=== PATIENT | female | born 1960 | race Caucasian/White ===

== ENCOUNTER 2016-12-07 08:16 | Inpatient (IN) | payer MEDICARE, MEDICAID ==
[~2016-12-07] VITALS: Ht 180.3 cm; Wt 76.4 kg
[2016-12-07] VITALS (11 sets, daily range): BP systolic 139–222; BP diastolic 78–132; PULSE 75–118; RESP 16–20; TEMP 96.5–98.1; O2SAT 93–99
[~2016-12-07 08:16] MED LIST: BABY81CH PO; CHOL4 PO; CIME200T2 PO; CITA20TA4 PO; CONTOUR1 XX; LANTUS2P SC; LISI-363 PO; METO25 PO; MULT1TAB46
[2016-12-07] MEDS ORDERED: LANTUS2P SQ (08:43)
[2016-12-07] MEDS ORDERED: LISI-515 PO (08:43)
[2016-12-07] MEDS ORDERED: METO25TA3 PO (08:43)
[2016-12-07] MEDS ORDERED: MULT-65 PO (08:43)
[2016-12-07] MEDS ORDERED: ASPI81CH CHEW (08:43)
[2016-12-07] MEDS ORDERED: LISINOPRIL 20 MG TAB PO ONE (08:45)
[2016-12-07] MEDS ORDERED: ASPIRIN 81 MG CHEW TAB PO ONE (08:45)
--- NOTE | 2016-12-07 08:45 | PD ---
HPI Chief Complaint: Chest Pain Time Seen by Provider: 08:39 Travel History International Travel<30 days: No Contact w/Intl Traveler<30days: No Traveled to known affect area: No History of Present Illness HPI This is a 56-year-old female with a history of coronary artery disease, CVA, hypertension, hyperlipidemia, diabetes mellitus, who presents today with complaints of intermittent chest pain. She states she's had a couple days of intermittent substernal chest pressure with radiation to her bilateral shoulders. She denies any nausea but reports diaphoresis with the last episode that happened about 2:00 this morning. She does report shortness of breath. She states that this felt similar to when she had her heart attack and had to have stents placed. The patient states that she is not been taking her medication as prescribed because she has lost her patient assistance secondary to her green card expiring. She states she is a [place] citizen and has been unable to qualify for patient assistance secondary to the above. She states that she normally takes lisinopril twice daily and has been only taking it once daily. She states she's not been taking her cholesterol medicine for probably about 3 months. PFSH Past Medical History Hx Anticoagulant Therapy: Yes (baby asa) Autoimmune Disease: No Blood Disorders: No Anxiety: No Depression: Yes Heart Rhythm Problems: No Cancer: No Cardiac Catheterization: Yes Cardiovascular Problems: Yes (stent, DE, htn) High Cholesterol: Yes Chemotherapy: No Chest Pain: Yes Congestive Heart Failure: No Cerebrovascular Accident: Yes Coronary Artery Disease: Yes Diabetes: Yes Diminished Hearing: No Endocrine: Yes Gastrointestinal Disorders: Yes GERD: No Glaucoma: No Genitourinary: No Hepatitis: No Hiatal Hernia: No Hypertension: Yes Immune Disorder: No Musculoskeletal: No Neurologic: No Psychiatric: No Reproductive: No Respiratory: No Immunizations Current: Yes Migraines: No Myocardial Infarction: No Radiation Therapy: No Seizures: No Thyroid Disease: No Ulcer: No ?: Not LMP: 09/2011 Menopausal: Yes : 5 Para: 4 Miscarriage: 1 : 0 Past Surgical History Abdominal Surgery: No AICD: No Appendectomy: No Arteriovenous Shunt: No Cardiac Surgery: No Cholecystectomy: No Coronary Stent: Yes Ear Surgery: No Endocrine Surgery: No Eye Surgery: No Genitourinary Surgery: No Insulin Pump: No Joint Replacement: No Oral Surgery: Yes (T&A) Pacemaker: No Thoracic Surgery: No Tonsillectomy: Yes Other Surgery: Yes Social History Alcohol Use: No Tobacco Use: Yes Substance Use: No Allergies-Medications (Allergen,Severity, Reaction): Coded Allergies: Lipitor (Verified Allergy, Mild, Hives, 12/07/16) Reported Meds & Prescriptions Reported Meds & Active Scripts Active Reported Lantus Inj (Insulin Glargine) 1,000 Unit/10 Ml Vial 35 Units SQ HS Multi-Vitamin Daily (Multiple Vitamin) 1 Tab Tab 1 Tab PO DAILY Metoprolol Tartrate 25 Mg Tab 25 Mg PO DAILY Lisinopril 20 Mg Tab 20 Mg PO DAILY Aspirin 81 Mg Chew 81 Mg CHEW BID Review of Systems Except as stated in HPI: all other systems reviewed are Neg General / Constitutional: No: Fever, Chills HENT: No: Headaches Cardiovascular: Positive: Chest Pain or Discomfort, No: Palpitations Respiratory: Positive: Shortness of Breath, No: Cough Gastrointestinal: No: Nausea, Vomiting, Abdominal Pain Musculoskeletal: Positive: Pain (chest pressure radiating to her shoulders), No: Weakness Neurologic: No: Weakness, Dizziness, Headache Physical Exam Narrative GENERAL: Well-nourished, well-developed patient. SKIN: Focused skin assessment warm/dry. HEAD: Normocephalic/atraumatic. EYES: No scleral icterus. No injection or drainage. NECK: Supple, trachea midline. No JVD or lymphadenopathy. CARDIOVASCULAR: Regular rate and rhythm without murmurs, gallops, or rubs. RESPIRATORY: Breath sounds equal bilaterally. No accessory muscle use. GASTROINTESTINAL: Abdomen soft, non-tender, nondistended. MUSCULOSKELETAL: No cyanosis, or edema. NEUROLOGICAL: Awake and alert. Cranial nerves II through XII intact. Motor grossly within normal limits. Five out of 5 muscle strength in all muscle groups. Normal speech. Data Data Last Documented VS Vital Signs Date Time Temp Pulse Resp B/P Pulse Ox O2 Delivery O2 Flow Rate FiO2 12/07/16 10:01 79 16 179/87 98 12/07/16 09:40 Nasal Cannula 2 12/07/16 08:18 97.8 Orders Electrocardiogram (12/07/16 08:39) Basic Metabolic Panel (Bmp) (12/07/16 08:39) Ckmb (Isoenzyme) Profile (12/07/16 08:39) Complete Blood Count With Diff (12/07/16 08:39) Magnesium (Mg) (12/07/16 08:39) Prothrombin Time / Inr (Pt) (12/07/16 08:39) Act Partial Throm Time (Ptt) (12/07/16 08:39) Troponin I (12/07/16 08:39) Chest, Single Ap (12/07/16 08:39) Ecg Monitoring (12/07/16 08:39) Bilateral Bp Monitoring (12/07/16 08:39) Iv Access Insert/Monitor (12/07/16 08:39) Oximetry (12/07/16 08:39) Oxygen Administration (12/07/16 08:39) Aspirin Chew (Aspirin Chew) (12/07/16 08:45) Sodium Chloride 0.9% Flush (Ns Flush) (12/07/16 08:45) Lisinopril (Prinivil) (12/07/16 08:45) Admit Order (Ed Use Only) (12/07/16 10:06) Labs Laboratory Tests Test 12/07/16 08:50 White Blood Count 9.6 TH/MM3 Red Blood Count 5.27 MIL/MM3 Hemoglobin 16.1 GM/DL Hematocrit 46.4 % Mean Corpuscular Volume 88.0 FL Mean Corpuscular Hemoglobin 30.5 PG Mean Corpuscular Hemoglobin 34.7 % Concent Red Cell Distribution Width 12.8 % Platelet Count 265 TH/MM3 Mean Platelet Volume 8.4 FL Neutrophils (%) (Auto) 72.8 % Lymphocytes (%) (Auto) 19.8 % Monocytes (%) (Auto) 5.9 % Eosinophils (%) (Auto) 0.6 % Basophils (%) (Auto) 0.9 % Neutrophils # (Auto) 7.0 TH/MM3 Lymphocytes # (Auto) 1.9 TH/MM3 Monocytes # (Auto) 0.6 TH/MM3 Eosinophils # (Auto) 0.1 TH/MM3 Basophils # (Auto) 0.1 TH/MM3 CBC Comment DIFF FINAL Differential Comment Prothrombin Time 11.2 SEC Prothromb Time International 1.0 RATIO Ratio Activated Partial 27.9 SEC Thromboplast Time Sodium Level 137 MEQ/L Potassium Level 4.1 MEQ/L Chloride Level 106 MEQ/L Carbon Dioxide Level 22.0 MEQ/L Anion Gap 9 MEQ/L Blood Urea Nitrogen 11 MG/DL Creatinine 0.66 MG/DL Estimat Glomerular Filtration 93 ML/MIN Rate Random Glucose 228 MG/DL Calcium Level 9.3 MG/DL Magnesium Level 1.9 MG/DL Total Creatine Kinase 70 U/L Troponin I LESS THAN 0.02 NG/ML MDM Medical Decision Making Medical Screen Exam Complete: Yes Emergency Medical Condition: Yes Differential Diagnosis ACS versus optic ulcer disease versus musculoskeletal pain versus anginal equivalent Narrative Course 56-year-old female presents with chest pain. The patient has a history of hypertension, hyperlipidemia, diabetes mellitus. The patient's been out of some of her medications and has been having her blood pressure medicines. The patient's blood pressure was elevated here. She's been given lisinopril 20 mg which she takes at home. Her pressures coming down nicely. Isn't in the 170s over 80s now. EKG shows no acute ST elevation. There is questionable depression in the inferior leads. Cardiac enzymes are within normal limits. She'll be transferred to the chest pain center for rule out protocol. She has been told to stop smoking as this can contribute to her heart disease and other diseases. Diagnosis Primary Impression: Chest pain Additional Impressions: Diabetes mellitus type 2 in nonobese HLD (hyperlipidemia) Tobacco abuse Hypertension Francois Magaña MD Dec 07, 2016 08:45
[2016-12-07] MEDS: SODIUM CHLORIDE 0.9% FLUSH 10 ML FLUSH IVF PRN ×2 (09:00→09:06)
--- NOTE | 2016-12-07 09:08 | RADRPT ---
EXAM DATE/TIME: 12/07/2016 08:47 [facility] COMPARISON: CHEST SINGLE AP, August 06, 2015, 21:21. INDICATIONS : Chest pain. MEDICAL HISTORY : Hypertension. Diabetes mellitus type II. Smoker. SURGICAL HISTORY : Coronary artery stent. ENCOUNTER: Initial ACUITY: 1 week PAIN SCORE: 8/10 LOCATION: Bilateral upper chest FINDINGS: A single view of the chest demonstrates the lungs to be symmetrically aerated without evidence of mas s, infiltrate or effusion. The cardiomediastinal contours are unremarkable. Osseous structures are intact. CONCLUSION: No acute disease. Gurmeet Kraus MD on December 07, 2016 at 9:05 Board Certified Radiologist. This report was verified electronically.
[2016-12-07 09:09] LABS: BASOPHIL # 0.1 TH/MM3 (0-0.2); BASOPHIL % 0.9 % (0.0-2.0); EOSINOPHIL # 0.1 TH/MM3 (0-0.4); EOSINOPHIL % 0.6 % (0.0-4.0); HEMATOCRIT 46.4 % (35.0-46.0); HEMO FLAGS DIFF FINAL; LYMPH % 19.8 % (9.0-44.0); LYMPHOCYTE # 1.9 TH/MM3 (1.0-4.8); MEAN CORPUSCULAR HEMOGLOBIN 30.5 PG (27.0-34.0); MEAN CORPUSCULAR HGB CONC 34.7 % (32.0-36.0); MONO % 5.9 % (0.0-8.0); NEUT % 72.8 % (16.0-70.0); PLATELET COUNT 265 TH/MM3 (150-450); RED BLOOD COUNT 5.27 MIL/MM3 (4.00-5.30); RED CELL DISTRIBUTION WIDTH 12.8 % (11.6-17.2); WHITE BLOOD COUNT 9.6 TH/MM3 (4.0-11.0)
[2016-12-07 09:16] LABS: APTT (PATIENT) 27.9 SEC (24.3-30.1); PROTHROMBIN TIME - PATIENT 11.2 SEC (9.8-11.6)
[2016-12-07 09:32] LABS: ANION GAP 9 MEQ/L (5-15); BLOOD UREA NITROGEN 11 MG/DL (7-18); CHLORIDE 106 MEQ/L (98-107); GLOMERULAR FILTRATION RATE 93 ML/MIN (>89); MAGNESIUM 1.9 MG/DL (1.5-2.5); POTASSIUM 4.1 MEQ/L (3.5-5.1); SODIUM (NA) 137 MEQ/L (136-145)
[2016-12-07 09:35] LABS: CREATINE KINASE 70 U/L (26-192)
[2016-12-07] MEDS ORDERED: SODIUM CHLORIDE 0.9% FLUSH 5 ML FLUSH IVF PRN (11:00)
[2016-12-07] MEDS ORDERED: ONDANSETRON HCL 4 MG/2 ML VIAL IV PRN (11:00)
[2016-12-07] MEDS ORDERED: ACETAMINOPHEN/HYDROcodone 325 MG/7.5 MG TAB PO PRN (11:00)
--- NOTE | 2016-12-07 11:12 | HHI.HP ---
HPI Primary Care Physician No Primary Care Physician Chief Complaint Chest pain History of Present Illness This is a 56-year-old female that presents to ED via private vehicle with history of CAD with a stent in 2010 to the LAD with a complaint of chest discomfort. She has had intermittent tightness across chest for the past week. She states it is not exertional and then elaborates that she does nothing strenuous. The symptoms will last usually 3 or 4 minutes however discomfort that woke her up this morning around 1:00 lasted between 5-10 minutes. She gets short of breath with her symptoms as well as very diaphoretic. No nausea. She states it does feel similar to when she her stenting 2010. Denies recent illnesses. Denies fevers or chills. Patient states she has no insurance and her green card and she no longer has access to the [facility]. Since then she has not been taking her lisinopril as instructed and has not been taking metoprolol. She is taking nothing to manage her lipids stating that statins give her hives. Patient continues to smoke cigarettes. Review of Systems General: Patient denies fevers, chills recent, and recent travel HEENT: Patient denies headache, sore throat, difficulty swallowing. Cardiovascular: Has the chest discomfort as mentioned above. Denies sensation of heart beating rapidly or irregularly. No syncope. Complained of diaphoresis. Respiratory: She has been short of breath. Denies inspirational chest discomfort. Denies coughing wheezing or hemoptysis. GI: Patient denies nausea, vomiting, diarrhea, abdominal pain, bloody stools. Musculoskeletal: Complains of chronic right hip pain. Patient denies joint edema. Denies calf pain or edema. Neurovascular: Patient denies numbness, tingling, weakness in extremities. Denies headache. Endocrine: Denies polyuria and polydipsia. Hematologic: Denies easy bruising. Skin: Denies rash or itching. Past Family Social History Allergies: Coded Allergies: Lipitor (Verified Allergy, Mild, Hives, 12/07/16) Past Medical History CAD with stenting of LAD in 2010. Hypertension, hyperlipidemia, diabetes, and tobacco abuse. Past Surgical History Cardiac catheterization with stenting in 2010. Tonsillectomy. Reported Medications Reported Meds & Active Scripts Active Reported Lantus Inj (Insulin Glargine) 1,000 Unit/10 Ml Vial 35 Units SQ HS Multi-Vitamin Daily (Multiple Vitamin) 1 Tab Tab 1 Tab PO DAILY Metoprolol Tartrate 25 Mg Tab 25 Mg PO DAILY Lisinopril 20 Mg Tab 20 Mg PO BID Aspirin 81 Mg Chew 81 Mg CHEW BID Active Ordered Medications Current Medications Medications (Trade) Dose Ordered Sig/Uri Route Start Time Stop Time Status Last Admin (NS Flush) 2 ml UNSCH PRN IVF 12/07/16 11:00 UNV (NS Flush) 2 ml BID IVF 12/07/16 21:00 UNV (Tylenol) 500 mg Q4H PRN PO 12/07/16 11:00 UNV ([place] 7.5-325 Mg) 1 tab Q4H PRN PO 12/07/16 11:00 UNV (Zofran Inj) 4 mg Q6H PRN IV 12/07/16 11:00 UNV (Protonix) 40 mg DAILY PO 12/07/16 11:00 UNV (Lopressor) 25 mg Q12H PO 12/07/16 11:00 UNV (Aspirin) 325 mg DAILY PO 12/08/16 09:00 UNV (Xanax) 0.25 mg Q8H PRN PO 12/07/16 11:00 UNV Family History There is family history of CAD. Social History Patient continues to smoke 1 pack of service daily for 38 years. She smokes marijuana daily. Denies alcohol use. Physical Exam Vital Signs Vital Signs Date Time Temp Pulse Resp B/P Pulse Ox O2 Delivery O2 Flow Rate FiO2 12/07/16 10:11 99 12/07/16 10:01 79 16 179/87 98 12/07/16 09:40 16 99 Nasal Cannula 2 12/07/16 09:40 99 12/07/16 08:28 99 16 195/107 95 12/07/16 08:18 97.8 118 16 222/132 98 12/07/16 08:18 217/112 Physical Exam GENERAL: This is a well-nourished, well-developed patient, in no apparent distress. Patient speaks in clear complete sentences. Patient is pleasant. HEENT: Head is atraumatic and normocephalic. Neck is supple without lymphadenopathy and trachea is midline. No JVD or carotid bruits. CARDIOVASCULAR: Regular rate and rhythm without murmurs, gallops, or rubs. RESPIRATORY: Clear to auscultation. Breath sounds equal bilaterally. No wheezes , rales, or rhonchi. Chest wall is nontender. No use of accessory muscles. GASTROINTESTINAL: Abdomen is nontender, nondistended. Abdomen soft. No obvious pulsatile mass or bruit. No CVA tenderness. Strong femoral pulses bilaterally. Normal bowel sounds in all quadrants. MUSCULOSKELETAL: Patient is moving upper and lower extremities freely. No calf tenderness or edema, no Homans sign. Strong pulses in upper and lower extremities. NEUROLOGICAL: Patient is alert and oriented. Cranial nerves 2-12 are grossly intact. No focal deficits and speech is clear. SKIN: No rash and turgor is normal. Laboratory Laboratory Tests Test 12/07/16 08:50 White Blood Count 9.6 Red Blood Count 5.27 Hemoglobin 16.1 Hematocrit 46.4 Mean Corpuscular Volume 88.0 Mean Corpuscular Hemoglobin 30.5 Mean Corpuscular Hemoglobin 34.7 Concent Red Cell Distribution Width 12.8 Platelet Count 265 Mean Platelet Volume 8.4 Neutrophils (%) (Auto) 72.8 Lymphocytes (%) (Auto) 19.8 Monocytes (%) (Auto) 5.9 Eosinophils (%) (Auto) 0.6 Basophils (%) (Auto) 0.9 Neutrophils # (Auto) 7.0 Lymphocytes # (Auto) 1.9 Monocytes # (Auto) 0.6 Eosinophils # (Auto) 0.1 Basophils # (Auto) 0.1 CBC Comment DIFF FINAL Differential Comment Prothrombin Time 11.2 Prothromb Time International 1.0 Ratio Activated Partial 27.9 Thromboplast Time Sodium Level 137 Potassium Level 4.1 Chloride Level 106 Carbon Dioxide Level 22.0 Anion Gap 9 Blood Urea Nitrogen 11 Creatinine 0.66 Estimat Glomerular Filtration 93 Rate Random Glucose 228 Calcium Level 9.3 Magnesium Level 1.9 Total Creatine Kinase 70 Troponin I LESS THAN 0.02 Result Diagram: 12/07/16 0850 12/07/16 0850 Imaging Last Impressions Chest X-Ray 12/07/16 0839 Signed Impressions: Service Date/Time: December 08:47 - CONCLUSION: No acute disease. Gurmeet Kraus MD Course Initial EKG has sinus rhythm with inferolateral ST-T changes. Assessment and Plan Assessment and Plan * Chest pain: Patient will continue to have serial cardiac enzymes and EKGs for ruling out purposes. She will be seen by Dr. Guero Pierre of cardiology in the chest pain center. States she would have a difficult time going on the treadmill with her chronic right hip issues. She likely will proceed with a Lexiscan in the morning if she rules out and this will be performed tomorrow as she has had caffeine this morning. Patient would be discharged home if her stress test were to be nonischemic. She is to make arrangements to follow-up with primary care physician as well as cardiology. * Hypertension: We'll continue lisinopril 20 mg twice a day as well as metoprolol. Her blood pressure was elevated in the ED upon arrival but she had not been taking her medications as instructed. * Hyperlipidemia: Patient when he discussed with her PCP. States she cannot tolerate statins. * Diabetes: We'll have sliding scale coverage. She will be on a diabetic diet. * Tobacco abuse: Patient has been counseled on the importance of smoking cessation. Patient is stable at this time. She is agreeable to this plan. Xavi Virgen Dec 07, 2016 11:12
[2016-12-07] MEDS: METOPROLOL TARTRATE 25 MG TAB PO SCH ×2 (11:35→23:13)
[2016-12-07] MEDS: PANTOPRAZOLE SOD 40 MG DELAYED RELEASE TAB PO SCH (11:35)
[2016-12-07] MEDS ORDERED: DEXTROSE 50% IN WATER 50 ML VIAL(D50) IV PRN (12:00)
[2016-12-07] MEDS ORDERED: GLUCAGON 1 MG/ML VIAL IM/SQ PRN (12:00)
[2016-12-07] MEDS ORDERED: METOPROLOL TARTRATE 25 MG TAB PO SCH (12:15)
[2016-12-07] MEDS ORDERED: RESP: ALBUTEROL 2.5 MG/IPRATROPIUM 0.5 MG NEB (PRN) INH (12:15)
[2016-12-07] MEDS ORDERED: cloNIDine HCL 0.1 MG TAB PO PRN (12:15)
--- NOTE | 2016-12-07 12:44 | EKG ---
Date Performed: 12/07/2016 Time Performed: 08:31:46 PTAGE: 56 years EKG: Sinus rhythm POSSIBLE LEFT ATRIAL ENLARGEMENT NONSPECIFIC ST & T-WAVE ABNORMALITY BORDERLINE ECG NO PREVIOUS TRACING DOCTOR: Rudi Noble Interpretating Date/Time 12/07/2016 12:41:14
[2016-12-07 16:17] LABS: CREATINE KINASE 55 U/L (26-192)
[2016-12-07] MEDS: INSULIN ASPART SUPPLEMENTAL SCALE SQ SCH ×2 (18:47→23:13)
[2016-12-07] MEDS: SODIUM CHLORIDE 0.9% FLUSH 5 ML FLUSH IVF SCH (21:00)
[2016-12-07] MEDS: ALPRAZolam 0.25 MG TAB PO PRN (23:13)
[2016-12-07] MEDS: LISINOPRIL 20 MG TAB PO SCH (23:13)
[2016-12-08] VITALS (19 sets, daily range): BP systolic 106–150; BP diastolic 64–90; PULSE 66–90; RESP 16–20; TEMP 96.3–98; O2SAT 95–98
[2016-12-08] MEDS: INSULIN ASPART SUPPLEMENTAL SCALE SQ SCH ×4 (06:28→20:23)
[2016-12-08] MEDS: PANTOPRAZOLE SOD 40 MG DELAYED RELEASE TAB PO SCH (08:01)
[2016-12-08] MEDS: ALPRAZolam 0.25 MG TAB PO PRN ×2 (08:01→20:08)
[2016-12-08] MEDS: METOPROLOL TARTRATE 25 MG TAB PO SCH ×2 (08:01→20:08)
[2016-12-08] MEDS: MULTIVITAMIN TAB PO SCH (08:01)
[2016-12-08] MEDS: ASPIRIN 325 MG TAB PO SCH (08:01)
[2016-12-08] MEDS: LISINOPRIL 20 MG TAB PO SCH ×2 (08:01→20:08)
[2016-12-08] MEDS: SODIUM CHLORIDE 0.9% FLUSH 5 ML FLUSH IVF SCH ×2 (08:09→20:09)
[2016-12-08] MEDS ORDERED: REGADENOSON INJ 0.4 MG/5 ML SYR ONE (09:13)
--- NOTE | 2016-12-08 10:33 | RADRPT ---
EXAM DATE/TIME: 12/08/2016 08:44 [facility] COMPARISON: No previous studies available for comparison. INDICATIONS : Mid chest pain with shortness of breath for one week. Angina. Coronary artery disease. DOSE: 25.4 mCi Tc99m Myoview at stress. 8.5 mCi Tc99m Myoview at rest. 0.4 mg Lexiscan STRESS SYMPTOMS: Nausea. EJECTION FRACTION: 65% MEDICAL HISTORY : Hypertension. Diabetes mellitus type 2. SURGICAL HISTORY : Tonsillectomy. Coronary artery stent. ENCOUNTER: Initial ACUITY: 1 week PAIN SCALE: 8/10 LOCATION: Midsternal chest TECHNIQUE: The patient underwent pharmacologic stress with infusion of prescribed dose. Continuous ECG tracing was monitored during stress. Gated SPECT imaging was performed after stress and conventional SPECT i maging was performed at rest. The examination was performed on a SPECT/CT scanner, both attenuation and non-corrected datasets were reviewed. FINDINGS: DISTRIBUTION: The maximum perfused segment at stress is in the anterolateral wall. PERFUSION STUDY: There is moderately diminished relative perfusion to the cardiac apex and at least mild-moderate redi stribution present. GATED STUDY: There is intact wall motion and thickening without hypokinetic or dyskinetic segments. CONCLUSION: Moderate sized moderate severity reversible apical perfusion abnormality. RISK CATEGORY: Intermediate (1-3% Annual Mortality Rate) Gurmeet Kraus MD on December 08, 2016 at 10:28 Board Certified Radiologist. This report was verified electronically.
--- NOTE | 2016-12-08 12:54 | HHI.HP ---
HPI Service Interventional Cardiology Primary Care Physician No Primary Care Physician Chief Complaint Chest pain History of Present Illness 56 y/o F with pmhx significant for CAD s/p PCI in the setting of ID, HTN, DM and smoker presents with substernal chest pain and diaphoresis. EKG with nonspecific ST changes. Cardiac enzymes negative x3. MPI shows a moderate size reversible defect in the anterior wall. Interventional Cardiology has been consulted for further management and evaluation. Review of Systems Consitutional: DENIES: Fatigue, Fever, Chills, Weight gain, Weight loss Eyes: DENIES: Amaurosis Fugax, Change in vision HEENT: DENIES: Lightheadedness, Change in hearing Respiratory: DENIES: See HPI, Cough, Snoring, Shortness of breath, Wheezing, Sputum production Cardiovascular: DENIES: See HPI, Chest pain, Palpitations, Syncope, Tachycardia Gastrointestinal: DENIES: Nausea, Vomiting, Change in bowel habits, Reflux, Bloody stools, Melena Genitourinary: DENIES: Urinary incontinence, Difficulty voiding Integumentary: DENIES: Rash Neurologic: DENIES: Tingling or numbness, Memory problems, Poor Balance, Stroke symptoms Musculoskeletal: DENIES: Joint pain, Muscle pain, Limited range of motion, Back pain Psychiatric: DENIES: Anxiety, Depression, Sleep disturbances Hematologic: DENIES: Bruising tendencies, Bleeding tendencies Endocrine: DENIES: Weight gain, Weight loss, Thyroid disease Past Family Social History Allergies: Coded Allergies: Lipitor (Verified Allergy, Mild, Hives, 12/07/16) Past Medical History HTN DM HLD CAD Past Surgical History PCI to LAD in 2010 Reported Medications Reported Meds & Active Scripts Active Reported Lantus Inj (Insulin Glargine) 1,000 Unit/10 Ml Vial 35 Units SQ HS Multi-Vitamin Daily (Multiple Vitamin) 1 Tab Tab 1 Tab PO DAILY Metoprolol Tartrate 25 Mg Tab 25 Mg PO DAILY Lisinopril 20 Mg Tab 20 Mg PO BID Aspirin 81 Mg Chew 81 Mg CHEW BID Active Ordered Medications Current Medications Medications (Trade) Dose Ordered Sig/Uri Route Start Time Stop Time Status Last Admin (NS Flush) 2 ml UNSCH PRN IVF 12/07/16 11:00 (NS Flush) 2 ml BID IVF 12/07/16 21:00 12/07/16 21:00 (Tylenol) 500 mg Q4H PRN PO 12/07/16 11:00 ([place] 7.5-325 Mg) 1 tab Q4H PRN PO 12/07/16 11:00 (Zofran Inj) 4 mg Q6H PRN IV 12/07/16 11:00 (Protonix) 40 mg DAILY PO 12/07/16 11:00 12/08/16 08:01 (Lopressor) 25 mg Q12HR PO 12/07/16 11:00 12/08/16 08:01 (Aspirin) 325 mg DAILY PO 12/08/16 09:00 12/08/16 08:01 (Xanax) 0.25 mg Q8H PRN PO 12/07/16 11:00 12/08/16 08:01 (D50w (Vial) Inj) 25 ml UNSCH PRN IV 12/07/16 12:00 (Glucagon Inj) 1 mg UNSCH PRN IM/SQ 12/07/16 12:00 (Prinivil) 20 mg BID PO 12/07/16 21:00 12/08/16 08:01 (Theragran) 1 tab DAILY PO 12/08/16 09:00 12/08/16 08:01 (Catapres) 0.1 mg Q4H PRN PO 12/07/16 12:15 Social History Smoker Social alcohol Denies Illicit drug use Physical Exam Vital Signs Vital Signs Date Time Temp Pulse Resp B/P Pulse Ox O2 Delivery O2 Flow Rate FiO2 12/08/16 12:00 96.3 83 20 140/72 96 12/08/16 11:54 81 12/08/16 08:03 90 18 132/90 96 12/08/16 04:39 75 20 138/72 95 12/08/16 04:01 66 12/08/16 00:03 80 12/08/16 00:01 97.9 75 20 116/64 95 12/07/16 20:16 76 12/07/16 20:00 93 12/07/16 19:43 82 12/07/16 19:41 98.1 75 20 164/78 95 12/07/16 16:00 98.0 80 16 139/82 96 Physical Exam GENERAL: Well-nourished, well-developed patient. SKIN: Warm and dry. HEAD: Normocephalic. EYES: No scleral icterus. No injection or drainage. NECK: Supple, trachea midline. No JVD or lymphadenopathy. CARDIOVASCULAR: Regular rate and rhythm without murmurs, gallops, or rubs. RESPIRATORY: Breath sounds equal bilaterally. No accessory muscle use. GASTROINTESTINAL: Abdomen soft, non-tender, nondistended. EXTREMITIES: No cyanosis, or edema. NEUROLOGICAL: Awake, alert, and oriented x 3. Non-focal. Laboratory Laboratory Tests Test 12/07/16 14:55 Total Creatine Kinase 55 Troponin I LESS THAN 0.02 Result Diagram: 12/07/16 0850 12/07/16 0850 Imaging Last Impressions Myocardial Perfusion Scan Nuc Med 12/08/16 0000 Signed Impressions: Service Date/Time: Thursday, December 08, 2016 08:44 - CONCLUSION: Moderate sized moderate severity reversible apical perfusion abnormality. RISK CATEGORY: Intermediate (1-3%% Annual Mortality Rate) Gurmeet Kraus MD Chest X-Ray 12/07/16 0839 Signed Impressions: Service Date/Time: December 08:47 - CONCLUSION: No acute disease. Gurmeet Kraus MD Assessment and Plan Problem List: (1) Chest pain Assessment and Plan: 56 y/o F with known CAD admitted with complaints of typical angina. MPI positive for ischemia. Hemodynamically stable, chest pain free. Recommend LHC/ PCI to further assess progression of CAD. Risk benefits of LHC/intervention including but not limited to neurovascular trauma, bleeding , infection, emergent CABG, stroke and explain to patient. Patient understands risk and with willing to proceed. In case PCI is needed she also understand she needs to be compliance with DAPT to prevent stent thrombosis. Plan: -Keep NPO -LHC/PCI today -Right groin 5Fr sheath, JL4 and JR 4 -Continue aggressive medical management for secondary prevention of CAD -Smoking cessation (2) Hypertension (3) Tobacco abuse (4) Diabetes mellitus type 2 in nonobese (5) HLD (hyperlipidemia) Candelario Velarde MD Dec 08, 2016 12:54
--- NOTE | 2016-12-08 13:17 | HHI.HP ---
[facility] Service [facility] Primary Care Physician No Primary Care Physician Admission Diagnosis chest pain, hypertension, hyperlipedmia, diabetes mellitus Diagnoses: (1) Chest pain Diagnosis: Principal (2) Hypertension (3) Hyperlipidemia (4) Diabetes mellitus (5) Abnormal cardiovascular stress test (6) Coronary artery disease Chief Complaint: Chest pain Travel History International Travel<30 Days: No Contact w/Intl Traveler <30 Da: No Traveled to Known Affected Are: No History of Present Illness The patient is a 56-year-old female with known history of coronary artery disease who presented to the emergency department with complaint of chest pain that started yesterday morning and awakened her from sleep. The pain lasted about 5 minutes and then resolved. She reported associated dyspnea and diaphoresis. No nausea or vomiting. She has had chills recently, but no fever or night sweats. She has not been taking her medications recently as her insurance . She has had problems in the past with statins, which have caused hives. She just returned from cardiac catheterization. No current chest pain. Review of Systems Constitutional: COMPLAINS OF: Chills, DENIES: Fever, Night Sweats Eyes: DENIES: Blurred vision, Vision loss Ears, nose, mouth, throat: DENIES: Hearing loss Respiratory: COMPLAINS OF: Cough, Shortness of breath, DENIES: Wheezing, Sputum production Cardiovascular: COMPLAINS OF: Chest pain, DENIES: Palpitations, Dyspnea on Exertion, Lower Extremity Edema Gastrointestinal: DENIES: Abdominal pain, Constipation, Diarrhea, Nausea, Vomiting Genitourinary: DENIES: Urinary frequency, Urinary incontinence, Urgency, Hematuria, Dysuria, Nocturia Musculoskeletal: DENIES: Joint pain, Muscle aches Integumentary: DENIES: Pruritus, Rash Hematologic/lymphatic: DENIES: Bruising Neurologic: DENIES: Headache Past Family Social History Past Medical History Coronary artery disease Hypertension Hyperlipidemia Diabetes mellitus Past Surgical History Tonsils and adenoids Cardiac catheterization with coronary artery stenting Reported Medications Patient has not been taking her medications recently. Lantus Inj (Insulin Glargine) 1,000 Unit/10 Ml Vial 35 Units SQ HS Multi-Vitamin Daily (Multiple Vitamin) 1 Tab Tab 1 Tab PO DAILY Metoprolol Tartrate 25 Mg Tab 25 Mg PO DAILY Lisinopril 20 Mg Tab 20 Mg PO BID Aspirin 81 Mg Chew 81 Mg CHEW BID Allergies: Coded Allergies: Lipitor (Verified Allergy, Mild, Hives, 12/07/16) Family History Heart disease Social History Patient has smoked one pack per day for 36 years. Reports occasional marijuana use. Denies alcohol use. Denies IV drug use. Physical Exam Vital Signs Vital Signs Date Time Temp Pulse Resp B/P Pulse Ox O2 Delivery O2 Flow Rate FiO2 12/08/16 12:00 96.3 83 20 140/72 96 12/08/16 11:54 81 12/08/16 08:03 90 18 132/90 96 12/08/16 04:39 75 20 138/72 95 12/08/16 04:01 66 12/08/16 00:03 80 12/08/16 00:01 97.9 75 20 116/64 95 12/07/16 20:16 76 12/07/16 20:00 93 12/07/16 19:43 82 12/07/16 19:41 98.1 75 20 164/78 95 12/07/16 16:00 98.0 80 16 139/82 96 Physical Exam GENERAL: Well-nourished, well-developed female in no acute distress. HEENT: Normocephalic, atraumatic. Pupils equal, round and reactive. Extraocular movements intact. No scleral icterus. No injection or drainage. Oropharynx is clear. Mucous membranes are moist. CARDIOVASCULAR: Regular rate and rhythm without murmurs, gallops, or rubs. RESPIRATORY: Clear to auscultation. No wheezes, rales, or rhonchi. Breathing is non-labored. GASTROINTESTINAL: Abdomen soft, non-tender, nondistended. EXTREMITIES: No lower extremity edema. No calf tenderness. PSYCH: Alert and oriented x 3. Laboratory Laboratory Tests Test 12/07/16 14:55 Total Creatine Kinase 55 Troponin I LESS THAN 0.02 Result Diagram: 12/07/16 0850 12/07/16 0850 Imaging Last Impressions Myocardial Perfusion Scan Nuc Med 12/08/16 0000 Signed Impressions: Service Date/Time: Thursday, December 08, 2016 08:44 - CONCLUSION: Moderate sized moderate severity reversible apical perfusion abnormality. RISK CATEGORY: Intermediate (1-3%% Annual Mortality Rate) Gurmeet Kraus MD Chest X-Ray 12/07/16 0839 Signed Impressions: Service Date/Time: December 08:47 - CONCLUSION: No acute disease. Gurmeet Kraus MD Assessment and Plan Assessment and Plan 1. Chest pain, coronary artery disease: Patient had an abnormal Lexiscan. Status post cardiac catheterization, which showed significant coronary artery disease. Cardiothoracic surgery has been consulted and the patient is scheduled for CABG on Sunday. Currently chest pain-free. Continue aspirin. Heparin drip. 2. Diabetes mellitus: Monitor Accu-Cheks and cover with sliding scale insulin. The patient is supposed to take Lantus at home. 3. Hypertension: Continue metoprolol, lisinopril. 4. Hyperlipidemia: Patient reports allergy to statins. 5. DVT prophylaxis: Heparin. Seen and discussed with Dr. Alex, cardiothoracic surgery. Dean Olvera MD Dec 08, 2016 13:17
[2016-12-08] MEDS ORDERED: MIDAZOLAM HCL 2 MG/2 ML VIAL ONE (13:25)
[2016-12-08] MEDS ORDERED: HEPARIN-NS/PF INJ 500 ML ONE (13:25)
[2016-12-08] MEDS ORDERED: MISC INFORMATION XX ONE (14:30)
[2016-12-08] MEDS ORDERED: ONDANSETRON HCL 4 MG/2 ML VIAL IV PRN (14:30)
[2016-12-08] MEDS ORDERED: ATROPINE SULFATE 1 MG/ML VIAL IV PRN (14:30)
[2016-12-08 15:12] LABS: MEAN CELL VOLUME 88.1 FL (80.0-100.0); MEAN CORPUSCULAR HEMOGLOBIN 30.4 PG (27.0-34.0); MEAN CORPUSCULAR HGB CONC 34.5 % (32.0-36.0); PLATELET COUNT 262 TH/MM3 (150-450); RED BLOOD COUNT 5.22 MIL/MM3 (4.00-5.30); RED CELL DISTRIBUTION WIDTH 12.8 % (11.6-17.2); REVIEW FLAG FINAL; WHITE BLOOD COUNT 11.9 TH/MM3 (4.0-11.0)
--- NOTE | 2016-12-08 15:19 | TR ---
Date Performed: 12/08/2016 Time Performed: 09:15:58 DOCTOR: Bruce Resendiz DRUG LIST: CLINICAL HISTORY: CHEST PAIN REASON FOR TEST: CHEST PAIN REASON FOR ENDING: OBSERVATION: CONCLUSION: Lexiscan stress test was performed under standard four minute protocol. Radionucl[place] e was injected one minute prior to ending the test. No electrocardiographic abormalities were present to suggest ischemia. Nuclear imaging and interpretation are pending. COMMENTS: [address] depression anterolaterally at end of ECG monitering.
--- NOTE | 2016-12-08 15:22 | EKG ---
Date Performed: 12/07/2016 Time Performed: 15:00:35 PTAGE: 56 years EKG: Sinus rhythm POSSIBLE RIGHT VENTRICULAR CONDUCTION DELAY LEFT VENTRICULAR HYPERTROPHY AND ST-T CHANGE ABNORMAL EC G PREVIOUS TRACING : 12/07/2016 08.31 Since previous tracing, no significant change noted DOCTOR: Bruce Resendiz Interpretating Date/Time 12/08/2016 15:22:21
[2016-12-08 15:26] LABS: APTT (PATIENT) 28.4 SEC (24.3-30.1); PROTHROMBIN TIME - PATIENT 11.5 SEC (9.8-11.6)
[2016-12-08] MEDS ORDERED: IOHEXOL 350 MG/ML 50 ML BTL (for Cath Lab) OTHER ONE (15:27)
--- NOTE | 2016-12-08 15:48 | PD.CAR.PN ---
CVT Progress Note Subjective/Hospital Course: RISK SCORES About the STS Risk Calculator Procedure: CAB Only Risk of Mortality: 0.788% Morbidity or Mortality: 11.055% Long Length of Stay: 5.093% Short Length of Stay: 46.464% Permanent Stroke: 0.701% Prolonged Ventilation: 8.619% DSW Infection: 0.658% Renal Failure: 1.142% Reoperation: 3.602% Objective: Vital Signs Date Time Temp Pulse Resp B/P Pulse Ox O2 Delivery O2 Flow Rate FiO2 12/08/16 14:45 97.0 77 16 122/72 97 12/08/16 14:45 77 12/08/16 12:00 96.3 83 20 140/72 96 12/08/16 11:54 81 12/08/16 08:03 90 18 132/90 96 12/08/16 04:39 75 20 138/72 95 12/08/16 04:01 66 12/08/16 00:03 80 12/08/16 00:01 97.9 75 20 116/64 95 12/07/16 20:16 76 12/07/16 20:00 93 12/07/16 19:43 82 12/07/16 19:41 98.1 75 20 164/78 95 12/07/16 16:00 98.0 80 16 139/82 96 Labs: Laboratory Tests Test 12/08/16 15:06 White Blood Count 11.9 TH/MM3 (4.0-11.0) Red Blood Count 5.22 MIL/MM3 (4.00-5.30) Hemoglobin 15.8 GM/DL (11.6-15.3) Hematocrit 46.0 % (35.0-46.0) Mean Corpuscular Volume 88.1 FL (80.0-100.0) Mean Corpuscular Hemoglobin 30.4 PG (27.0-34.0) Mean Corpuscular Hemoglobin 34.5 % Concent (32.0-36.0) Red Cell Distribution Width 12.8 % (11.6-17.2) Platelet Count 262 TH/MM3 (150-450) Mean Platelet Volume 8.1 FL (7.0-11.0) Prothrombin Time 11.5 SEC (9.8-11.6) Prothromb Time International 1.0 RATIO Ratio Activated Partial 28.4 SEC Thromboplast Time (24.3-30.1) Result Diagram: 12/08/16 1506 12/07/16 0850 Karen Jane [facility] Dec 08, 2016 15:48
[2016-12-08] MEDS: HEPARIN-D5W INJ 250 ML IV SCH (15:54)
[2016-12-08] MEDS ORDERED: CEFAZOLIN INJ 500 MG in SODIUM CHLORIDE 0.9% IRR BTL 500 ML IRRIGATION SCH (17:00)
[2016-12-08] MEDS ORDERED: METOPROLOL TARTRATE 25 MG TAB PO SCH (17:00)
[2016-12-08] MEDS ORDERED: INSULIN REGULAR (IV INFUSION) 100 UNITS in SODIUM CHLORIDE 0.9% INJ 100 ML IV SCH (17:00)
[2016-12-08] MEDS ORDERED: PAPAVERINE INJ 60 MG, NITROGLYCERIN INJ 100 MCG, DILTIAZEM INJ 100 MG in SODIUM CHLORID... IRRIGATION SCH (17:00)
[2016-12-08] MEDS ORDERED: CHLORHEXIDINE GLUCONATE 4% SOLN 120 ML BTL TOPICAL SCH (17:00)
[2016-12-08] MEDS ORDERED: ceFAZolin 2 GM PREMIX 50 ML IV SCH (17:00)
[2016-12-08] MEDS ORDERED: SODIUM CHLORIDE 0.9% FLUSH 10 ML FLUSH IV FLUSH PRN (17:00)
--- NOTE | 2016-12-08 19:55 | MB ---
cc: LING ALEX MD DATE OF CONSULTATION 12/08/16 1960 HISTORY OF PRESENT ILLNESS A 56 year-old female, primary care physician Chandrika Chacko, known history of coronary artery disease with prior stenting to the LAD and prior NM, also prior history of a stroke in 2007 with no residual effects who presented to the emergency room complaining of chest pain that started the day before yesterday, scale at 8/10, mid sternal radiating to both arms associated with shortness of breath and some nausea. She was admitted through the chest pain center, underwent myocardial perfusion scan which showed moderate size, moderate severity reversible apical perfusion abnormality, risk category intermediate 1-3%. She then underwent cardiac cath today by Dr. Candelario Kwong which showed an EF of 60%. The proximal LAD had a 90% lesion, the mid distal LAD had a 90% stenosis. The circ was 99% and the RCA was 99%. We were consulted to evaluate for coronary artery bypass grafting. The patient's risk factors include tobacco abuse, prior NM, diabetes mellitus, hypertension, hyperlipidemia. PAST MEDICAL HISTORY 1. Coronary artery disease 2. Prior NM, 3. Hypertension, 4. Hyperlipidemia, 5. Diabetes mellitus, 6. Prior stroke with no residual effects in 2007 PAST SURGICAL HISTORY 1. Tonsillectomy. 2. Cardiac cath in 2010 with a stent to the LAD. ALLERGIES LIPITOR TRIED MULTIPLE STATINS IN THE PAST WHERE SHE HAS DEVELOPED A RASH. MEDICATIONS At home 1. Lisinopril 20 p.o. b.i.d. 2. Metoprolol 25 daily 3. Lantus 35 units subcu q.h.s. which she has not been taking. 4. Aspirin 81 daily. FAMILY HISTORY Father history unknown, mother , had coronary disease with also a pacemaker. SOCIAL HISTORY The patient , four children, history of smoking for 36 years one-pack per day. No alcohol. No illicit drugs. REVIEW OF SYSTEMS GENERAL: No night sweats, fever, heat and cold intolerance. SKIN: No psoriasis, itching or hives. HEENT: No blurred vision, hearing loss. RESPIRATORY: Positive for shortness of breath. Occasional cough. CARDIOVASCULAR: As above in the HPI. GASTROINTESTINAL: No diarrhea, vomiting. GENITOURINARY:: No burning, frequency, urgency AUDITING CONTROL CLERK: No history of TIA, CVA, seizure disorder. ENDOCRINE: Positive for diabetes. PHYSICAL EXAMINATION VITAL SIGNS: Blood pressure 122/70, heart rate of 80, temperature max 97.0, pulse ox 97. GENERAL: Patient is awake, alert in no acute distress. HEAD: Normocephalic, atraumatic. Pupils equal and reactive. Oral mucosa pink, moist. NECK: Supple. No JVD. CARDIAC: Heart sounds S1-S2, regular rate and rhythm. No rubs, murmurs, gallops. LUNGS: Clear to auscultation. No wheezes, rales or rhonchi. ABDOMEN: Soft, nontender. No masses or organomegaly. EXTREMITIES: No cyanosis, clubbing or edema. LABORATORY DATA Hemoglobin 15, hematocrit of 46, white cell count of 11.9, platelet count 262. Sodium 137, potassium 4.1, BUN of 11, creatinine 0.66, troponin is unremarkable. INR 1.0. IMAGING STUDIES Myocardial perfusion scan as above in the initial HPI. Chest x-ray is unremarkable. CARDIOLOGY STUDIES EKG shows some normal sinus rhythm with some mild ST depression in her lateral leads and some mild LVH. IMPRESSION This is a 56-year-old female with multiple risk factors including continued smoking with multivessel disease with preserved LV function of 60%. Procedures, alternatives and risks have been discussed by Dr. Ling Alex. PLAN Cardiovascular bypass grafting on Sunday. The patient is agreeable. STS data will be discussed with the patient and documented in the electronic record. In the meantime, she has been followed by primary care team to follow and monitor her blood pressure and her diabetes mellitus. Dictated by IKER Dalton MD CHARLIE Franco/ /3:39 PM /12:54 PM
--- NOTE | 2016-12-08 19:55 | MA ---
cc: MORENO HERNANDEZ DATE: 12/08/2016. PROCEDURES PERFORMED: 1. Left heart catheterization. 2. Selective right and left coronary angiography. 3. Left ventriculogram. INDICATIONS FOR THE PROCEDURE: Unstable angina. Positive stress test. DESCRIPTION OF THE PROCEDURE IN DETAIL: Consent signed. The patient was brought into the cardiac laboratory tester in a fasting state. The right groin was prepped and draped in sterile fashion using 1% lidocaine for local anesthesia and a micropuncture kit. A 5-Arabic sheath was inserted into the right common femoral artery. The right common femoral artery angiography was performed to confirm position of the sheath. Then selective right and left coronary angiography was performed with a JR-4 and a JL-4 diagnostic catheter. Angiography was taken in multiple views. The JR-4 catheter was introduced over a wire to the left ventricle followed by pressure recordings, left ventriculogram and pullback. The patient tolerated the procedure well without complications. Estimated blood loss less than 30 mL. Total contrast used was 50 mL. The right groin access site was closed with manual pressure. RESULTS: The left ventricular pressure was 115/1 with a left ventricular end diastolic pressure of 9.The aortic pressure was 105/45 with a mean of 75. Left ventriculography revealed a symmetrically celestina ventricle with an estimated ejection fraction of 50%. ANGIOGRAPHY: 1. The right coronary artery has a proximal 99% lesion proximally in the proximal segment. This system is a codominant system. The posterior descending artery is patent with MIKO III flow. 2. The left main is patent with MIKO III flow. 3. Left anterior descending: He has a proximal stent which has ISR in-stent restenosis in its proximal and distal aspects. This stenosis represents around 70% of the stent. The reminder of the left anterior descending is a transapical vessel in its mid segment. After the first septal there is a long 90 % lesion. The diagonal vessels are patent. 4. The left circumflex artery is diffusely diseased. It has a 99% lesion in its distal segment. That circumflex is also giving blood flow to the PDA. The first OM is patent. CONCLUSIONS: 1. Severe three-vessel coronary artery disease. 2. Preserved left ventricular systolic function. RECOMMENDATIONS: 1. The patient will be consulted CT surgery for CABG 2. Continue aggressive medical management for secondary prevention for CAD with ASA, BB, ACEi and statins 3. Smoking cessation 3. Start a heparin drip 4. PFT's 5. Carotid Ultrasound. MD ANÍBAL Perez/ADRIEN /2:24 PM /7:46 PM ROSALES
[2016-12-08] MEDS: SODIUM CHLORIDE 0.9% FLUSH 10 ML FLUSH IV FLUSH SCH (20:09)
[2016-12-08] MEDS ORDERED: HEPARIN SODIUM - IV 10,000 UNITS/10 ML VIAL IV PRN ×2 (20:30)
[2016-12-08 23:11] LABS: APTT (PATIENT) 28.9 SEC (24.3-30.1)
[2016-12-09] VITALS (24 sets, daily range): BP systolic 115–143; BP diastolic 60–81; PULSE 70–107; RESP 18–20; TEMP 97.9–98.8; O2SAT 95–98
[2016-12-09] MEDS: INSULIN ASPART SUPPLEMENTAL SCALE SQ SCH ×4 (05:43→20:15)
--- NOTE | 2016-12-09 07:56 | PD.CARD.PN ---
Subjective Subjective Remarks no complaints Objective Medications Current Medications Medications (Trade) Dose Ordered Sig/Uri Route Start Time Stop Time Status Last Admin (NS Flush) 2 ml UNSCH PRN IVF 12/07/16 11:00 (NS Flush) 2 ml BID IVF 12/07/16 21:00 12/07/16 21:00 (Tylenol) 500 mg Q4H PRN PO 12/07/16 11:00 ([place] 7.5-325 Mg) 1 tab Q4H PRN PO 12/07/16 11:00 (Zofran Inj) 4 mg Q6H PRN IV 12/07/16 11:00 (Protonix) 40 mg DAILY PO 12/07/16 11:00 12/08/16 08:01 (Lopressor) 25 mg Q12HR PO 12/07/16 11:00 12/08/16 20:08 (Aspirin) 325 mg DAILY PO 12/08/16 09:00 12/08/16 08:01 (Xanax) 0.25 mg Q8H PRN PO 12/07/16 11:00 12/08/16 20:08 (D50w (Vial) Inj) 25 ml UNSCH PRN IV 12/07/16 12:00 (Glucagon Inj) 1 mg UNSCH PRN IM/SQ 12/07/16 12:00 (Prinivil) 20 mg BID PO 12/07/16 21:00 12/08/16 20:08 (Theragran) 1 tab DAILY PO 12/08/16 09:00 12/08/16 08:01 (Catapres) 0.1 mg Q4H PRN PO 12/07/16 12:15 (Atropine Inj) 0.5 mg UNSCH PRN IV 12/08/16 14:30 (Zofran Inj) 4 mg Q4H PRN IV 12/08/16 14:30 (Heparin Inj) 5,000 units UNSCH PRN IV 12/08/16 20:30 Heparin Sodium (Porcine) 2500 units 2,500 units UNSCH PRN IV 12/08/16 20:30 12/09/16 00:47 (Heparin-D5W Inj) 250 ml @ 0 mls/hr TITRATE IV 12/08/16 14:30 12/08/16 15:54 (NS Flush) 2 ml BID IV FLUSH 12/08/16 21:00 12/08/16 20:09 (NS Flush) 2 ml UNSCH PRN IV FLUSH 12/08/16 17:00 (Pneumovax-23 Inj) 25 mcg ONCE ONCE IM 12/09/16 10:00 12/09/16 10:01 (Flu (Quadrivalent) Vaccine Inj) 0.5 ml ONCE ONCE IM 12/09/16 10:00 12/09/16 10:01 Vital Signs / I&O Vital Signs Date Time Temp Pulse Resp B/P Pulse Ox O2 Delivery O2 Flow Rate FiO2 12/09/16 07:00 97 12/09/16 07:00 97.9 84 20 143/73 98 12/09/16 07:00 98 Room Air 12/09/16 06:00 99 12/09/16 05:00 96 12/09/16 04:00 98.5 86 18 116/66 97 12/09/16 04:00 Room Air 12/09/16 04:00 86 12/09/16 03:00 80 12/09/16 02:00 79 12/09/16 01:00 76 12/09/16 00:00 98.3 70 18 119/81 96 12/09/16 00:00 Room Air 12/09/16 00:00 70 12/08/16 23:45 97 12/08/16 23:00 85 12/08/16 22:00 82 12/08/16 21:00 80 12/08/16 20:00 98.0 78 20 146/88 97 12/08/16 20:00 78 12/08/16 18:00 85 12/08/16 17:00 85 16 124/81 98 12/08/16 17:00 80 12/08/16 16:30 80 16 106/64 98 12/08/16 16:00 82 16 138/81 97 12/08/16 16:00 85 12/08/16 15:15 77 16 150/83 96 12/08/16 15:00 85 12/08/16 15:00 80 12/08/16 15:00 77 16 141/77 97 12/08/16 14:45 97.0 77 16 122/72 97 12/08/16 14:45 77 12/08/16 12:00 96.3 83 20 140/72 96 12/08/16 11:54 81 12/08/16 08:03 90 18 132/90 96 I/O 12/08/16 12/08/16 12/08/16 12/09/16 12/09/16 12/09/16 07:00 15:00 23:00 07:00 15:00 23:00 Intake Total 120 ml 400 ml 350 ml Output Total 300 ml 800 ml Balance 120 ml 100 ml -450 ml Intake Oral 120 ml 400 ml 240 ml IV Total 110 ml Output Urine Total 300 ml 800 ml # Voids 1 # Bowel Movements 0 0 Physical Exam GENERAL: Well-nourished, well-developed patient. SKIN: Warm and dry. HEAD: Normocephalic. EYES: No scleral icterus. No injection or drainage. NECK: Supple, trachea midline. No JVD or lymphadenopathy. CARDIOVASCULAR: Regular rate and rhythm without murmurs, gallops, or rubs. RESPIRATORY: Breath sounds equal bilaterally. No accessory muscle use. GASTROINTESTINAL: Abdomen soft, non-tender, nondistended. EXTREMITIES: No cyanosis, or edema. NEUROLOGICAL: Awake, alert, and oriented x 3. Non-focal. Laboratory Laboratory Tests Test 12/08/16 12/08/16 15:06 22:13 White Blood Count 11.9 TH/MM3 Red Blood Count 5.22 MIL/MM3 Hemoglobin 15.8 GM/DL Hematocrit 46.0 % Mean Corpuscular Volume 88.1 FL Mean Corpuscular Hemoglobin 30.4 PG Mean Corpuscular Hemoglobin 34.5 % Concent Red Cell Distribution Width 12.8 % Platelet Count 262 TH/MM3 Mean Platelet Volume 8.1 FL Prothrombin Time 11.5 SEC Prothromb Time International 1.0 RATIO Ratio Activated Partial 28.4 SEC 28.9 SEC Thromboplast Time Imaging Last Impressions Myocardial Perfusion Scan Nuc Med 12/08/16 0000 Signed Impressions: Service Date/Time: Thursday, December 08, 2016 08:44 - CONCLUSION: Moderate sized moderate severity reversible apical perfusion abnormality. RISK CATEGORY: Intermediate (1-3%% Annual Mortality Rate) Gurmeet Kraus MD Chest X-Ray 12/07/16 0839 Signed Impressions: Service Date/Time: December 08:47 - CONCLUSION: No acute disease. Gurmeet Kraus MD Assessment and Plan Problem List: (1) Chest pain Assessment and Plan: Continue aggressive medical management for CAD Schedule for CABG on Sunday (2) Hypertension (3) Tobacco abuse (4) Diabetes mellitus type 2 in nonobese (5) HLD (hyperlipidemia) aCndelario Velarde MD Dec 09, 2016 07:56
[2016-12-09 08:24] LABS: BACTERIA, URINE OCC /hpf; BLOOD, URINE NEG (NEG); GLUCOSE,URINE 1000 mg/dL (NEG); KETONE, URINE 40 mg/dL (NEG); MUCUS URINE FEW /lpf (OCC); NITRITE,URINE NEG (NEG); PH, URINE 5.5 (5.0-8.5); SQUAMOUS EPITHELIAL CELL URINE 3 /hpf (0-5); URINE COLOR YELLOW (YELLW/STRAW)
[2016-12-09 08:26] LABS: COMMENT (UR) CULT NOT INDICATED; CULTURE IF INDICATED CULT NOT INDICATED
[2016-12-09] MEDS: MULTIVITAMIN TAB PO SCH (08:28)
[2016-12-09] MEDS: ASPIRIN 325 MG TAB PO SCH (08:28)
[2016-12-09] MEDS: PANTOPRAZOLE SOD 40 MG DELAYED RELEASE TAB PO SCH (08:28)
[2016-12-09] MEDS: LISINOPRIL 20 MG TAB PO SCH ×2 (08:28→20:06)
[2016-12-09] MEDS: METOPROLOL TARTRATE 25 MG TAB PO SCH ×2 (08:29→20:05)
[2016-12-09] MEDS: SODIUM CHLORIDE 0.9% FLUSH 10 ML FLUSH IV FLUSH SCH ×2 (08:29→20:06)
[2016-12-09] MEDS: SODIUM CHLORIDE 0.9% FLUSH 5 ML FLUSH IVF SCH ×2 (08:29→20:09)
--- NOTE | 2016-12-09 08:34 | HHI.PR ---
Subjective Remarks Follow-up hypertension, diabetes mellitus, coronary artery disease. Patient denies chest pain or dyspnea. No nausea or vomiting. Objective Vitals Vital Signs Date Time Temp Pulse Resp B/P Pulse Ox O2 Delivery O2 Flow Rate FiO2 12/09/16 08:00 106 12/09/16 07:00 97 12/09/16 07:00 97.9 84 20 143/73 98 12/09/16 07:00 98 Room Air 12/09/16 06:00 99 12/09/16 05:00 96 12/09/16 04:00 98.5 86 18 116/66 97 12/09/16 04:00 Room Air 12/09/16 04:00 86 12/09/16 03:00 80 12/09/16 02:00 79 12/09/16 01:00 76 12/09/16 00:00 98.3 70 18 119/81 96 12/09/16 00:00 Room Air 12/09/16 00:00 70 12/08/16 23:45 97 12/08/16 23:00 85 12/08/16 22:00 82 12/08/16 21:00 80 12/08/16 20:00 98.0 78 20 146/88 97 12/08/16 20:00 78 12/08/16 18:00 85 12/08/16 17:00 85 16 124/81 98 12/08/16 17:00 80 12/08/16 16:30 80 16 106/64 98 12/08/16 16:00 82 16 138/81 97 12/08/16 16:00 85 12/08/16 15:15 77 16 150/83 96 12/08/16 15:00 85 12/08/16 15:00 80 12/08/16 15:00 77 16 141/77 97 12/08/16 14:45 97.0 77 16 122/72 97 12/08/16 14:45 77 12/08/16 12:00 96.3 83 20 140/72 96 12/08/16 11:54 81 I/O 12/08/16 12/08/16 12/08/16 12/09/16 12/09/16 12/09/16 07:00 15:00 23:00 07:00 15:00 23:00 Intake Total 120 ml 400 ml 350 ml Output Total 300 ml 800 ml Balance 120 ml 100 ml -450 ml Intake Oral 120 ml 400 ml 240 ml IV Total 110 ml Output Urine Total 300 ml 800 ml # Voids 1 # Bowel Movements 0 0 Result Diagram: 12/08/16 1506 12/07/16 0850 Imaging Last Impressions Myocardial Perfusion Scan Nuc Med 12/08/16 0000 Signed Impressions: Service Date/Time: Thursday, December 08, 2016 08:44 - CONCLUSION: Moderate sized moderate severity reversible apical perfusion abnormality. RISK CATEGORY: Intermediate (1-3%% Annual Mortality Rate) Gurmeet Kraus MD Chest X-Ray 12/07/16 0839 Signed Impressions: Service Date/Time: December 08:47 - CONCLUSION: No acute disease. Gurmeet Kraus MD Objective Remarks General: No acute distress. Heart: Regular rate and rhythm. No murmur. Lungs: Clear to auscultation bilaterally. No wheezes, rales, or rhonchi. Breathing is nonlabored. Abdomen: Soft, nontender, nondistended. Extremities: No lower extremity edema. Psych: Alert and oriented. Procedures 12/08/16 cardiac catheterization Urinary Catheter: No Vascular Central Line Catheter: No A/P Problem List: (1) Chest pain ICD Code: R07.9 Status: Acute (2) Hypertension ICD Code: I10 Status: Chronic (3) Hyperlipidemia ICD Code: E78.5 Status: Chronic (4) Diabetes mellitus ICD Code: E11.9 Status: Chronic (5) Abnormal cardiovascular stress test ICD Code: R94.39 Status: Acute (6) Coronary artery disease ICD Code: I25.10 Status: Chronic Assessment and Plan 1. Chest pain, coronary artery disease: Patient had an abnormal Lexiscan. Status post cardiac catheterization, which showed significant coronary artery disease. Plan for CABG on Sunday. Currently chest pain-free. Continue aspirin. Heparin drip. Appreciate cardiology recommendations. 2. Diabetes mellitus: Monitor Accu-Cheks and cover with sliding scale insulin. The patient is supposed to take Lantus at home. 3. Hypertension: Continue metoprolol, lisinopril. 4. Hyperlipidemia: Patient reports allergy to statins. 5. DVT prophylaxis: Heparin. Dean Olvera MD Dec 09, 2016 08:34
[2016-12-09] MEDS ORDERED: PNEUMOCOCCAL POLYVALENT INJ 25 MCG/0.5 ML SYR IM ONE (10:00)
[2016-12-09] MEDS ORDERED: INFLUENZA VIRUS VACCINE (QUADRIVALENT) 0.5 ML SYR IM ONE (10:00)
[2016-12-09 11:21] LABS: APTT (PATIENT) 44.6 SEC (24.3-30.1)
--- NOTE | 2016-12-09 13:22 | RADRPT ---
EXAM DATE/TIME: 12/09/2016 11:42 [place] COMPARISON: No previous studies available for comparison. INDICATIONS : Pre-Op cardiac surgery. MEDICAL HISTORY : Hypertension. Hypercholesterolemia. Myocardial infarction. Thyroid disease. CVA. Coronary artery dise ase. SURGICAL HISTORY : Tonsillectomy. Cardiac catheterization. Coronary stent. ENCOUNTER: Initial ACUITY: 1 day PAIN SCORE: 0/10 LOCATION: Bilateral legs. TECHNIQUE: Venous ultrasound of the left and right leg was performed from the inguinal ligament to the proximal calf. Real-time, color Doppler and spectral tracing, compression and augmentation techniques were us ed. FINDINGS: RIGHT LEG: There is normal compressibility of the deep venous system from the inguinal region to the proximal ca lf. No echogenic clot is seen in the lumen of the common femoral, femoral, popliteal, and posterior tibial veins. There is a normal response of the venous system to proximal and distal augmentation an d respiration. LEFT LEG: There is normal compressibility of the deep venous system from the inguinal region to the proximal ca lf. No echogenic clot is seen in the lumen of the common femoral, femoral, popliteal, and posterior tibial veins. There is a normal response of the venous system to proximal and distal augmentation an d respiration. CONCLUSION: Normal examination. Karen Schumacher MD on December 09, 2016 at 13:20 Board Certified Radiologist. This report was verified electronically.
--- NOTE | 2016-12-09 13:30 | RADRPT ---
EXAM DATE/TIME: 12/09/2016 12:10 [facility] COMPARISON: No previous studies available for comparison. INDICATIONS : Pre-op cardiac surgery. MEDICAL HISTORY : Myocardial infarction. Hypercholesterolemia. Hypertension. Thyroid disease. CVA . Coronary artery disease. SURGICAL HISTORY : Tonsillectomy. Cardiac catheterization. Coronary stent. ENCOUNTER: Initial ACUITY: 1 day PAIN SCORE: 0/10 LOCATION: Bilateral neck PEAK SYSTOLIC VELOCITIES (cm/sec): ICA/CCA RATIO: Right: 4.9 Left: Unable to visulize flow in ICA ICA: Right: 393 Left: Unable to visulize flow in ICA CCA: Right: 81 Left: 75 ECA: Right: 118 Left: 170 VERTEBRAL: Right: 67 antegrade Left: 34 antegrade Elevated flow velocities and ICA/CCA ratios have been found to correlate with increased degrees of vessel stenosis, calculated as percentage of diameter relative to a normal segment of distal ICA/CCA FINDINGS: The is a significantly abnormal exam and should be correlated with cross-sectional imaging. RIGHT CAROTID: There is a high-grade stenosis identified within the proximal right internal carot id artery with severely elevated velocities and abnormal waveforms identified distal to this region.. The waveforms are consistent with greater than 70% stenosis. LEFT CAROTID: There is normal flow identified within the left common carotid artery and external carotid artery with no identifiable flow identified in the internal carotid artery concerning for com plete thrombosis. VERTEBRAL ARTERIES: Antegrade flow is seen in both vertebral arteries. MISCELLANEOUS: None. 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 The grayscale images of the proximal right int ernal carotid artery are consistent with a high-grade, greater than 70% stenosis. The velocities iden tified throughout the right internal carotid artery are significantly elevated consistent with high-g rade stenosis and waveforms are all abnormal. Recommend correlation with cross-sectional imaging. Karen Schumacher MD on December 09, 2016 at 13:21 Board Certified Radiologist. This report was verified electronically.
--- NOTE | 2016-12-09 13:44 | RADRPT ---
EXAM DATE/TIME: 12/09/2016 11:49 [facility] COMPARISON: No previous studies available for comparison. INDICATIONS : Pre-op cardiac surgery. MEDICAL HISTORY : Hypercholesterolemia. Hypertension. Myocardial infarction. Thyroid disease. CVA. Coronary artery dise ase. SURGICAL HISTORY : Tonsillectomy. Cardiac catheterization. Coronary stent. ENCOUNTER: Initial ACUITY: 1 day PAIN SCORE: 0/10 LOCATION: Bilateral legs. GREATER SAPHENOUS VEIN THIGH: PROXIMAL: Right 3 mm Left 4 mm MID: Right 2 mm Left 2 mm DISTAL: Right 3 mm Left 2 mm CALF: PROXIMAL: Right 2 mm Left 1 mm MID: Right 1 mm Left Non-visualized DISTAL: Right 1 mm Left Non-visualized FINDINGS: The venous system of the lower extremities are patent by color Doppler imaging. Measurements of the leg veins (in mm) are listed above. The optometric technologist notes on ability to measure the left greater saphenous vein within the mid and distal New tube vessel bifurcation and small caliber of th e vessel. CONCLUSION: Venous mapping as noted above. Karen Schumacher MD on December 09, 2016 at 13:40 Board Certified Radiologist. This report was verified electronically.
[2016-12-09] MEDS: HEPARIN-D5W INJ 250 ML IV SCH (15:10)
[2016-12-09] MEDS: ALPRAZolam 0.25 MG TAB PO PRN (20:05)
[2016-12-09] MEDS: INSULIN DETEMIR 100 UNITS/ML VIAL SQ SCH (20:10)
[2016-12-09 21:31] LABS: APTT (PATIENT) 41.6 SEC (24.3-30.1)
[2016-12-10] VITALS (23 sets, daily range): BP systolic 93–154; BP diastolic 57–80; PULSE 71–121; RESP 18–20; TEMP 98–98.5; O2SAT 96–99
[2016-12-10 05:34] LABS: BETA HCG QUANT 1 MIU/ML (0-5)
[2016-12-10 05:35] LABS: APTT (PATIENT) 48.5 SEC (24.3-30.1)
[2016-12-10] MEDS: INSULIN ASPART SUPPLEMENTAL SCALE SQ SCH ×4 (06:08→20:25)
[2016-12-10] MEDS: ALPRAZolam 0.25 MG TAB PO PRN ×3 (06:54→21:00)
--- NOTE | 2016-12-10 07:40 | PD.CARD.PN ---
Subjective Subjective Remarks no overnight events Objective Medications Current Medications Medications (Trade) Dose Ordered Sig/Uri Route Start Time Stop Time Status Last Admin (NS Flush) 2 ml UNSCH PRN IVF 12/07/16 11:00 (NS Flush) 2 ml BID IVF 12/07/16 21:00 12/07/16 21:00 (Tylenol) 500 mg Q4H PRN PO 12/07/16 11:00 ([place] 7.5-325 Mg) 1 tab Q4H PRN PO 12/07/16 11:00 (Zofran Inj) 4 mg Q6H PRN IV 12/07/16 11:00 (Protonix) 40 mg DAILY PO 12/07/16 11:00 12/09/16 08:28 (Lopressor) 25 mg Q12HR PO 12/07/16 11:00 12/09/16 20:05 (Aspirin) 325 mg DAILY PO 12/08/16 09:00 12/09/16 08:28 (Xanax) 0.25 mg Q8H PRN PO 12/07/16 11:00 12/10/16 06:54 (D50w (Vial) Inj) 25 ml UNSCH PRN IV 12/07/16 12:00 (Glucagon Inj) 1 mg UNSCH PRN IM/SQ 12/07/16 12:00 (Prinivil) 20 mg BID PO 12/07/16 21:00 12/09/16 20:06 (Theragran) 1 tab DAILY PO 12/08/16 09:00 12/09/16 08:28 (Catapres) 0.1 mg Q4H PRN PO 12/07/16 12:15 (Atropine Inj) 0.5 mg UNSCH PRN IV 12/08/16 14:30 (Zofran Inj) 4 mg Q4H PRN IV 12/08/16 14:30 (Heparin Inj) 5,000 units UNSCH PRN IV 12/08/16 20:30 Heparin Sodium (Porcine) 2500 units 2,500 units UNSCH PRN IV 12/08/16 20:30 12/09/16 00:47 (Heparin-D5W Inj) 250 ml @ 0 mls/hr TITRATE IV 12/08/16 14:30 12/09/16 15:10 (NS Flush) 2 ml BID IV FLUSH 12/08/16 21:00 12/09/16 20:06 (NS Flush) 2 ml UNSCH PRN IV FLUSH 12/08/16 17:00 (Levemir Inj) 35 units HS SQ 12/09/16 21:00 12/09/16 20:10 Vital Signs / I&O Vital Signs Date Time Temp Pulse Resp B/P Pulse Ox O2 Delivery O2 Flow Rate FiO2 12/10/16 07:00 121 12/10/16 07:00 97 Room Air 12/10/16 07:00 98.3 95 20 119/76 97 12/10/16 06:00 99 12/10/16 05:00 95 12/10/16 04:00 98.2 78 18 116/57 96 12/10/16 04:00 78 12/10/16 04:00 Room Air 12/10/16 03:00 82 12/10/16 02:00 89 12/10/16 01:00 77 12/10/16 00:00 98.0 81 18 114/68 97 12/10/16 00:00 Room Air 12/10/16 00:00 81 12/09/16 23:00 92 12/09/16 22:00 90 12/09/16 21:00 97 12/09/16 20:00 98.4 105 20 131/68 96 12/09/16 20:00 Room Air 12/09/16 20:00 105 12/09/16 19:58 96 21 12/09/16 18:00 90 12/09/16 17:00 98 12/09/16 16:00 101 12/09/16 15:00 107 12/09/16 15:00 98.8 95 20 115/60 95 12/09/16 14:00 104 12/09/16 13:00 88 12/09/16 12:00 77 12/09/16 11:00 96 12/09/16 11:00 98.0 82 20 120/60 96 12/09/16 10:00 87 12/09/16 09:00 88 12/09/16 08:00 106 I/O 12/09/16 12/09/16 12/09/16 12/10/16 12/10/16 12/10/16 07:00 15:00 23:00 07:00 15:00 23:00 Intake Total 350 ml 960 ml 240 ml Output Total 800 ml 900 ml Balance -450 ml 960 ml -660 ml Intake Oral 240 ml 740 ml 240 ml IV Total 110 ml 220 ml Output Urine Total 800 ml 900 ml # Voids 4 # Bowel Movements 0 1 0 Physical Exam GENERAL: Well-nourished, well-developed patient. SKIN: Warm and dry. HEAD: Normocephalic. EYES: No scleral icterus. No injection or drainage. NECK: Supple, trachea midline. No JVD or lymphadenopathy. CARDIOVASCULAR: Regular rate and rhythm without murmurs, gallops, or rubs. RESPIRATORY: Breath sounds equal bilaterally. No accessory muscle use. GASTROINTESTINAL: Abdomen soft, non-tender, nondistended. EXTREMITIES: No cyanosis, or edema. NEUROLOGICAL: Awake, alert, and oriented x 3. Non-focal. Laboratory Laboratory Tests Test 12/09/16 12/09/16 12/09/16 12/10/16 07:50 10:35 21:00 04:55 Urine Color YELLOW Urine Turbidity CLEAR Urine pH 5.5 Urine Specific [place] 1.022 Urine Protein TRACE mg/dL Urine Glucose (UA) 1000 mg/dL Urine Ketones 40 mg/dL Urine Occult Blood NEG Urine Nitrite NEG Urine Bilirubin NEG Urine Urobilinogen LESS THAN 2.0 MG/DL Urine Leukocyte Esterase NEG Urine RBC 1 /hpf Urine WBC 1 /hpf Urine Squamous Epithelial 3 /hpf Cells Urine Bacteria OCC /hpf Urine Mucus FEW /lpf Microscopic Urinalysis Comment CULT NOT INDICATED Activated Partial 44.6 SEC 41.6 SEC 48.5 SEC Thromboplast Time Human Chorionic Gonadotropin, 1 MIU/ML Quant Blood Type O POSITIVE Antibody Screen NEGATIVE Crossmatch Leukocyte-Reduced Red Blood Cells Blood Bank Comment Test 12/10/16 04:59 Blood Type O POSITIVE Imaging Last Impressions Lower Extremity Ultrasound 12/09/16 0000 Signed Impressions: Service Date/Time: Friday, December 09, 2016 11:42 - CONCLUSION: Normal examination. Karen Schumacher MD Carotid Artery Ultrasound 12/09/16 0000 Signed Impressions: Service Date/Time: Friday, December 09, 2016 12:10 - CONCLUSION: Significantly abnormal exam with no visualized flow identified within the left internal carotid artery consistent with complete thrombosis. The grayscale images of the proximal right internal carotid artery are consistent with a high-grade, greater than 70%% stenosis. The velocities identified throughout the right internal carotid artery are significantly elevated consistent with high-grade stenosis and waveforms are all abnormal. Recommend correlation with cross-sectional imaging. Karen Schumacher MD Myocardial Perfusion Scan Nuc Med 12/08/16 0000 Signed Impressions: Service Date/Time: Thursday, December 08, 2016 08:44 - CONCLUSION: Moderate sized moderate severity reversible apical perfusion abnormality. RISK CATEGORY: Intermediate (1-3%% Annual Mortality Rate) Gurmeet Kraus MD Chest X-Ray 12/07/16 0839 Signed Impressions: Service Date/Time: December 08:47 - CONCLUSION: No acute disease. Gurmeet Kraus MD Assessment and Plan Problem List: (1) Chest pain Assessment and Plan: No CV complaints. Significant stenosis of the right carotid and complete occlusion of the left carotid. Might need to be revascularize before CABG. Will defer to CT surgery. Schedule for surgery CABG in AM NPO after midnight Cont current medical management (2) Hypertension (3) Tobacco abuse (4) Diabetes mellitus type 2 in nonobese (5) HLD (hyperlipidemia) Candelario Velarde MD Dec 10, 2016 07:40
--- NOTE | 2016-12-10 07:45 | HHI.PR ---
Subjective Remarks Follow up CAD, diabetes. Patient is feeling anxious about the surgery. Symptoms improved with Xanax. No other complaints at this time. Denies chest pain, dyspnea. Objective Vitals Vital Signs Date Time Temp Pulse Resp B/P Pulse Ox O2 Delivery O2 Flow Rate FiO2 12/10/16 07:00 121 12/10/16 07:00 97 Room Air 12/10/16 07:00 98.3 95 20 119/76 97 12/10/16 06:00 99 12/10/16 05:00 95 12/10/16 04:00 98.2 78 18 116/57 96 12/10/16 04:00 78 12/10/16 04:00 Room Air 12/10/16 03:00 82 12/10/16 02:00 89 12/10/16 01:00 77 12/10/16 00:00 98.0 81 18 114/68 97 12/10/16 00:00 Room Air 12/10/16 00:00 81 12/09/16 23:00 92 12/09/16 22:00 90 12/09/16 21:00 97 12/09/16 20:00 98.4 105 20 131/68 96 12/09/16 20:00 Room Air 12/09/16 20:00 105 12/09/16 19:58 96 21 12/09/16 18:00 90 12/09/16 17:00 98 12/09/16 16:00 101 12/09/16 15:00 107 12/09/16 15:00 98.8 95 20 115/60 95 12/09/16 14:00 104 12/09/16 13:00 88 12/09/16 12:00 77 12/09/16 11:00 96 12/09/16 11:00 98.0 82 20 120/60 96 12/09/16 10:00 87 12/09/16 09:00 88 12/09/16 08:00 106 I/O 12/09/16 12/09/16 12/09/16 12/10/16 12/10/16 12/10/16 07:00 15:00 23:00 07:00 15:00 23:00 Intake Total 350 ml 960 ml 240 ml Output Total 800 ml 900 ml Balance -450 ml 960 ml -660 ml Intake Oral 240 ml 740 ml 240 ml IV Total 110 ml 220 ml Output Urine Total 800 ml 900 ml # Voids 4 # Bowel Movements 0 1 0 Result Diagram: 12/08/16 1506 12/07/16 0850 Imaging Last Impressions Lower Extremity Ultrasound 12/09/16 0000 Signed Impressions: Service Date/Time: Friday, December 09, 2016 11:42 - CONCLUSION: Normal examination. Karen Schumacher MD Carotid Artery Ultrasound 12/09/16 0000 Signed Impressions: Service Date/Time: Friday, December 09, 2016 12:10 - CONCLUSION: Significantly abnormal exam with no visualized flow identified within the left internal carotid artery consistent with complete thrombosis. The grayscale images of the proximal right internal carotid artery are consistent with a high-grade, greater than 70%% stenosis. The velocities identified throughout the right internal carotid artery are significantly elevated consistent with high-grade stenosis and waveforms are all abnormal. Recommend correlation with cross-sectional imaging. Karen Schumacher MD Myocardial Perfusion Scan Nuc Med 12/08/16 0000 Signed Impressions: Service Date/Time: Thursday, December 08, 2016 08:44 - CONCLUSION: Moderate sized moderate severity reversible apical perfusion abnormality. RISK CATEGORY: Intermediate (1-3%% Annual Mortality Rate) Gurmeet Kraus MD Chest X-Ray 12/07/16 0839 Signed Impressions: Service Date/Time: December 08:47 - CONCLUSION: No acute disease. Gurmeet Kraus MD Objective Remarks General: No acute distress. Heart: Regular rate and rhythm. No murmur. Lungs: Clear to auscultation bilaterally. No wheezes, rales, or rhonchi. Breathing is nonlabored. Abdomen: Soft, nontender, nondistended. Extremities: No lower extremity edema. Psych: Alert and oriented. Procedures 12/08/16 cardiac catheterization Urinary Catheter: No Vascular Central Line Catheter: No A/P Problem List: (1) Chest pain ICD Code: R07.9 Status: Acute (2) Hypertension ICD Code: I10 Status: Chronic (3) Hyperlipidemia ICD Code: E78.5 Status: Chronic (4) Diabetes mellitus ICD Code: E11.9 Status: Chronic (5) Abnormal cardiovascular stress test ICD Code: R94.39 Status: Acute (6) Coronary artery disease ICD Code: I25.10 Status: Chronic (7) Carotid artery stenosis ICD Code: I65.29 Status: Acute Assessment and Plan 1. Chest pain, coronary artery disease: Patient had an abnormal Lexiscan. Status post cardiac catheterization, which showed significant coronary artery disease. Plan for CABG tomorrow. Currently chest pain-free. Continue aspirin. Heparin drip. Appreciate cardiology recommendations. 2. Diabetes mellitus: Monitor Accu-Cheks and cover with sliding scale insulin. The patient had been on Lantus at home previously. Will need long-acting basal insulin. Will hold for now as patient will be NPO for surgery. 3. Hypertension: Continue metoprolol, lisinopril. 4. Hyperlipidemia: Patient reports allergy to statins. 5. DVT prophylaxis: Heparin. 6. Carotid artery stenosis: Left carotid with complete thrombosis. Right carotid with >70% stenosis. Appreciate CV surgery recommendations. Dean Olvera MD Dec 10, 2016 07:45
[2016-12-10] MEDS: ASPIRIN 325 MG TAB PO SCH (08:10)
[2016-12-10] MEDS: SODIUM CHLORIDE 0.9% FLUSH 5 ML FLUSH IVF SCH ×2 (08:10→20:18)
[2016-12-10] MEDS: METOPROLOL TARTRATE 25 MG TAB PO SCH ×2 (08:10→20:18)
[2016-12-10] MEDS: LISINOPRIL 20 MG TAB PO SCH ×2 (08:10→20:17)
[2016-12-10] MEDS: SODIUM CHLORIDE 0.9% FLUSH 10 ML FLUSH IV FLUSH SCH ×2 (08:10→20:18)
[2016-12-10] MEDS: PANTOPRAZOLE SOD 40 MG DELAYED RELEASE TAB PO SCH (08:10)
[2016-12-10] MEDS: MULTIVITAMIN TAB PO SCH (08:10)
--- NOTE | 2016-12-10 12:23 | PD.CAR.PN ---
CVT Progress Note Subjective/Hospital Course: RISK SCORES About the STS Risk Calculator Procedure: CAB Only Risk of Mortality: 0.788% Morbidity or Mortality: 11.055% Long Length of Stay: 5.093% Short Length of Stay: 46.464% Permanent Stroke: 0.701% Prolonged Ventilation: 8.619% DSW Infection: 0.658% Renal Failure: 1.142% Reoperation: 3.602% Objective: Vital Signs Date Time Temp Pulse Resp B/P Pulse Ox O2 Delivery O2 Flow Rate FiO2 12/10/16 12:00 76 12/10/16 11:00 82 12/10/16 11:00 98.5 97 20 93/63 97 12/10/16 10:00 80 12/10/16 09:00 88 12/10/16 08:00 92 12/10/16 07:00 121 12/10/16 07:00 97 Room Air 12/10/16 07:00 98.3 95 20 119/76 97 12/10/16 06:00 99 12/10/16 05:00 95 12/10/16 04:00 98.2 78 18 116/57 96 12/10/16 04:00 78 12/10/16 04:00 Room Air 12/10/16 03:00 82 12/10/16 02:00 89 12/10/16 01:00 77 12/10/16 00:00 98.0 81 18 114/68 97 12/10/16 00:00 Room Air 12/10/16 00:00 81 12/09/16 23:00 92 12/09/16 22:00 90 12/09/16 21:00 97 12/09/16 20:00 98.4 105 20 131/68 96 12/09/16 20:00 Room Air 12/09/16 20:00 105 12/09/16 19:58 96 21 12/09/16 18:00 90 12/09/16 17:00 98 12/09/16 16:00 101 12/09/16 15:00 107 12/09/16 15:00 98.8 95 20 115/60 95 12/09/16 14:00 104 12/09/16 13:00 88 Labs: Laboratory Tests Test 12/10/16 12/10/16 04:55 04:59 Activated Partial 48.5 SEC Thromboplast Time (24.3-30.1) Human Chorionic Gonadotropin, 1 MIU/ML (0-5) Quant Blood Type O POSITIVE O POSITIVE Antibody Screen NEGATIVE Crossmatch Leukocyte-Reduced Red Blood Cells Blood Bank Comment Result Diagram: 12/08/16 1506 12/07/16 0850 Imaging: Last Impressions Lower Extremity Ultrasound 12/09/16 0000 Signed Impressions: Service Date/Time: Friday, December 09, 2016 11:42 - CONCLUSION: Normal examination. Karen Schumacher MD Carotid Artery Ultrasound 12/09/16 0000 Signed Impressions: Service Date/Time: Friday, December 09, 2016 12:10 - CONCLUSION: Significantly abnormal exam with no visualized flow identified within the left internal carotid artery consistent with complete thrombosis. The grayscale images of the proximal right internal carotid artery are consistent with a high-grade, greater than 70%% stenosis. The velocities identified throughout the right internal carotid artery are significantly elevated consistent with high-grade stenosis and waveforms are all abnormal. Recommend correlation with cross-sectional imaging. Karen Schumacher MD Myocardial Perfusion Scan Nuc Med 12/08/16 0000 Signed Impressions: Service Date/Time: Thursday, December 08, 2016 08:44 - CONCLUSION: Moderate sized moderate severity reversible apical perfusion abnormality. RISK CATEGORY: Intermediate (1-3%% Annual Mortality Rate) Gurmeet Kraus MD Chest X-Ray 12/07/16 0839 Signed Impressions: Service Date/Time: December 08:47 - CONCLUSION: No acute disease. Gurmeet Kraus MD Cardiovascular: RRR Telemetry: NSR Pulmonary: CTA GI/: NABS, NT Plan: Patient has abnormal carotid u/s with past h/o stroke. Will request CTA of the carotids and postpone CABG pending these results. She may require carotid intervention to reduce stroke risk. (1) Chest pain Plan: No CV complaints. Significant stenosis of the right carotid and complete occlusion of the left carotid. Might need to be revascularize before CABG. Will defer to CT surgery. Schedule for surgery CABG in AM NPO after midnight Cont current medical management (2) Hypertension (3) Tobacco abuse (4) Diabetes mellitus type 2 in nonobese (5) HLD (hyperlipidemia) Ling Alex MD Dec 10, 2016 12:23
[2016-12-10] MEDS: HEPARIN-D5W INJ 250 ML IV SCH (14:13)
[2016-12-10] MEDS ORDERED: IOHEXOL 350 MG/ML 10 ML VIAL (for RAD DIAG) IV ONE (14:28)
--- NOTE | 2016-12-10 14:57 | RADRPT ---
EXAM DATE/TIME: 12/10/2016 13:46 [facility] COMPARISON: US CAROTID ARTERIES, December 09, 2016, 12:10. INDICATIONS : Abnormal ultrasound. IV CONTRAST: 80 cc Omnipaque 350 (iohexol) IV RADIATION DOSE: 17.42 CTDIvol (mGy) MEDICAL HISTORY : Stroke. Cardiovascular disease Hypertension.diabetes SURGICAL HISTORY : None. ENCOUNTER: Initial ACUITY: 1 day PAIN SCALE: 0/10 LOCATION: Bilateral head Elevated flow velocities and ICA/CCA ratios have been found to correlate with increased degrees of vessel stenosis, calculated as percentage of diameter relative to a normal segment of distal ICA/CCA. TECHNIQUE: Volumetric scanning was performed using a multirow detector CT scanner. The data was post processed with a variety of visualization algorithms including full-volume maximum intensity projection, multip lanar sliding thin-slab reformation, curved-planar reformation, and surface-rendering techniques. Us ing automated exposure control and adjustment of the mA and/or kV according to patient size, radiatio n dose was kept as low as reasonably achievable to obtain optimal diagnostic quality images. FINDINGS: AORTIC ARCH: There is a three-vessel origin of the great vessels from the aorta. No evidence of ostial narrowing. RIGHT CAROTID: The common carotid artery is intact. There is a very high grade short segment stenosis involving the proximal right internal carotid artery with greater than 70% stenosis. The right external carotid art linwood demonstrates normal caliber without evidence of stenosis. LEFT CAROTID: The common carotid artery is intact. There is complete occlusion of the left internal carotid artery at the level of the bifurcation. There is reconstitution of the cavernous portion of the left interna l carotid artery. without stenosis. The external carotid artery is intact. VERTEBRALS: Right vertebral artery is larger than the left. No stenotic lesions are seen. CONCLUSION: High-grade stenosis involving the proximal right internal carotid artery over a very short segment. T he left internal carotid artery is completely occluded at the level of the bifurcation with reconstit ution intracranially.. Karen Schumacher MD on December 10, 2016 at 14:47 Board Certified Radiologist. This report was verified electronically.
[2016-12-10] MEDS: INSULIN DETEMIR 100 UNITS/ML VIAL SQ SCH (20:19)
[2016-12-11] VITALS (19 sets, daily range): BP systolic 114–156; BP diastolic 36–81; PULSE 66–87; RESP 15–18; TEMP 97.7–98.7; O2SAT 95–99
[2016-12-11] MEDS ORDERED: GLYCOPYRROLATE 0.2 MG/ML VIAL IV ONE (05:00)
[2016-12-11] MEDS ORDERED: NALOXONE HCL 0.4 MG/ML AMP IV ONE (05:00)
[2016-12-11] MEDS ORDERED: METOPROLOL TARTRATE 5 MG/5 ML VIAL IV PUSH ONE (05:00)
[2016-12-11] MEDS ORDERED: DEXMEDETOMIDINE INJ 50 ML IV ONE (05:00)
[2016-12-11] MEDS ORDERED: ESMOLOL HCL 100 MG/10 ML VIAL IV ONE (05:00)
[2016-12-11] MEDS ORDERED: NOREPINEPHRINE 4 MG/4 ML AMP IV ONE (05:00)
[2016-12-11] MEDS ORDERED: NITROGLYCERIN-DEXTROSE INJ 250 ML IV ONE (05:00)
[2016-12-11] MEDS ORDERED: VECURONIUM BROMIDE 10 MG VIAL IV ONE (05:00)
[2016-12-11 06:17] LABS: HEMATOCRIT 44.6 % (35.0-46.0); MEAN CELL VOLUME 88.9 FL (80.0-100.0); MEAN CORPUSCULAR HEMOGLOBIN 29.9 PG (27.0-34.0); MEAN CORPUSCULAR HGB CONC 33.6 % (32.0-36.0); PLATELET COUNT 247 TH/MM3 (150-450); RED BLOOD COUNT 5.02 MIL/MM3 (4.00-5.30); RED CELL DISTRIBUTION WIDTH 12.7 % (11.6-17.2); REVIEW FLAG FINAL; WHITE BLOOD COUNT 10.3 TH/MM3 (4.0-11.0)
[2016-12-11 06:26] LABS: APTT (PATIENT) 57.7 SEC (24.3-30.1)
[2016-12-11 06:36] LABS: BICARBONATE 24.2 MEQ/L (21.0-32.0); POTASSIUM 3.4 MEQ/L (3.5-5.1)
[2016-12-11] MEDS: INSULIN ASPART SUPPLEMENTAL SCALE SQ SCH ×3 (07:00→21:40)
[2016-12-11] MEDS ORDERED: ONDANSETRON HCL 4 MG/2 ML VIAL IV PUSH ONE ×2 (07:53→08:01)
[2016-12-11] MEDS ORDERED: PROPOFOL 200 MG/20 ML AMP IV ONE ×2 (07:53→08:01)
[2016-12-11] MEDS ORDERED: LACTATED RINGER'S 1000 ML INJ 1,000 ML IV ONE (08:02)
[2016-12-11] MEDS: ALPRAZolam 0.25 MG TAB PO PRN (08:12)
[2016-12-11] MEDS: MULTIVITAMIN TAB PO SCH (08:12)
[2016-12-11] MEDS: ASPIRIN 325 MG TAB PO SCH (08:12)
[2016-12-11] MEDS: LISINOPRIL 20 MG TAB PO SCH (08:12)
[2016-12-11] MEDS: PANTOPRAZOLE SOD 40 MG DELAYED RELEASE TAB PO SCH (08:13)
[2016-12-11] MEDS: SODIUM CHLORIDE 0.9% FLUSH 10 ML FLUSH IV FLUSH SCH ×2 (08:14→21:41)
[2016-12-11] MEDS: METOPROLOL TARTRATE 25 MG TAB PO SCH (08:14)
[2016-12-11] MEDS: SODIUM CHLORIDE 0.9% FLUSH 5 ML FLUSH IVF SCH (08:14)
--- NOTE | 2016-12-11 08:19 | HHI.PR ---
Subjective Remarks Follow-up coronary artery disease, diabetes. Patient is still anxious about surgery. Intermittent mild chest pain. Denies dyspnea, nausea, vomiting, diarrhea, constipation. Objective Vitals Vital Signs Date Time Temp Pulse Resp B/P Pulse Ox O2 Delivery O2 Flow Rate FiO2 12/11/16 06:00 71 12/11/16 05:00 76 12/11/16 04:00 79 12/11/16 04:00 Room Air 12/11/16 04:00 98.7 79 18 121/73 97 12/11/16 03:00 74 12/11/16 02:00 75 12/11/16 01:00 71 12/11/16 00:00 Room Air 12/11/16 00:00 98.2 70 18 114/64 98 12/11/16 00:00 70 12/10/16 23:00 71 12/10/16 22:00 75 12/10/16 21:52 21 12/10/16 21:00 80 12/10/16 20:00 98.4 74 20 154/80 97 12/10/16 20:00 Room Air 12/10/16 20:00 74 12/10/16 18:00 82 12/10/16 17:00 87 12/10/16 16:00 85 12/10/16 15:00 78 12/10/16 15:00 98.0 78 20 117/73 99 12/10/16 14:00 83 12/10/16 13:00 86 12/10/16 12:00 76 12/10/16 11:00 82 12/10/16 11:00 98.5 97 20 93/63 97 12/10/16 10:00 80 12/10/16 09:00 88 I/O 12/10/16 12/10/16 12/10/16 12/11/16 12/11/16 12/11/16 07:00 15:00 23:00 07:00 15:00 23:00 Intake Total 240 ml 1330 ml 590 ml Output Total 900 ml Balance -660 ml 1330 ml 590 ml Intake Oral 240 ml 1080 ml 480 ml IV Total 250 ml 110 ml Output Urine Total 900 ml # Voids 5 4 # Bowel Movements 0 1 0 Result Diagram: 12/11/16 0440 12/11/16 0440 Imaging Last Impressions Neck CTA 12/10/16 0000 Signed Impressions: Service Date/Time: Saturday, December 10, 2016 13:46 - CONCLUSION: High-grade stenosis involving the proximal right internal carotid artery over a very short segment. The left internal carotid artery is completely occluded at the level of the bifurcation with reconstitution intracranially.. Karen Schumacher MD Lower Extremity Ultrasound 12/09/16 0000 Signed Impressions: Service Date/Time: Friday, December 09, 2016 11:42 - CONCLUSION: Normal examination. Karen Schumacher MD Carotid Artery Ultrasound 12/09/16 0000 Signed Impressions: Service Date/Time: Friday, December 09, 2016 12:10 - CONCLUSION: Significantly abnormal exam with no visualized flow identified within the left internal carotid artery consistent with complete thrombosis. The grayscale images of the proximal right internal carotid artery are consistent with a high-grade, greater than 70%% stenosis. The velocities identified throughout the right internal carotid artery are significantly elevated consistent with high-grade stenosis and waveforms are all abnormal. Recommend correlation with cross-sectional imaging. Karen Schumacher MD Myocardial Perfusion Scan Nuc Med 12/08/16 0000 Signed Impressions: Service Date/Time: Thursday, December 08, 2016 08:44 - CONCLUSION: Moderate sized moderate severity reversible apical perfusion abnormality. RISK CATEGORY: Intermediate (1-3%% Annual Mortality Rate) Gurmeet Kraus MD Chest X-Ray 12/07/16 0839 Signed Impressions: Service Date/Time: December 08:47 - CONCLUSION: No acute disease. Gurmeet Kraus MD Objective Remarks General: No acute distress. Heart: Regular rate and rhythm. No murmur. Lungs: Clear to auscultation bilaterally. No wheezes, rales, or rhonchi. Breathing is nonlabored. Abdomen: Soft, nontender, nondistended. Extremities: No lower extremity edema. Psych: Alert and oriented. Procedures 12/08/16 cardiac catheterization Urinary Catheter: No Vascular Central Line Catheter: No A/P Problem List: (1) Chest pain ICD Code: R07.9 Status: Acute (2) Hypertension ICD Code: I10 Status: Chronic (3) Hyperlipidemia ICD Code: E78.5 Status: Chronic (4) Diabetes mellitus ICD Code: E11.9 Status: Chronic (5) Abnormal cardiovascular stress test ICD Code: R94.39 Status: Acute (6) Coronary artery disease ICD Code: I25.10 Status: Chronic (7) Carotid artery stenosis ICD Code: I65.29 Status: Acute Assessment and Plan 1. Chest pain, coronary artery disease: Patient had an abnormal Lexiscan. Status post cardiac catheterization, which showed significant coronary artery disease. CABG originally planned for today, but postponed secondary to carotid artery stenosis. Currently chest pain-free. Continue aspirin. Heparin drip. Appreciate cardiology recommendations. 2. Diabetes mellitus: Monitor Accu-Cheks and cover with sliding scale insulin. The patient had been on Lantus at home previously. Will need long-acting basal insulin. Will hold for now as patient is NPO for surgery. 3. Hypertension: Continue metoprolol, lisinopril. 4. Hyperlipidemia: Patient reports allergy to statins. 5. DVT prophylaxis: Heparin. 6. Carotid artery stenosis: Left carotid with complete thrombosis. Right carotid with >70% stenosis. Appreciate CV surgery recommendations. May require surgical intervention to reduce stroke risk during CABG. Dean Olvera MD Dec 11, 2016 08:19
--- NOTE | 2016-12-11 10:40 | PD.VS.CON ---
History of Present Illness Chief Complaint: Denies TIA symptoms. Has substantial cataracts of her right eye (can see light only). Consult Requested by: Dr. Alex History of Present Illness Patient admitted for chest pain (angina) and found to have coronary artery disease necessitating a CABG. Found to have significant carotid stenosis of right ICA (greater than 70%)with occluded left ICA by duplex US and CTA. Past/Family/Social History Past Medical History DM CVA Hyperlipidemia CAD Home Medications Reported Medications Insulin Glargine Inj (Lantus Inj)1,000 Unit/10 Ml Vial35 Units SQ HS Ref 0 12/07/16 Multiple Vitamin (Multi-Vitamin Daily)1 Tab Tab1 Tab PO DAILY Ref 0 12/07/16 Metoprolol Tartrate 25 Mg Tab25 Mg PO DAILY Ref 0 12/07/16 Lisinopril 20 Mg Tab20 Mg PO BID #30 TAB Ref 0 12/07/16 Aspirin 81 Mg Chew81 Mg CHEW BID #1 TAB Ref 0 12/07/16 Discontinued Reported Medications Cholestyramine (Questran 4 Gm Pkt)4 Gm Pkt4 Gm PO DAILY 30 Days MIX IN AT LEAST 2-6 [place] WATER PRIOR TO ADMINISTRATION; TAKE 2 HOURS BEFORE, OR 4 HOURS AFTER OTHER MEDICATIONS. 11/30/15 Multiple Vitamin (Multi Vitamin Daily)1 Tab Tab 11/30/15 Cimetidine (Cimetidine 200)200 Mg [id number] Mg PO 11/30/15 Aspirin (Baby Aspirin)81 Mg Bev478 Mg PO BID 02/15/12 Discontinued Scripts Lisinopril 20 mg 20 Mg Tab20 Mg PO BID #60 TAB Ref 3 Prov:Tomasa Coats MD 06/19/16 Citalopram Hydrobromide 20 Mg Tab20 Mg PO DAILY #30 TAB Ref 0 Prov:Chandrika Bauer 03/21/16 Metoprolol Tartrate 25 mg 25 Mg Tab25 Mg PO HS #31 TAB Ref 2 Prov:Tomasa Coats MD 12/27/15 Glucose Blood (Contour Blood Glucose Test Strip #100) Strp1 Strip XX DIRECTED #30 STRIPS Ref 3 once a day testing contour next Prov:Chandrika Bauer 11/30/15 Insulin Glargine (Lantus)100 Units/Ml Inj35 Unit SC HS #1 INJ Ref 3 dispense 1 mt supply Prov:Chandrika Bauer 10/12/15 Coded Allergies: Lipitor (Verified Allergy, Mild, Hives, 12/07/16) Review of Systems Eyes: COMPLAINS OF: Photosensitivity Physical Exam Vitals/I&O Date Time Temp Pulse Resp B/P Pulse Ox O2 Delivery O2 Flow Rate FiO2 12/11/16 07:00 99 Room Air 12/11/16 07:00 97.7 87 16 136/81 99 12/11/16 07:00 85 12/11/16 06:00 71 12/11/16 05:00 76 12/11/16 04:00 79 12/11/16 04:00 Room Air 12/11/16 04:00 98.7 79 18 121/73 97 12/11/16 03:00 74 12/11/16 02:00 75 12/11/16 01:00 71 12/11/16 00:00 Room Air 12/11/16 00:00 98.2 70 18 114/64 98 12/11/16 00:00 70 12/10/16 23:00 71 12/10/16 22:00 75 12/10/16 21:52 21 12/10/16 21:00 80 12/10/16 20:00 98.4 74 20 154/80 97 12/10/16 20:00 Room Air 12/10/16 20:00 74 12/10/16 18:00 82 12/10/16 17:00 87 12/10/16 16:00 85 12/10/16 15:00 78 12/10/16 15:00 98.0 78 20 117/73 99 12/10/16 14:00 83 12/10/16 13:00 86 12/10/16 12:00 76 12/10/16 11:00 82 12/10/16 11:00 98.5 97 20 93/63 97 12/11/16 12/11/16 12/11/16 07:00 15:00 23:00 Intake Total 590 ml Balance 590 ml Neuro: CN2-12 intact. Gross motor and sensory bilateral upper and lower extremities intact. Neck: supple Heart: regular Lungs: CTA Bilaterally. Abdomen: soft/ND Vascular: femoral and radial artery pulses intact. Laboratory Tests Test 12/11/16 04:40 White Blood Count 10.3 Red Blood Count 5.02 Hemoglobin 15.0 Hematocrit 44.6 Mean Corpuscular Volume 88.9 Mean Corpuscular Hemoglobin 29.9 Mean Corpuscular Hemoglobin 33.6 Concent Red Cell Distribution Width 12.7 Platelet Count 247 Mean Platelet Volume 8.5 Activated Partial 57.7 Thromboplast Time Sodium Level 139 Potassium Level 3.4 Chloride Level 103 Carbon Dioxide Level 24.2 Anion Gap 12 Blood Urea Nitrogen 13 Creatinine 0.48 Estimat Glomerular Filtration 135 Rate Random Glucose 165 Calcium Level 9.2 Last 48 hours Impressions Neck CTA 12/10/16 0000 Signed Impressions: Service Date/Time: Saturday, December 10, 2016 13:46 - CONCLUSION: High-grade stenosis involving the proximal right internal carotid artery over a very short segment. The left internal carotid artery is completely occluded at the level of the bifurcation with reconstitution intracranially.. Karen Schumacher MD Assessment and Plan Assessment: (1) Carotid stenosis, right Status: Acute Plan This is a 56 yr old female with hx of CAD (hx of angina) that prompted her admission with a high grade right carotid stenosis. She was scheduled for a CABG today but with a left ICA occlusion and right ICA ( high grade stenosis) Dr. Alex asked me to see her for a right CEA followed by CABG later this week. I discussed risks of stroke, cranial nerve injury, SD and with the patient and her daughter. Patient might also be at higher risk of neck hematoma at time of CABG as patient will have to be anticoagulated. They understands risks of right CEA with neuromonitoring and are scheduled for right carotid endarterectomy this afternoon. Dilshad Banks DO FACS Speeder Machine Operator of Vascular Surgery JUVENAL/Dilshad Jewell DO Dec 11, 2016 10:40
[2016-12-11] MEDS ORDERED: HEPARIN SODIUM - IV 10,000 UNITS/10 ML VIAL ONE (12:38)
[2016-12-11] MEDS ORDERED: LIDOCAINE HCL 1% 20 ML VIAL ONE (12:39)
[2016-12-11] MEDS ORDERED: THROMBIN (TOPICAL) 5,000 UNIT VIAL ONE ×2 (12:39→18:22)
[2016-12-11] MEDS ORDERED: PROTAMINE SULFATE 50 MG/5 ML VIAL ONE ×2 (12:39→18:23)
[2016-12-11] MEDS ORDERED: BUPIVACAINE/EPINEPHRINE 0.5% PF 30 ML VIAL ONE ×2 (12:39→18:23)
[2016-12-11] MEDS ORDERED: GELFOAM SIZE 100 ONE ×2 (12:39→18:23)
[2016-12-11] MEDS ORDERED: ceFAZolin 2 GM PREMIX 50 ML ONE (13:05)
[2016-12-11] MEDS ORDERED: fentaNYL CITRATE 250 MCG/5 ML AMP ONE ×2 (15:57→21:23)
[2016-12-11] MEDS ORDERED: MIDAZOLAM HCL 2 MG/2 ML VIAL ONE (15:57)
[2016-12-11] MEDS ORDERED: PHENYLEPHRINE HCL 10 MG/ML VIAL ONE (16:02)
[2016-12-11] MEDS ORDERED: ONDANSETRON HCL 4 MG/2 ML VIAL IV PUSH PRN (16:30)
[2016-12-11] MEDS ORDERED: POTASSIUM CHLOR 20 MEQ 100 ML x 2 BAGS IV PRN (16:30)
[2016-12-11] MEDS ORDERED: POTASSIUM PHOSPHATE 21 MMOL/NS 250 ML IV PRN ×2 (16:30)
[2016-12-11] MEDS ORDERED: ACETAMINOPHEN/HYDROcodone 325 MG/5 MG TAB PO PRN (16:30)
[2016-12-11] MEDS ORDERED: MAGNESIUM SULFATE 1 GM/100 ML IV PRN (16:30)
[2016-12-11] MEDS ORDERED: SODIUM CHLORIDE 0.9% FLUSH 10 ML FLUSH IV FLUSH PRN (17:00)
[2016-12-11] MEDS ORDERED: IOHEXOL 350 MG/ML 10 ML VIAL (for RAD DIAG) IV ONE (17:58)
--- NOTE | 2016-12-11 17:59 | RADRPT ---
EXAM DATE/TIME: 12/11/2016 17:41 [facility] COMPARISON: No previous studies available for comparison. INDICATIONS : Left sided weakness status post endarterectomy. RADIATION DOSE: 56.35 CTDIvol (mGy) MEDICAL HISTORY : Stroke. Hypertension. diabetes SURGICAL HISTORY : endarterectomy ENCOUNTER: Initial ACUITY: 1 day PAIN SCALE: 0/10 LOCATION: Bilateral head TECHNIQUE: Multiple contiguous axial images were obtained of the head. Using automated exposure control and adj ustment of the mA and/or kV according to patient size, radiation dose was kept as low as reasonably a chievable to obtain optimal diagnostic quality images. FINDINGS: There is a remote left frontal infarct. No signs of intracranial hemorrhage, mass or definite evidenc e of acute infarct. CONCLUSION: Remote left cerebral infarcts without definite evidence for acute infarct. Pascual Bhardwaj MD on December 11, 2016 at 17:57 Board Certified Radiologist. This report was verified electronically.
--- NOTE | 2016-12-11 18:13 | PD.CONS ---
[facility] Service Critical Care Medicine Consult Requested By Dr. Banks Reason for Consult post-CEA neurologic changes Primary Care Physician No Primary Care Physician History of Present Illness This is a 56yF who originally presented with chest pain and was found to have multivessel disease (RCA 99% prox, LAD 70% prox, circ 99% distal). During her work-up for cabg, she was found to have a chronically occluded left carotid and a high grade right carotid lesion. She was taken today for semi-elective right CEA in anticipation of urgent CABG later this week. Immediately post- operatively in PACU, she was noted to have an acute neuro exam change and was flaccid on the left side, but this was with a sbp of 70. phenylephrine was started to target SBP 120 - 140 with complete resolution of her symptoms. I evaluated the patient in PACU and she was completely neuro intact. We immediately transferred her to the CVICU. The CVICU performed strict q1h neuro checks. Last seen neuro intact was 1700. At 1720, the nurse evaluated the patient and she was found to be flaccid on the left again, with a SBP 150. I again immediately came and evaluated the patient. At this point, she has noticeable left facial droop, left hand complete flaccid paralysis. left leg had 3/[address] Banks and immediately took her down for emergent CT/CTA head and neck which demonstrated compression of the superior edge of the carotid patch. Critical care medicine is consulted to evaluate and manage her CVA and post-CEA hemodynamics. Review of Systems ROS Limitations: Clinical Condition, Altered Mental Status Past Family Social History Allergies: Coded Allergies: Lipitor (Verified Allergy, Mild, Hives, 12/07/16) Past Medical History Coronary artery disease Hypertension Hyperlipidemia Diabetes mellitus Past Surgical History Tonsils and adenoids Cardiac catheterization with coronary artery stenting Reported Medications Lantus Inj (Insulin Glargine) 1,000 Unit/10 Ml Vial 35 Units SQ HS Multi-Vitamin Daily (Multiple Vitamin) 1 Tab Tab 1 Tab PO DAILY Metoprolol Tartrate 25 Mg Tab 25 Mg PO DAILY Lisinopril 20 Mg Tab 20 Mg PO BID Aspirin 81 Mg Chew 81 Mg CHEW BID Active Ordered Medications See MAR Family History Heart disease Social History 1 ppd smoker x 36y. occasional marijuana. denied etoh, doa. Physical Exam Vital Signs Vital Signs Date Time Temp Pulse Resp B/P Pulse Ox O2 Delivery O2 Flow Rate FiO2 4/10/17 16:30 98.0 67 18 126/62 96 121/36 12/11/16 16:30 96 Nasal Cannula 2.00 12/11/16 16:30 66 12/11/16 16:20 71 18 108/56 99 Nasal Cannula 3 12/11/16 16:20 71 18 127/64 99 Nasal Cannula 3 123/67 12/11/16 16:15 74 18 96 Nasal Cannula 3 119/62 12/11/16 16:10 76 18 110/60 99 Nasal Cannula 3 12/11/16 16:03 76 18 115/59 98 Nasal Cannula 3 12/11/16 16:00 84 18 83/54 96 Nasal Cannula 3 12/11/16 15:54 84 18 98/62 96 Nasal Cannula 3 105/49 12/11/16 15:48 98.1 85 18 117/71 99 Nasal Cannula 3 12/11/16 11:15 98.2 73 18 120/77 98 12/11/16 11:00 85 12/11/16 10:38 67 12/11/16 09:00 78 12/11/16 08:00 84 12/11/16 07:00 99 Room Air 12/11/16 07:00 97.7 87 16 136/81 99 12/11/16 07:00 85 12/11/16 06:00 71 12/11/16 05:00 76 12/11/16 04:00 79 12/11/16 04:00 Room Air 12/11/16 04:00 98.7 79 18 121/73 97 12/11/16 03:00 74 12/11/16 02:00 75 12/11/16 01:00 71 12/11/16 00:00 Room Air 12/11/16 00:00 98.2 70 18 114/64 98 12/11/16 00:00 70 12/10/16 23:00 71 12/10/16 22:00 75 12/10/16 21:52 21 12/10/16 21:00 80 12/10/16 20:00 98.4 74 20 154/80 97 12/10/16 20:00 Room Air 12/10/16 20:00 74 Physical Exam Gen: middle-aged female, lying in bed, slightly somnolent from anesthesia heent: pupils 3mm, equal, round, conjugate, reactive. mucous membranes moist. noticeable left-sided facial droop neck: no jvd. trachea midline. chest: equal chest rise. unlabored. cv: normal rate, regular rhythm. sbp 129 on my initial exam. abd: soft, nontender, nondistended. no guarding. extr: right radial art line site intact. distal pulses 2+. no peripheral edema. neuro: ELEAZAR: LUE 0/5 LLE 4/5. 5/5 on right. noticeable facial droop. speech intact. no dysarthria. tongue midline. Laboratory Laboratory Tests Test 12/11/16 04:40 White Blood Count 10.3 Red Blood Count 5.02 Hemoglobin 15.0 Hematocrit 44.6 Mean Corpuscular Volume 88.9 Mean Corpuscular Hemoglobin 29.9 Mean Corpuscular Hemoglobin 33.6 Concent Red Cell Distribution Width 12.7 Platelet Count 247 Mean Platelet Volume 8.5 Activated Partial 57.7 Thromboplast Time Sodium Level 139 Potassium Level 3.4 Chloride Level 103 Carbon Dioxide Level 24.2 Anion Gap 12 Blood Urea Nitrogen 13 Creatinine 0.48 Estimat Glomerular Filtration 135 Rate Random Glucose 165 Calcium Level 9.2 Result Diagram: 12/11/16 0440 12/11/16 0440 Imaging Last Impressions Head CT 12/11/16 0000 Signed Impressions: Service Date/Time: Sunday, December 11, 2016 17:41 - CONCLUSION: Remote left cerebral infarcts without definite evidence for acute infarct. Pascual Bhardwaj MD Neck CTA 12/10/16 0000 Signed Impressions: Service Date/Time: Saturday, December 10, 2016 13:46 - CONCLUSION: High-grade stenosis involving the proximal right internal carotid artery over a very short segment. The left internal carotid artery is completely occluded at the level of the bifurcation with reconstitution intracranially.. Karen Schumacher MD Lower Extremity Ultrasound 12/09/16 0000 Signed Impressions: Service Date/Time: Friday, December 09, 2016 11:42 - CONCLUSION: Normal examination. Karen Schumacher MD Carotid Artery Ultrasound 12/09/16 0000 Signed Impressions: Service Date/Time: Friday, December 09, 2016 12:10 - CONCLUSION: Significantly abnormal exam with no visualized flow identified within the left internal carotid artery consistent with complete thrombosis. The grayscale images of the proximal right internal carotid artery are consistent with a high-grade, greater than 70%% stenosis. The velocities identified throughout the right internal carotid artery are significantly elevated consistent with high-grade stenosis and waveforms are all abnormal. Recommend correlation with cross-sectional imaging. Karen Schumacher MD Myocardial Perfusion Scan Nuc Med 12/08/16 0000 Signed Impressions: Service Date/Time: Thursday, December 08, 2016 08:44 - CONCLUSION: Moderate sized moderate severity reversible apical perfusion abnormality. RISK CATEGORY: Intermediate (1-3%% Annual Mortality Rate) Gurmeet Kraus MD Chest X-Ray 12/07/16 0839 Signed Impressions: Service Date/Time: December 08:47 - CONCLUSION: No acute disease. Gurmeet Kraus MD Assessment and Plan Assessment and Plan Assessment: 56yF with recent NSTEMI, multi-vessel coronary artery disease and high-grade carotid stenosis now POD 0 s/p right CEA, course now complicated by post-operative CVA. Her CT/CTA demonstrates restriction to flow at the superior edge of the incision. she is going now for emergent re-exploration of the carotid. she remains critically ill. Plan by Systems: Neuro: Acute right brain CVA (left-sided weakness) -- q1h neuro checks -- goal SBP 140 - 180 -- CT/CTA 12/11: compression of the distal end of the carotid patch Resp: Post-operative Atelectasis -- I.S. to bedside -- wean o2 by NC for goal spo2 > 94% CV: NSTEMI Triple Vessel CAD s/p right CEA 12/11 -- SBP 140 - 180 -- phenylephrine for goal blood pressure -- lipid panel -- 2d echo -- goal HR < 90 -- likely CABG later this week. -- vascular: Dr. Banks -- CT surg: Dr. Alex Renal: -- smith for strict I/Os -- double contrast. will leave on mivf to mitigate renal injury FEN/GI: -- NPO -- mivf LR @ 125 cc/hr. -- ICU electrolyte protocol Heme/ID: -- no id issues. -- periop abx per surgeon -- daily cbc. -- goal Hgb > 10 given active coronary ischemia. -- does not meet transfusion triggers at this time. Endo: Diabetes -- SSI, med, q6h Prophy: -- scds, heparin drip for now, will touch base with vascular post-op. -- ppi Dispo: -- admit to the CVICU. she remains critically ill. Critical Care time: 110 minutes, exclusive of separately billable procedures. This includes time spent evaluating the patient in PACU, transporting her to CVICU, frequent re-evaluations, including her neuro exam change, accompanying her to the CT scanner, and forming joint plans with neurointerventional radiology, vascular surgery. Toño Wooten MD Dec 11, 2016 18:13
[2016-12-11] MEDS ORDERED: HEPARIN SODIUM - SQ 10,000 UNITS/ML VIAL ONE (18:22)
--- NOTE | 2016-12-11 18:22 | RADRPT ---
EXAM DATE/TIME: 12/11/2016 17:42 [facility] COMPARISON: No previous studies available for comparison. INDICATIONS : Left sided weakness status post endarterectomy. IV CONTRAST: 47 cc Omnipaque 350 (iohexol) IV ; Cumulative dose for multiple exams. RADIATION DOSE: 15.72 CTDIvol (mGy) ; Combined studies MEDICAL HISTORY : Stroke. Hypertension. SURGICAL HISTORY : endarterectomy ENCOUNTER: Initial ACUITY: 1 day PAIN SCALE: 0/10 LOCATION: Bilateral head TECHNIQUE: Volumetric scanning was performed using a multi-row detector CT scanner. The data was post processed with a variety of visualization algorithms including full volume maximum intensity projection, multi -planar sliding thin slab reformation, curved planar reformation, and surface rendering techniques. Using automated exposure control and adjustment of the mA and/or kV according to patient size, radiat ion dose was kept as low as reasonably achievable to obtain optimal diagnostic quality images. FINDINGS: There is good visualization of the intracranial vessels. There is no evidence for a major branch ves chuy occlusion of the intracranial vessels. CONCLUSION: There is no evidence for an embolic occlusion of the intracranial vessels. Jass Valdovinos MD FACR on December 11, 2016 at 18:14 Board Certified Radiologist. This report was verified electronically.
--- NOTE | 2016-12-11 18:27 | PD.VS.PN ---
Subjective Subjective/Hospital Course Initially neurologically intact status post right CEA. left hand weakness that fully resolved with normalization of BP. Subsequently, left sided weakness that recurred with resolution of leg weakness. Stat CTA shows distal ICA kinking vs clot. Objective Vitals/I&O Date Time Temp Pulse Resp B/P Pulse Ox O2 Delivery O2 Flow Rate FiO2 12/11/16 16:30 98.0 67 18 126/62 96 121/36 12/11/16 16:30 96 Nasal Cannula 2.00 12/11/16 16:30 66 12/11/16 16:20 71 18 108/56 99 Nasal Cannula 3 12/11/16 16:20 71 18 127/64 99 Nasal Cannula 3 123/67 12/11/16 16:15 74 18 96 Nasal Cannula 3 119/62 12/11/16 16:10 76 18 110/60 99 Nasal Cannula 3 12/11/16 16:03 76 18 115/59 98 Nasal Cannula 3 12/11/16 16:00 84 18 83/54 96 Nasal Cannula 3 12/11/16 15:54 84 18 98/62 96 Nasal Cannula 3 105/49 12/11/16 15:48 98.1 85 18 117/71 99 Nasal Cannula 3 12/11/16 11:15 98.2 73 18 120/77 98 12/11/16 11:00 85 12/11/16 10:38 67 12/11/16 09:00 78 12/11/16 08:00 84 12/11/16 07:00 99 Room Air 12/11/16 07:00 97.7 87 16 136/81 99 12/11/16 07:00 85 12/11/16 06:00 71 12/11/16 05:00 76 12/11/16 04:00 79 12/11/16 04:00 Room Air 12/11/16 04:00 98.7 79 18 121/73 97 12/11/16 03:00 74 12/11/16 02:00 75 12/11/16 01:00 71 12/11/16 00:00 Room Air 12/11/16 00:00 98.2 70 18 114/64 98 12/11/16 00:00 70 12/10/16 23:00 71 12/10/16 22:00 75 12/10/16 21:52 21 12/10/16 21:00 80 12/10/16 20:00 98.4 74 20 154/80 97 12/10/16 20:00 Room Air 12/10/16 20:00 74 12/11/16 12/11/16 12/11/16 07:00 15:00 23:00 Intake Total 590 ml 2000 ml Output Total 530 ml Balance 590 ml 1470 ml Physical Exam right neck incision intact. Left arm motor flacid but sensory intact. Left leg with gross movement intact. Laboratory Laboratory Tests Test 12/11/16 04:40 White Blood Count 10.3 Red Blood Count 5.02 Hemoglobin 15.0 Hematocrit 44.6 Mean Corpuscular Volume 88.9 Mean Corpuscular Hemoglobin 29.9 Mean Corpuscular Hemoglobin 33.6 Concent Red Cell Distribution Width 12.7 Platelet Count 247 Mean Platelet Volume 8.5 Activated Partial 57.7 Thromboplast Time Sodium Level 139 Potassium Level 3.4 Chloride Level 103 Carbon Dioxide Level 24.2 Anion Gap 12 Blood Urea Nitrogen 13 Creatinine 0.48 Estimat Glomerular Filtration 135 Rate Random Glucose 165 Calcium Level 9.2 Imaging Last [address] 12/11/16 0000 Signed Impressions: Service Date/Time: Sunday, December 11, 2016 17:41 - CONCLUSION: Remote left cerebral infarcts without definite evidence for acute infarct. Pascual Bhardwaj MD Neck CTA 12/10/16 0000 Signed Impressions: Service Date/Time: Saturday, December 10, 2016 13:46 - CONCLUSION: High-grade stenosis involving the proximal right internal carotid artery over a very short segment. The left internal carotid artery is completely occluded at the level of the bifurcation with reconstitution intracranially.. Karen Schumacher MD Assessment and Plan Assessment: (1) Carotid stenosis, right Status: Acute Plan This is a 56 yr old female status post right CEA. She has a neurological deficit with what appears to be compression,clot,kinking ? at the distal ICA in the area of my surgical incision. Patient has been heparinized. Will take back emergently to the OR for re- exploration of the right carotid endarterectomy site. Risk of worsening deficit or Cranial nerve injury (cranial nerve 12) as patient has high carotid bifurcation. Dilshad Banks DO FACS Formula Room Worker of Vascular Surgery /Dilshad Jewell DO Dec 11, 2016 18:27
[2016-12-11 18:49] LABS: HDL CHOLESTEROL 34.4 MG/DL (40.0-60.0)
--- NOTE | 2016-12-11 18:56 | RADRPT ---
EXAM DATE/TIME: 12/11/2016 17:42 [facility] COMPARISON: CTA CAROTID ARTERIES W 3D RECON, December 10, 2016, 13:46. INDICATIONS : Left sided weakness status post endarterectomy. IV CONTRAST: 74 cc Omnipaque 350 (iohexol) IV RADIATION DOSE: 15.72 CTDIvol (mGy) ; Combined studies MEDICAL HISTORY : Stroke. Hypertension. SURGICAL HISTORY : Endarterectomy ENCOUNTER: Initial ACUITY: 1 day PAIN SCALE: 0/10 LOCATION: Bilateral neck Elevated flow velocities and ICA/CCA ratios have been found to correlate with increased degrees of vessel stenosis, calculated as percentage of diameter relative to a normal segment of distal ICA/CCA. TECHNIQUE: Volumetric scanning was performed using a multirow detector CT scanner. The data was post processed with a variety of visualization algorithms including full-volume maximum intensity pro jection, multiplanar sliding thin-slab reformation, curved-planar reformation, and surface-rendering techniques. Using automated exposure control and adjustment of the mA and/or kV according to patient size, radiation dose was kept as low as reasonably achievable to obtain optimal diagnostic quality i mages. FINDINGS: RIGHT CAROTID: The patient is status post a right endarterectomy. There is persistent narro wing of the right internal carotid with associated minimal hematoma. Common carotid is widely patent. LEFT CAROTID: There is complete occlusion of the left internal carotid similar to what was descri bed before. CONCLUSION: Persistent stenosis on the right with minimal hematoma. Findings have been discussed with Dr. Wooten while the patient was on the scanner. Jass Valdovinos MD FACR on December 11, 2016 at 18:46 Board Certified Radiologist. This report was verified electronically.
[2016-12-11] MEDS ORDERED: TERBUTALINE INJ 1 MG/ML AMP SQ PRN (20:45)
[2016-12-11 21:08] LABS: INDIRECT BILIRUBIN 0.5 MG/DL (0.0-0.8); TOTAL BILIRUBIN ADULT 0.6 MG/DL (0.2-1.0)
[2016-12-11 21:26] LABS: HEMATOCRIT 37.8 % (35.0-46.0); MEAN CELL VOLUME 88.9 FL (80.0-100.0); MEAN CORPUSCULAR HGB CONC 33.8 % (32.0-36.0); PLATELET COUNT 268 TH/MM3 (150-450); RED BLOOD COUNT 4.25 MIL/MM3 (4.00-5.30); RED CELL DISTRIBUTION WIDTH 12.4 % (11.6-17.2); REVIEW FLAG FINAL; WHITE BLOOD COUNT 15.5 TH/MM3 (4.0-11.0)
[2016-12-11 21:38] LABS: INTERNATIONAL NORMALIZED RATIO 1.1 RATIO; PROTHROMBIN TIME - PATIENT 12.7 SEC (9.8-11.6)
[2016-12-11 21:42] LABS: BICARBONATE 26.1 MEQ/L (21.0-32.0); POTASSIUM 3.7 MEQ/L (3.5-5.1)
[2016-12-11] MEDS: LACTATED RINGER'S 1000 ML INJ 1,000 ML IV SCH (21:42)
[2016-12-11] MEDS ORDERED: PHENYLEPHRINE INJ 40 MG in DEXTROSE 5% IN WATE 500 ML INJ 496 ML IV SCH ×4 (21:45→22:00)
[2016-12-11 21:55] LABS: APTT (PATIENT) 158.1 SEC (24.3-30.1)
[2016-12-11] MEDS ORDERED: DO NOT ADM ANY ANTICOAGULANT DRUGS PRN (23:00)
[2016-12-11] MEDS: MORPHINE SULFATE 4 MG/ML INJ IV PRN (23:10)
[2016-12-12] VITALS (12 sets, daily range): BP systolic 120–162; BP diastolic 45–90; PULSE 56–96; RESP 16–18; TEMP 98.2–98.9; O2SAT 98–99
[2016-12-12] MEDS: LACTATED RINGER'S 1000 ML INJ 1,000 ML IV SCH ×2 (01:08→11:53)
[2016-12-12] MEDS: HEPARIN-D5W INJ 250 ML IV SCH ×2 (01:09→19:56)
[2016-12-12] MEDS: MORPHINE SULFATE 4 MG/ML INJ IV PRN ×4 (05:10→19:36)
[2016-12-12 05:38] LABS: HEMATOCRIT 36.5 % (35.0-46.0); REVIEW FLAG FINAL
[2016-12-12 05:44] LABS: APTT (PATIENT) 49.9 SEC (24.3-30.1)
[2016-12-12] MEDS ORDERED: PHENOL 1.4% SOLN 180 ML BTL PO PRN (05:45)
[2016-12-12 06:05] LABS: BICARBONATE 26.3 MEQ/L (21.0-32.0); MAGNESIUM 1.9 MG/DL (1.5-2.5); POTASSIUM 3.8 MEQ/L (3.5-5.1)
[2016-12-12] MEDS: INSULIN ASPART SUPPLEMENTAL SCALE SQ SCH ×4 (06:10→20:37)
[2016-12-12] MEDS: POTASSIUM CHLOR 20 MEQ/100 ML x 1 BAG IV PRN ×2 (06:34→17:13)
[2016-12-12] MEDS: PANTOPRAZOLE SOD 40 MG DELAYED RELEASE TAB PO SCH (08:25)
[2016-12-12] MEDS: MULTIVITAMIN TAB PO SCH (08:26)
[2016-12-12] MEDS: ASPIRIN 325 MG TAB PO SCH (08:26)
--- NOTE | 2016-12-12 08:55 | PD.VS.PN ---
Subjective Subjective/Hospital Course Status post right CEA and re-exploration with area of kinking (replaced patch) Patient with gross and fine motor movement in left upper extremity. Complains of sore throat with swallowing. Otherwise, neurologically intact. Objective Vitals/I&O Date Time Temp Pulse Resp B/P Pulse Ox O2 Delivery O2 Flow Rate FiO2 12/12/16 07:40 98.3 58 16 152/80 98 145/63 12/12/16 07:29 99 Nasal Cannula 5.00 Humidified 12/12/16 07:00 56 12/12/16 03:12 65 12/12/16 03:12 98.2 65 16 145/77 98 162/90 12/11/16 23:00 73 12/11/16 23:00 98.0 73 15 150/81 98 151/72 12/11/16 22:45 98 Nasal Cannula 4.00 12/11/16 22:11 81 12/11/16 21:00 76 12/11/16 21:00 98.2 71 15 131/71 95 156/75 12/11/16 21:00 93 Nasal Cannula 5.00 Humidified 12/11/16 17:00 69 12/11/16 16:30 98.0 67 18 126/62 96 121/36 12/11/16 16:30 96 Nasal Cannula 2.00 12/11/16 16:30 66 12/11/16 16:20 71 18 108/56 99 Nasal Cannula 3 12/11/16 16:20 71 18 127/64 99 Nasal Cannula 3 123/67 12/11/16 16:15 74 18 96 Nasal Cannula 3 119/62 12/11/16 16:10 76 18 110/60 99 Nasal Cannula 3 12/11/16 16:03 76 18 115/59 98 Nasal Cannula 3 12/11/16 16:00 84 18 83/54 96 Nasal Cannula 3 12/11/16 15:54 84 18 98/62 96 Nasal Cannula 3 105/49 12/11/16 15:48 98.1 85 18 117/71 99 Nasal Cannula 3 12/11/16 11:15 98.2 73 18 120/77 98 12/11/16 11:00 85 12/11/16 10:38 67 12/11/16 09:00 78 12/12/16 12/12/16 12/12/16 07:00 15:00 23:00 Intake Total 2143 ml Output Total 2220 ml Balance -77 ml Physical Exam left motor 4/5 on left with fine motor and sensory intact. Right neck incision intact. Laboratory Laboratory Tests Test 12/11/16 12/12/16 12/12/16 21:14 00:30 05:17 White Blood Count 15.5 Red Blood Count 4.25 Hemoglobin 12.8 12.6 Hematocrit 37.8 36.5 Mean Corpuscular Volume 88.9 Mean Corpuscular Hemoglobin 30.0 Mean Corpuscular Hemoglobin 33.8 Concent Red Cell Distribution Width 12.4 Platelet Count 268 Mean Platelet Volume 8.4 Prothrombin Time 12.7 Prothromb Time International 1.1 Ratio Activated Partial 158.1 32.0 49.9 Thromboplast Time Sodium Level 143 142 Potassium Level 3.7 3.8 Chloride Level 108 106 Carbon Dioxide Level 26.1 26.3 Anion Gap 9 10 Blood Urea Nitrogen 11 10 Creatinine 0.46 0.41 Estimat Glomerular Filtration 142 162 Rate Random Glucose 224 182 Calcium Level 7.6 8.1 Phosphorus Level 2.8 Magnesium Level 1.9 Imaging Last 48 hours Impressions Neck CTA 12/11/16 0000 Signed Impressions: Service Date/Time: Sunday, December 11, 2016 17:42 - CONCLUSION: Persistent stenosis on the right with minimal hematoma. Findings have been discussed with Dr. Wooten while the patient was on the scanner. Jass Valdovinos MD FACR Head CTA 12/11/16 0000 Signed Impressions: Service Date/Time: Sunday, December 11, 2016 17:42 - CONCLUSION: There is no evidence for an embolic occlusion of the intracranial vessels. Jass Valdovinos MD FACR Head CT 12/11/16 0000 Signed Impressions: Service Date/Time: Sunday, December 11, 2016 17:41 - CONCLUSION: Remote left cerebral infarcts without definite evidence for acute infarct. Pascual Bhardwaj MD Assessment and Plan Assessment: (1) Carotid stenosis, right Status: Acute Plan This is a 56 yr old female status post right CEA. and re-exploration with replacement of patch (kinking). Patient neurologically intact. Will need physical therapy and blood pressure support. Presently on neosynephrine and anticoagulation. Will advance to soft nectar thickened diet. Dilshad Banks DO FACS [employer] /Dilshad Jewell DO Dec 12, 2016 08:55
[2016-12-12] MEDS: SODIUM CHLORIDE 0.9% FLUSH 10 ML FLUSH IV FLUSH SCH ×2 (09:00→21:31)
[2016-12-12] MEDS ORDERED: PHENYLEPHRINE INJ 40 MG in DEXTROSE 5% IN WATE 500 ML INJ 496 ML IV SCH ×2 (11:00)
--- NOTE | 2016-12-12 11:02 | PD.CAR.PN ---
CVT Progress Note Subjective/Hospital Course: 56yF who originally presented with chest pain and was found to have multivessel disease (RCA 99% prox, LAD 70% prox, circ 99% distal). During her work-up for cabg, she was found to have a chronically occluded left carotid and a high grade right carotid lesion. Taken today for semi-elective right CEA in anticipation of urgent CABG later this week. Immediately post-operatively in PACU, she was noted to have an acute neuro exam change and was flaccid on the left side, but this was with a sbp of 70. phenylephrine was started to target SBP 120 - 140 with complete resolution of her symptoms. Per [facility] note : Last seen neuro intact was 1700. At 1720, the nurse evaluated the patient and she was found to be flaccid on the left again, with a SBP 150. noticeable left facial droop, left hand complete flaccid paralysis. left leg had 3/5 strength. Pt was immediately taken for emergent CT/CTA head and neck which demonstrated compression of the superior edge of the carotid patch. Pt was taken back to OR for re-exploration of the right carotid endarterectomy site. 12/12 pt was maintained on Justin gtt last pm to keep [id number] this am , pt developed chest pressure/ radiating down both arms , stat ECG done extensive ST depression inferior lateral changes pt medicated with morphine which resolved the pain, Dr Banks spoke with Dr Kwong will monitor closely , check MRI Brain in am keep in ICU , ok to keep SBP 120-140 and decrease IV fluids pt was moving all extremities, speech clear and neuro appropriate Objective: GENERAL: SKIN: Warm and dry. HEAD: Normocephalic. EYES: No scleral icterus. No injection or drainage. NECK: Supple, trachea midline. No JVD or lymphadenopathy/ dressing in place to neck with carotid drain / drained 20cc/ 12 hrs CARDIOVASCULAR: Regular rate and rhythm without murmurs, gallops, or rubs. RESPIRATORY: Breath sounds equal bilaterally. No accessory muscle use. GASTROINTESTINAL: Abdomen soft, non-tender, nondistended. MUSCULOSKELETAL: No cyanosis, or edema. BACK: Nontender without obvious deformity. No CVA tenderness. Neuro,: burning supervisor equal/ 5/5 upper and lower / CARLOS 2-3 mm + facial symmetry Vital Signs Date Time Temp Pulse Resp B/P Pulse Ox O2 Delivery O2 Flow Rate FiO2 12/12/16 09:04 16 12/12/16 07:40 98.3 58 16 152/80 98 145/63 12/12/16 07:29 99 Nasal Cannula 5.00 Humidified 12/12/16 07:00 56 12/12/16 03:12 65 12/12/16 03:12 98.2 65 16 145/77 98 162/90 12/11/16 23:00 73 12/11/16 23:00 98.0 73 15 150/81 98 151/72 12/11/16 22:45 98 Nasal Cannula 4.00 12/11/16 22:11 81 12/11/16 21:00 76 12/11/16 21:00 98.2 71 15 131/71 95 156/75 12/11/16 21:00 93 Nasal Cannula 5.00 Humidified 12/11/16 17:00 69 12/11/16 16:30 98.0 67 18 126/62 96 121/36 12/11/16 16:30 96 Nasal Cannula 2.00 12/11/16 16:30 66 12/11/16 16:20 71 18 108/56 99 Nasal Cannula 3 12/11/16 16:20 71 18 127/64 99 Nasal Cannula 3 123/67 12/11/16 16:15 74 18 96 Nasal Cannula 3 119/62 12/11/16 16:10 76 18 110/60 99 Nasal Cannula 3 12/11/16 16:03 76 18 115/59 98 Nasal Cannula 3 12/11/16 16:00 84 18 83/54 96 Nasal Cannula 3 12/11/16 15:54 84 18 98/62 96 Nasal Cannula 3 105/49 12/11/16 15:48 98.1 85 18 117/71 99 Nasal Cannula 3 12/11/16 11:15 98.2 73 18 120/77 98 12/11/16 11:00 85 Labs: Laboratory Tests Test 12/12/16 12/12/16 00:30 05:17 Activated Partial 32.0 SEC 49.9 SEC Thromboplast Time (24.3-30.1) (24.3-30.1) Hemoglobin 12.6 GM/DL (11.6-15.3) Hematocrit 36.5 % (35.0-46.0) Sodium Level 142 MEQ/L (136-145) Potassium Level 3.8 MEQ/L (3.5-5.1) Chloride Level 106 MEQ/L (98-107) Carbon Dioxide Level 26.3 MEQ/L (21.0-32.0) Anion Gap 10 MEQ/L (5-15) Blood Urea Nitrogen 10 MG/DL (7-18) Creatinine 0.41 MG/DL (0.50-1.00) Estimat Glomerular Filtration 162 ML/MIN Rate (>89) Random Glucose 182 MG/DL (74-106) Calcium Level 8.1 MG/DL (8.5-10.1) Phosphorus Level 2.8 MG/DL (2.5-4.9) Magnesium Level 1.9 MG/DL (1.5-2.5) Result Diagram: 12/12/1651612/12/16516 Telemetry: NSR/ ECG noted (1) Chest pain Plan: (2) Unstable angina Plan: on ASA, Heparin gtt, intolerant to statins surgery scheduling to be determined (3) Hypertension (4) Tobacco abuse Plan: smoking cessation (5) Diabetes mellitus type 2 in nonobese Plan: on insulin gtt (6) HLD (hyperlipidemia) (7) Carotid stenosis, right Plan: s/p right CEA redo re-exploration by Dr Banks maintain [id number] Karen Jane Dec 12, 2016 11:02
--- NOTE | 2016-12-12 14:12 | EC ---
Study Study Date:12/12/2016 STUDY CONCLUSIONS SUMMARY - Left ventricle: The cavity size was normal. Wall thickness was at the upper limits of normal. Systolic function was normal. The estimated ejection fraction was in the range of 60% to 65%. Regional wall motion abnormalities cannot be excluded. - Aortic valve: Valve area: 2.57cm^2 (Vmax). If LV function is below 40, please consider prescribing an ACEI or ARB or document rationale for non-use. PROCEDURE DATA STUDY STATUS: Elective. Procedure: Transthoracic echocardiography. Image quality was fair. Scanning was performed from the parasternal, apical, and subcostal acoustic windows. Study completion: The patient tolerated the procedure well. Transthoracic echocardiography. M-mode, complete 2D, complete spectral Doppler, and color Doppler. Height: Height: 71in. Weight: Weight: 168.6lb. Body mass index: BMI: 23.6kg/m^2. Body surface area: BSA: 1.96m^2. Patient status: Inpatient. CARDIAC ANATOMY LEFT VENTRICLE: The cavity size was normal. Wall thickness was at the upper limits of normal. Systolic function was normal. The estimated ejection fraction was in the range of 60% to 65%. Regional wall motion abnormalities cannot be excluded. AORTIC VALVE: Trileaflet; normal thickness leaflets. Doppler: Transvalvular velocity was within the normal range. There was no stenosis. No regurgitation. Valve area: 2.57cm^2 (Vmax). Indexed valve area: 1.31cm^2/m^2 (Vmax). AORTA: Aortic root: The aortic root was normal in size. MITRAL VALVE: Structurally normal valve. Doppler: Transvalvular velocity was within the normal range. There was no evidence for stenosis. No regurgitation. Valve area by pressure half-time: 4.31cm^2. Indexed valve area by pressure half-time: 2.2cm^2/m^2. Peak gradient: 3mm Hg (D). LEFT ATRIUM: The atrium was normal in size. RIGHT VENTRICLE: The cavity size was normal. Wall thickness was normal. PULMONIC VALVE: Not visualized. TRICUSPID VALVE: Structurally normal valve. Doppler: Transvalvular velocity was within the normal range. No regurgitation. PULMONARY ARTERY: The main pulmonary artery was normal-sized. Systolic pressure was within the normal range. RIGHT ATRIUM: The atrium was normal in size. PERICARDIUM: There was no pericardial effusion. SYSTEMIC VEINS: Inferior vena cava: The vessel was normal in size. Patient weight: 168.6lb _Ejection fraction:_ 65-75% _Fractional shortening:_ 32% up to 5Kg 5-11.5Kg 11.6-22.9Kg 23-45Kg 45-57Kg Aortic Root 7-13 <17 13-22 17-27 17-27 LA diam 6-13 <23 24-38 33-47 37-40 RVID 10-17 7-15 7-15 7-18 8-17 LVIDd 12-22 <32 24-38 33-47 37-40 LVPW 2-4 3-6 5-7 6-8 7-8 IVS 2-4 3-6 5-7 6-8 7-8 BASIC MEASUREMENTS ADULT NORMAL Left ventricle LV internal dimension, ED, chordal *41.8 mm 43-52 level, PLAX LV internal dimension, ES, chordal 25.9 mm 23-38 level, PLAX Fractional shortening, chordal level, 38 % >29 PLAX LV posterior wall thickness, ED 11.1 mm IVS/LVPW ratio, ED 1.02 <1.3 Ventricular septum Septal thickness, ED 11.3 mm Aortic valve Leaflet separation 22 mm 15-26 Left atrium Anterior-posterior dimension 24 mm Anterior-posterior dimension index 1.22 cm/m^2 <2.2 Right ventricle RV internal dimension, ED, PLAX 23.2 mm 19-38 BASIC MEASUREMENTS ADULT NORMAL Aortic valve Leaflet separation 22 mm 15-26 Aorta Root diameter, ED 33 mm 20-37 DOPPLER MEASUREMENTS ADULT NORMAL Aortic valve Peak velocity, S 155 cm/s Valve area, Vmax 2.57 cm^2 Valve area index, Vmax 1.31 cm^2/m^2 Mitral valve Peak E-wave velocity 89.3 cm/s Peak A-wave velocity 85.9 cm/s Pressure half-time 51 ms Peak gradient, D 3 mm Hg Peak E/A ratio 1 Valve area, pressure half-time 4.31 cm^2 Valve area index, pressure half-time 2.2 cm^2/m^2 Pulmonic valve Peak velocity, S 92.3 cm/s LEGEND: Mean values are shown as u=mean value. Asterisk (*) meraz values outside specified normal range. Prepared and signed by Ambrosio Montes De Oca [id number]
[2016-12-12 16:27] LABS: APTT (PATIENT) 52.1 SEC (24.3-30.1)
--- NOTE | 2016-12-12 20:55 | MP ---
cc: LUCINA JOAQUIN DATE OF SURGERY 12/11/2016 PREOPERATIVE DIAGNOSIS History of high-grade right ICA stenosis. Post-operative Diagnosis. Asymptomatic carotid artery stenosis. Procedure Right CEA. SURGEON DO Jocelyn [employer] Gabriela Qureshi IV FLUIDS 1700 cc crystalloids. ESTIMATED BLOOD LOSS Minimal. URINE OUTPUT NA. COMPLICATIONS None. DISPOSITION To PACU. PROCEDURE The patient's right neck was prepped and draped in the sterile fashion after being under neuro monitoring and given perioperative antibiotics with general endotracheal anesthesia. I made a linear incision that was about 3 to 4 cm from the tragus of the ear towards the sternocleidomastoid using the scalpel and electrocautery. I dissected down through the platysma and then I dissected along the anterior border of the sternocleidomastoid, retracting the sternocleidomastoid back posteriorly. I dissected the internal jugular vein away from the common internal and external carotid arteries. I tied off multiple venous tributaries with 2-0 and 3-0 silk as well as small medium clips as indicated. Once I retracted the internal jugular vein I then ligated the occipital artery with 2-0 silks with medium clips. It should be noted the patient did have a high bifurcation. I did identify the hypoglossal nerve and I did divide some of the hypogastric tendon. Once vessel loops around the superior thyroid internal and external carotid arteries and I had a Rumel tourniquet around the common carotid artery. I then performed an arteriotomy after heparinizing the patient to an ACT of greater than 200. I used pediatric profunda clamps in order to control the common and internal carotid arteries and the vessel loop to control the external and superior thyroid arteries. I used an 11-blade and Bartlett scissors in order to make my arteriotomy. I then repaired removed the plaque with a [place] elevator. After I removed the plaque it should be noted that there was a good distal end point and required no distal Prolene sutures in order for tacking. I then irrigated the back wall with heparinized saline, make sure there was no debris and removed any clot from the external carotid artery as well. It should be noted I then sewed on a number of 0.8 x 8 bovine patch with a 5-0 Prolene stitch in a continuous fashion. This was a parachute stitch and I used two Prolene sutures to do this. I did require two 6-0 Prolene, one proximally, one distally at the end of my case for some oozing. It should be noted that I did clamp the internal carotid then reclamped and then unclamped the common and external carotid artery, clamping the internal carotid artery on the right side. It should be noted there was no changes in the SSEPs or EEGs during the entire case. It should be noted that at the end of the case I used Surgicel and Chas and I did give small of protamine as the ACT was greater than 300 before closing. I closed in layers with continuous running 2-0 and 3-0 Vicryl and a 4-0 Monocryl with Dermabond over the skin. I then placed a blue towel around the neck and applied a pressure dressing over the right neck. DO JACKIE Breen/MARÍA /3:23 PM /8:38 PM [id number]
--- NOTE | 2016-12-12 21:23 | HHI.CCPN ---
Subjective Remarks/Hospital Course Hospital Course: This is a 56yF who originally presented with chest pain and was found to have multivessel disease (RCA 99% prox, LAD 70% prox, circ 99% distal). During her work-up for cabg, she was found to have a chronically occluded left carotid and a high grade right carotid lesion. She was taken today for semi-elective right CEA in anticipation of urgent CABG later this week. Immediately post- operatively in PACU, she was noted to have an acute neuro exam change and was flaccid on the left side, but this was with a sbp of 70. phenylephrine was started to target SBP 120 - 140 with complete resolution of her symptoms. I evaluated the patient in PACU and she was completely neuro intact. We immediately transferred her to the CVICU. The CVICU performed strict q1h neuro checks. Last seen neuro intact was 1700. At 1720, the nurse evaluated the patient and she was found to be flaccid on the left again, with a SBP 150. I again immediately came and evaluated the patient. At this point, she has noticeable left facial droop, left hand complete flaccid paralysis. left leg had 3/[address] Banks and immediately took her down for emergent CT/CTA head and neck which demonstrated compression of the superior edge of the carotid patch. Critical care medicine is consulted to evaluate and manage her CVA and post-CEA hemodynamics. Subjective: 12/12: doing well. off phenylephrine. one episode of chest pain this morning, but improved with iv morphine. neuro intact this morning. overnight last night, ST depressions worsened with norepinephrine, but resolved when pressor was switched to phenylephrine. Objective Vital Signs Date Time Temp Pulse Resp B/P Pulse Ox O2 Delivery O2 Flow Rate FiO2 12/12/16 19:00 87 12/12/16 16:00 98.2 18 120/73 98 123/45 12/12/16 13:53 Nasal Cannula 2.00 12/10/16 21:52 21 Intake and Output 12/11/16 12/11/16 12/12/16 08:00 16:00 00:00 Intake Total 590 ml 1700 ml 300 ml Output Total 130 ml 800 ml Balance 590 ml 1570 ml -500 ml Result Diagram: 12/12/16 0517 12/12/16 1455 Imaging Last Impressions Head CT 4/10/17 0000 Signed Impressions: Service Date/Time: Sunday, December 11, 2016 17:41 - CONCLUSION: Remote left cerebral infarcts without definite evidence for acute infarct. Pascual Bhardwaj MD Neck CTA 12/10/16 0000 Signed Impressions: Service Date/Time: Saturday, December 10, 2016 13:46 - CONCLUSION: High-grade stenosis involving the proximal right internal carotid artery over a very short segment. The left internal carotid artery is completely occluded at the level of the bifurcation with reconstitution intracranially.. Karen Schumacher MD Lower Extremity Ultrasound 12/09/16 Signed Impressions: Service Date/Time: Friday, December 09, 2016 11:42 - CONCLUSION: Normal examination. Karen Schumacher MD Carotid Artery Ultrasound 12/09/16 0000 Signed Impressions: Service Date/Time: Friday, December 09, 2016 12:10 - CONCLUSION: Significantly abnormal exam with no visualized flow identified within the left internal carotid artery consistent with complete thrombosis. The grayscale images of the proximal right internal carotid artery are consistent with a high-grade, greater than 70%% stenosis. The velocities identified throughout the right internal carotid artery are significantly elevated consistent with high-grade stenosis and waveforms are all abnormal. Recommend correlation with cross-sectional imaging. Karen Schumacher MD Myocardial Perfusion Scan Nuc Med 12/08/16 Signed Impressions: Service Date/Time: Thursday, December 08, 2016 08:44 - CONCLUSION: Moderate sized moderate severity reversible apical perfusion abnormality. RISK CATEGORY: Intermediate (1-3%% Annual Mortality Rate) Gurmeet Kraus MD Chest X-Ray 12/07/16 0839 Signed Impressions: Service Date/Time: December 08:47 - CONCLUSION: No acute disease. Gurmeet Kraus MD Objective Remarks Gen: middle-aged female, lying in bed, in nad. heent: pupils 3mm, equal, round, conjugate, reactive. mucous membranes moist. facial droop has resolved. neck: no jvd. trachea midline. right neck dressing intact, no hematoma. charlie in place with minimal output chest: equal chest rise. unlabored. cv: normal rate, regular rhythm. sbp 140 on my exam. abd: soft, nontender, nondistended. no guarding. extr: right radial art line site intact. distal pulses 2+. no peripheral edema. neuro: ELEAZAR: LUE 5/5 LLE 5/5. 5/5 on right. neuro intact. Procedures 12/08/16 cardiac catheterization A/P Assessment and Plan Assessment: 56yF with recent NSTEMI, multi-vessel coronary artery disease and high-grade carotid stenosis now POD 1 s/p right CEA, course complicated by perioperative CVA and re-exploration. Now neuro intact. agree with keeping her SBP 120 - 140 to maintain cerebral perfusion. agree with keeping her in an ICU setting. agree with MRI in the near future. she will need definitive management of her active coronary ischemia at some point in the near future. Plan by Systems: Neuro: Acute right brain CVA (left-sided weakness)- resolved. -- q1h neuro checks -- goal SBP 120 - 140 -- CT/CTA 12/11: compression of the distal end of the carotid patch -- s/p re-exploration 12/11 -- MRI likely tomorrow Resp: Post-operative Atelectasis -- I.S. to bedside -- wean o2 by NC for goal spo2 > 94% CV: NSTEMI Triple Vessel CAD s/p right CEA 12/11 -- SBP 120 - 140 -- phenylephrine for goal blood pressure -- lipid panel -- 2d echo -- goal HR < 90 -- likely CABG later this week vs. next week -- vascular: Dr. Banks -- CT surg: Dr. Alex Renal: -- sarah for strict I/Os FEN/GI: -- nursing bedside swallow eval. advance diet slowly. -- mivf LR @ 30 cc/hr. -- ICU electrolyte protocol Heme/ID: -- no id issues. -- periop abx per surgeon -- daily cbc. -- does not meet transfusion triggers at this time. Endo: Diabetes -- SSI, med, q6h Prophy: -- scds, heparin drip -- ppi Dispo: -- remain in the CVICU while active coronary ischemia and recent CVA. Toño Wooten MD Dec 12, 2016 21:23
[2016-12-12 22:40] LABS: APTT (PATIENT) 51.3 SEC (24.3-30.1)
--- NOTE | 2016-12-12 22:59 | MP ---
cc: LUCINA JOAQUIN DATE OF SURGERY 12/11/2016 PREOPERATIVE DIAGNOSIS TIA/stroke symptoms status post right carotid endarterectomy. POSTOPERATIVE DIAGNOSIS TIA/stroke symptoms status post right carotid endarterectomy. PROCEDURE Reexploration right neck and right carotid endarterectomy. SURGEON DO Wilman Adams MD IV FLUIDS NA ESTIMATED BLOOD LOSS 200 mL URINE OUTPUT NA COMPLICATIONS None. DISPOSITION To ICU PROCEDURE IN DETAIL The patient's right neck was prepped and draped in a sterile fashion after given perioperative IV antibiotics. It should be noted that the patient was heparinized to an ACT of greater than 250. This was determine right before drawing an ACT before the procedure commenced. We used a scalpel and electrocautery as well as Lucas scissors in order to get through the previous incision. There was a minimal amount of hematomas as we entered the area. We began to explore the patch. It appeared that there was an area that was kinked at the level of the patch. It should be noted that good control of the external, internal, common carotid arteries. These were . We then had an DEE shunt in place. Once the ACT was greater than 250, we clamped the internal carotid artery and then removed the heel patch. Upon entering the common, I did not see any fresh clot. It should be noted before clamping internal there was blood flow through the carotid that could be palpated. I then irrigated the carotid out and then extended my incision of the internal distally. It should be noted that we had to place an [place] shunt and used a shunt clamp distally and a [place] tourniquet proximally for control so another bovine 0.8 x eight [address] patch [address] place with 5-0 Prolene running fashion. We did use three correction stitches with 5-0 Prolene and two 6-0 Prolene at the end of the case for bleeding. It should be noted that there was diastolic signal noted in the internal after the procedure. It should be noted that I used Surgicel with thrombin to assist in hemostasis. It should be noted that I closed in layers with a 2-0 Vicryl and a 3-0 Vicryl absorbable suture and a 4-0 Monocryl for the skin with Dermabond. It should be noted we did use compression dressing. It should be noted that I used a #10 round Sven drain, was placed right next to the carotid and tunnel inferiorly before closing. This, the patient was awoke initially with her pressure in the systolics of around 100. She was not moving her left upper extremity when the pressure went up to 120-130 She was able to fortunately move her left upper extremity and had motor sensation to grab my hand. She did follow commands and otherwise was neurologically intact. She was sent to the ICU for blood pressure control and was on a heparin drip. DO JACKIE Breen/ /8:58 AM /10:43 PM
[2016-12-13] VITALS (12 sets, daily range): BP systolic 123–162; BP diastolic 58–85; PULSE 80–105; RESP 15–18; TEMP 98–98.6; O2SAT 96–99
[2016-12-13] MEDS: MORPHINE SULFATE 4 MG/ML INJ IV PRN ×2 (01:32→05:02)
[2016-12-13] MEDS ORDERED: NITROGLYCERIN-DEXTROSE INJ 250 ML ONE (02:22)
[2016-12-13] MEDS ORDERED: NITROGLYCERIN-DEXTROSE INJ 250 ML IV SCH (02:30)
[2016-12-13 05:15] LABS: HEMATOCRIT 35.1 % (35.0-46.0); MEAN CELL VOLUME 88.6 FL (80.0-100.0); MEAN CORPUSCULAR HEMOGLOBIN 30.2 PG (27.0-34.0); MEAN CORPUSCULAR HGB CONC 34.1 % (32.0-36.0); PLATELET COUNT 216 TH/MM3 (150-450); RED BLOOD COUNT 3.96 MIL/MM3 (4.00-5.30); RED CELL DISTRIBUTION WIDTH 12.4 % (11.6-17.2); REVIEW FLAG FINAL; WHITE BLOOD COUNT 12.4 TH/MM3 (4.0-11.0)
[2016-12-13 05:28] LABS: APTT (PATIENT) 51.6 SEC (24.3-30.1)
[2016-12-13 05:39] LABS: BICARBONATE 26.9 MEQ/L (21.0-32.0); POTASSIUM 3.7 MEQ/L (3.5-5.1)
[2016-12-13] MEDS: POTASSIUM CHLOR 20 MEQ/100 ML x 1 BAG IV PRN (06:38)
[2016-12-13] MEDS: INSULIN ASPART SUPPLEMENTAL SCALE SQ SCH ×4 (07:00→21:00)
--- NOTE | 2016-12-13 07:15 | HHI.CCPN ---
Subjective Remarks/Hospital Course Hospital Course: This is a 56yF who originally presented with chest pain and was found to have multivessel disease (RCA 99% prox, LAD 70% prox, circ 99% distal). During her work-up for cabg, she was found to have a chronically occluded left carotid and a high grade right carotid lesion. She was taken today for semi-elective right CEA in anticipation of urgent CABG later this week. Immediately post- operatively in PACU, she was noted to have an acute neuro exam change and was flaccid on the left side, but this was with a sbp of 70. phenylephrine was started to target SBP 120 - 140 with complete resolution of her symptoms. I evaluated the patient in PACU and she was completely neuro intact. We immediately transferred her to the CVICU. The CVICU performed strict q1h neuro checks. Last seen neuro intact was 1700. At 1720, the nurse evaluated the patient and she was found to be flaccid on the left again, with a SBP 150. I again immediately came and evaluated the patient. At this point, she has noticeable left facial droop, left hand complete flaccid paralysis. left leg had 3/[address] Banks and immediately took her down for emergent CT/CTA head and neck which demonstrated compression of the superior edge of the carotid patch. Critical care medicine is consulted to evaluate and manage her CVA and post-CEA hemodynamics. Subjective: 12/12: doing well. off phenylephrine. one episode of chest pain this morning, but improved with iv morphine. neuro intact this morning. overnight last night, ST depressions worsened with norepinephrine, but resolved when pressor was switched to phenylephrine. 12/13: Intermittent chest pain yesterday night. Started on nitro drip. EKG shows ischemic changes but unchanged from previous. Blood pressure systolic maintained between 120 to 130. No focal deficit noted on exam. Will discuss with cardiothoracic surgery Dr. Mayo today about timing of CABG Objective Vital Signs Date Time Temp Pulse Resp B/P Pulse Ox O2 Delivery O2 Flow Rate FiO2 12/13/16 03:05 85 12/13/16 03:05 98.2 16 99 126/58 12/12/16 20:32 Nasal Cannula 2.00 12/10/16 21:52 21 Intake and Output 12/12/16 12/12/16 12/13/16 08:00 16:00 00:00 Intake Total 2143 ml 1223 ml Output Total 2220 ml 2165 ml Balance -77 ml -942 ml Result Diagram: 12/13/16 0435 12/13/16 0435 Imaging Last Impressions Head CT 12/11/16 0000 Signed Impressions: Service Date/Time: Sunday, December 11, 2016 17:41 - CONCLUSION: Remote left cerebral infarcts without definite evidence for acute infarct. Pascual Bhardwaj MD Neck CTA 12/10/16 0000 Signed Impressions: Service Date/Time: Saturday, December 10, 2016 13:46 - CONCLUSION: High-grade stenosis involving the proximal right internal carotid artery over a very short segment. The left internal carotid artery is completely occluded at the level of the bifurcation with reconstitution intracranially.. Karen Schumacher MD Lower Extremity Ultrasound 12/09/16 0000 Signed Impressions: Service Date/Time: Friday, December 09, 2016 11:42 - CONCLUSION: Normal examination. Karen Schumacher MD Carotid Artery Ultrasound 12/09/16 0000 Signed Impressions: Service Date/Time: Friday, December 09, 2016 12:10 - CONCLUSION: Significantly abnormal exam with no visualized flow identified within the left internal carotid artery consistent with complete thrombosis. The grayscale images of the proximal right internal carotid artery are consistent with a high-grade, greater than 70%% stenosis. The velocities identified throughout the right internal carotid artery are significantly elevated consistent with high-grade stenosis and waveforms are all abnormal. Recommend correlation with cross-sectional imaging. Karen Schumacher MD Myocardial Perfusion Scan Nuc Med 12/08/16 0000 Signed Impressions: Service Date/Time: Thursday, December 08, 2016 08:44 - CONCLUSION: Moderate sized moderate severity reversible apical perfusion abnormality. RISK CATEGORY: Intermediate (1-3%% Annual Mortality Rate) Gurmeet Kraus MD Chest X-Ray 12/07/16 0839 Signed Impressions: Service Date/Time: December 08:47 - CONCLUSION: No acute disease. Gurmeet Kraus MD Objective Remarks Gen: middle-aged female, lying in bed, she is in [id number] distress due to chest pain heent: pupils 3mm, equal, round, conjugate, reactive. mucous membranes moist. facial droop has resolved. neck: no jvd. trachea midline. right neck dressing intact, no hematoma. charlie in place with minimal output chest: equal chest rise. unlabored. cv: normal rate, regular rhythm. sbp 140 on my exam. abd: soft, nontender, nondistended. no guarding. extr: right radial art line site intact. distal pulses 2+. no peripheral edema. neuro: Alert awake oriented no obvious cranial nerve deficits. Sensation preserved muscle power 5 out of 5 in all extremities Procedures 12/08/16 cardiac catheterization A/P Assessment and Plan Assessment: 56yF with recent NSTEMI, multi-vessel coronary artery disease and high-grade carotid stenosis now POD 2 s/p right CEA, course complicated by perioperative CVA and re-exploration. Now neuro intact. agree with keeping her SBP 120 - 140 to maintain cerebral perfusion. agree with keeping her in an ICU setting.MRI today. she will need definitive management of her active coronary ischemia at some point in the near future. Plan by Systems: Neuro: Acute right brain CVA (left-sided weakness)- resolved. -- q1h neuro checks -- goal SBP 120 - 140 -- CT/CTA 12/11: compression of the distal end of the carotid patch -- s/p re-exploration 12/11 -- MRI likely today Resp: Post-operative Atelectasis -- I.S. to bedside -- wean o2 by NC for goal spo2 > 94% CV: NSTEMI Ongoing chest pain/angina Triple Vessel CAD s/p right CEA 12/11 -- Started on nitro drip overnight for chest pain -- SBP 120 - 140 -- phenylephrine for goal blood pressure -- lipid panel -- 2d echo -- goal HR < 90 -- likely CABG later this week -- vascular: Dr. Banks -- CT surg: Dr. Alex -- Continue aspirin 325 mg daily Renal: -- smith for strict I/Os FEN/GI: -- nursing bedside swallow eval. advance diet slowly. -- mivf LR @ 30 cc/hr. -- ICU electrolyte protocol Heme/ID: -- no id issues. -- periop abx per surgeon -- daily cbc. -- does not meet transfusion triggers at this time. Endo: Diabetes -- SSI, med, q6h Prophy: -- scds, heparin drip -- ppi Dispo: -- remain in the CVICU while active coronary ischemia and recent CVA. CCT 30 Brent Levi MD Dec 13, 2016 07:15
[2016-12-13 08:11] LABS: ALKALINE PHOSPHATASE 69 U/L (45-117); ALT (GPT) 17 U/L (10-53); ANION GAP 9 MEQ/L (5-15); AST (GOT) 12 U/L (15-37); BICARBONATE 26.3 MEQ/L (21.0-32.0); BLOOD UREA NITROGEN 9 MG/DL (7-18); CHLORIDE 102 MEQ/L (98-107); GLOMERULAR FILTRATION RATE 157 ML/MIN (>89); SODIUM (NA) 137 MEQ/L (136-145)
[2016-12-13] MEDS: SODIUM CHLORIDE 0.9% FLUSH 10 ML FLUSH IV FLUSH SCH ×2 (09:00→21:00)
[2016-12-13] MEDS: MULTIVITAMIN TAB PO SCH (09:00)
--- NOTE | 2016-12-13 09:03 | RADRPT ---
EXAM DATE/TIME: 12/13/2016 07:18 [facility] COMPARISON: CHEST SINGLE AP, December 07, 2016, 8:47. INDICATIONS : Respiratory disease. MEDICAL HISTORY : Stroke. Hypertension SURGICAL HISTORY : Right endarterectomy. ENCOUNTER: Subsequent ACUITY: 1 week PAIN SCORE: 3/10 LOCATION: Bilateral chest FINDINGS: A single view of the chest demonstrates the lungs to be symmetrically aerated without evidence of mas s, infiltrate or effusion. The cardiomediastinal contours are unremarkable. Osseous structures are intact. CONCLUSION: No acute disease. Pascual Bhardwaj MD on December 13, 2016 at 9:01 Board Certified Radiologist. This report was verified electronically.
--- NOTE | 2016-12-13 09:22 | PD.CARD.PN ---
Subjective Subjective Remarks no complaints events noted, chest pain overnight MRI today Awaiting CABG Objective Medications Current Medications Medications (Trade) Dose Ordered Sig/Uri Route Start Time Stop Time Status Last Admin (Tylenol) 500 mg Q4H PRN PO 12/07/16 11:00 ([place] 7.5-325 Mg) 1 tab Q4H PRN PO 12/07/16 11:00 (Protonix) 40 mg DAILY PO 12/07/16 11:00 12/12/16 08:25 (Lopressor) 25 mg Q12HR PO 12/07/16 11:00 Hold 12/11/16 08:14 (Aspirin) 325 mg DAILY PO 12/08/16 09:00 12/12/16 08:26 (Xanax) 0.25 mg Q8H PRN PO 12/07/16 11:00 Hold 12/11/16 08:12 (D50w (Vial) Inj) 25 ml UNSCH PRN IV 12/07/16 12:00 (Glucagon Inj) 1 mg UNSCH PRN IM/SQ 12/07/16 12:00 (Prinivil) 20 mg BID PO 12/07/16 21:00 Hold 12/11/16 08:12 (Theragran) 1 tab DAILY PO 12/08/16 09:00 12/12/16 08:26 (Catapres) 0.1 mg Q4H PRN PO 12/07/16 12:15 Hold (Atropine Inj) 0.5 mg UNSCH PRN IV 12/08/16 14:30 (NS Flush) 2 ml BID IV FLUSH 12/08/16 21:00 12/12/16 21:31 (Levemir Inj) 35 units HS SQ 12/09/16 21:00 Hold 12/10/16 20:19 Sodium Chloride 2 ml 2 ml UNSCH PRN IV FLUSH 12/11/16 17:00 Potassium Chloride 100 ml @ 50 mls/hr Q2H PRN IV 12/11/16 16:30 Potassium Chloride 100 ml @ 50 mls/hr UNSCH PRN IV 12/11/16 16:30 12/13/16 06:38 Potassium Phosphate 21 mmol/ Sodium Chloride 257 ml @ 41.7 mls/hr UNSCH PRN IV 12/11/16 16:30 (Magnesium Sulfate 1 Gm Premix) 200 ml @ 100 mls/hr UNSCH PRN IV 12/11/16 16:30 (Zofran Inj) 4 mg Q6H PRN IV PUSH 12/11/16 16:30 ([place] 5-325 Mg) 1 tab Q4H PRN PO 12/11/16 16:30 (Morphine Inj) 2 mg Q4H PRN IV 12/11/16 16:30 12/12/16 05:10 Morphine Sulfate 4 mg 4 mg Q1H PRN IV 12/11/16 16:30 12/13/16 05:02 Lactated Ringer's 1,000 ml @ 30 mls/hr Q24H IV 12/11/16 19:00 12/12/16 11:53 (Heparin-D5W Inj) 250 ml @ 0 mls/hr TITRATE IV 12/11/16 20:30 12/12/16 19:56 (Brethine Inj) 1 mg UNSCH PRN SQ 12/11/16 20:45 Phenol 1 spray 1 spray UNSCH PRN PO 12/12/16 05:45 12/12/16 05:54 Phenylephrine HCl 40 mg/Dextrose 500 ml @ 0 mls/hr TITRATE IV 12/12/16 11:00 (Nitroglycerin-Dextrose Inj) 250 ml @ 0 mls/hr TITRATE IV 12/13/16 02:30 12/13/16 02:43 Vital Signs / I&O Vital Signs Date Time Temp Pulse Resp B/P Pulse Ox O2 Delivery O2 Flow Rate FiO2 12/13/16 07:49 98.4 100 16 123/85 97 131/62 12/13/16 07:45 99 Nasal Cannula 2.00 12/13/16 07:30 98 Nasal Cannula 2.00 12/13/16 07:00 92 12/13/16 03:05 85 12/13/16 03:05 98.2 80 16 99 126/58 12/12/16 23:00 94 12/12/16 23:00 98.6 94 16 120/66 99 140/61 12/12/16 20:32 98 Nasal Cannula 2.00 12/12/16 19:39 98.9 90 16 120/72 99 130/57 12/12/16 19:39 99 Nasal Cannula 2.00 12/12/16 19:00 87 12/12/16 16:00 98.2 96 18 120/73 98 123/45 12/12/16 15:07 18 12/12/16 15:00 90 12/12/16 13:53 98 Nasal Cannula 2.00 12/12/16 11:37 98.5 58 16 120/60 98 121/49 12/12/16 11:00 87 I/O 12/12/16 12/12/16 12/12/16 12/13/16 12/13/16 12/13/16 07:00 15:00 23:00 07:00 15:00 23:00 Intake Total 2143 ml 1223 ml 792 ml Output Total 2220 ml 2165 ml 1310 ml Balance -77 ml -942 ml -518 ml Intake Oral 20 ml 480 ml 50 ml IV Total 2123 ml 743 ml 742 ml Output Urine Total 2200 ml 2160 ml 1300 ml Drainage Total 20 ml 5 ml 10 ml # Bowel Movements 0 0 0 Physical Exam GENERAL: Well-nourished, well-developed patient.Awake, alert, and oriented x 3. SKIN: Warm and dry. HEAD: Normocephalic. EYES: No scleral icterus. No injection or drainage. NECK: Supple, trachea midline. No JVD or lymphadenopathy. CARDIOVASCULAR: Regular rate and rhythm without murmurs, gallops, or rubs. RESPIRATORY: Breath sounds equal bilaterally. No accessory muscle use. GASTROINTESTINAL: Abdomen soft, non-tender, nondistended. EXTREMITIES: No cyanosis, or edema. Laboratory Laboratory Tests Test 12/12/16 12/12/16 12/13/16 12/13/16 14:55 21:50 04:35 07:20 Activated Partial 52.1 SEC 51.3 SEC 51.6 SEC Thromboplast Time Potassium Level 3.8 MEQ/L 4.0 MEQ/L 3.7 MEQ/L 4.0 MEQ/L White Blood Count 12.4 TH/MM3 Red Blood Count 3.96 MIL/MM3 Hemoglobin 12.0 GM/DL Hematocrit 35.1 % Mean Corpuscular Volume 88.6 FL Mean Corpuscular Hemoglobin 30.2 PG Mean Corpuscular Hemoglobin 34.1 % Concent Red Cell Distribution Width 12.4 % Platelet Count 216 TH/MM3 Mean Platelet Volume 8.5 FL Sodium Level 137 MEQ/L 137 MEQ/L Chloride Level 101 MEQ/L 102 MEQ/L Carbon Dioxide Level 26.9 MEQ/L 26.3 MEQ/L Anion Gap 9 MEQ/L 9 MEQ/L Blood Urea Nitrogen 7 MG/DL 9 MG/DL Creatinine 0.41 MG/DL 0.42 MG/DL Estimat Glomerular Filtration 162 ML/MIN 157 ML/MIN Rate Random Glucose 178 MG/DL 173 MG/DL Calcium Level 8.5 MG/DL 8.6 MG/DL Magnesium Level 2.0 MG/DL Total Bilirubin 1.0 MG/DL Aspartate Amino Transf 12 U/L (AST/SGOT) Alanine Aminotransferase 17 U/L (ALT/SGPT) Alkaline Phosphatase 69 U/L Troponin I 0.04 NG/ML Total Protein 6.5 GM/DL Albumin 3.0 GM/DL Imaging Last Impressions Chest X-Ray 12/13/16 Signed Impressions: Service Date/Time: Tuesday, December 13, 2016 07:18 - CONCLUSION: No acute disease. Pascual Bhardwaj MD Neck CTA 12/11/16 Signed Impressions: Service Date/Time: Sunday, December 11, 2016 17:42 - CONCLUSION: Persistent stenosis on the right with minimal hematoma. Findings have been discussed with Dr. Wooten while the patient was on the scanner. Jass Valdovinos MD FACR Head CTA 12/11/16 Signed Impressions: Service Date/Time: Sunday, December 11, 2016 17:42 - CONCLUSION: There is no evidence for an embolic occlusion of the intracranial vessels. Jass Valdovinos MD FACR Head CT 12/11/16 Signed Impressions: Service Date/Time: Sunday, December 11, 2016 17:41 - CONCLUSION: Remote left cerebral infarcts without definite evidence for acute infarct. Pascual Bhardwaj MD Lower Extremity Ultrasound 12/09/16 Signed Impressions: Service Date/Time: Friday, December 09, 2016 11:42 - CONCLUSION: Normal examination. Karen Schumacher MD Carotid Artery Ultrasound 12/09/16 Signed Impressions: Service Date/Time: Friday, December 09, 2016 12:10 - CONCLUSION: Significantly abnormal exam with no visualized flow identified within the left internal carotid artery consistent with complete thrombosis. The grayscale images of the proximal right internal carotid artery are consistent with a high-grade, greater than 70%% stenosis. The velocities identified throughout the right internal carotid artery are significantly elevated consistent with high-grade stenosis and waveforms are all abnormal. Recommend correlation with cross-sectional imaging. Karen Schumacher MD Myocardial Perfusion Scan Nuc Med 12/08/16 0000 Signed Impressions: Service Date/Time: Thursday, December 08, 2016 08:44 - CONCLUSION: Moderate sized moderate severity reversible apical perfusion abnormality. RISK CATEGORY: Intermediate (1-3%% Annual Mortality Rate) Gurmeet Kraus MD Assessment and Plan Problem List: (1) Chest pain Assessment and Plan: Cont aggressive medical management for CAD MRI today Neurology consult Awaiting CABG (2) Unstable angina (3) Hypertension (4) Tobacco abuse (5) Diabetes mellitus type 2 in nonobese (6) HLD (hyperlipidemia) (7) Carotid stenosis, right Kwong-Candelario Spivey MD Dec 13, 2016 09:22
[2016-12-13] MEDS ORDERED: METOPROLOL TARTRATE 5 MG/5 ML VIAL IV PUSH PRN (09:45)
[2016-12-13] MEDS ORDERED: hydrALAZINE HCL 20 MG/ML VIAL IV PUSH PRN (09:45)
[2016-12-13] MEDS: PANTOPRAZOLE SOD 40 MG DELAYED RELEASE TAB PO SCH (09:54)
[2016-12-13] MEDS: ASPIRIN 325 MG TAB PO SCH (09:54)
--- NOTE | 2016-12-13 09:54 | PD.CAR.PN ---
CVT Progress Note Subjective/Hospital Course: 56yF who originally presented with chest pain and was found to have multivessel disease (RCA 99% prox, LAD 70% prox, circ 99% distal). During her work-up for cabg, she was found to have a chronically occluded left carotid and a high grade right carotid lesion. Taken today for semi-elective right CEA in anticipation of urgent CABG later this week. Immediately post-operatively in PACU, she was noted to have an acute neuro exam change and was flaccid on the left side, but this was with a sbp of 70. phenylephrine was started to target SBP 120 - 140 with complete resolution of her symptoms. Per [facility] note : Last seen neuro intact was 1700. At 1720, the nurse evaluated the patient and she was found to be flaccid on the left again, with a SBP 150. noticeable left facial droop, left hand complete flaccid paralysis. left leg had 3/5 strength. Pt was immediately taken for emergent CT/CTA head and neck which demonstrated compression of the superior edge of the carotid patch. Pt was taken back to OR for re-exploration of the right carotid endarterectomy site. 12/12 pt was maintained on Justin gtt last pm to keep [id number] this am , pt developed chest pressure/ radiating down both arms , stat ECG done extensive ST depression inferior lateral changes pt medicated with morphine which resolved the pain, Dr Banks spoke with Dr Kwong will monitor closely , check MRI Brain in am keep in ICU , ok to keep SBP 120-140 and decrease IV fluids pt was moving all extremities, speech clear and neuro appropriate 12/13 pt has 4/5 left upper ext MRI pending, speech is hoarse and she is c/o of sore throat c/o of chest pain last pm, ECG unchanged , trop neg was started on Nitro gtt/ discussed with [facility] and vascular will change to Nitro paste, add BB , dc laurence later / get pt OOB consult PT/OT/ Speech for eval only today Objective: GENERAL: SKIN: Warm and dry. dressing in tact right neck / charlie drain right neck, with minimal drainage HEAD: Normocephalic. EYES: No scleral icterus. No injection or drainage. NECK: Supple, trachea midline. No JVD or lymphadenopathy. CARDIOVASCULAR: Regular rate and rhythm without murmurs, gallops, or rubs. RESPIRATORY: Breath sounds equal bilaterally. No accessory muscle use. GASTROINTESTINAL: Abdomen soft, non-tender, nondistended. MUSCULOSKELETAL: No cyanosis, or edema. BACK: Nontender without obvious deformity. No CVA tenderness. Neuro: some left upper ext weakness Vital Signs Date Time Temp Pulse Resp B/P Pulse Ox O2 Delivery O2 Flow Rate FiO2 12/13/16 07:49 98.4 100 16 123/85 97 131/62 12/13/16 07:45 99 Nasal Cannula 2.00 12/13/16 07:30 98 Nasal Cannula 2.00 12/13/16 07:00 92 12/13/16 03:05 85 12/13/16 03:05 98.2 80 16 99 126/58 12/12/16 23:00 94 12/12/16 23:00 98.6 94 16 120/66 99 140/61 12/12/16 20:32 98 Nasal Cannula 2.00 12/12/16 19:39 98.9 90 16 120/72 99 130/57 12/12/16 19:39 99 Nasal Cannula 2.00 12/12/16 19:00 87 12/12/16 16:00 98.2 96 18 120/73 98 123/45 12/12/16 15:07 18 12/12/16 15:00 90 12/12/16 13:53 98 Nasal Cannula 2.00 12/12/16 11:37 98.5 58 16 120/60 98 121/49 12/12/16 11:00 87 Labs: Laboratory Tests Test 12/12/16 12/13/16 12/13/16 21:50 04:35 07:20 Activated Partial 51.3 SEC 51.6 SEC Thromboplast Time (24.3-30.1) (24.3-30.1) Potassium Level 4.0 MEQ/L 3.7 MEQ/L 4.0 MEQ/L (3.5-5.1) (3.5-5.1) (3.5-5.1) White Blood Count 12.4 TH/MM3 (4.0-11.0) Red Blood Count 3.96 MIL/MM3 (4.00-5.30) Hemoglobin 12.0 GM/DL (11.6-15.3) Hematocrit 35.1 % (35.0-46.0) Mean Corpuscular Volume 88.6 FL (80.0-100.0) Mean Corpuscular Hemoglobin 30.2 PG (27.0-34.0) Mean Corpuscular Hemoglobin 34.1 % Concent (32.0-36.0) Red Cell Distribution Width 12.4 % (11.6-17.2) Platelet Count 216 TH/MM3 (150-450) Mean Platelet Volume 8.5 FL (7.0-11.0) Sodium Level 137 MEQ/L 137 MEQ/L (136-145) (136-145) Chloride Level 101 MEQ/L 102 MEQ/L (98-107) (98-107) Carbon Dioxide Level 26.9 MEQ/L 26.3 MEQ/L (21.0-32.0) (21.0-32.0) Anion Gap 9 MEQ/L (5-15) 9 MEQ/L (5-15) Blood Urea Nitrogen 7 MG/DL (7-18) 9 MG/DL (7-18) Creatinine 0.41 MG/DL 0.42 MG/DL (0.50-1.00) (0.50-1.00) Estimat Glomerular Filtration 162 ML/MIN 157 ML/MIN Rate (>89) (>89) Random Glucose 178 MG/DL 173 MG/DL (74-106) (74-106) Calcium Level 8.5 MG/DL 8.6 MG/DL (8.5-10.1) (8.5-10.1) Magnesium Level 2.0 MG/DL (1.5-2.5) Total Bilirubin 1.0 MG/DL (0.2-1.0) Aspartate Amino Transf 12 U/L (15-37) (AST/SGOT) Alanine Aminotransferase 17 U/L (10-53) (ALT/SGPT) Alkaline Phosphatase 69 U/L (45-117) Troponin I 0.04 NG/ML (0.02-0.05) Total Protein 6.5 GM/DL (6.4-8.2) Albumin 3.0 GM/DL (3.4-5.0) Result Diagram: 12/13/16 0435 12/13/16 1209 Telemetry: NSR (1) Chest pain Plan: on NTG , ASA, heparin , will start low dose BB (2) Unstable angina Plan: on ASA, Heparin gtt, intolerant to statins surgery scheduling to be determined (3) Hypertension Plan: wean off Nitro gtt / start BB / add nitro paste (4) Tobacco abuse Plan: smoking cessation (5) Diabetes mellitus type 2 in nonobese Plan: on insulin gtt (6) HLD (hyperlipidemia) Plan: intolerant to statins (7) Carotid stenosis, right Plan: s/p right CEA redo re-exploration by Dr Jocelyn VERDUGO, PT/OT/ speech consult MRI Brain pending today Karen Jane Dec 13, 2016 09:53
--- NOTE | 2016-12-13 10:30 | EKG ---
Date Performed: 12/13/2016 Time Performed: 01:30:50 PTAGE: 56 years EKG: Sinus tachycardia Extensive ST-T changes suggest myocardial injury/ischemia Abnormal ECG PREVIOUS TRACING : 12/12/2016 08.50 DOCTOR: George Blunt Interpretating Date/Time 12/13/2016 10:27:55
[2016-12-13] MEDS: NITROGLYCERIN 2% OINT 1 GM PACKET TOPICAL SCH ×2 (11:25→17:46)
[2016-12-13] MEDS: LACTATED RINGER'S 1000 ML INJ 1,000 ML IV SCH (11:53)
--- NOTE | 2016-12-13 12:16 | EKG ---
Date Performed: 12/12/2016 Time Performed: 08:50:16 PTAGE: 56 years EKG: Sinus rhythm Possible LVH with secondary repolarization abnormality Extensive ST-T changes may be due to hypertro phy and/or ischemia Abnormal ECG PREVIOUS TRACING : 12/07/2016 15.00 DOCTOR: George Blunt Interpretating Date/Time 12/13/2016 12:14:57
--- NOTE | 2016-12-13 12:39 | PD.VS.PN ---
Subjective Subjective/Hospital Course Complains of sore throat with swallowing that has improved. Otherwise, neurologically intact. Objective Vitals/I&O Date Time Temp Pulse Resp B/P Pulse Ox O2 Delivery O2 Flow Rate FiO2 12/13/16 11:40 98.6 85 16 130/78 97 162/64 12/13/16 11:00 99 12/13/16 07:49 98.4 100 16 123/85 97 131/62 12/13/16 07:45 99 Nasal Cannula 2.00 12/13/16 07:30 98 Nasal Cannula 2.00 12/13/16 07:00 92 12/13/16 03:05 85 12/13/16 03:05 98.2 80 16 99 126/58 12/12/16 23:00 94 12/12/16 23:00 98.6 94 16 120/66 99 140/61 12/12/16 20:32 98 Nasal Cannula 2.00 12/12/16 19:39 98.9 90 16 120/72 99 130/57 12/12/16 19:39 99 Nasal Cannula 2.00 12/12/16 19:00 87 12/12/16 16:00 98.2 96 18 120/73 98 123/45 12/12/16 15:07 18 12/12/16 15:00 90 12/12/16 13:53 98 Nasal Cannula 2.00 12/13/16 12/13/16 12/13/16 07:00 15:00 23:00 Intake Total 792 ml Output Total 1310 ml Balance -518 ml Physical Exam Right neck incision intact. Right neck drain with minimal blood (less than 5 cc ). motor and sensory bilateral upper and lower extremities intact. CN2-12 intact. Laboratory Laboratory Tests Test 12/12/16 12/12/16 12/13/16 12/13/16 14:55 21:50 04:35 07:20 Activated Partial 52.1 51.3 51.6 Thromboplast Time Potassium Level 3.8 4.0 3.7 4.0 White Blood Count 12.4 Red Blood Count 3.96 Hemoglobin 12.0 Hematocrit 35.1 Mean Corpuscular Volume 88.6 Mean Corpuscular Hemoglobin 30.2 Mean Corpuscular Hemoglobin 34.1 Concent Red Cell Distribution Width 12.4 Platelet Count 216 Mean Platelet Volume 8.5 Sodium Level 137 137 Chloride Level 101 102 Carbon Dioxide Level 26.9 26.3 Anion Gap 9 9 Blood Urea Nitrogen 7 9 Creatinine 0.41 0.42 Estimat Glomerular Filtration 162 157 Rate Random Glucose 178 173 Calcium Level 8.5 8.6 Magnesium Level 2.0 Total Bilirubin 1.0 Aspartate Amino Transf 12 (AST/SGOT) Alanine Aminotransferase 17 (ALT/SGPT) Alkaline Phosphatase 69 Troponin I 0.04 Total Protein 6.5 Albumin 3.0 Imaging Last 48 hours Impressions Chest X-Ray 12/13/16 0000 Signed Impressions: Service Date/Time: Tuesday, December 13, 2016 07:18 - CONCLUSION: No acute disease. Pascual Bhardwaj MD Assessment and Plan Assessment: (1) Carotid stenosis, right Status: Acute Plan This is a 56 yr old female status post right CEA. and re-exploration with replacement of patch (kinking). Neurologically intact. Plan for MRI today. OOB and assessment by PT today. Dilshad Banks DO FACS [employer] /Dilshad Jewell DO Dec 13, 2016 12:39
--- NOTE | 2016-12-13 14:03 | RADRPT ---
EXAM DATE/TIME: 12/13/2016 12:30 [facility] COMPARISON: CTA CAROTID ARTERIES W 3D RECON, December 10, 2016, 13:46. CTA CAROTID ARTERIES W 3D RECON, December 11 017, 17:42. CT BRAIN W/O CONTRAST, December 11, 2016, 17:41. INDICATIONS : Post carotid endarectomy left sided weakness. MEDICAL HISTORY : Myocardial infarction. Diabetes mellitus type 2. CVA SURGICAL HISTORY : Carotid endarterectomy. cardiac stents ENCOUNTER: Subsequent ACUITY: 4-6 days PAIN SCORE: 0/10 LOCATION: cranial TECHNIQUE: Multiplanar, multisequence MRI of the brain was performed without contrast. FINDINGS: Areas of restricted diffusion are identified in the right occipital, right frontal and right parietal lobes. The most prominent affected areas are in the frontal lobe. There is no associated hemorrhage or significant mass effect. These are all demonstrate increased T2 signal. A focal area of encephalomalacia with underlying gliosis is identified in the left frontal lobe. The brainstem and cerebellum the straight normal signal intensity without evidence of acute process. CSF spaces are stable in appearance compared to prior CT. CONCLUSION: Acute nonhemorrhagic infarcts involving the right frontal, parietal and occipital lobes. Old small infarct in the left frontal lobe. No other significant abnormality. Brett Varela MD on December 13, 2016 at 13:49 Board Certified Radiologist. This report was verified electronically.
[2016-12-13] MEDS: HEPARIN-D5W INJ 250 ML IV SCH (16:25)
--- NOTE | 2016-12-13 17:52 | PD.VS.PN ---
Subjective Subjective/Hospital Course Complains of sore throat with swallowing that has improved. Otherwise, neurologically intact. Objective Vitals/I&O Date Time Temp Pulse Resp B/P Pulse Ox O2 Delivery O2 Flow Rate FiO2 12/13/16 15:30 98.2 100 16 126/73 97 Arterial Line 12/13/16 15:00 105 12/13/16 11:40 98.6 85 16 130/78 97 162/64 12/13/16 11:00 99 12/13/16 07:49 98.4 100 16 123/85 97 131/62 12/13/16 07:45 99 Nasal Cannula 2.00 12/13/16 07:30 98 Nasal Cannula 2.00 12/13/16 07:00 92 12/13/16 03:05 85 12/13/16 03:05 98.2 80 16 99 126/58 12/12/16 23:00 94 12/12/16 23:00 98.6 94 16 120/66 99 140/61 12/12/16 20:32 98 Nasal Cannula 2.00 12/12/16 19:39 98.9 90 16 120/72 99 130/57 12/12/16 19:39 99 Nasal Cannula 2.00 12/12/16 19:00 87 12/13/16 12/13/16 12/13/16 07:00 15:00 23:00 Intake Total 792 ml 1276 ml Output Total 1310 ml 1610 ml Balance -518 ml -334 ml Physical Exam upper and lower extremity motor intact. CN2-12 intact. Laboratory Laboratory Tests Test 12/12/16 12/13/16 12/13/16 21:50 04:35 07:20 Activated Partial 51.3 51.6 Thromboplast Time Potassium Level 4.0 3.7 4.0 White Blood Count 12.4 Red Blood Count 3.96 Hemoglobin 12.0 Hematocrit 35.1 Mean Corpuscular Volume 88.6 Mean Corpuscular Hemoglobin 30.2 Mean Corpuscular Hemoglobin 34.1 Concent Red Cell Distribution Width 12.4 Platelet Count 216 Mean Platelet Volume 8.5 Sodium Level 137 137 Chloride Level 101 102 Carbon Dioxide Level 26.9 26.3 Anion Gap 9 9 Blood Urea Nitrogen 7 9 Creatinine 0.41 0.42 Estimat Glomerular Filtration 162 157 Rate Random Glucose 178 173 Calcium Level 8.5 8.6 Magnesium Level 2.0 Total Bilirubin 1.0 Aspartate Amino Transf 12 (AST/SGOT) Alanine Aminotransferase 17 (ALT/SGPT) Alkaline Phosphatase 69 Troponin I 0.04 Total Protein 6.5 Albumin 3.0 Imaging Last 48 hours Impressions Chest X-Ray 12/13/16 0000 Signed Impressions: Service Date/Time: Tuesday, December 13, 2016 07:18 - CONCLUSION: No acute disease. Pascual Bhardwaj MD Brain MRI 12/13/16 0000 Signed Impressions: Service Date/Time: Tuesday, December 13, 2016 12:30 - CONCLUSION: Acute nonhemorrhagic infarcts involving the right frontal, parietal and occipital lobes. Old small infarct in the left frontal lobe. No other significant abnormality. Brett Varela MD Assessment and Plan Assessment: (1) Carotid stenosis, right Status: Acute Plan This is a 56 yr old female status post right CEA. and re-exploration with replacement of patch (kinking). Neurologically intact. MRI shows multiple right sided infarcts. I consulted neurology Question of heparin vs antiplatelet to cardiology and neurology (spoke with Dr. Almonte and Dr. Alex) Both agree can be on antiplatelet and hold heparin. Dr. Almonte will discuss case with Dr. Snow who will be covering for him for [facility]. Question of when can have safely have CABG to neurology and if possible percutaneous intervention in the interim. Discussed MRI results with the patient. Dilshad Banks DO FACS [employer] Rep[employer]r of Vascular Surgery /Dilshad Jewell DO Dec 13, 2016 17:52
[2016-12-13] MEDS: METOPROLOL TARTRATE 25 MG TAB PO SCH (21:48)
[2016-12-14] VITALS (9 sets, daily range): BP systolic 119–146; BP diastolic 65–84; PULSE 80–109; RESP 15–18; TEMP 98–99.1; O2SAT 94–99
[2016-12-14] MEDS: NITROGLYCERIN 2% OINT 1 GM PACKET TOPICAL SCH ×4 (00:11→17:31)
[2016-12-14] MEDS: MORPHINE SULFATE 4 MG/ML INJ IV PRN ×2 (03:46→08:14)
[2016-12-14] MEDS: INSULIN ASPART SUPPLEMENTAL SCALE SQ SCH ×4 (05:17→20:33)
[2016-12-14 06:12] LABS: AUTOMATED NEUTROPHIL # 9.1 TH/MM3 (1.8-7.7); BASOPHIL % 0.2 % (0.0-2.0); EOSINOPHIL % 0.4 % (0.0-4.0); HEMATOCRIT 35.4 % (35.0-46.0); HEMO FLAGS DIFF FINAL; LYMPH % 10.7 % (9.0-44.0); LYMPHOCYTE # 1.2 TH/MM3 (1.0-4.8); MEAN CELL VOLUME 88.6 FL (80.0-100.0); MEAN CORPUSCULAR HEMOGLOBIN 30.4 PG (27.0-34.0); MEAN CORPUSCULAR HGB CONC 34.4 % (32.0-36.0); MONO % 6.8 % (0.0-8.0); NEUT % 81.9 % (16.0-70.0); PLATELET COUNT 252 TH/MM3 (150-450); RED BLOOD COUNT 3.99 MIL/MM3 (4.00-5.30); RED CELL DISTRIBUTION WIDTH 12.5 % (11.6-17.2); WHITE BLOOD COUNT 11.1 TH/MM3 (4.0-11.0)
[2016-12-14 06:39] LABS: BICARBONATE 26.3 MEQ/L (21.0-32.0); POTASSIUM 3.8 MEQ/L (3.5-5.1)
--- NOTE | 2016-12-14 07:19 | HHI.CCPN ---
Subjective Remarks/Hospital Course Hospital Course: This is a 56yF who originally presented with chest pain and was found to have multivessel disease (RCA 99% prox, LAD 70% prox, circ 99% distal). During her work-up for cabg, she was found to have a chronically occluded left carotid and a high grade right carotid lesion. She was taken today for semi-elective right CEA in anticipation of urgent CABG later this week. Immediately post- operatively in PACU, she was noted to have an acute neuro exam change and was flaccid on the left side, but this was with a sbp of 70. phenylephrine was started to target SBP 120 - 140 with complete resolution of her symptoms. I evaluated the patient in PACU and she was completely neuro intact. We immediately transferred her to the CVICU. The CVICU performed strict q1h neuro checks. Last seen neuro intact was 1700. At 1720, the nurse evaluated the patient and she was found to be flaccid on the left again, with a SBP 150. I again immediately came and evaluated the patient. At this point, she has noticeable left facial droop, left hand complete flaccid paralysis. left leg had 3/[address] Banks and immediately took her down for emergent CT/CTA head and neck which demonstrated compression of the superior edge of the carotid patch. Critical care medicine is consulted to evaluate and manage her CVA and post-CEA hemodynamics. Subjective: 12/12: doing well. off phenylephrine. one episode of chest pain this morning, but improved with iv morphine. neuro intact this morning. overnight last night, ST depressions worsened with norepinephrine, but resolved when pressor was switched to phenylephrine. 12/13: Intermittent chest pain yesterday night. Started on nitro drip. EKG shows ischemic changes but unchanged from previous. Blood pressure systolic maintained between 120 to 130. No focal deficit noted on exam. Will discuss with cardiothoracic surgery Dr. Mayo today about timing of CABG 12/14: No acute events overnight, mild weakness of L hand. MRI brain 12/13 acute ischemic infarct R frontal parietal and occipital lobes. CABG vs PCI question to be addressed by CTS/cardiology and neurology. Chest pain improved Objective Vital Signs Date Time Temp Pulse Resp B/P Pulse Ox O2 Delivery O2 Flow Rate FiO2 12/14/16 03:29 100 12/14/16 03:29 98.0 15 132/82 96 12/13/16 20:11 21 12/13/16 19:38 Room Air 12/13/16 07:45 2.00 Intake and Output 12/13/16 12/13/16 12/14/16 08:00 16:00 00:00 Intake Total 792 ml 1276 ml Output Total 1310 ml 1610 ml Balance -518 ml -334 ml Result Diagram: 12/14/16 0523 12/13/16 0720 Imaging Last Impressions Head CT 12/11/16 0000 Signed Impressions: Service Date/Time: Sunday, December 11, 2016 17:41 - CONCLUSION: Remote left cerebral infarcts without definite evidence for acute infarct. Pascual Bhardwaj MD Neck CTA 12/10/16 0000 Signed Impressions: Service Date/Time: Saturday, December 10, 2016 13:46 - CONCLUSION: High-grade stenosis involving the proximal right internal carotid artery over a very short segment. The left internal carotid artery is completely occluded at the level of the bifurcation with reconstitution intracranially.. Karen Schumacher MD Lower Extremity Ultrasound 12/09/16 0000 Signed Impressions: Service Date/Time: Friday, December 09, 2016 11:42 - CONCLUSION: Normal examination. Karen Schumacher MD Carotid Artery Ultrasound 12/09/16 0000 Signed Impressions: Service Date/Time: Friday, December 09, 2016 12:10 - CONCLUSION: Significantly abnormal exam with no visualized flow identified within the left internal carotid artery consistent with complete thrombosis. The grayscale images of the proximal right internal carotid artery are consistent with a high-grade, greater than 70%% stenosis. The velocities identified throughout the right internal carotid artery are significantly elevated consistent with high-grade stenosis and waveforms are all abnormal. Recommend correlation with cross-sectional imaging. Karen Schumacher MD Myocardial Perfusion Scan Nuc Med 12/08/16 0000 Signed Impressions: Service Date/Time: Thursday, December 08, 2016 08:44 - CONCLUSION: Moderate sized moderate severity reversible apical perfusion abnormality. RISK CATEGORY: Intermediate (1-3%% Annual Mortality Rate) Gurmeet Kraus MD Chest X-Ray 12/07/16 0839 Signed Impressions: Service Date/Time: December 08:47 - CONCLUSION: No acute disease. Gurmeet Kraus MD Objective Remarks Gen: middle-aged female, lying in bed, she is in mild distress, infrequent chest pain heent: pupils 3mm, equal, round, conjugate, reactive. mucous membranes moist. No facial droop. neck: no jvd. trachea midline. right neck dressing intact, no hematoma. charlie in place with minimal output chest: equal chest rise. unlabored. cv: normal rate, regular rhythm. sbp 130. abd: soft, nontender, nondistended. no guarding. extr: distal pulses 2+. no peripheral edema. neuro: Alert awake oriented no obvious cranial nerve deficits, except 4/5 power R hand. Sensation preserved muscle power 5 out of 5 in all extremities Procedures 12/08/16 cardiac catheterization A/P Assessment and Plan Assessment: 56yF with recent NSTEMI, multi-vessel coronary artery disease and high-grade carotid stenosis now POD 2 s/p right CEA, course complicated by perioperative CVA and re-exploration. Now neuro intact. agree with keeping her SBP 120 - 140 to maintain cerebral perfusion. agree with keeping her in an ICU setting.MRI today. she will need definitive management of her active coronary ischemia at some point in the near future. Plan by Systems: Neuro: Acute right brain CVA (left-sided weakness)- resolved. -- q1h neuro checks -- goal SBP 120 - 140 -- CT/CTA 12/11: compression of the distal end of the carotid patch -- s/p re-exploration 12/11 -- MRI 12/13 acute ischemic infarcts involving R frontal, parietal and occipital lobes -- Continue ASA 325 daily. Add Plavix if ok with surgeons Resp: Post-operative Atelectasis -- I.S. to bedside -- wean o2 by NC for goal spo2 > 94% CV: NSTEMI Chest pain/angina Triple Vessel CAD s/p right CEA 12/11 -- Nitro drip changed to NTP and s/l nitro 12/13 -- SBP 120 - 140 -- lipid panel reviewed, pt is allergic to statin -- 2d echo- Left ventricle: The cavity size was normal. EF 60% to 65%. Regional wall motion abnormalities cannot be excluded. -- goal HR < 90. Lopressor 25 BID -- likely CABG later this week (Final decsion of CABG vs interim PCI due to acute stroke to be decided btw CTS/card and neurology) -- vascular: Dr. Banks -- CT surg: Dr. Alex -- Continue aspirin 325 mg daily. Add Plavix if cleared by vascular and CTS Renal: -- smith for strict I/Os FEN/GI: -- nursing bedside swallow eval. advance diet slowly. -- mivf LR @ 30 cc/hr. DC -- ICU electrolyte protocol Heme/ID: -- no id issues. -- periop abx per surgeon -- daily cbc. -- does not meet transfusion triggers at this time. Endo: Diabetes -- SSI, med, q6h Prophy: -- scds, heparin drip -- ppi Dispo: -- remain in the CVICU while active coronary ischemia and recent CVA. CCT 32 Brent Levi MD Dec 14, 2016 07:19
[2016-12-14] MEDS: SODIUM CHLORIDE 0.9% FLUSH 10 ML FLUSH IV FLUSH SCH (09:00)
--- NOTE | 2016-12-14 09:13 | PD.VS.PN ---
Subjective Subjective/Hospital Course Complains of sore throat with swallowing that has improved. Otherwise, neurologically intact. Objective Vitals/I&O Date Time Temp Pulse Resp B/P Pulse Ox O2 Delivery O2 Flow Rate FiO2 12/14/16 03:29 100 12/14/16 03:29 98.0 98 15 132/82 96 12/13/16 23:30 86 12/13/16 23:30 98.0 81 15 127/72 96 12/13/16 20:11 96 21 12/13/16 19:38 98.3 97 18 123/69 98 12/13/16 19:38 96 Room Air 12/13/16 19:00 100 12/13/16 15:30 98.2 100 16 126/73 97 Arterial Line 12/13/16 15:00 105 12/13/16 11:40 98.6 85 16 130/78 97 162/64 12/13/16 11:00 99 12/14/16 12/14/16 12/14/16 07:00 15:00 23:00 Intake Total 640 ml Output Total 1220 ml Balance -580 ml Physical Exam right neck incision intact. Right neck drain with negligible blood. gross motor and sensory intact. Hoarse (possible Recurrent laryngeal nerve). Laboratory Laboratory Tests Test 12/14/16 05:23 White Blood Count 11.1 Red Blood Count 3.99 Hemoglobin 12.2 Hematocrit 35.4 Mean Corpuscular Volume 88.6 Mean Corpuscular Hemoglobin 30.4 Mean Corpuscular Hemoglobin 34.4 Concent Red Cell Distribution Width 12.5 Platelet Count 252 Mean Platelet Volume 8.3 Neutrophils (%) (Auto) 81.9 Lymphocytes (%) (Auto) 10.7 Monocytes (%) (Auto) 6.8 Eosinophils (%) (Auto) 0.4 Basophils (%) (Auto) 0.2 Neutrophils # (Auto) 9.1 Lymphocytes # (Auto) 1.2 Monocytes # (Auto) 0.8 Eosinophils # (Auto) 0.0 Basophils # (Auto) 0.0 CBC Comment DIFF FINAL Differential Comment Sodium Level 138 Potassium Level 3.8 Chloride Level 103 Carbon Dioxide Level 26.3 Anion Gap 9 Blood Urea Nitrogen 10 Creatinine 0.37 Estimat Glomerular Filtration 182 Rate Random Glucose 174 Calcium Level 8.9 Imaging Last 48 hours Impressions Chest X-Ray 12/13/16 0000 Signed Impressions: Service Date/Time: Tuesday, December 13, 2016 07:18 - CONCLUSION: No acute disease. Pascual Bhardwaj MD Brain MRI 12/13/16 0000 Signed Impressions: Service Date/Time: Tuesday, December 13, 2016 12:30 - CONCLUSION: Acute nonhemorrhagic infarcts involving the right frontal, parietal and occipital lobes. Old small infarct in the left frontal lobe. No other significant abnormality. Brett Varela MD Assessment and Plan Assessment: (1) Carotid stenosis, right Status: Acute Plan Patient neurological status unchanged. Continues physical therapy and occupational therapy for CVA. Drain removed right neck, Garsia ordered to be DC'd CT surgery and Cardiology to determine timing of coronary revascularization. Neurology to assess patient as well. Possible stepdown out of ICU. Dilshad Banks DO FACS Paid Intern of Vascular Surgery /Dilshad Jewell DO Dec 14, 2016 09:13
[2016-12-14] MEDS: ENOXAPARIN SODIUM 40 MG/0.4 ML SYRINGE SQ SCH (09:38)
[2016-12-14] MEDS: METOPROLOL TARTRATE 25 MG TAB PO SCH ×2 (09:39→20:22)
[2016-12-14] MEDS: ASPIRIN 325 MG TAB PO SCH (09:39)
[2016-12-14] MEDS: MULTIVITAMIN TAB PO SCH (09:39)
[2016-12-14] MEDS: PANTOPRAZOLE SOD 40 MG DELAYED RELEASE TAB PO SCH (09:39)
--- NOTE | 2016-12-14 09:52 | MB ---
cc: YAWAUSTEN DATE OF CONSULTATION 12/14/2016 REASON FOR CONSULTATION This is a 56-year-old right-handed woman with a history of hypertension, insulin-dependent diabetes, hypercholesterolemia, cardiac stent, stroke in 2007 with some confusion. She has been taking at home 81 mg of aspirin twice a day. She had chest pain for the last two weeks and increased chest pain and admitted to the hospital and found to have an occluded left internal carotid artery with a very tight right internal carotid artery by ultrasound and CTA. Underwent right carotid endarterectomy on 12/11/16 and was found to have weakness in the left arm after that. A CTA showed some stenosis of the right internal carotid artery and possible kinking of the patch. She was sent back down for surgery and at one point had a flaccid left arm, but has recovered well. The patient still needs evidently a CABG. REVIEW OF SYSTEMS She denies any known A. fib and there has been no A. fib overnight here in the hospital. No history of CABG. She does have a cardiac stent in the past. No history of renal, hepatic or pulmonary disease, thyroid disease lupus, ulcer, cancer seizure. She did see Dr. Man back in 2007. Here in the hospital, she had trouble talking. She had a left frontal lobe infarct. Evidently she had an acute left sylvian infarct and also some right temporal lobe infarct, very high-grade stenosis versus occlusion of the left internal carotid artery at that time with a near occlusion, possible string sign. Right carotid was noted to be patent. There was questionable minimal restrictive diffusion in the right temporal lobe on by MRI report, unfortunately the films are not here. Recent MRI has been reviewed from 12/13/2016. She has moderate size multiple infarcts across the right MCA and a posterior MCA infarct in the posterior temporal parietal region. In addition, she has some small areas on the blood sequence of petechial hemorrhage outside of the infarct in the right posterior frontal lobe peripherally just subcortically. CTA shows patent flow on 12/11/2016 throughout the MCA's bilaterally. CT of the neck shows left carotid is occluded and right one had the stenosis. SOCIAL HISTORY She is a smoker, but says she has quit now, not a drinker. She lives with a boyfriend and son. FAMILY HISTORY Negative cancer seizure, or stroke. MEDICATIONS Currently on: 1. Lovenox 40 q24h 2. Metoprolol 3. Hydralazine 4. Nitroglycerin 5. Zofran p.r.n. 6. Morphine 7. Cefazolin 8. 325 of aspirin 9. Multivitamin 10. p.r.n. insulin PHYSICAL EXAM On exam, there were no carotid bruits. He has had a drain out of the right side and a well-healing clean incision site in the right carotid. No bruit on the left. HEART: Regular rhythm, I do not detect a murmur. NEUROLOGIC: Pupils are equal, visual silverio are full. Extraocular movements intact without nystagmus. Face is symmetric with normal station. Tongue was midline. She had a minimal left parietal drift. She had normal strength in the upper and lower extremities bilaterally including the left arm and finger extensors FDI. Fast finger movements are clumsy on the left-hand and slow normal on the right. DTRs are trace throughout. Toes are downgoing on the left, upgoing on the right. No ankle clonus. Pinprick was intact throughout. Double simultaneous stimuli was intact including the upper and lower extremities bilaterally. Graphesthesia was normal in the left hand. She is not ataxic on [id number]. Speech is fluent. She is not aphasic. LABORATORY DATA CBC was normal. Basic metabolic profile was normal. GFR is normal glucose 174, calcium normal. LFTs normal. Troponin negative. LDL cholesterol 111. TSH was normal a year ago. B12 was normal back in 2011. Chest x-ray negative. IMPRESSION Multiple infarcts on the right moderate side. In addition, there is some subcortical petechial type hemorrhage on the MRI. At this point I would try to hold off on CABG as long as possible considering the anticoagulation and risk of hemorrhage. Evidently she had some chest pain. Certainly if the patient is at risk for dying from a major heart attack, we could go to CABG, but there is a risk of hemorrhage in the brain. I will be following her with you in the hospital. MD CORBIN Euceda/CRUZ /8:56 AM /9:30 AM
--- NOTE | 2016-12-14 10:24 | PD.CAR.PN ---
CVT Progress Note Subjective/Hospital Course: 56yF who originally presented with chest pain and was found to have multivessel disease (RCA 99% prox, LAD 70% prox, circ 99% distal). During her work-up for cabg, she was found to have a chronically occluded left carotid and a high grade right carotid lesion. Taken today for semi-elective right CEA in anticipation of urgent CABG later this week. Immediately post-operatively in PACU, she was noted to have an acute neuro exam change and was flaccid on the left side, but this was with a sbp of 70. phenylephrine was started to target SBP 120 - 140 with complete resolution of her symptoms. Per [facility] note : Last seen neuro intact was 1700. At 1720, the nurse evaluated the patient and she was found to be flaccid on the left again, with a SBP 150. noticeable left facial droop, left hand complete flaccid paralysis. left leg had 3/5 strength. Pt was immediately taken for emergent CT/CTA head and neck which demonstrated compression of the superior edge of the carotid patch. Pt was taken back to OR for re-exploration of the right carotid endarterectomy site. 12/12 pt was maintained on Justin gtt last pm to keep [id number] this am , pt developed chest pressure/ radiating down both arms , stat ECG done extensive ST depression inferior lateral changes pt medicated with morphine which resolved the pain, Dr Banks spoke with Dr Kwong will monitor closely , check MRI Brain in am keep in ICU , ok to keep SBP 120-140 and decrease IV fluids pt was moving all extremities, speech clear and neuro appropriate 12/13 pt has 4/5 left upper ext MRI pending, speech is hoarse and she is c/o of sore throat c/o of chest pain last pm, ECG unchanged , trop neg was started on Nitro gtt/ discussed with [facility] and vascular will change to Nitro paste, add BB , dc laurence later / get pt OOB consult PT/OT/ Speech for eval only today Objective: Vital Signs Date Time Temp Pulse Resp B/P Pulse Ox O2 Delivery O2 Flow Rate FiO2 12/14/16 09:23 96 21 12/14/16 08:19 16 12/14/16 07:00 98.6 92 16 133/72 98 12/14/16 07:00 92 12/14/16 07:00 98 Room Air 12/14/16 03:29 100 12/14/16 03:29 98.0 98 15 132/82 96 12/13/16 23:30 86 12/13/16 23:30 98.0 81 15 127/72 96 12/13/16 20:11 96 21 12/13/16 19:38 98.3 97 18 123/69 98 12/13/16 19:38 96 Room Air 12/13/16 19:00 100 12/13/16 15:30 98.2 100 16 126/73 97 Arterial Line 12/13/16 15:00 105 12/13/16 11:40 98.6 85 16 130/78 97 162/64 12/13/16 11:00 99 Labs: Laboratory Tests Test 12/14/16 05:23 White Blood Count 11.1 TH/MM3 (4.0-11.0) Red Blood Count 3.99 MIL/MM3 (4.00-5.30) Hemoglobin 12.2 GM/DL (11.6-15.3) Hematocrit 35.4 % (35.0-46.0) Mean Corpuscular Volume 88.6 FL (80.0-100.0) Mean Corpuscular Hemoglobin 30.4 PG (27.0-34.0) Mean Corpuscular Hemoglobin 34.4 % Concent (32.0-36.0) Red Cell Distribution Width 12.5 % (11.6-17.2) Platelet Count 252 TH/MM3 (150-450) Mean Platelet Volume 8.3 FL (7.0-11.0) Neutrophils (%) (Auto) 81.9 % (16.0-70.0) Lymphocytes (%) (Auto) 10.7 % (9.0-44.0) Monocytes (%) (Auto) 6.8 % (0.0-8.0) Eosinophils (%) (Auto) 0.4 % (0.0-4.0) Basophils (%) (Auto) 0.2 % (0.0-2.0) Neutrophils # (Auto) 9.1 TH/MM3 (1.8-7.7) Lymphocytes # (Auto) 1.2 TH/MM3 (1.0-4.8) Monocytes # (Auto) 0.8 TH/MM3 (0-0.9) Eosinophils # (Auto) 0.0 TH/MM3 (0-0.4) Basophils # (Auto) 0.0 TH/MM3 (0-0.2) CBC Comment DIFF FINAL Differential Comment Sodium Level 138 MEQ/L (136-145) Potassium Level 3.8 MEQ/L (3.5-5.1) Chloride Level 103 MEQ/L (98-107) Carbon Dioxide Level 26.3 MEQ/L (21.0-32.0) Anion Gap 9 MEQ/L (5-15) Blood Urea Nitrogen 10 MG/DL (7-18) Creatinine 0.37 MG/DL (0.50-1.00) Estimat Glomerular Filtration 182 ML/MIN Rate (>89) Random Glucose 174 MG/DL (74-106) Calcium Level 8.9 MG/DL (8.5-10.1) Result Diagram: 12/14/1652212/14/16522 (1) Chest pain Plan: on NTG , ASA, lovenox BB appreciate Neuro input (2) Unstable angina Plan: on ASA, Heparin gtt, intolerant to statins surgery scheduling to be determined (3) Hypertension Plan: Nitro paste / start BB / (4) Tobacco abuse Plan: smoking cessation (5) Diabetes mellitus type 2 in nonobese Plan: insulin ss (6) HLD (hyperlipidemia) Plan: intolerant to statins (7) Carotid stenosis, right Plan: s/p right CEA redo re-exploration by Dr Jocelyn CORONADO drain removed without difficulty OOB, PT/OT/ speech consult (8) CVA (cerebral vascular accident) Plan: MRI, also some right subcortical petechial hemorrhage, multiple infarcts on right Neuro recommendation in their consultation high risk 2/ 2 anticoagulation and risk of hemorrhage with surgery Karen Jane Dec 14, 2016 10:24
[2016-12-14] MEDS: ACETAMINOPHEN 500 MG CPLT PO PRN (20:22)
[2016-12-15] VITALS (11 sets, daily range): BP systolic 115–164; BP diastolic 68–106; PULSE 74–116; RESP 16–21; TEMP 98–98.5; O2SAT 94–100
[2016-12-15 04:58] LABS: HEMATOCRIT 35.4 % (35.0-46.0); MEAN CELL VOLUME 87.6 FL (80.0-100.0); MEAN CORPUSCULAR HEMOGLOBIN 30.8 PG (27.0-34.0); MEAN CORPUSCULAR HGB CONC 35.2 % (32.0-36.0); PLATELET COUNT 277 TH/MM3 (150-450); RED BLOOD COUNT 4.04 MIL/MM3 (4.00-5.30); RED CELL DISTRIBUTION WIDTH 12.2 % (11.6-17.2); REVIEW FLAG FINAL; WHITE BLOOD COUNT 10.7 TH/MM3 (4.0-11.0)
[2016-12-15 05:06] LABS: APTT (PATIENT) 28.6 SEC (24.3-30.1)
[2016-12-15 05:25] LABS: BICARBONATE 26.6 MEQ/L (21.0-32.0); POTASSIUM 3.7 MEQ/L (3.5-5.1)
[2016-12-15] MEDS: INSULIN ASPART SUPPLEMENTAL SCALE SQ SCH ×4 (06:12→21:07)
[2016-12-15] MEDS: NITROGLYCERIN 2% OINT 1 GM PACKET TOPICAL SCH ×4 (06:13→17:30)
[2016-12-15] MEDS: SODIUM CHLORIDE 0.9% FLUSH 10 ML FLUSH IV FLUSH SCH ×3 (06:14→21:04)
[2016-12-15] MEDS: ENOXAPARIN SODIUM 40 MG/0.4 ML SYRINGE SQ SCH (08:09)
--- NOTE | 2016-12-15 08:12 | HHI.PR ---
Subjective Remarks no new co Objective Vital Signs Date Time Temp Pulse Resp B/P Pulse Ox O2 Delivery O2 Flow Rate FiO2 12/15/16 03:00 74 12/15/16 03:00 98.5 74 18 115/68 94 12/14/16 23:00 97 12/14/16 23:00 98.8 97 18 119/81 95 12/14/16 19:38 94 21 12/14/16 19:00 98.1 109 18 146/65 99 12/14/16 19:00 99 12/14/16 19:00 94 Room Air 12/14/16 15:00 83 12/14/16 15:00 99.1 83 18 139/84 94 12/14/16 12:25 98.5 82 18 122/68 96 12/14/16 11:00 80 12/14/16 09:23 96 21 12/14/16 08:19 16 I/O 12/14/16 12/14/16 12/14/16 12/15/16 12/15/16 12/15/16 07:00 15:00 23:00 07:00 15:00 23:00 Intake Total 640 ml 640 ml 480 ml Output Total 1220 ml 560 ml Balance -580 ml 80 ml 480 ml Intake Oral 240 ml 580 ml 480 ml IV Total 400 ml 60 ml 0 ml Output Urine Total 1200 ml 560 ml Drainage Total 20 ml # Voids 1 2 # Bowel Movements 0 0 Result Diagram: 12/15/16 0448 12/15/16 0448 Objective Remarks awake alert moving all well clumsy left hand mild speech nl Assessment and Plan Assessment and Plan imp no new cp i dw surgery hold cabg some petechial blood r hemisphere statin would be ok if med team wants to start Guero Snow MD Dec 15, 2016 08:12
[2016-12-15] MEDS: PANTOPRAZOLE SOD 40 MG DELAYED RELEASE TAB PO SCH (08:31)
[2016-12-15] MEDS: ASPIRIN 325 MG TAB PO SCH (08:31)
[2016-12-15] MEDS: MULTIVITAMIN TAB PO SCH (08:31)
[2016-12-15] MEDS: METOPROLOL TARTRATE 25 MG TAB PO SCH (08:31)
--- NOTE | 2016-12-15 09:29 | PD.TRANSFR ---
Transfer Summary Admission Date Dec 08, 2016 at 14:33 Admitting Diagnosis chest pain, hypertension, hyperlipedmia, diabetes mellitus Diagnoses: (1) NSTEMI (non-ST elevated myocardial infarction) Diagnosis: Principal (2) Acute ischemic stroke Diagnosis: Principal (3) Unstable angina Diagnosis: Principal (4) Hypertension Diagnosis: Secondary (5) Hyperlipidemia Diagnosis: Secondary (6) Diabetes mellitus Diagnosis: Secondary (7) Abnormal cardiovascular stress test Diagnosis: Secondary (8) Coronary artery disease Diagnosis: Secondary (9) Carotid stenosis, right Diagnosis: Secondary (10) HLD (hyperlipidemia) Diagnosis: Secondary Transfer Summary/Subjective This is a 56yF who originally presented with chest pain and was found to have multivessel disease (RCA 99% prox, LAD 70% prox, circ 99% distal). During her work-up for cabg, she was found to have a chronically occluded left carotid and a high grade right carotid lesion. She was taken today for semi-elective right CEA in anticipation of urgent CABG later this week. Immediately post- operatively in PACU, she was noted to have an acute neuro exam change and was flaccid on the left side, but this was with a sbp of 70. phenylephrine was started to target SBP 120 - 140 with complete resolution of her symptoms. Dr. dee evaluated the patient in PACU and she was completely neuro intact. We immediately transferred her to the CVICU. The CVICU performed strict q1h neuro checks. Last seen neuro intact was 1700. At 1720, the nurse evaluated the patient and she was found to be flaccid on the left again, with a SBP 150. I again immediately came and evaluated the patient. At this point, she has noticeable left facial droop, left hand complete flaccid paralysis. left leg had 3/[address] Banks and immediately took her down for emergent CT/CTA head and neck which demonstrated compression of the superior edge of the carotid patch. Isaías Maddox performed re-exploration with replacement of patch, Critical care medicine is consulted to evaluate and manage her CVA and post-CEA hemodynamics. 12/12: doing well. off phenylephrine. one episode of chest pain this morning, but improved with iv morphine. neuro intact this morning. overnight last night, ST depressions worsened with norepinephrine, but resolved when pressor was switched to phenylephrine. 12/13: Intermittent chest pain yesterday night. Started on nitro drip. EKG shows ischemic changes but unchanged from previous. Blood pressure systolic maintained between 120 to 130. No focal deficit noted on exam. Will discuss with cardiothoracic surgery Dr. Mayo today about timing of CABG 12/14: No acute events overnight, mild weakness of L hand. MRI brain 12/13 acute ischemic infarct R frontal parietal and occipital lobes. CABG vs PCI question to be addressed by CTS/cardiology and neurology. Chest pain improved 12/15: Patient is chest pain-free for more than [address] Snow had seen yesterday. He recommends against CABG immediately if not life -threatening emergency, due to high risk of hemorrhagic conversion from acute right sided stroke. There is also areas of petechial hemorrhage. Objective Vital Signs Date Time Temp Pulse Resp B/P Pulse Ox O2 Delivery O2 Flow Rate FiO2 12/15/16 07:00 97 Room Air 12/15/16 07:00 98.1 91 18 145/106 12/14/16 19:38 21 12/13/16 07:45 2.00 Intake and Output 12/14/16 12/14/16 12/15/16 08:00 16:00 00:00 Intake Total 640 ml 640 ml Output Total 1220 ml 560 ml Balance -580 ml 80 ml Result Diagram: 12/15/16 0448 12/15/16 0448 Imaging Last Impressions Head CT 12/11/16 0000 Signed Impressions: Service Date/Time: Sunday, December 11, 2016 17:41 - CONCLUSION: Remote left cerebral infarcts without definite evidence for acute infarct. Pascual Bhardwaj MD Neck CTA 12/10/16 0000 Signed Impressions: Service Date/Time: Saturday, December 10, 2016 13:46 - CONCLUSION: High-grade stenosis involving the proximal right internal carotid artery over a very short segment. The left internal carotid artery is completely occluded at the level of the bifurcation with reconstitution intracranially.. Karen Schumacher MD Lower Extremity Ultrasound 12/09/16 0000 Signed Impressions: Service Date/Time: Friday, December 09, 2016 11:42 - CONCLUSION: Normal examination. Karen Schumacher MD Carotid Artery Ultrasound 12/09/16 0000 Signed Impressions: Service Date/Time: Friday, December 09, 2016 12:10 - CONCLUSION: Significantly abnormal exam with no visualized flow identified within the left internal carotid artery consistent with complete thrombosis. The grayscale images of the proximal right internal carotid artery are consistent with a high-grade, greater than 70%% stenosis. The velocities identified throughout the right internal carotid artery are significantly elevated consistent with high-grade stenosis and waveforms are all abnormal. Recommend correlation with cross-sectional imaging. Karen Schumacher MD Myocardial Perfusion Scan Nuc Med 12/08/16 0000 Signed Impressions: Service Date/Time: Thursday, December 08, 2016 08:44 - CONCLUSION: Moderate sized moderate severity reversible apical perfusion abnormality. RISK CATEGORY: Intermediate (1-3%% Annual Mortality Rate) Gurmeet Kraus MD Chest X-Ray 12/07/16 0839 Signed Impressions: Service Date/Time: December 08:47 - CONCLUSION: No acute disease. Gurmeet Kraus MD Objective Remarks Gen: middle-aged female, lying in bed, she is in no distress or chest pain heent: pupils 3mm, equal, round, conjugate, reactive. mucous membranes moist. No facial droop. neck: no jvd. trachea midline. right neck dressing intact, no hematoma. charlie in place with minimal output chest: equal chest rise. unlabored. cv: normal rate, regular rhythm. sbp 130. abd: soft, nontender, nondistended. no guarding. extr: distal pulses 2+. no peripheral edema. neuro: Alert awake oriented no obvious cranial nerve deficits, except 4/5 power L hand. Sensation preserved muscle power 5 out of 5 in all extremities Procedures 12/08/16 cardiac catheterization A/P Assessment and Plan Assessment: 56yF with recent NSTEMI, multi-vessel coronary artery disease and high-grade carotid stenosis now POD 2 s/p right CEA, course complicated by perioperative CVA and re-exploration. Now neuro intact. agree with keeping her SBP 120 - 140 to maintain cerebral perfusion. agree with keeping her in an ICU setting.MRI today. she will need definitive management of her active coronary ischemia at some point in the near future. Plan by Systems: Neuro: Acute right brain CVA -- MRI 12/13 acute ischemic infarcts involving R frontal, parietal and occipital lobes -- goal SBP 120 - 140 -- CT/CTA 12/11: compression of the distal end of the carotid patch, s/p re- exploration 12/11 -- Continue ASA 325 daily. -- Neurology Dr. Ragsdale -- PT/OT Resp: Post-operative Atelectasis -- I.S. to bedside -- wean o2 by NC for goal spo2 > 94% CV: NSTEMI Chest pain/angina Triple Vessel CAD s/p right CEA 12/11 -- Nitro drip changed to NTP and s/l nitro 12/13 -- SBP 120 - 140 -- lipid panel reviewed, pt is allergic to statin -- 2d echo- Left ventricle: The cavity size was normal. EF 60% to 65%. Regional wall motion abnormalities cannot be excluded. -- goal HR < 90. Lopressor 25 BID -- Dr. Snow recommends against immediate CABG due to risk of hemorrhagic conversion -- Continue medical management versus PCI. Defer to Dr. Kwong and Dr. Alex -- vascular: Dr. Banks -- Continue aspirin 325 mg daily. Renal: -- smith for strict I/Os FEN/GI: -- nursing bedside swallow eval. advance diet slowly. -- mivf LR @ 30 cc/hr. DCd -- ICU electrolyte protocol Heme/ID: -- no id issues. -- periop abx per surgeon -- daily cbc. -- does not meet transfusion triggers at this time. Endo: Diabetes -- SSI, med, q6h Prophy: -- scds, Lovenox 40 mg sq daily -- ppi Dispo: -- Transfer to [facility] Level 2 Hospitalist consulted to assume care in a.m. 12/16/16 Brent Levi MD Dec 15, 2016 09:28
--- NOTE | 2016-12-15 11:13 | PD.CARD.PN ---
Subjective Subjective Remarks no complaints no overnight events Objective Medications Current Medications Medications (Trade) Dose Ordered Sig/Uri Route Start Time Stop Time Status Last Admin (Tylenol) 500 mg Q4H PRN PO 12/07/16 11:00 12/14/16 20:22 ([place]field 7.5-325 Mg) 1 tab Q4H PRN PO 12/07/16 11:00 (Protonix) 40 mg DAILY PO 12/07/16 11:00 12/15/16 08:31 (Lopressor) 25 mg Q12HR PO 12/07/16 11:00 12/15/16 08:31 (Aspirin) 325 mg DAILY PO 12/08/16 09:00 12/15/16 08:31 (Xanax) 0.25 mg Q8H PRN PO 12/07/16 11:00 Hold 12/11/16 08:12 (D50w (Vial) Inj) 25 ml UNSCH PRN IV 12/07/16 12:00 (Glucagon Inj) 1 mg UNSCH PRN IM/SQ 12/07/16 12:00 (Prinivil) 20 mg BID PO 12/07/16 21:00 Hold 12/11/16 08:12 (Theragran) 1 tab DAILY PO 12/08/16 09:00 12/15/16 08:31 (Catapres) 0.1 mg Q4H PRN PO 12/07/16 12:15 Hold (Atropine Inj) 0.5 mg UNSCH PRN IV 12/08/16 14:30 (NS Flush) 2 ml BID IV FLUSH 12/08/16 21:00 12/15/16 08:32 (Levemir Inj) 35 units HS SQ 12/09/16 21:00 Hold 12/10/16 20:19 Sodium Chloride 2 ml 2 ml UNSCH PRN IV FLUSH 12/11/16 17:00 Potassium Chloride 100 ml @ 50 mls/hr Q2H PRN IV 12/11/16 16:30 Potassium Chloride 100 ml @ 50 mls/hr UNSCH PRN IV 12/11/16 16:30 12/13/16 06:38 Potassium Phosphate 21 mmol/ Sodium Chloride 257 ml @ 41.7 mls/hr UNSCH PRN IV 12/11/16 16:30 (Magnesium Sulfate 1 Gm Premix) 200 ml @ 100 mls/hr UNSCH PRN IV 12/11/16 16:30 (Zofran Inj) 4 mg Q6H PRN IV PUSH 12/11/16 16:30 (Greenfield 5-325 Mg) 1 tab Q4H PRN PO 12/11/16 16:30 (Morphine Inj) 2 mg Q4H PRN IV 12/11/16 16:30 12/12/16 05:10 (Morphine Inj) 4 mg Q1H PRN IV 12/11/16 16:30 12/14/16 08:14 (Brethine Inj) 1 mg UNSCH PRN SQ 12/11/16 20:45 Phenol 1 spray 1 spray UNSCH PRN PO 12/12/16 05:45 12/12/16 05:54 (Nitroglycerin-Dextrose Inj) 250 ml @ 0 mls/hr TITRATE IV 12/13/16 02:30 12/13/16 02:43 (Nitroglycerin 2% Oint) 1 inch Q6HR TOPICAL 12/13/16 12:00 12/15/16 10:51 (Lopressor Inj) 2.5 mg Q6H PRN IV PUSH 12/13/16 09:45 (Apresoline Inj) 10 mg Q4H PRN IV PUSH 12/13/16 09:45 (Lovenox Inj) 40 mg Q24H SQ 12/14/16 08:00 12/15/16 08:09 Vital Signs / I&O Vital Signs Date Time Temp Pulse Resp B/P Pulse Ox O2 Delivery O2 Flow Rate FiO2 12/15/16 08:00 97 21 12/15/16 07:00 97 Room Air 12/15/16 07:00 98.1 91 18 145/106 97 12/15/16 07:00 91 12/15/16 03:00 74 12/15/16 03:00 98.5 74 18 115/68 94 12/14/16 23:00 97 12/14/16 23:00 98.8 97 18 119/81 95 12/14/16 19:38 94 21 12/14/16 19:00 98.1 109 18 146/65 99 12/14/16 19:00 99 12/14/16 19:00 94 Room Air 12/14/16 15:00 83 12/14/16 15:00 99.1 83 18 139/84 94 12/14/16 12:25 98.5 82 18 122/68 96 I/O 12/14/16 12/14/16 12/14/16 12/15/16 12/15/16 12/15/16 07:00 15:00 23:00 07:00 15:00 23:00 Intake Total 640 ml 640 ml 480 ml Output Total 1220 ml 560 ml Balance -580 ml 80 ml 480 ml Intake Oral 240 ml 580 ml 480 ml IV Total 400 ml 60 ml 0 ml Output Urine Total 1200 ml 560 ml Drainage Total 20 ml # Voids 1 2 # Bowel Movements 0 0 Physical Exam GENERAL: Well-nourished, well-developed patient.Awake, alert, and oriented x 3. SKIN: Warm and dry. HEAD: Normocephalic. EYES: No scleral icterus. No injection or drainage. NECK: Supple, trachea midline. No JVD or lymphadenopathy. CARDIOVASCULAR: Regular rate and rhythm without murmurs, gallops, or rubs. RESPIRATORY: Breath sounds equal bilaterally. No accessory muscle use. GASTROINTESTINAL: Abdomen soft, non-tender, nondistended. EXTREMITIES: No cyanosis, or edema. Laboratory Laboratory Tests Test 12/15/16 04:48 White Blood Count 10.7 TH/MM3 Red Blood Count 4.04 MIL/MM3 Hemoglobin 12.5 GM/DL Hematocrit 35.4 % Mean Corpuscular Volume 87.6 FL Mean Corpuscular Hemoglobin 30.8 PG Mean Corpuscular Hemoglobin 35.2 % Concent Red Cell Distribution Width 12.2 % Platelet Count 277 TH/MM3 Mean Platelet Volume 8.0 FL Activated Partial 28.6 SEC Thromboplast Time Sodium Level 138 MEQ/L Potassium Level 3.7 MEQ/L Chloride Level 104 MEQ/L Carbon Dioxide Level 26.6 MEQ/L Anion Gap 7 MEQ/L Blood Urea Nitrogen 12 MG/DL Creatinine 0.48 MG/DL Estimat Glomerular Filtration 135 ML/MIN Rate Random Glucose 182 MG/DL Calcium Level 8.9 MG/DL Imaging Last Impressions Chest X-Ray 12/13/16 0000 Signed Impressions: Service Date/Time: Tuesday, December 13, 2016 07:18 - CONCLUSION: No acute disease. Pascual Bhardwaj MD Brain MRI 12/13/16 0000 Signed Impressions: Service Date/Time: Tuesday, December 13, 2016 12:30 - CONCLUSION: Acute nonhemorrhagic infarcts involving the right frontal, parietal and occipital lobes. Old small infarct in the left frontal lobe. No other significant abnormality. Brett Varela MD Neck CTA 12/11/16 Signed Impressions: Service Date/Time: Sunday, December 11, 2016 17:42 - CONCLUSION: Persistent stenosis on the right with minimal hematoma. Findings have been discussed with Dr. Wooten while the patient was on the scanner. Jass Valdovinos MD FACR Head CTA 12/11/16 Signed Impressions: Service Date/Time: Sunday, December 11, 2016 17:42 - CONCLUSION: There is no evidence for an embolic occlusion of the intracranial vessels. Jass Valdovinos MD FACR Head CT 12/11/16 Signed Impressions: Service Date/Time: Sunday, December 11, 2016 17:41 - CONCLUSION: Remote left cerebral infarcts without definite evidence for acute infarct. Pascual Bhardwaj MD Lower Extremity Ultrasound 12/09/16 Signed Impressions: Service Date/Time: Friday, December 09, 2016 11:42 - CONCLUSION: Normal examination. Karen Schumacher MD Carotid Artery Ultrasound 12/09/16 Signed Impressions: Service Date/Time: Friday, December 09, 2016 12:10 - CONCLUSION: Significantly abnormal exam with no visualized flow identified within the left internal carotid artery consistent with complete thrombosis. The grayscale images of the proximal right internal carotid artery are consistent with a high-grade, greater than 70%% stenosis. The velocities identified throughout the right internal carotid artery are significantly elevated consistent with high-grade stenosis and waveforms are all abnormal. Recommend correlation with cross-sectional imaging. Kaern Schumacher MD Myocardial Perfusion Scan Nuc Med 12/08/16 Signed Impressions: Service Date/Time: Thursday, December 08, 2016 08:44 - CONCLUSION: Moderate sized moderate severity reversible apical perfusion abnormality. RISK CATEGORY: Intermediate (1-3%% Annual Mortality Rate) Gurmeet Kraus MD Assessment and Plan Problem List: (1) Chest pain Assessment and Plan: No chest pain in the last days Ambulating without difficulty Off Heparin Neurology recs appreciated Patient allergic to statins She appears stable from CV however to many events/complications in the last couple of days to be d/c home today. CV stable but she has not being ambulating much in CVICU. Recommendations: Start Plavix 75mg PO daily Start Imdur 30mg PO daily Increase Lopressor to 50mg PO BID Decrease Aspirin to 81mg PO daily Cont ACEi Patient can be transfer to [facility] Dr. Alex will re-schedule elective CABG in ~1-2 weeks Encourage ambulation and incentive spirometry (2) Unstable angina (3) Hypertension (4) Tobacco abuse (5) Diabetes mellitus type 2 in nonobese (6) HLD (hyperlipidemia) (7) Carotid stenosis, right Kwong-Candelario Spivey MD Dec 15, 2016 11:13
[2016-12-15] MEDS: CLOPIDOGREL 75 MG TAB PO SCH (11:19)
[2016-12-15] MEDS: ISOSORBIDE MONONITRATE 30 MG TAB PO SCH (13:05)
--- NOTE | 2016-12-15 15:10 | PD.VS.PN ---
Subjective Subjective/Hospital Course Complains of sore throat with swallowing that has improved. voice less hoarse. Otherwise, neurologically intact. Objective Vitals/I&O Date Time Temp Pulse Resp B/P Pulse Ox O2 Delivery O2 Flow Rate FiO2 12/15/16 11:00 98.3 80 18 164/93 94 12/15/16 11:00 77 12/15/16 08:00 97 21 12/15/16 07:00 97 Room Air 12/15/16 07:00 98.1 91 18 145/106 97 12/15/16 07:00 91 12/15/16 03:00 74 12/15/16 03:00 98.5 74 18 115/68 94 12/14/16 23:00 97 12/14/16 23:00 98.8 97 18 119/81 95 12/14/16 19:38 94 21 12/14/16 19:00 98.1 109 18 146/65 99 12/14/16 19:00 99 12/14/16 19:00 94 Room Air 12/15/16 12/15/16 12/15/16 07:00 15:00 23:00 Intake Total 480 ml Balance 480 ml Physical Exam right neck incision intact. CN 1-12 intact. Motor and sensory grossly intact bilateral lower extremities. Laboratory Laboratory Tests Test 12/15/16 04:48 White Blood Count 10.7 Red Blood Count 4.04 Hemoglobin 12.5 Hematocrit 35.4 Mean Corpuscular Volume 87.6 Mean Corpuscular Hemoglobin 30.8 Mean Corpuscular Hemoglobin 35.2 Concent Red Cell Distribution Width 12.2 Platelet Count 277 Mean Platelet Volume 8.0 Activated Partial 28.6 Thromboplast Time Sodium Level 138 Potassium Level 3.7 Chloride Level 104 Carbon Dioxide Level 26.6 Anion Gap 7 Blood Urea Nitrogen 12 Creatinine 0.48 Estimat Glomerular Filtration 135 Rate Random Glucose 182 Calcium Level 8.9 Assessment and Plan Assessment: (1) Carotid stenosis, right Status: Acute Plan Patient neurological status unchanged. No chest pain. Continues physical therapy and occupational therapy for CVA. Patient can be discharged with aspirin from standpoint and follow up in office in 2 weeks. CABG in 1-2 weeks if continues to be asymptomatic. Dilshad Banks DO FACS [facility] /Dilshad Jewell DO Dec 15, 2016 15:10
--- NOTE | 2016-12-15 15:24 | PD.CAR.PN ---
CVT Progress Note Subjective/Hospital Course: 56yF who originally presented with chest pain and was found to have multivessel disease (RCA 99% prox, LAD 70% prox, circ 99% distal). During her work-up for cabg, she was found to have a chronically occluded left carotid and a high grade right carotid lesion. Taken today for semi-elective right CEA in anticipation of urgent CABG later this week. Immediately post-operatively in PACU, she was noted to have an acute neuro exam change and was flaccid on the left side, but this was with a sbp of 70. phenylephrine was started to target SBP 120 - 140 with complete resolution of her symptoms. Per [facility] note : Last seen neuro intact was 1700. At 1720, the nurse evaluated the patient and she was found to be flaccid on the left again, with a SBP 150. noticeable left facial droop, left hand complete flaccid paralysis. left leg had 3/5 strength. Pt was immediately taken for emergent CT/CTA head and neck which demonstrated compression of the superior edge of the carotid patch. Pt was taken back to OR for re-exploration of the right carotid endarterectomy site. 12/12 pt was maintained on Justin gtt last pm to keep [id number] this am , pt developed chest pressure/ radiating down both arms , stat ECG done extensive ST depression inferior lateral changes pt medicated with morphine which resolved the pain, Dr Banks spoke with Dr Kwong will monitor closely , check MRI Brain in am keep in ICU , ok to keep SBP 120-140 and decrease IV fluids pt was moving all extremities, speech clear and neuro appropriate 12/13 pt has 4/5 left upper ext MRI pending, speech is hoarse and she is c/o of sore throat c/o of chest pain last pm, ECG unchanged , trop neg was started on Nitro gtt/ discussed with [facility] and vascular will change to Nitro paste, add BB , dc laurence later / get pt OOB consult PT/OT/ Speech for eval only today 12/15 appreciate Neuro input, recommend holding on surgery for 2 weeks, pt denies chest pain last night , BP stable left arm weakness improved, recommend maximizing cardiac meds, DC soon we will see her in one week in office Objective: GENERAL: SKIN: Warm and dry.incision intact right neck area, some mild swelling HEAD: Normocephalic. EYES: No scleral icterus. No injection or drainage. NECK: Supple, trachea midline. No JVD or lymphadenopathy., voice still hoarse , but improved CARDIOVASCULAR: Regular rate and rhythm without murmurs, gallops, or rubs. RESPIRATORY: Breath sounds equal bilaterally. No accessory muscle use. GASTROINTESTINAL: Abdomen soft, non-tender, nondistended. MUSCULOSKELETAL: No cyanosis, or edema. BACK: Nontender without obvious deformity. No CVA tenderness. Vital Signs Date Time Temp Pulse Resp B/P Pulse Ox O2 Delivery O2 Flow Rate FiO2 12/15/16 11:00 98.3 80 18 164/93 94 12/15/16 11:00 77 12/15/16 08:00 97 21 12/15/16 07:00 97 Room Air 12/15/16 07:00 98.1 91 18 145/106 97 12/15/16 07:00 91 12/15/16 03:00 74 12/15/16 03:00 98.5 74 18 115/68 94 12/14/16 23:00 97 12/14/16 23:00 98.8 97 18 119/81 95 12/14/16 19:38 94 21 12/14/16 19:00 98.1 109 18 146/65 99 12/14/16 19:00 99 12/14/16 19:00 94 Room Air Labs: Laboratory Tests Test 12/15/16 04:48 White Blood Count 10.7 TH/MM3 (4.0-11.0) Red Blood Count 4.04 MIL/MM3 (4.00-5.30) Hemoglobin 12.5 GM/DL (11.6-15.3) Hematocrit 35.4 % (35.0-46.0) Mean Corpuscular Volume 87.6 FL (80.0-100.0) Mean Corpuscular Hemoglobin 30.8 PG (27.0-34.0) Mean Corpuscular Hemoglobin 35.2 % Concent (32.0-36.0) Red Cell Distribution Width 12.2 % (11.6-17.2) Platelet Count 277 TH/MM3 (150-450) Mean Platelet Volume 8.0 FL (7.0-11.0) Activated Partial 28.6 SEC Thromboplast Time (24.3-30.1) Sodium Level 138 MEQ/L (136-145) Potassium Level 3.7 MEQ/L (3.5-5.1) Chloride Level 104 MEQ/L (98-107) Carbon Dioxide Level 26.6 MEQ/L (21.0-32.0) Anion Gap 7 MEQ/L (5-15) Blood Urea Nitrogen 12 MG/DL (7-18) Creatinine 0.48 MG/DL (0.50-1.00) Estimat Glomerular Filtration 135 ML/MIN Rate (>89) Random Glucose 182 MG/DL (74-106) Calcium Level 8.9 MG/DL (8.5-10.1) Result Diagram: 12/15/1644712/15/16447 Telemetry: NSR (1) Chest pain Plan: No chest pain in the last days Ambulating without difficulty Off Heparin Neurology recs appreciated Patient allergic to statins She appears stable from CV however to many events/complications in the last couple of days to be d/c home today. Recommendations: as per Cardiology Start Plavix 75mg PO daily Start Imdur 30mg PO daily Increase Lopressor to 50mg PO BID Decrease Aspirin to 81mg PO daily Cont ACEi (2) Unstable angina (3) Hypertension (4) Tobacco abuse (5) Diabetes mellitus type 2 in nonobese (6) HLD (hyperlipidemia) (7) Carotid stenosis, right Karen Jane Dec 15, 2016 15:24
[2016-12-15] MEDS: METOPROLOL TARTRATE 50 MG TAB PO SCH (21:04)
[2016-12-16] VITALS (13 sets, daily range): BP systolic 111–135; BP diastolic 63–86; PULSE 68–100; RESP 16; TEMP 98.2–98.3; O2SAT 96–100
[2016-12-16] MEDS: ISOSORBIDE MONONITRATE 30 MG TAB PO SCH (05:47)
[2016-12-16] MEDS: NITROGLYCERIN 2% OINT 1 GM PACKET TOPICAL SCH ×2 (05:47)
[2016-12-16] MEDS: INSULIN ASPART SUPPLEMENTAL SCALE SQ SCH ×2 (05:53→11:17)
[2016-12-16 06:28] LABS: MEAN CELL VOLUME 88.3 FL (80.0-100.0); MEAN CORPUSCULAR HEMOGLOBIN 30.8 PG (27.0-34.0); MEAN CORPUSCULAR HGB CONC 34.8 % (32.0-36.0); PLATELET COUNT 326 TH/MM3 (150-450); RED BLOOD COUNT 4.07 MIL/MM3 (4.00-5.30); RED CELL DISTRIBUTION WIDTH 12.4 % (11.6-17.2); REVIEW FLAG FINAL
[2016-12-16 06:35] LABS: APTT (PATIENT) 26.4 SEC (24.3-30.1)
[2016-12-16 06:46] LABS: BICARBONATE 26.9 MEQ/L (21.0-32.0); POTASSIUM 3.9 MEQ/L (3.5-5.1)
--- NOTE | 2016-12-16 08:41 | PD.CARD.PN ---
Subjective Subjective Remarks no complaints chest pain free ambulating without difficulty Objective Medications Current Medications Medications (Trade) Dose Ordered Sig/Uri Route Start Time Stop Time Status Last Admin (Tylenol) 500 mg Q4H PRN PO 12/07/16 11:00 12/14/16 20:22 (Chester 7.5-325 Mg) 1 tab Q4H PRN PO 12/07/16 11:00 12/15/16 21:08 (Protonix) 40 mg DAILY PO 12/07/16 11:00 12/15/16 08:31 (Xanax) 0.25 mg Q8H PRN PO 12/07/16 11:00 Hold 12/11/16 08:12 (D50w (Vial) Inj) 25 ml UNSCH PRN IV 12/07/16 12:00 (Glucagon Inj) 1 mg UNSCH PRN IM/SQ 12/07/16 12:00 (Prinivil) 20 mg BID PO 12/07/16 21:00 Hold 12/11/16 08:12 (Theragran) 1 tab DAILY PO 12/08/16 09:00 12/15/16 08:31 (Catapres) 0.1 mg Q4H PRN PO 12/07/16 12:15 Hold (Atropine Inj) 0.5 mg UNSCH PRN IV 12/08/16 14:30 (NS Flush) 2 ml BID IV FLUSH 12/08/16 21:00 12/15/16 21:04 (Levemir Inj) 35 units HS SQ 12/09/16 21:00 Hold 12/10/16 20:19 Sodium Chloride 2 ml 2 ml UNSCH PRN IV FLUSH 12/11/16 17:00 Potassium Chloride 100 ml @ 50 mls/hr Q2H PRN IV 12/11/16 16:30 Potassium Chloride 100 ml @ 50 mls/hr UNSCH PRN IV 12/11/16 16:30 12/13/16 06:38 Potassium Phosphate 21 mmol/ Sodium Chloride 257 ml @ 41.7 mls/hr UNSCH PRN IV 12/11/16 16:30 (Magnesium Sulfate 1 Gm Premix) 200 ml @ 100 mls/hr UNSCH PRN IV 12/11/16 16:30 (Zofran Inj) 4 mg Q6H PRN IV PUSH 12/11/16 16:30 (Chester 5-325 Mg) 1 tab Q4H PRN PO 12/11/16 16:30 (Morphine Inj) 2 mg Q4H PRN IV 12/11/16 16:30 12/12/16 05:10 (Morphine Inj) 4 mg Q1H PRN IV 12/11/16 16:30 12/14/16 08:14 (Brethine Inj) 1 mg UNSCH PRN SQ 12/11/16 20:45 Phenol 1 spray 1 spray UNSCH PRN PO 12/12/16 05:45 12/12/16 05:54 (Nitroglycerin-Dextrose Inj) 250 ml @ 0 mls/hr TITRATE IV 12/13/16 02:30 12/13/16 02:43 (Nitroglycerin 2% Oint) 1 inch Q6HR TOPICAL 12/13/16 12:00 12/16/16 05:47 (Lopressor Inj) 2.5 mg Q6H PRN IV PUSH 12/13/16 09:45 (Apresoline Inj) 10 mg Q4H PRN IV PUSH 12/13/16 09:45 (Lovenox Inj) 40 mg Q24H SQ 12/14/16 08:00 12/15/16 08:09 (Aspirin) 81 mg DAILY PO 12/16/16 09:00 (Lopressor) 50 mg Q12HR PO 12/15/16 21:00 12/15/16 21:04 (Plavix) 75 mg DAILY PO 12/15/16 11:00 12/15/16 11:19 (Imdur) 30 mg DAILY@07 PO 12/15/16 11:53 12/16/16 05:47 Vital Signs / I&O Vital Signs Date Time Temp Pulse Resp B/P Pulse Ox O2 Delivery O2 Flow Rate FiO2 12/16/16 07:00 93 12/16/16 06:00 84 12/16/16 05:00 76 12/16/16 04:00 76 12/16/16 03:00 98.2 77 16 111/63 100 12/16/16 03:00 68 12/16/16 02:00 73 12/16/16 01:00 71 12/16/16 00:00 75 12/15/16 23:00 98.0 78 18 122/68 98 12/15/16 23:00 75 12/15/16 22:00 86 12/15/16 21:00 96 12/15/16 20:00 100 12/15/16 19:00 110 12/15/16 19:00 99 Room Air 12/15/16 19:00 98.4 95 16 156/83 99 12/15/16 17:00 98.0 116 16 147/103 98 12/15/16 15:24 77 12/15/16 11:00 98.3 80 18 164/93 94 12/15/16 11:00 77 I/O 12/15/16 12/15/16 12/15/16 12/16/16 12/16/16 12/16/16 07:00 15:00 23:00 07:00 15:00 23:00 Intake Total 480 ml 480 ml Balance 480 ml 480 ml Intake Oral 480 ml 480 ml IV Total 0 ml # Voids 2 2 # Bowel Movements 0 0 Physical Exam GENERAL: Well-nourished, well-developed patient.Awake, alert, and oriented x 3. SKIN: Warm and dry. HEAD: Normocephalic. EYES: No scleral icterus. No injection or drainage. NECK: Supple, trachea midline. No JVD or lymphadenopathy. CARDIOVASCULAR: Regular rate and rhythm without murmurs, gallops, or rubs. RESPIRATORY: Breath sounds equal bilaterally. No accessory muscle use. GASTROINTESTINAL: Abdomen soft, non-tender, nondistended. EXTREMITIES: No cyanosis, or edema. Laboratory Laboratory Tests Test 12/16/16 12/16/16 12/16/16 00:57 05:51 05:57 White Blood Count 10.0 TH/MM3 Red Blood Count 4.07 MIL/MM3 Hemoglobin 12.5 GM/DL Hematocrit 36.0 % Mean Corpuscular Volume 88.3 FL Mean Corpuscular Hemoglobin 30.8 PG Mean Corpuscular Hemoglobin 34.8 % Concent Red Cell Distribution Width 12.4 % Platelet Count 326 TH/MM3 Mean Platelet Volume 8.0 FL Sodium Level 139 MEQ/L Potassium Level 3.9 MEQ/L Chloride Level 104 MEQ/L Carbon Dioxide Level 26.9 MEQ/L Anion Gap 8 MEQ/L Blood Urea Nitrogen 12 MG/DL Creatinine 0.51 MG/DL Estimat Glomerular Filtration 126 ML/MIN Rate Random Glucose 184 MG/DL Calcium Level 9.0 MG/DL Activated Partial 26.4 SEC Thromboplast Time Assessment and Plan Problem List: (1) Chest pain Assessment and Plan: No chest pain in the last days. Ambulating without difficulty. Off Heparin. Neurology recs appreciated. Patient allergic to statins Recommendations: 1. Continue ASA, Plavix, Imdur, Lopressor, Lisinopril 2. Encourage ambulation and incentive spirometry 3. Stable from CV standpoint to be d/c home today. She will f/u with Dr. Alex for elective CABG in ~1 week (2) Unstable angina (3) Hypertension (4) Tobacco abuse (5) Diabetes mellitus type 2 in nonobese (6) HLD (hyperlipidemia) (7) Carotid stenosis, right Kwong-Candelario Spivey MD Dec 16, 2016 08:41
[2016-12-16] MEDS ORDERED: ASPIRIN 325 MG TAB PO SCH (09:00)
[2016-12-16] MEDS ORDERED: ASPIRIN 81 MG CHEW TAB PO SCH (09:30)
[2016-12-16] MEDS: ENOXAPARIN SODIUM 40 MG/0.4 ML SYRINGE SQ SCH (09:32)
[2016-12-16] MEDS: METOPROLOL TARTRATE 50 MG TAB PO SCH (09:33)
[2016-12-16] MEDS: MULTIVITAMIN TAB PO SCH (09:33)
[2016-12-16] MEDS: CLOPIDOGREL 75 MG TAB PO SCH (09:33)
[2016-12-16] MEDS: ACETAMINOPHEN 500 MG CPLT PO PRN (09:33)
[2016-12-16] MEDS: PANTOPRAZOLE SOD 40 MG DELAYED RELEASE TAB PO SCH (09:33)
[2016-12-16] MEDS: SODIUM CHLORIDE 0.9% FLUSH 10 ML FLUSH IV FLUSH SCH (09:33)
--- NOTE | 2016-12-16 10:40 | HHI.PR ---
Subjective Remarks feels great, no chest pains or shortness of breath no nausea or vomiting Objective Vitals Vital Signs Date Time Temp Pulse Resp B/P Pulse Ox O2 Delivery O2 Flow Rate FiO2 12/16/16 09:51 98 12/16/16 07:00 93 12/16/16 07:00 98.3 85 16 131/86 97 12/16/16 07:00 97 Room Air 12/16/16 06:00 84 12/16/16 05:00 76 12/16/16 04:00 76 12/16/16 03:00 98.2 77 16 111/63 100 12/16/16 03:00 68 12/16/16 02:00 73 12/16/16 01:00 71 12/16/16 00:00 75 12/15/16 23:00 98.0 78 18 122/68 98 12/15/16 23:00 75 12/15/16 22:00 86 12/15/16 21:00 96 12/15/16 20:00 100 12/15/16 19:00 110 12/15/16 19:00 99 Room Air 12/15/16 19:00 98.4 95 16 156/83 99 12/15/16 17:00 98.0 116 16 147/103 98 12/15/16 15:24 77 12/15/16 11:00 98.3 80 18 164/93 94 12/15/16 11:00 77 I/O 12/15/16 12/15/16 12/15/16 12/16/16 12/16/16 12/16/16 07:00 15:00 23:00 07:00 15:00 23:00 Intake Total 480 ml 480 ml Balance 480 ml 480 ml Intake Oral 480 ml 480 ml IV Total 0 ml # Voids 2 2 # Bowel Movements 0 0 Result Diagram: 12/16/16 0057 12/16/16 0551 Imaging Last Impressions Chest X-Ray 12/13/16 0000 Signed Impressions: Service Date/Time: Tuesday, December 13, 2016 07:18 - CONCLUSION: No acute disease. Pascual Bhardwaj MD Brain MRI 12/13/16 0000 Signed Impressions: Service Date/Time: Tuesday, December 13, 2016 12:30 - CONCLUSION: Acute nonhemorrhagic infarcts involving the right frontal, parietal and occipital lobes. Old small infarct in the left frontal lobe. No other significant abnormality. Brett Varela MD Neck CTA 12/11/16 0000 Signed Impressions: Service Date/Time: Sunday, December 11, 2016 17:42 - CONCLUSION: Persistent stenosis on the right with minimal hematoma. Findings have been discussed with Dr. Wooten while the patient was on the scanner. Jass Valdovinos MD FACR Head CTA 12/11/16 0000 Signed Impressions: Service Date/Time: Sunday, December 11, 2016 17:42 - CONCLUSION: There is no evidence for an embolic occlusion of the intracranial vessels. Jass Valdovinos MD FACR Head CT 12/11/16 0000 Signed Impressions: Service Date/Time: Sunday, December 11, 2016 17:41 - CONCLUSION: Remote left cerebral infarcts without definite evidence for acute infarct. Pascual Bhardwaj MD Lower Extremity Ultrasound 12/09/16 0000 Signed Impressions: Service Date/Time: Friday, December 09, 2016 11:42 - CONCLUSION: Normal examination. Karen Schumacher MD Carotid Artery Ultrasound 12/09/16 0000 Signed Impressions: Service Date/Time: Friday, December 09, 2016 12:10 - CONCLUSION: Significantly abnormal exam with no visualized flow identified within the left internal carotid artery consistent with complete thrombosis. The grayscale images of the proximal right internal carotid artery are consistent with a high-grade, greater than 70%% stenosis. The velocities identified throughout the right internal carotid artery are significantly elevated consistent with high-grade stenosis and waveforms are all abnormal. Recommend correlation with cross-sectional imaging. Karen Schumacher MD Myocardial Perfusion Scan Nuc Med 12/08/16 0000 Signed Impressions: Service Date/Time: Thursday, December 08, 2016 08:44 - CONCLUSION: Moderate sized moderate severity reversible apical perfusion abnormality. RISK CATEGORY: Intermediate (1-3%% Annual Mortality Rate) Gurmeet Kraus MD Objective Remarks anicteric right neck- well healed scar lungs clear regular rhythm abdomen soft, nontender extremities no edema Procedures 12/08/16 cardiac catheterization right CEA A/P Problem List: (1) NSTEMI (non-ST elevated myocardial infarction) ICD Code: I21.4 Status: Acute (2) Acute ischemic stroke ICD Code: I63.9 Status: Acute (3) Unstable angina ICD Code: I20.0 Status: Acute (4) Hypertension ICD Code: I10 Status: Chronic (5) Hyperlipidemia ICD Code: E78.5 Status: Chronic (6) Diabetes mellitus ICD Code: E11.9 Status: Chronic (7) Abnormal cardiovascular stress test ICD Code: R94.39 Status: Acute (8) Coronary artery disease ICD Code: I25.10 Status: Chronic (9) Carotid stenosis, right ICD Code: I65.21 Status: Acute (10) HLD (hyperlipidemia) ICD Code: E78.5 Status: Chronic Assessment and Plan CAD Chest pain Plan: No chest pain in the last days Ambulating without difficulty Off Heparin Neurology recs appreciated Patient allergic to statins plan for CABG in 2 weeks- per [facility] She appears stable from CV however to many events/complications in the last couple of days to be d/c home today. - ff up with Dr. Gavin in 2 weeks Recommendations: as per Cardiology Plavix 75mg PO daily Start Imdur 30mg PO daily Lopressor to 50mg PO BID Aspirin to 81mg PO daily Cont JAIME- was on 20 mg po bid- has been held since 12/11 due to low BPs. will restart 10 mg bid -if well tolerated will DC- ff up as OP to titrate ideally statins- + adverse reaction. Restart her questran as OP - d/w family S/P CEA- ff up with [facility] in 2 weeks - Plavix + ASA DC today OP ff up with PCP, Dr. gavin and Vascular surgery Yahaira Arauz MD Dec 16, 2016 10:40
[2016-12-16] MEDS ORDERED: LISINOPRIL 10 MG TAB PO SCH (11:00)
[2016-12-16] MEDS ORDERED: Aspirin Chew PO (11:01)
[2016-12-16] MEDS ORDERED: ISOS30TA3 PO (11:01)
[2016-12-16] MEDS ORDERED: PLAV75TA29 PO (11:01)
[2016-12-16] MEDS ORDERED: METO-309 PO (11:01)
[2016-12-16] MEDS ORDERED: LISI10TA3 PO (11:01)
--- NOTE | 2016-12-16 11:13 | HHI.DS ---
Discharge Summary Admission Date Dec 08, 2016 at 14:33 Discharge Date: Dec 16, 2016 Admitting Diagnosis chest pain, hypertension, hyperlipedmia, diabetes mellitus (1) NSTEMI (non-ST elevated myocardial infarction) ICD Code: I21.4 Diagnosis: Principal (2) Acute ischemic stroke ICD Code: I63.9 Diagnosis: Principal (3) Unstable angina ICD Code: I20.0 Diagnosis: Principal (4) Hypertension ICD Code: I10 Diagnosis: Secondary (5) Hyperlipidemia ICD Code: E78.5 Diagnosis: Secondary (6) Diabetes mellitus ICD Code: E11.9 Diagnosis: Secondary (7) Carotid stenosis, right ICD Code: I65.21 Diagnosis: Secondary Procedures 12/08/16 cardiac catheterization right CEA Brief History - From Admission The patient is a 56-year-old female with known history of coronary artery disease who presented to the emergency department with complaint of chest pain that started yesterday morning and awakened her from sleep. The pain lasted about 5 minutes and then resolved. She reported associated dyspnea and diaphoresis. No nausea or vomiting. She has had chills recently, but no fever or night sweats. She has not been taking her medications recently as her insurance . She has had problems in the past with statins, which have caused hives. She just returned from cardiac catheterization. No current chest pain. CBC/BMP: 12/16/16 0057 12/16/16 0551 Significant Findings Laboratory Tests Test 12/14/16 12/15/16 12/16/16 05:23 04:48 05:51 White Blood Count 11.1 TH/MM3 (4.0-11.0) Red Blood Count 3.99 MIL/MM3 (4.00-5.30) Neutrophils (%) (Auto) 81.9 % (16.0-70.0) Neutrophils # (Auto) 9.1 TH/MM3 (1.8-7.7) Creatinine 0.37 MG/DL 0.48 MG/DL (0.50-1.00) (0.50-1.00) Random Glucose 174 MG/DL 182 MG/DL 184 MG/DL (74-106) (74-106) (74-106) Imaging Last Impressions Chest X-Ray 12/13/16 Signed Impressions: Service Date/Time: Tuesday, December 13, 2016 07:18 - CONCLUSION: No acute disease. Pascual Bhardwaj MD Brain MRI 12/13/16 Signed Impressions: Service Date/Time: Tuesday, December 13, 2016 12:30 - CONCLUSION: Acute nonhemorrhagic infarcts involving the right frontal, parietal and occipital lobes. Old small infarct in the left frontal lobe. No other significant abnormality. Brett Varela MD Neck CTA 12/11/16 Signed Impressions: Service Date/Time: Sunday, December 11, 2016 17:42 - CONCLUSION: Persistent stenosis on the right with minimal hematoma. Findings have been discussed with Dr. Wooten while the patient was on the scanner. Jass Valdovinos MD FACR Head CTA 12/11/16 Signed Impressions: Service Date/Time: Sunday, December 11, 2016 17:42 - CONCLUSION: There is no evidence for an embolic occlusion of the intracranial vessels. Jass Valdovinos MD FACR Head CT 12/11/16 Signed Impressions: Service Date/Time: Sunday, December 11, 2016 17:41 - CONCLUSION: Remote left cerebral infarcts without definite evidence for acute infarct. Pascual Bhardwaj MD Lower Extremity Ultrasound 12/09/16 Signed Impressions: Service Date/Time: Friday, December 09, 2016 11:42 - CONCLUSION: Normal examination. Karen Schumacher MD Carotid Artery Ultrasound 12/09/16 Signed Impressions: Service Date/Time: Friday, December 09, 2016 12:10 - CONCLUSION: Significantly abnormal exam with no visualized flow identified within the left internal carotid artery consistent with complete thrombosis. The grayscale images of the proximal right internal carotid artery are consistent with a high-grade, greater than 70%% stenosis. The velocities identified throughout the right internal carotid artery are significantly elevated consistent with high-grade stenosis and waveforms are all abnormal. Recommend correlation with cross-sectional imaging. Karen Schumacher MD Myocardial Perfusion Scan Nuc Med 12/08/16 Signed Impressions: Service Date/Time: Thursday, December 08, 2016 08:44 - CONCLUSION: Moderate sized moderate severity reversible apical perfusion abnormality. RISK CATEGORY: Intermediate (1-3%% Annual Mortality Rate) Gurmeet Kraus MD PE at Discharge anicteric right neck- well healed scar lungs clear regular rhythm abdomen soft, nontender extremities no edema Transfer Summary This is a 56yF who originally presented with chest pain and was found to have multivessel disease (RCA 99% prox, LAD 70% prox, circ 99% distal). During her work-up for cabg, she was found to have a chronically occluded left carotid and a high grade right carotid lesion. She was taken today for semi-elective right CEA in anticipation of urgent CABG later this week. Immediately post- operatively in PACU, she was noted to have an acute neuro exam change and was flaccid on the left side, but this was with a sbp of 70. phenylephrine was started to target SBP 120 - 140 with complete resolution of her symptoms. Dr. wooten evaluated the patient in PACU and she was completely neuro intact. We immediately transferred her to the CVICU. The CVICU performed strict q1h neuro checks. Last seen neuro intact was 1700. At 1720, the nurse evaluated the patient and she was found to be flaccid on the left again, with a SBP 150. I again immediately came and evaluated the patient. At this point, she has noticeable left facial droop, left hand complete flaccid paralysis. left leg had 3/[address] Banks and immediately took her down for emergent CT/CTA head and neck which demonstrated compression of the superior edge of the carotid patch. Isaías Maddox performed re-exploration with replacement of patch, Critical care medicine is consulted to evaluate and manage her CVA and post-CEA hemodynamics. 12/12: doing well. off phenylephrine. one episode of chest pain this morning, but improved with iv morphine. neuro intact this morning. overnight last night, ST depressions worsened with norepinephrine, but resolved when pressor was switched to phenylephrine. 12/13: Intermittent chest pain yesterday night. Started on nitro drip. EKG shows ischemic changes but unchanged from previous. Blood pressure systolic maintained between 120 to 130. No focal deficit noted on exam. Will discuss with cardiothoracic surgery Dr. Mayo today about timing of CABG 12/14: No acute events overnight, mild weakness of L hand. MRI brain 12/13 acute ischemic infarct R frontal parietal and occipital lobes. CABG vs PCI question to be addressed by CTS/cardiology and neurology. Chest pain improved 12/15: Patient is chest pain-free for more than [address] Snow had seen yesterday. He recommends against CABG immediately if not life -threatening emergency, due to high risk of hemorrhagic conversion from acute right sided stroke. There is also areas of petechial hemorrhage. Pt update on day of discharge Vital signs stable, no chest pains or shortness of breath twellh= healed post op scars Hospital Course Assessment and Plan CAD Plan: No chest pain in the last days Ambulating without difficulty Off Heparin Neurology recs appreciated Patient allergic to statins plan for CABG in 2 weeks- per [facility] She appears stable from CV however to many events/complications in the last couple of days to be d/c home today. - ff up with Dr. Gavin in 2 weeks Recommendations: as per Cardiology Plavix 75mg PO daily Start Imdur 30mg PO daily Lopressor to 50mg PO BID Aspirin to 81mg PO daily Cont JAIME- was on 20 mg po bid- has been held since 12/11 due to low BPs. will restart 10 mg bid -if well tolerated will DC- ff up as OP to titrate ideally statins- + adverse reaction. Restart her questran as OP - d/w family S/P CEA- ff up with [facility] in 2 weeks - Plavix + ASA DC today OP ff up with PCP, Dr. gavin and Vascular surgery Pt Condition on Discharge: Stable Discharge Disposition: Discharge Home Discharge Time: <= 30 minutes Discharge Instructions DIET: Follow Instructions for: Heart Healthy Diet, Diabetic Diet Speech Therapy-Diet Recommends: Regular Activities you can perform: Weight Bearing as Billy Activities to Avoid: Strenuous Activity Follow up Referrals: Cardiology - 1 Week with [facility] - 10 Days with Guero Snow MD PCP Follow-up - 3-5 Days with community clini Surgical with Ling Alex MD New Medications: Clopidogrel (Plavix) 75 Mg Tab 75 MG PO DAILY CAD/CEA Days 30 Ref 3 TAB Isosorbide Mononitrate ER (Isosorbide Mononitrate ER) 30 Mg Lacho 30 MG PO DAILY@07 Chest Pain Days 30 Ref 2 TAB Lisinopril (Lisinopril) 10 Mg Tab 10 MG PO Q12HR CAD Days 30 Ref 2 TAB Metoprolol Tartrate (Lopressor) 50 Mg Tab 50 MG PO Q12HR Chest Pain Days 30 Ref 3 TAB ([Aspirin Chew]) 81 MG CHEW 81 MG PO DAILY #90 Ref 2 TAB.CHEW Continued Medications: Insulin Glargine Inj (Lantus Inj) 1,000 Unit/10 Ml Vial 35 UNITS SQ HS Blood Sugar Management Ref 0 VIAL Multiple Vitamin (Multi-Vitamin Daily) 1 Tab Tab 1 TAB PO DAILY Nutritional Supplement Ref 0 TAB Discontinued Medications: Aspirin (Aspirin) 81 Mg Chew 81 MG CHEW BID #1 Ref 0 TAB Lisinopril (Lisinopril) 20 Mg Tab 20 MG PO BID #30 Ref 0 TAB Metoprolol Tartrate (Metoprolol Tartrate) 25 Mg Tab 25 MG PO DAILY Blood Pressure Management Ref 0 TAB Yahaira Arauz MD Dec 16, 2016 11:13
--- NOTE | 2016-12-19 09:47 | RSPPFT ---
DATE OF PROCEDURE: 12/10/16 COMMENTS: Spirometry shows FEV1 at 95% of predicted, FVC at 93% indicating normal spirometry. IMPRESSION: 1. Normal spirometry. 2. No abnormalities noted on this study.
[2016-12-26] MEDS ORDERED: QUES4POW PO (10:28)
[2016-12-26] MEDS ORDERED: LISI10TA3 PO (10:32)
[2016-12-26] MEDS ORDERED: PLAV75TA29 PO (10:32)
[2016-12-26] MEDS ORDERED: ISOS30TA3 PO (10:32)
[2016-12-26] MEDS ORDERED: LANTUS2P SQ (10:32)
[2016-12-26] MEDS ORDERED: GLUCTES27 (10:33)
[2016-12-26] MEDS ORDERED: METO-309 PO (10:33)
== END 2016-12-16 12:20 | disposition home or self-care (01) | DRG 252 ==
LOC: NEPC 08:16 → NEDA 10:08 → NEPFCDU 11:46 → OBSVTOIN 12-08 14:33 → HCIS 12-08 14:35 → HCVR 12-11 16:20 → HCIN 12-15 15:07
PROVIDERS: ADMIT Family Medicine; ATTEND Internal Medicine
PROC: B2111ZZ Fluoroscopy of Multiple Coronary Arteries using Low Osmolar Contrast (ICD-10-PCS; 2016-12-08)
PROC: B2151ZZ Fluoroscopy of Left Heart using Low Osmolar Contrast (ICD-10-PCS; 2016-12-08)
PROC: 4A023N7 Measurement of Cardiac Sampling and Pressure, Left Heart, Percutaneous Approach (ICD-10-PCS; principal; 2016-12-08 12:30)
PROC: 03CK0ZZ Extirpation of Matter from Right Internal Carotid Artery, Open Approach (ICD-10-PCS; 2016-12-11)
PROC: 03UK0KZ Supplement Right Internal Carotid Artery with Nonautologous Tissue Substitute, Open Approach (ICD-10-PCS; 2016-12-11)
PROC: 03JY0ZZ Inspection of Upper Artery, Open Approach (ICD-10-PCS; 2016-12-11)
PROC: 03UK0KZ Supplement Right Internal Carotid Artery with Nonautologous Tissue Substitute, Open Approach (ICD-10-PCS; 2016-12-11)
DX: I21.4 Non-ST elevation (NSTEMI) myocardial infarction (principal); I63.9 Cerebral infarction, unspecified; T82.855A Stenosis of coronary artery stent, initial encounter; I97.821 Postprocedural cerebrovascular infarction following other surgery; G81.04 Flaccid hemiplegia affecting left nondominant side; I65.21 Occlusion and stenosis of right carotid artery; J95.89 Other postprocedural complications and disorders of respiratory system, not elsewhere classified; J98.11 Atelectasis; E11.9 Type 2 diabetes mellitus without complications; I10 Essential (primary) hypertension; I25.110 Atherosclerotic heart disease of native coronary artery with unstable angina pectoris; R29.810 Facial weakness; E78.5 Hyperlipidemia, unspecified; F17.210 Nicotine dependence, cigarettes, uncomplicated; Y83.8 Other surgical procedures as the cause of abnormal reaction of the patient, or of later complication, without mention of misadventure at the time of the procedure; Z79.4 Long term (current) use of insulin; Z86.73 Personal history of transient ischemic attack (TIA), and cerebral infarction without residual deficits; Y83.1 Surgical operation with implant of artificial internal device as the cause of abnormal reaction of the patient, or of later complication, without mention of misadventure at the time of the procedure
CPT/HCPCS: 70450; 70496; 70498; 70551; 71010; 78452; 80048; 80053; 80061; 80076; 81001; 82550; 82948; 83735; 84100; 84132; 84484; 84702; 85014; 85018; 85025; 85027; 85610; 85730; 86850; 86900; 86901; 86920; 87641; 90471; 90732; 93005; 93017; 93306; 93318; 93458; 93880; 93970; 93998; 94010; A9502; C1768; C1769; C1893; C9399; G0009; G0378; J0690; J1644; J1650; J1815; J2250; J2270; J2310; J2370; J2405; J2720; J2785; J3010; J3480; J7060; J7120; Q9967

== ENCOUNTER 2016-12-29 14:48 | Inpatient (IN) | payer MEDICAID, OTHER ==
[~2016-12-29] VITALS: Ht 177.8 cm; Wt 78.7 kg
[~2016-12-29 14:48] MED LIST changes: +Aspirin Chew PO; -BABY81CH PO; -CHOL4 PO; -CIME200T2 PO; -CITA20TA4 PO; -CONTOUR1 XX; +GLUCTES27; +ISOS30TA3 PO; -LANTUS2P SC; +LANTUS2P SQ; -LISI-363 PO; +LISI10TA3 PO; +METO-309 PO; -METO25 PO; +MULT-65 PO; -MULT1TAB46; +PLAV75TA29 PO; +QUES4POW PO
[2017-01-09] VITALS (13 sets, daily range): BP systolic 93–166; BP diastolic 56–86; PULSE 60–101; RESP 16–20; TEMP 97–98.7; O2SAT 94–98
[2017-01-09] MEDS ORDERED: GLYCOPYRROLATE 0.2 MG/ML VIAL IV ONE (05:00)
[2017-01-09] MEDS ORDERED: DEXMEDETOMIDINE INJ 50 ML IV ONE (05:00)
[2017-01-09] MEDS ORDERED: NITROGLYCERIN-DEXTROSE INJ 250 ML IV ONE (05:00)
[2017-01-09] MEDS ORDERED: CALCIUM CHLORIDE 10% SOLN 1 GRAM/10 ML SYR IV ONE (05:00)
[2017-01-09] MEDS ORDERED: PROTAMINE SULFATE 250 MG/25 ML VIAL IV ONE (05:00)
[2017-01-09] MEDS ORDERED: HEPARIN SODIUM - SQ 10,000 UNITS/ML VIAL SQ ONE (05:00)
[2017-01-09] MEDS ORDERED: VECURONIUM BROMIDE 10 MG VIAL IV ONE (05:00)
[2017-01-09] MEDS ORDERED: PHENYLEPHRINE HCL 10 MG/ML VIAL IV ONE (05:00)
[2017-01-09] MEDS ORDERED: ARTIFICIAL TEARS OPTH OINT 3.5 APPLIC/3.5 GM TUBO ONE (05:00)
[2017-01-09] MEDS ORDERED: MAGNESIUM SULFATE 1000 MG/2 ML VIAL (PED) IV ONE (05:00)
[2017-01-09] MEDS ORDERED: AMINOCAPROIC ACID INJ 250 MG/ML 20 ML VIAL IV ONE (05:00)
[2017-01-09] MEDS ORDERED: SODIUM CHLORIDE 0.9% FLUSH 10 ML FLUSH IV FLUSH PRN ×2 (06:15)
[2017-01-09] MEDS ORDERED: ceFAZolin 2 GM PREMIX 50 ML IV SCH (06:30)
[2017-01-09] MEDS ORDERED: LACTATED RINGER'S 1000 ML IV PRN (06:30)
[2017-01-09] MEDS ORDERED: CHLORHEXIDINE GLUCONATE 2 % 1 PACK (2 CLOTHS) TOPICAL PRN (06:30)
[2017-01-09] MEDS ORDERED: INSULIN REGULAR 100 UNITS in NS 100 ML IV SCH (06:30)
[2017-01-09] MEDS ORDERED: METOPROLOL TARTRATE 25 MG TAB PO PRN (06:30)
[2017-01-09] MEDS ORDERED: CHLORHEXIDINE GLUCONATE 4% SOLN 120 ML BTL TOPICAL SCH (06:30)
[2017-01-09] MEDS ORDERED: METOPROLOL TARTRATE 25 MG TAB PO SCH (06:30)
[2017-01-09] MEDS ORDERED: PAPAVERINE 60 MG-NITROGLYCERIN 100 MCG-DILTIAZEM 100 MG in NS 100 ML IRRIGATION SCH ×4 (06:30)
[2017-01-09] MEDS ORDERED: SODIUM CHLORID 0.9% 500 ML IV PRN (06:30)
[2017-01-09] MEDS ORDERED: POVIDONE IODINE 5% (ANTISEPSIS KIT) 4 APPLICATIONS EACH NARE PRN (06:30)
[2017-01-09] MEDS ORDERED: CEFAZOLIN 500 MG in NS IRR BTL 500 ML IRRIGATION SCH (06:30)
[2017-01-09] MEDS ORDERED: INSULIN HUMAN REGULAR 1,000 UNITS/10 ML VIAL SQ PRN (06:30)
[2017-01-09] MEDS ORDERED: HEPARIN SODIUM - IV 10,000 UNITS/10 ML VIAL ONE ×2 (07:11→07:49)
[2017-01-09] MEDS ORDERED: methylPREDNISolone SOD SUCC 125 MG/2 ML VIAL ONE (07:12)
[2017-01-09] MEDS ORDERED: ceFAZolin 2 GM PREMIX 50 ML ONE (07:12)
[2017-01-09] MEDS ORDERED: VANCOMYCIN HCL 1000 MG VIAL ONE (07:13)
[2017-01-09] MEDS ORDERED: VANCOMYCIN HCL 1000 MG VIAL OTHER ONE (07:30)
[2017-01-09] MEDS ORDERED: HEPARIN SODIUM - SQ 10,000 UNITS/ML VIAL IVF ONE (07:30)
[2017-01-09] MEDS ORDERED: CARDIOPLEGIC IRR 1,000 ML ONE (07:47)
[2017-01-09] MEDS ORDERED: ALBUMIN HUMAN 25% 12.5 GM/50 ML BAGP IV ONE (07:48)
[2017-01-09] MEDS ORDERED: SODIUM BICARBONATE 8.4% INJ 50 MEQ/50 ML SYR ONE (07:48)
[2017-01-09] MEDS ORDERED: POTASSIUM CHLORIDE 40 MEQ/20 ML VIAL ONE (07:48)
[2017-01-09] MEDS ORDERED: HEPARIN SODIUM - SQ 10,000 UNITS/ML VIAL ONE (07:49)
[2017-01-09] MEDS ORDERED: MANNITOL INJ 50 ML ONE (07:50)
[2017-01-09] MEDS ORDERED: LACTATED RINGER'S 1000 ML INJ 3,000 ML IV ONE (08:03)
[2017-01-09] MEDS ORDERED: SODIUM CHLOR 0.9% 250 ML INJ 500 ML IV ONE (08:04)
[2017-01-09] MEDS ORDERED: SODIUM CHLORID 0.9% 500 ML INJ 500 ML IV ONE (08:04)
[2017-01-09] MEDS ORDERED: SODIUM CHLORIDE 0.9% INJ 100 ML IV ONE (08:04)
[2017-01-09] MEDS ORDERED: NORMOSOL R INJ 2,000 ML IV ONE (08:05)
[2017-01-09] MEDS: MUPIROCIN 2% OINT 22 GM TUBE EACH NARE SCH ×2 (09:00→21:00)
[2017-01-09] MEDS ORDERED: Post-op Orders (for Pharmacy) MISC OTHER ONE (11:45)
[2017-01-09] MEDS ORDERED: POTASSIUM CHLOR 20 MEQ PREMIX 100 ML IV PRN ×3 (11:45)
[2017-01-09] MEDS ORDERED: ACETAMINOPHEN 325 MG TAB PO PRN (11:45)
[2017-01-09] MEDS ORDERED: CALCIUM CHLORIDE 10% 1 GRAM/10 ML VIAL IV PRN (11:45)
[2017-01-09] MEDS ORDERED: MAGNESIUM SULFATE INJ 2 GM in SODIUM CHLORIDE 0.9% INJ 100 ML IV PRN ×4 (11:45)
[2017-01-09] MEDS ORDERED: CALCIUM CHLORIDE INJ 1 GM in SODIUM CHLORIDE 0.9% INJ 100 ML IV PRN (11:45)
[2017-01-09] MEDS ORDERED: METOPROLOL TARTRATE 5 MG/5 ML VIAL IV PUSH PRN (11:45)
[2017-01-09] MEDS ORDERED: CLEVIDIPINE INJ 50 ML IV SCH (11:45)
[2017-01-09] MEDS ORDERED: ACETAMINOPHEN 650 MG SUPP RECTAL PRN (11:45)
[2017-01-09] MEDS ORDERED: LACTATED RINGER'S 1000 ML INJ 500 ML IV PRN (11:45)
[2017-01-09] MEDS ORDERED: POTASSIUM CHLORIDE 20 MEQ CONTROLLED RELEASE TAB PO PRN ×2 (11:45)
[2017-01-09] MEDS ORDERED: DEXTROSE 50% IN WATER 50 ML VIAL(D50) IV PUSH PRN (11:45)
[2017-01-09] MEDS ORDERED: hydrALAZINE HCL 20 MG/ML VIAL IV PRN (11:45)
[2017-01-09] MEDS ORDERED: INSULIN REGULAR (IV INFUSION) 100 UNITS in SODIUM CHLORIDE 0.9% INJ 99 ML IV SCH (11:45)
--- NOTE | 2017-01-09 12:02 | PD.OP ---
cc: Candelario Velarde MD; Ling Alex MD Operative Report Date of Surgery: January 09, 2017 Preoperative Diagnosis: (1) NSTEMI (non-ST elevated myocardial infarction) (2) Unstable angina (3) Coronary artery disease Postoperative Diagnosis: same Procedure: CABG x 3 ROSENBAUM to LAD - good SVG to OM2 - good SVG to D1 - good EVH Anesthesia: Dr. Boggs Surgeon: Ling Alex Manager Of Care(s): Saurabh Rosario Operation and Findings: The risks, benefits, complications, treatment options, and expected outcomes were discussed with the patient. The possibilities of reaction to medication, pulmonary aspiration, perforation of viscus, bleeding, recurrent infection, the need for additional procedures, failure to diagnose a condition, and creating a complication requiring transfusion or operation were discussed with the patient. The patient concurred with the proposed plan, giving informed consent. The site of surgery properly noted/marked. The patient was taken to Operating Room, identified as Karyn Doty and the procedure verified as CABG, EVH. A Time Out was held and the above information confirmed. Standard monitoring lines and Garsia catheter were placed. General anesthesia was induced. The patient was prepped and draped in a sterile fashion. A median sternotomy was performed and electrocautery was used to obtain hemostasis. The left internal mammary artery was procured as a pedicle from the 7th rib to the 1st rib in the usual manner. Simultaneously left greater saphenous vein was procured from the left leg using a minimally invasive endoscopic technique. The vein was prepared for anastomosis and the leg wound was irrigated and closed in 2 layers. The pericardium was opened and a pericardial sling was created using interrupted 0 silk sutures. The patient was heparinized for cardiopulmonary bypass and the distal mammary pedicle was instrumented for anastomosis. The heart was instrumented for cardiopulmonary bypass in the usual manner. Antegrade blood cardioplegia was employed. The patient was placed on cardiopulmonary bypass. An aortic cross-clamp was applied and the heart was arrested using cold blood cardioplegia. Antegrade cardioplegia was administered after he each anastomosis. After adequate arrest, the 2nd circumflex marginal artery was opened with a [place] blade and found to be a 1.5 millimeter good target. Saphenous vein was approximated to the OM2 artery using a running 7 0 Prolene suture. The graft was measured for length and orientation and the proximal anastomosis was constructed to the ascending aorta using a running 5 0 Prolene suture after creating an aortotomy with a 5 millimeter punch. The 1st diagonal artery was then opened with a [place] blade and found to be a 1.5 millimeter good target. Saphenous vein was approximated to the D1 artery using a running 7 0 Prolene suture. The graft was measured for length and orientation and was suspended from the pericardium. The distal LAD was opened with a [place] blade and found to be a 1.5 millimeter good target. The left internal mammary artery was approximated to the LAD using a running 7 0 Prolene suture. The pedicle was attached to the epicardium using interrupted 5 0 silk suture. The patient was systemically rewarmed and received a hotshot dose of warm blood cardioplegia. The aorta was vented and the proximal anastomosis to the D1 graft was accomplished using a running 5 0 Prolene suture after creating an aortotomy was a 5 millimeter punch. The cross-clamp was removed and all proximal and distal anastomoses were examined for hemostasis. The patient was weaned from cardiopulmonary bypass. Protamine was given. There was no adverse reaction. Decannulation was carried out without incident. Wound was checked for hemostasis which was obtained using electrocautery. A 36 Croatian mediastinal and 32 Croatian left pleural chest tubes were placed and secured to the skin with 0 silk suture. The sternum was closed with stainless steel wire. The fascia was closed with 1. PDS. The subcutaneous tissue was closed using a running 2-0 Vicryl suture. The skin was closed with 4-0 Monocryl. Sterile dressings were placed. At the end of the operation, all sponge, instruments, and needle counts were correct. The patient was transferred to the CVICU in stable condition. Findings: PDA too small to graft. XC: 51 min CPB: 56 min Drains: mediastinal x 1 pleural x 1 Complications: none Disposition: to CVICU in stable condition Ling Alex MD January 09, 2017 12:01
[2017-01-09] MEDS ORDERED: fentaNYL CITRATE 1000 MCG/20 ML VIAL ONE (13:13)
[2017-01-09] MEDS ORDERED: MIDAZOLAM HCL 5 MG/5 ML VIAL ONE (13:13)
[2017-01-09] MEDS ORDERED: RESP: ALBUTEROL 2.5 MG/IPRATROPIUM 0.5 MG NEB (PRN) NEB (13:15)
[2017-01-09] MEDS ORDERED: RESP: RACEPINEPHRINE 2.25% 0.5 ML NEB NEB PRN (13:15)
--- NOTE | 2017-01-09 13:25 | RADRPT ---
EXAM DATE/TIME: 01/09/2017 12:51 [facility] COMPARISON: CHEST SINGLE AP, December 13, 2016, 7:18. INDICATIONS : Post op CABG. MEDICAL HISTORY : Myocardial infarction. Diabetes mellitus type 2. CVA SURGICAL HISTORY : Carotid endarterectomy. cardiac stents ENCOUNTER: Initial ACUITY: 1 day PAIN SCORE: Non-responsive. LOCATION: chest FINDINGS: A single view of the chest demonstrates the lungs to be symmetrically aerated without evidence of mas s, infiltrate or effusion. Endotracheal tube with tip at the thoracic inlet. Nasogastric tube tip in stomach. Mediastinal chest tube and left-sided chest tube. Left jugular central line with tip in the SVC. Status post CABG. The cardiomediastinal contours are unremarkable. Osseous structures are inta ct. CONCLUSION: 1. Status post CABG. 2. Endotracheal tube with tip at the thoracic inlet, this could be advanced 3-4 cm. Theo Cunha MD on January 09, 2017 at 13:22 Board Certified Radiologist. This report was verified electronically.
[2017-01-09] MEDS: ACETAMINOPHEN 1000 MG/100 ML VIAL IV SCH ×2 (13:55→20:07)
[2017-01-09] MEDS: RESP: ALBUTEROL 2.5 MG/IPRATROPIUM 0.5 MG NEB (SCH) NEB ×2 (16:12→21:46)
[2017-01-09] MEDS: ONDANSETRON HCL 4 MG/2 ML VIAL IV PUSH PRN (17:00)
[2017-01-09] MEDS: oxyCODONE/ACETAMINOPHEN 5 MG/325 MG TAB PO PRN (18:34)
[2017-01-09] MEDS: AMIODARONE 200 MG TAB PO SCH (23:15)
[2017-01-10] VITALS (28 sets, daily range): BP systolic 93–145; BP diastolic 62–86; PULSE 79–109; RESP 16–20; TEMP 98–100; O2SAT 94–97
[2017-01-10] MEDS: ACETAMINOPHEN 1000 MG/100 ML VIAL IV SCH ×2 (01:00→06:39)
[2017-01-10] MEDS: RESP: ALBUTEROL 2.5 MG/IPRATROPIUM 0.5 MG NEB (SCH) NEB (04:51)
[2017-01-10 05:05] LABS: HEMATOCRIT 37.1 % (35.0-46.0); MEAN CELL VOLUME 89.6 FL (80.0-100.0); MEAN CORPUSCULAR HEMOGLOBIN 29.6 PG (27.0-34.0); PLATELET COUNT 203 TH/MM3 (150-450); RED BLOOD COUNT 4.14 MIL/MM3 (4.00-5.30); RED CELL DISTRIBUTION WIDTH 13.2 % (11.6-17.2); REVIEW FLAG FINAL; WHITE BLOOD COUNT 21.1 TH/MM3 (4.0-11.0)
[2017-01-10 05:32] LABS: BICARBONATE 24.5 MEQ/L (21.0-32.0); POTASSIUM 4.3 MEQ/L (3.5-5.1)
--- NOTE | 2017-01-10 06:21 | RADRPT ---
EXAM DATE/TIME: 01/10/2017 04:57 [facility] COMPARISON: CHEST SINGLE AP, January 09, 2017, 12:51. INDICATIONS : Status post CABG. MEDICAL HISTORY : Myocardial infarction. Diabetes mellitus type II. CVA SURGICAL HISTORY : Carotid endarterectomy. cardiac stents ENCOUNTER: Subsequent ACUITY: 1 day PAIN SCORE: Non-responsive. LOCATION: Bilateral chest FINDINGS: A single view of the chest demonstrates the lungs to be symmetrically aerated without evidence of mas s, infiltrate or effusion. Heart remains mildly enlarged. Osseous structures are intact. Left centra l line and left thoracostomy tubes. No pneumothorax. CONCLUSION: 1. No pneumothorax. 2. Mild cardiomegaly. Ezekiel Hughes Jr., MD on January 10, 2017 at 6:19 Board Certified Radiologist. This report was verified electronically.
[2017-01-10] MEDS: PANTOPRAZOLE SOD 40 MG DELAYED RELEASE TAB PO SCH (06:39)
[2017-01-10] MEDS ORDERED: MAGNESIUM SULFATE 1 GM PREMIX 100 ML ONE (07:27)
--- NOTE | 2017-01-10 08:37 | PD.CAR.PN ---
CVT Progress Note CVT: POD #: 1 Subjective/Hospital Course: c/o incisional pain. Objective: Vital Signs Date Time Temp Pulse Resp B/P Pulse Ox O2 Delivery O2 Flow Rate FiO2 01/10/17 07:30 100 01/10/17 07:30 98.0 100 16 145/80 96 139/75 01/10/17 06:30 20 01/10/17 04:00 99.4 105 20 122/73 97 126/71 01/10/17 04:00 105 01/10/17 01:30 20 01/10/17 00:15 98 01/10/17 00:00 99.1 101 20 124/71 94 116/69 01/09/17 21:46 94 Nasal Cannula 4.00 01/09/17 21:45 98.7 01/09/17 20:20 98 01/09/17 20:00 98.6 101 20 138/75 94 148/84 01/09/17 18:03 98.2 01/09/17 15:00 60 01/09/17 15:00 97.0 90 16 93/56 94 101/62 01/09/17 14:53 87 01/09/17 14:05 95 Nasal Cannula 4 01/09/17 14:05 95 Nasal Cannula 4.00 01/09/17 12:39 97.9 01/09/17 12:35 95 50 01/09/17 12:30 97.4 83 19 114/60 98 105/63 01/09/17 12:25 83 Labs: Laboratory Tests Test 01/10/17 04:42 White Blood Count 21.1 TH/MM3 (4.0-11.0) Red Blood Count 4.14 MIL/MM3 (4.00-5.30) Hemoglobin 12.2 GM/DL (11.6-15.3) Hematocrit 37.1 % (35.0-46.0) Mean Corpuscular Volume 89.6 FL (80.0-100.0) Mean Corpuscular Hemoglobin 29.6 PG (27.0-34.0) Mean Corpuscular Hemoglobin 33.0 % Concent (32.0-36.0) Red Cell Distribution Width 13.2 % (11.6-17.2) Platelet Count 203 TH/MM3 (150-450) Mean Platelet Volume 8.1 FL (7.0-11.0) Sodium Level 140 MEQ/L (136-145) Potassium Level 4.3 MEQ/L (3.5-5.1) Chloride Level 107 MEQ/L (98-107) Carbon Dioxide Level 24.5 MEQ/L (21.0-32.0) Anion Gap 9 MEQ/L (5-15) Blood Urea Nitrogen 11 MG/DL (7-18) Creatinine 0.42 MG/DL (0.50-1.00) Estimat Glomerular Filtration 157 ML/MIN Rate (>89) Random Glucose 112 MG/DL (74-106) Calcium Level 8.4 MG/DL (8.5-10.1) Magnesium Level 2.0 MG/DL (1.5-2.5) Result Diagram: 01/10/1744101/10/17441 Imaging: Last 24 hours Impressions Chest X-Ray 01/10/17 0500 Signed Impressions: Service Date/Time: Tuesday, January 10, 2017 04:57 - CONCLUSION: 1. No pneumothorax. 2. Mild cardiomegaly. Ezekiel Hughes Jr., MD Cardiovascular: RRR Telemetry: ST Pulmonary: CTA GI/: NT, decreased BS Incision: dry and intact CT: 590ml since OR Plan: Beta bruno Encourage ambulation Advance diet D/C Garsia, radha line diurese Supp. K Monitor glucose Transfer stepdown Ling Alxe MD January 10, 2017 08:37
[2017-01-10] MEDS: AMIODARONE 200 MG TAB PO SCH ×2 (08:39→20:44)
[2017-01-10] MEDS: MULTIVITAMIN TAB PO SCH (08:39)
[2017-01-10] MEDS: ASPIRIN 81 MG CHEW TAB PO SCH (08:39)
[2017-01-10] MEDS ORDERED: BISACODYL 10 MG SUPP RECTAL PRN (08:45)
[2017-01-10] MEDS ORDERED: SOD PHOSPHATE/SOD BIPHOSPHATE (ADULT) ENEMA 133ML RECTAL PRN (08:45)
[2017-01-10] MEDS ORDERED: DEXTROSE 50% IN WATER 50 ML VIAL(D50) IV PRN (08:45)
[2017-01-10] MEDS ORDERED: GLUCAGON 1 MG/ML VIAL OTHER PRN (08:45)
[2017-01-10] MEDS: METOPROLOL TARTRATE 50 MG TAB PO SCH ×2 (08:49→20:43)
[2017-01-10] MEDS: DOCUSATE SODIUM 100 MG CAP PO SCH ×3 (08:49→20:44)
[2017-01-10] MEDS: MAGNESIUM HYDROXIDE SUSP 30 ML CUP PO SCH (08:49)
[2017-01-10] MEDS: POTASSIUM CHLORIDE 10 MEQ CONTROLLED RELEASE TAB PO SCH ×2 (08:50→20:44)
[2017-01-10] MEDS: FUROSEMIDE 40 MG/4 ML VIAL IV PUSH SCH ×2 (08:50→16:49)
[2017-01-10] MEDS: MULTIVITAMINS/MINERALS THERAPEUTIC TAB PO SCH (09:00)
[2017-01-10] MEDS: MUPIROCIN 2% OINT 22 GM TUBE EACH NARE SCH ×2 (09:00→21:00)
[2017-01-10] MEDS: CHOLESTYRAMINE 4 GM PACKET PO SCH ×2 (09:00→22:20)
[2017-01-10] MEDS: ONDANSETRON HCL 4 MG/2 ML VIAL IV PUSH PRN (09:14)
[2017-01-10] MEDS ORDERED: PNEUMOCOCCAL POLYVALENT INJ 25 MCG/0.5 ML SYR IM ONE (10:00)
[2017-01-10] MEDS ORDERED: INFLUENZA VIRUS VACCINE (QUADRIVALENT) 0.5 ML SYR IM ONE (10:00)
[2017-01-10] MEDS: oxyCODONE/ACETAMINOPHEN 5 MG/325 MG TAB PO PRN ×5 (10:37→23:53)
[2017-01-10] MEDS: INSULIN ASPART SUPPLEMENTAL SCALE SQ SCH ×4 (10:50→22:20)
--- NOTE | 2017-01-10 19:22 | EKG ---
Date Performed: 01/10/2017 Time Performed: 05:52:52 PTAGE: 56 years EKG: Sinus tachycardia Short AL interval Anterior ST-T changes are nonspecific Borderline ECG PREVIOUS TRACING : 01/03/2017 11.39 Compared to the previous tracing rate faster DOCTOR: Arnaldo Cabrera Interpretating Date/Time 01/10/2017 19:21:53
[2017-01-10] MEDS: SENNOSIDES 8.6 MG TAB PO SCH (20:44)
[2017-01-10] MEDS: ALPRAZolam 0.25 MG TAB PO PRN (20:44)
[2017-01-11] VITALS (30 sets, daily range): BP systolic 99–131; BP diastolic 48–80; PULSE 75–177; RESP 16–18; TEMP 98.5–99.4; O2SAT 92–97
[2017-01-11] MEDS: INSULIN ASPART SUPPLEMENTAL SCALE SQ SCH ×6 (01:53→21:03)
[2017-01-11] MEDS: oxyCODONE/ACETAMINOPHEN 5 MG/325 MG TAB PO PRN ×3 (05:02→18:19)
[2017-01-11] MEDS: PANTOPRAZOLE SOD 40 MG DELAYED RELEASE TAB PO SCH (05:30)
[2017-01-11 06:55] LABS: AUTOMATED NEUTROPHIL # 12.8 TH/MM3 (1.8-7.7); BASOPHIL % 0.2 % (0.0-2.0); EOSINOPHIL % 0.2 % (0.0-4.0); HEMATOCRIT 33.5 % (35.0-46.0); HEMO FLAGS DIFF FINAL; LYMPHOCYTE # 2.9 TH/MM3 (1.0-4.8); MEAN CELL VOLUME 90.3 FL (80.0-100.0); MEAN CORPUSCULAR HEMOGLOBIN 30.4 PG (27.0-34.0); MEAN CORPUSCULAR HGB CONC 33.6 % (32.0-36.0); MONO % 8.7 % (0.0-8.0); NEUT % 73.9 % (16.0-70.0); PLATELET COUNT 207 TH/MM3 (150-450); RED BLOOD COUNT 3.71 MIL/MM3 (4.00-5.30); RED CELL DISTRIBUTION WIDTH 13.4 % (11.6-17.2); WHITE BLOOD COUNT 17.3 TH/MM3 (4.0-11.0)
[2017-01-11 07:02] LABS: BICARBONATE 28.8 MEQ/L (21.0-32.0); POTASSIUM 4.2 MEQ/L (3.5-5.1)
[2017-01-11] MEDS: MUPIROCIN 2% OINT 22 GM TUBE EACH NARE SCH ×2 (09:42→20:58)
[2017-01-11] MEDS: MAGNESIUM HYDROXIDE SUSP 30 ML CUP PO SCH (09:45)
[2017-01-11] MEDS: POLYETHYLENE GLYCOL 17 GM PKG PO SCH (09:45)
[2017-01-11] MEDS: POTASSIUM CHLORIDE 10 MEQ CONTROLLED RELEASE TAB PO SCH ×2 (09:45→20:57)
[2017-01-11] MEDS: ASPIRIN 81 MG CHEW TAB PO SCH (09:46)
[2017-01-11] MEDS: MULTIVITAMINS/MINERALS THERAPEUTIC TAB PO SCH (09:46)
[2017-01-11] MEDS: METOPROLOL TARTRATE 50 MG TAB PO SCH ×2 (09:46→20:58)
[2017-01-11] MEDS: AMIODARONE 200 MG TAB PO SCH ×2 (09:46→20:58)
[2017-01-11] MEDS: FUROSEMIDE 40 MG/4 ML VIAL IV PUSH SCH ×2 (09:46→18:19)
[2017-01-11] MEDS: CHOLESTYRAMINE 4 GM PACKET PO SCH (09:46)
[2017-01-11] MEDS: MULTIVITAMIN TAB PO SCH (09:46)
[2017-01-11] MEDS: DOCUSATE SODIUM 100 MG CAP PO SCH ×2 (09:46→20:58)
--- NOTE | 2017-01-11 10:44 | PD.CAR.PN ---
CVT Progress Note CVT: POD #: 2 Subjective/Hospital Course: c/o incisional pain. 01/11/17 No complaints, doing well Objective: Vital Signs Date Time Temp Pulse Resp B/P Pulse Ox O2 Delivery O2 Flow Rate FiO2 01/11/17 10:00 98 01/11/17 09:00 100 01/11/17 08:55 94 21 01/11/17 08:00 90 01/11/17 07:30 98.5 93 18 125/75 92 01/11/17 07:00 82 01/11/17 06:13 85 01/11/17 05:00 82 01/11/17 04:34 83 01/11/17 03:05 79 01/11/17 03:05 99.4 81 18 105/62 94 01/11/17 02:23 80 01/11/17 01:17 82 01/11/17 00:26 81 01/10/17 23:48 100.0 79 18 93/69 95 01/10/17 23:39 80 01/10/17 22:00 96 01/10/17 21:10 96 Nasal Cannula 2.00 01/10/17 21:00 92 01/10/17 20:25 99.8 97 18 105/62 95 01/10/17 20:00 92 01/10/17 19:00 96 01/10/17 18:38 18 01/10/17 18:00 101 01/10/17 17:07 94 01/10/17 17:00 93 01/10/17 16:08 92 01/10/17 15:22 91 01/10/17 15:22 98.8 91 16 106/70 96 01/10/17 15:00 90 01/10/17 14:00 84 01/10/17 13:00 98 01/10/17 12:24 109 01/10/17 12:15 98.3 101 18 143/86 94 Arterial Line 01/10/17 12:00 105 01/10/17 11:00 96 Labs: Laboratory Tests Test 01/11/17 05:26 White Blood Count 17.3 TH/MM3 (4.0-11.0) Red Blood Count 3.71 MIL/MM3 (4.00-5.30) Hemoglobin 11.3 GM/DL (11.6-15.3) Hematocrit 33.5 % (35.0-46.0) Mean Corpuscular Volume 90.3 FL (80.0-100.0) Mean Corpuscular Hemoglobin 30.4 PG (27.0-34.0) Mean Corpuscular Hemoglobin 33.6 % Concent (32.0-36.0) Red Cell Distribution Width 13.4 % (11.6-17.2) Platelet Count 207 TH/MM3 (150-450) Mean Platelet Volume 8.3 FL (7.0-11.0) Neutrophils (%) (Auto) 73.9 % (16.0-70.0) Lymphocytes (%) (Auto) 17.0 % (9.0-44.0) Monocytes (%) (Auto) 8.7 % (0.0-8.0) Eosinophils (%) (Auto) 0.2 % (0.0-4.0) Basophils (%) (Auto) 0.2 % (0.0-2.0) Neutrophils # (Auto) 12.8 TH/MM3 (1.8-7.7) Lymphocytes # (Auto) 2.9 TH/MM3 (1.0-4.8) Monocytes # (Auto) 1.5 TH/MM3 (0-0.9) Eosinophils # (Auto) 0.0 TH/MM3 (0-0.4) Basophils # (Auto) 0.0 TH/MM3 (0-0.2) CBC Comment DIFF FINAL Differential Comment Sodium Level 138 MEQ/L (136-145) Potassium Level 4.2 MEQ/L (3.5-5.1) Chloride Level 102 MEQ/L (98-107) Carbon Dioxide Level 28.8 MEQ/L (21.0-32.0) Anion Gap 7 MEQ/L (5-15) Blood Urea Nitrogen 17 MG/DL (7-18) Creatinine 0.60 MG/DL (0.50-1.00) Estimat Glomerular Filtration 104 ML/MIN Rate (>89) Random Glucose 151 MG/DL (74-106) Calcium Level 8.3 MG/DL (8.5-10.1) Magnesium Level 2.0 MG/DL (1.5-2.5) Result Diagram: 01/11/17 0501/11/17525 Cardiovascular: RRR Telemetry: NSR Pulmonary: CTA GI/: NABS, NT Incision: dry and intact CT: minimal output Plan: D/C chest tubes Encourage ambulation Start ACEI. plavix STIM BM Ling Alex MD January 11, 2017 10:44
[2017-01-11] MEDS: SENNOSIDES 8.6 MG TAB PO SCH (20:58)
[2017-01-11] MEDS: ALPRAZolam 0.25 MG TAB PO PRN (20:58)
[2017-01-11] MEDS ORDERED: AMIODARONE 150 MG/D5W 97 ML BOLUS 10 MINUTES IV ONE ×2 (22:00)
[2017-01-11] MEDS ORDERED: AMIODARONE 150 MG/D5W 97 ML BOLUS 60 MINUTES IV ONE ×2 (22:00)
[2017-01-11] MEDS ORDERED: AMIODARONE INJ 450 MG in D5W (EXCEL BAG) 241 ML IV SCH (22:00)
[2017-01-11] MEDS: MAGNESIUM SULFAT 1 GM PREMIX 100 ML x2 bags IV SCH ×2 (22:02→23:12)
[2017-01-12] VITALS (29 sets, daily range): BP systolic 97–131; BP diastolic 56–75; PULSE 68–94; RESP 16–18; TEMP 97.8–99.1; O2SAT 92–97
[2017-01-12] MEDS: CHOLESTYRAMINE 4 GM PACKET PO SCH ×3 (00:03→21:13)
[2017-01-12] MEDS ORDERED: SODIUM CHLOR 0.9% 250 ML INJ 250 ML IV SCH (01:30)
[2017-01-12] MEDS: oxyCODONE/ACETAMINOPHEN 5 MG/325 MG TAB PO PRN ×2 (01:49→21:19)
[2017-01-12] MEDS: INSULIN ASPART SUPPLEMENTAL SCALE SQ SCH ×5 (01:51→21:27)
[2017-01-12] MEDS: PANTOPRAZOLE SOD 40 MG DELAYED RELEASE TAB PO SCH (06:14)
[2017-01-12] MEDS: ASPIRIN 81 MG CHEW TAB PO SCH (08:50)
[2017-01-12] MEDS: POLYETHYLENE GLYCOL 17 GM PKG PO SCH (08:50)
[2017-01-12] MEDS: FUROSEMIDE 40 MG/4 ML VIAL IV PUSH SCH ×2 (08:51→17:54)
[2017-01-12] MEDS: MAGNESIUM HYDROXIDE SUSP 30 ML CUP PO SCH (08:51)
[2017-01-12] MEDS: AMIODARONE 200 MG TAB PO SCH ×3 (08:52→17:55)
[2017-01-12] MEDS: DOCUSATE SODIUM 100 MG CAP PO SCH ×2 (08:52→21:12)
[2017-01-12] MEDS: POTASSIUM CHLORIDE 10 MEQ CONTROLLED RELEASE TAB PO SCH ×2 (08:52→21:12)
[2017-01-12] MEDS: CLOPIDOGREL 75 MG TAB PO SCH (08:53)
[2017-01-12] MEDS: RAMIPRIL 2.5 MG CAP PO SCH (08:54)
[2017-01-12] MEDS: METOPROLOL TARTRATE 50 MG TAB PO SCH ×2 (08:54→21:12)
[2017-01-12] MEDS: MULTIVITAMIN TAB PO SCH (08:54)
[2017-01-12] MEDS: MUPIROCIN 2% OINT 22 GM TUBE EACH NARE SCH ×2 (08:55→21:00)
[2017-01-12] MEDS: MULTIVITAMINS/MINERALS THERAPEUTIC TAB PO SCH (08:55)
[2017-01-12] MEDS ORDERED: AMIODARONE 150 MG/D5W 97 ML BOLUS 10 MINUTES IV ONE ×2 (09:30)
--- NOTE | 2017-01-12 09:55 | PD.CAR.PN ---
CVT Progress Note CVT: POD #: 3 Subjective/Hospital Course: c/o incisional pain. 01/11/17 No complaints, doing well 01/12/17 Intermittent episodes of AFIB last night and this morning which responded to amiodarone. No BM yet Objective: Vital Signs Date Time Temp Pulse Resp B/P Pulse Ox O2 Delivery O2 Flow Rate FiO2 01/12/17 06:29 87 01/12/17 05:20 68 01/12/17 04:01 70 01/12/17 03:00 99.0 76 18 107/56 97 01/12/17 03:00 74 01/12/17 02:30 74 01/12/17 01:02 74 01/12/17 01:00 74 01/12/17 00:00 76 01/11/17 23:54 77 01/11/17 23:20 98.9 75 18 99/55 97 01/11/17 22:00 77 01/11/17 21:34 177 01/11/17 21:10 96 Nasal Cannula 4.00 01/11/17 21:00 93 01/11/17 20:00 99.2 97 18 131/80 95 01/11/17 20:00 92 01/11/17 19:00 110 01/11/17 18:07 102 01/11/17 17:00 98 01/11/17 16:00 98 01/11/17 15:30 99.4 93 18 111/48 93 01/11/17 15:00 97 01/11/17 14:00 88 01/11/17 13:00 88 01/11/17 12:00 86 01/11/17 11:00 83 01/11/17 11:00 98.9 87 16 103/63 93 01/11/17 10:00 98 Result Diagram: 01/11/17 0526 01/11/17 05 Cardiovascular: RRR, no murmur Telemetry: NSR Pulmonary: CTA GI/: NABS, NT Incision: dry and intact Plan: Amio drip for now, will increase oral dose to 400 TID Stim BM Encourage ambulation will check labs and CXR in AM. Possible D/C tomorrow Ling Alex MD January 12, 2017 09:55
--- NOTE | 2017-01-12 10:10 | HHI.FF ---
Face to Face Verification Diagnosis: (1) NSTEMI (non-ST elevated myocardial infarction) (2) Coronary artery disease (3) Unstable angina (4) Diabetes mellitus (5) CVA (cerebral vascular accident) Physical Therapy Order: Evaluate and Treat, Improve ambulation Occupational Therapy Order: Evaluate and Treat Home Health Nursing Order: Signs/symptoms of disease process Diabetic education Medication education-adverse effect Nursing assessment with vital signs Slag Mixer Order: To Evaluate: Living conditions/environment I have seen patient Karyn Doty on 01/12/17. My clinical findings support the need for the requested home health care services because: Deconditioned w/ increased weakness Limited ability to care for self I certify that my clinical findings support that this patient is homebound because: Post-op weakness Hx COPD- exertion dyspnea/weakness Ling Alex MD January 12, 2017 10:10
[2017-01-12] MEDS: ALPRAZolam 0.25 MG TAB PO PRN ×2 (10:21→21:19)
[2017-01-12] MEDS: SENNOSIDES 8.6 MG TAB PO SCH (21:13)
[2017-01-13] VITALS (16 sets, daily range): BP systolic 111–120; BP diastolic 70–75; PULSE 63–95; RESP 16–18; TEMP 98.4–98.9; O2SAT 93–96
[2017-01-13] MEDS: PANTOPRAZOLE SOD 40 MG DELAYED RELEASE TAB PO SCH (05:36)
[2017-01-13] MEDS ORDERED: ATROPINE SULFATE 1 MG/10 ML SYRINGE ONE (06:04)
[2017-01-13] MEDS: INSULIN ASPART SUPPLEMENTAL SCALE SQ SCH ×2 (06:34→12:07)
--- NOTE | 2017-01-13 06:44 | RADRPT ---
EXAM DATE/TIME: 01/13/2017 06:12 [facility] COMPARISON: CHEST SINGLE AP, January 10, 2017, 4:57. INDICATIONS : Congestion. MEDICAL HISTORY : Myocardial infarction. Diabetes mellitus type II. CVA SURGICAL HISTORY : Carotid endarterectomy. Coronary artery stent. CABG. ENCOUNTER: Subsequent ACUITY: 4 - 6 days PAIN SCORE: 4/10 LOCATION: Bilateral anterior Chest FINDINGS: Mild atelectasis in both lung bases. The left chest tube has been removed. There is no evidence of pn eumothorax. The heart size is stable. There is evidence of previous cardiothoracic surgery. The bony structures are stable. CONCLUSION: 1. No evidence of pneumothorax. 2. Mild bibasilar atelectasis. Bassam Almaguer MD on January 13, 2017 at 6:41 Board Certified Radiologist. This report was verified electronically.
[2017-01-13 06:58] LABS: HEMATOCRIT 31.4 % (35.0-46.0); MEAN CORPUSCULAR HEMOGLOBIN 30.4 PG (27.0-34.0); MEAN CORPUSCULAR HGB CONC 33.4 % (32.0-36.0); PLATELET COUNT 219 TH/MM3 (150-450); RED BLOOD COUNT 3.44 MIL/MM3 (4.00-5.30); REVIEW FLAG FINAL; WHITE BLOOD COUNT 10.7 TH/MM3 (4.0-11.0)
[2017-01-13 07:15] LABS: BICARBONATE 29.4 MEQ/L (21.0-32.0)
[2017-01-13] MEDS: MULTIVITAMINS/MINERALS THERAPEUTIC TAB PO SCH (08:50)
[2017-01-13] MEDS: DOCUSATE SODIUM 100 MG CAP PO SCH (08:50)
[2017-01-13] MEDS: POTASSIUM CHLORIDE 10 MEQ CONTROLLED RELEASE TAB PO SCH (08:51)
[2017-01-13] MEDS: METOPROLOL TARTRATE 50 MG TAB PO SCH (08:51)
[2017-01-13] MEDS: ASPIRIN 81 MG CHEW TAB PO SCH (08:51)
[2017-01-13] MEDS: POLYETHYLENE GLYCOL 17 GM PKG PO SCH (08:52)
[2017-01-13] MEDS: CLOPIDOGREL 75 MG TAB PO SCH (08:52)
[2017-01-13] MEDS: MULTIVITAMIN TAB PO SCH (08:52)
[2017-01-13] MEDS: AMIODARONE 200 MG TAB PO SCH ×2 (08:52→12:47)
[2017-01-13] MEDS: RAMIPRIL 2.5 MG CAP PO SCH (08:53)
[2017-01-13] MEDS: CHOLESTYRAMINE 4 GM PACKET PO SCH (08:53)
[2017-01-13] MEDS: FUROSEMIDE 40 MG/4 ML VIAL IV PUSH SCH (08:53)
[2017-01-13] MEDS: MAGNESIUM HYDROXIDE SUSP 30 ML CUP PO SCH (08:53)
[2017-01-13] MEDS ORDERED: PANT40TA3 PO (12:01)
[2017-01-13] MEDS ORDERED: AMIO200T PO (12:01)
[2017-01-13] MEDS ORDERED: OXYC1TAB63 PO (12:01)
[2017-01-13] MEDS ORDERED: DOCU1CAP39 PO (12:01)
--- NOTE | 2017-01-13 12:08 | HHI.DS ---
Discharge Summary Admission Date January 09, 2017 at 05:48 Discharge Date: January 13, 2017 Admitting Diagnosis CAD NSTEMI CVD, s/p carotid endarterectomy recent CVA COPD DM (1) CVA (cerebral vascular accident) Diagnosis: Secondary (2) Diabetes mellitus Diagnosis: Secondary (3) NSTEMI (non-ST elevated myocardial infarction) Diagnosis: Principal (4) Coronary artery disease Diagnosis: Principal (5) HLD (hyperlipidemia) Diagnosis: Secondary (6) Hypertension Diagnosis: Secondary (7) Hyperlipidemia Diagnosis: Secondary Procedures CABG x 4 Brief History 56 y/o female presented about a month ago with a significant NSTEMI. She underwent LHC which showed severe multivessel CAD. During her evaluation, she was found to have severe CVD with occlusion of the left ICA and a ~80% stenosis in the right ICA. She underwent left CEA and this was complicated by a stroke and revision of the patch on the artery. She ultimately was discharged home and her neurologic symptoms resolved. She was recently scheduled and admitted for her CABG. CBC/BMP: 01/13/17 0407 01/13/17 0407 Significant Findings Laboratory Tests Test 01/11/17 01/13/17 05:26 04:07 White Blood Count 17.3 TH/MM3 (4.0-11.0) Red Blood Count 3.71 MIL/MM3 3.44 MIL/MM3 (4.00-5.30) (4.00-5.30) Hemoglobin 11.3 GM/DL 10.5 GM/DL (11.6-15.3) (11.6-15.3) Hematocrit 33.5 % 31.4 % (35.0-46.0) (35.0-46.0) Neutrophils (%) (Auto) 73.9 % (16.0-70.0) Monocytes (%) (Auto) 8.7 % (0.0-8.0) Neutrophils # (Auto) 12.8 TH/MM3 (1.8-7.7) Monocytes # (Auto) 1.5 TH/MM3 (0-0.9) Random Glucose 151 MG/DL (74-106) Calcium Level 8.3 MG/DL (8.5-10.1) Creatinine 0.45 MG/DL (0.50-1.00) Imaging Last Impressions Chest X-Ray 01/13/17 0600 Signed Impressions: Service Date/Time: Friday, January 13, 2017 06:12 - CONCLUSION: 1. No evidence of pneumothorax. 2. Mild bibasilar atelectasis. Bassam Almaguer MD PE at Discharge chest - CTA COR - RRR ABD - soft, NT, NABS wound - dry and intact Hospital Course She underwent CABG x 4 and has done well except for 2 episodes of AFIB managed medically. Pt Condition on Discharge: Good Discharge Disposition: Disch w/ Home Health Serv Discharge Instructions DIET: Follow Instructions for: Heart Healthy Diet Activities you can perform: Weight Bearing as Billy, Shower Only-No Bath Activities to avoid: Lifting/Bending, Driving Follow up Referrals: Cardiology with Ling Alex MD Cardiology with Candelario Velarde MD PCP Follow-up with Tomasa Coats MD New Orders: X-RAY CHEST PA & LAT - 3 Weeks New Medications: Amiodarone (Amiodarone) 200 Mg Tab 200 MG PO TID Regulate Heart Beat #30 TAB Docusate Sodium (Dok) 100 Mg Cap 100 MG PO BID Constipation #28 Ref 0 CAP Oxycodone-Acetaminophen (Oxycodone-Acetaminophen) 5-325 mg Tab 1 TAB PO Q3H PRN PAIN SCALE 1 TO 5 #30 Ref 0 TAB Pantoprazole (Pantoprazole) 40 Mg Tab 40 MG PO DAILY@06 Prevent Stress Ulcers #14 Ref 0 TAB Continued Medications: Cholestyramine (Questran) 4 Gm/Pkt Powd 4 GM PO BID 1 packet contains 4gm of cholestyramine. Dyslipidemia #1 Ref 3 BOX Clopidogrel (Plavix) 75 Mg Tab 75 MG PO DAILY CAD/CEA #30 Ref 3 TAB Insulin Glargine Inj (Lantus Inj) 1,000 Unit/10 Ml Vial 40 UNITS SQ HS Blood Sugar Management #10 Ref 3 ML Lisinopril (Lisinopril) 10 Mg Tab 10 MG PO Q12HR CAD #30 Ref 3 TAB Metoprolol Tartrate (Lopressor) 50 Mg Tab 50 MG PO Q12HR Chest Pain #60 Ref 3 TAB Multiple Vitamin (Multi-Vitamin Daily) 1 Tab Tab 1 TAB PO DAILY Nutritional Supplement Ref 0 TAB ([Aspirin Chew]) 81 MG CHEW 81 MG PO DAILY #90 Ref 2 TAB.CHEW Ling Alex MD January 13, 2017 12:08
== END 2017-01-13 15:30 | disposition home health service (06) | DRG 236 ==
LOC: HSDI 01-09 05:48 → HCVR 01-09 12:28 → HCIN 01-10 16:40
PROVIDERS: ADMIT Thoracic Surgery (Cardiothoracic Vascular Surgery); ATTEND Thoracic Surgery (Cardiothoracic Vascular Surgery)
PROC: 06BQ4ZZ Excision of Left Saphenous Vein, Percutaneous Endoscopic Approach (ICD-10-PCS; 2017-01-09)
PROC: 5A1221Z Performance of Cardiac Output, Continuous (ICD-10-PCS; 2017-01-09)
PROC: 02100Z9 Bypass Coronary Artery, One Artery from Left Internal Mammary, Open Approach (ICD-10-PCS; principal; 2017-01-09 08:02)
PROC: 021109W Bypass Coronary Artery, Two Arteries from Aorta with Autologous Venous Tissue, Open Approach (ICD-10-PCS; 2017-01-09 08:02)
DX: I25.110 Atherosclerotic heart disease of native coronary artery with unstable angina pectoris (principal); I48.91 Unspecified atrial fibrillation; J44.9 Chronic obstructive pulmonary disease, unspecified; I10 Essential (primary) hypertension; E78.5 Hyperlipidemia, unspecified; E11.9 Type 2 diabetes mellitus without complications; I65.21 Occlusion and stenosis of right carotid artery; I25.2 Old myocardial infarction; Z79.4 Long term (current) use of insulin; Z86.73 Personal history of transient ischemic attack (TIA), and cerebral infarction without residual deficits; Z87.891 Personal history of nicotine dependence
CPT/HCPCS: 71010; 71020; 76937; 80048; 82948; 83735; 85014; 85025; 85027; 86850; 86900; 86901; 86920; 93005; 94002; 94150; 94640; 94664; 94667; 94668; C9399; J0131; J0282; J0461; J0690; J1644; J1815; J1940; J2150; J2250; J2370; J2405; J2440; J2720; J2930; J3010; J3370; J3475; J3480; J7040; J7050; J7060; J7120; P9047

== ENCOUNTER → 2017-01-03 | Outpatient (CLI) | payer OTHER, MEDICAID ==
[~2017-01-03] MED LIST changes: +AMIO200T PO; +DOCU1CAP39 PO; +OXYC1TAB63 PO; +PANT40TA3 PO
[2017-01-03 12:03] LABS: AUTOMATED NEUTROPHIL # 6.7 TH/MM3 (1.8-7.7); BASOPHIL % 0.3 % (0.0-2.0); EOSINOPHIL # 0.1 TH/MM3 (0-0.4); EOSINOPHIL % 0.8 % (0.0-4.0); HEMATOCRIT 40.1 % (35.0-46.0); HEMO FLAGS DIFF FINAL; LYMPHOCYTE # 2.1 TH/MM3 (1.0-4.8); MEAN CELL VOLUME 89.6 FL (80.0-100.0); MEAN CORPUSCULAR HEMOGLOBIN 30.6 PG (27.0-34.0); MEAN CORPUSCULAR HGB CONC 34.2 % (32.0-36.0); MONO % 5.7 % (0.0-8.0); NEUT % 71.2 % (16.0-70.0); PLATELET COUNT 296 TH/MM3 (150-450); RED BLOOD COUNT 4.47 MIL/MM3 (4.00-5.30); WHITE BLOOD COUNT 9.4 TH/MM3 (4.0-11.0)
[2017-01-03 12:12] LABS: APTT (PATIENT) 26.9 SEC (24.3-30.1); PROTHROMBIN TIME - PATIENT 10.9 SEC (9.8-11.6)
[2017-01-03 12:20] LABS: BICARBONATE 25.2 MEQ/L (21.0-32.0); POTASSIUM 3.8 MEQ/L (3.5-5.1)
[2017-01-03 12:24] LABS: BLOOD, URINE NEG (NEG); COMMENT (UR) CULT NOT INDICATED; CULTURE IF INDICATED CULT NOT INDICATED; GLUCOSE,URINE 1000 mg/dL (NEG); KETONE, URINE NEG (NEG); MUCUS URINE FEW /lpf (OCC); NITRITE,URINE NEG (NEG); SQUAMOUS EPITHELIAL CELL URINE <1 /hpf (0-5); URINE COLOR YELLOW (YELLW/STRAW)
[2017-01-03 14:03] LABS: MRSA PCR NEGATIVE (NEGATIVE); STAPH AUREUS PCR NEGATIVE (NEGATIVE)
--- NOTE | 2017-01-04 17:45 | EKG ---
Date Performed: 01/03/2017 Time Performed: 11:39:35 PTAGE: 56 years EKG: Sinus rhythm POSSIBLE LEFT ATRIAL ENLARGEMENT POSSIBLE RIGHT VENTRICULAR CONDUCTION DELAY POSSIBLE LEFT VENTRICUL AR HYPERTROPHY ABNORMAL ECG Compared to PREVIOUS TRACING of 12/13/2016, diffused ST segment depression has resolved. PREVIOUS TR ACIN12/13/2016 01.30 DOCTOR: Guero Pierre Interpretating Date/Time 01/04/2017 17:44:12
== END ==
LOC: CPRE 11:07
PROVIDERS: ATTEND Thoracic Surgery (Cardiothoracic Vascular Surgery)
DX: Z01.810 Encounter for preprocedural cardiovascular examination (principal); Z01.812 Encounter for preprocedural laboratory examination
CPT/HCPCS: 36415; 80048; 81001; 85025; 85610; 85730; 87640; 87641; 93005

== ENCOUNTER 2018-08-16 02:29 | Inpatient (IN) ==
--- NOTE | 2018-08-16 02:51 | ED ---
HPI General Chief Complaint: Stroke Alert Stated Complaint: Change in status Time Seen by Provider: 08/16/18 02:34 Source: family and EMS Mode of arrival: EMS Limitations: no limitations (dysarthria) History of Present Illness Time: 02:00 Last Observed Normal: 22:00 Timing confirmed by: family member Location: Reports speech, left face, dysarthria, left arm and left leg (mild ataxia) History of same: Yes Severity: moderate Quality: Reports weak (left arm) Relieving factors: none Exacerbating factors: none Context: Reports other (According to newspaper or periodical editor report according to son report patient was in her usual state of health when she went to bed at 10 PM reportedly the patient was awakened by family approximately 2 AM in order to share with [employer] festivities and eat some baked cookies when son noticed that she had left facial droop and slurring of her speech that was new. 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 Patient also has history of hypertension dyslipidemia and diabetes); Denies recent fall On Anticoagulants: Yes Associated symptoms: Reports denies other symptoms Treatments Prior to Arrival: Reports none Related Data Home Medications Medication Instructions Recorded Confirmed amlodipine 10 mg PO DAILY 08/16/18 08/16/18 aspirin 81 mg PO DAILY 08/16/18 08/16/18 clopidogrel [Plavix] 75 mg PO DAILY 08/16/18 08/16/18 fluoxetine 20 mg PO DAILY 08/16/18 08/16/18 insulin glargine [Lantus Solostar 55 unit SUBCUT HS 08/16/18 08/16/18 U-100 Insulin] lisinopril 20 mg PO BID 08/16/18 08/16/18 metoprolol tartrate 50 mg PO BID 08/16/18 08/16/18 semaglutide [Ozempic] 0.25 mg SUBCUT QWEEK 08/16/18 08/16/18 Allergies Allergy/AdvReac Type Severity Reaction Status Date / Time atorvastatin Allergy Mild Hives Unverified 04/17/17 16:16 Review of Systems ROS: all other systems reviewed are negative PMFSH History History Provided By: Patient (2016 MRI showed acute nonhemorrhagic infarct frontoparietal and occipital) Social History Social History Substance History: No History of Abuse Second Hand Smoke Exposure: No Smoking Status: Never smoker How Often Do You Have a Drink Containing Alcohol: Never Recent Travel in [facility] within the Last 8 Weeks: No Recent Out of Country Travel within the Last 8 Weeks: No Exam Narrative Exam Narrative: GENERAL: Well-developed well-nourished female in no acute respiratory distress; GCS 15 SKIN: Focused skin assessment warm/dry. HEAD: Atraumatic. Normocephalic. EYES: Pupils equal and round. No scleral icterus. No injection or drainage. ENT: No nasal bleeding or discharge. Mucous membranes pink and moist. NECK: Trachea midline. No JVD. CARDIOVASCULAR: Regular rate and rhythm. No murmur appreciated. RESPIRATORY: No accessory muscle use. Clear to auscultation. Breath sounds equal bilaterally. GASTROINTESTINAL: Abdomen soft, non-tender, nondistended. Hepatic and splenic margins not palpable. MUSCULOSKELETAL: No obvious deformities. No clubbing. No cyanosis. No edema. NEUROLOGICAL: Awake and alert. No obvious cranial nerve deficits except left facial droop. Motor grossly within normal limits except mild weakness of dust mixer left upper extremity. Slurred speech. PSYCHIATRIC: Appropriate mood and affect; insight and judgment normal. Course Initial Documented Vital Signs Pulse Oximetry 98 08/16/18 02:29 Last Documented Vital Signs Temperature 99.2 F 08/17/18 04:00 Pulse Rate 98 H 08/17/18 06:00 Respiratory Rate 22 08/17/18 06:00 Blood Pressure 158/74 H 08/17/18 06:00 Pulse Oximetry 93 L 08/17/18 06:00 Medical Decision Making [facility] Narrative Medical decision making narrative: 58-year-old female presents to the emergency department by EMS transport from home her family noted patient to have new onset left facial droop and slurred speech. According to newspaper or periodical editor report patient had facial droop and slurred speech and now has right upper extremity weakness showing some progression of symptoms. Stroke alert was called from the field and stroke alert confirmed and called overhead at 2:25 AM. Patient arrived at 2: 30 AM and identified to have NIH score of 5; Discussed with DR Ocasio-- not TPA candidate at 4 hours 43 minutes post last reported normal aware CTA's ordered and perfusion. At 2:[address] Granger reading radiologist CT brain shows no acute stroke or hemorrhage however does show possible dense thrombus at right proximal MCA patient has had angiogram and perfusion studies have already been ordered; Dr Ocasio informed of imaging results. At 3 AM family is at bedside they Danny Arthur and Emily Arthur daughter both report that according to he was awakened from sleep hearing the patient cough and sounding very congested he turned on the light and at that time he noticed that she had a left facial droop and was confused with garbled slurred speech that was much worse than it is now daughter also reports facial droop and speech disturbance which has improved since 2 AM when they initially noted the symptoms. Patient states she was not having any difficulty speaking just very severe nasal congestion. Patient speech has improved at this time significantly some mild dysarthria is still present left facial droop is still present left upper extremity has no drift or weakness left lower extremity has no drift or weakness. At 3:10 AM informed by neurologist that CTA of the head and neck are remarkable for complete bilateral carotid occlusion as well as evidence of thrombus in the ACI and the MCI call is been placed to interventional radiologist by Dr. Ocasio and will update regarding plan after discussing case with interventional radiologist. Patient has shown improvement NIHSS at this time is a 2 for left facial droop and mild dysarthric speech. Medical Screen Exam Complete: Yes Emergency Medical Condition: Yes Lab Data Result diagrams: 08/17/18 01:12 08/17/18 01:12 Lab Results 08/16/18 08/16/18 08/16/18 Range/Units 02:35 02:35 02:35 WBC 9.9 (4.0-11.0) th/mm3 RBC 4.83 (4.00-5.30) mil/mm3 Hgb 14.9 (11.6-15.3) gm/dL POC Hgb (Calc) 14.6 (11.6-15.3) g/dL Hct 42.9 (35.0-46.0) % POC Hct 43.0 (35-46.0) % MCV 88.8 (80.0-100.0) fL MCH 30.8 (27.0-34.0) pg MCHC 34.7 (32.0-36.0) % RDW 13.0 (11.6-17.2) % Plt Count 295 (150-450) th/mm3 MPV 7.9 (7.0-11.0) fL Prelim Diff (Auto) Neut % (Auto) 64.2 (16.0-70.0) % Lymph % (Auto) 27.0 (9.0-44.0) % Dickey % (Auto) 7.4 (0.0-8.0) % Eos % (Auto) 1.0 (0.0-4.0) % Baso % (Auto) 0.4 (0.0-2.0) % Neut # (Auto) 6.3 (1.8-7.7) th/mm3 Lymph # (Auto) 2.7 (1.0-4.8) th/mm3 [place] # (Auto) 0.7 (0.0-0.9) th/mm3 Eos # (Auto) 0.1 (0.0-0.4) th/mm3 Baso # (Auto) 0.0 (0.0-0.2) th/mm3 WBC Differential . Diff Scan Differential Comment Auto diff final Platelet Estimate (Normal) Platelet Morphology (Normal) RBC Morphology (Normal) ESR (0-30) mm/hr PT 10.2 (9.8-11.6) sec INR 1.0 Ratio APTT 27.1 (23.4-31.7) sec Fibrinogen 264 (227-377) mg/dL POC Sodium 138 (137-144) mmol/L Sodium (136-145) meq/L POC Potassium 3.8 (3.6-5.0) mmol/L Potassium (3.5-5.1) meq/L POC Chloride 103 (102-111) mmol/L Chloride (98-107) meq/L Carbon Dioxide (21.0-32.0) meq/L Anion Gap (5-15) meq/L POC BUN 14 (5-21) mg/dL BUN (7-18) mg/dL Creatinine (0.50-1.00) mg/dL POC Creatinine 0.6 (0.6-1.3) mg/dL Estimated GFR (>89) mL/min POC Glucose 303 H (68-110) mg/dL Random Glucose (74-106) mg/dL Calcium (8.5-10.1) mg/dL Phosphorus (2.5-4.9) mg/dL Magnesium (1.5-2.5) mg/dL Total Bilirubin (0.2-1.0) mg/dL AST (15-37) U/L ALT (10-53) U/L Alkaline Phosphatase (45-117) U/L Total Creatine Kinase 69 (26-192) U/L Troponin I Less than 0.02 L (0.02-0.05) ng/mL Total Protein (6.4-8.2) g/dL Albumin (3.4-5.0) g/dL Triglycerides (42-150) mg/dL Cholesterol (120-200) mg/dL LDL Cholesterol, Calc (0-99) mg/dL HDL Cholesterol (40.0-60.0) mg/dL Cholesterol/HDL Ratio Ratio Beta HCG, Quant 2 (0-5) mIU/mL Urine Color (Yellw/Straw) Urine Clarity (Clear) Urine pH (5.0-8.5) Ur Specific [place] (1.002-1.035) Urine Protein (Neg-Trace) mg/dL Urine Glucose (UA) (Negative) mg/dL Urine Ketones (Negative) mg/dL Urine Occult Blood (Negative) Urine Nitrate (Negative) Urine Bilirubin (Negative) Urine Urobilinogen (Less than 2) mg/dL Ur Leukocyte Esterase (Negative) Urine RBC (0-3) /hpf Urine WBC (0-5) /hpf Ur Squamous Epith Cells (0-5) /hpf Urine Bacteria (None) /hpf Micro UA Comment Ur Microscopic Review Urine Culture Comments Nasal Screen MRSA (PCR) (Negative) Urine Opiates Screen (Neg) Ur Barbiturates Screen (Neg) Ur Amphetamines Screen (Neg) U Benzodiazepines Scrn (Neg) Urine Cocaine Screen (Neg) U Cannabinoids Screen (Neg) Blood Type Antibody Screen 08/16/18 08/16/18 08/16/18 Range/Units 02:35 02:35 02:35 WBC (4.0-11.0) th/mm3 RBC (4.00-5.30) mil/mm3 Hgb (11.6-15.3) gm/dL POC Hgb (Calc) (11.6-15.3) g/dL Hct (35.0-46.0) % POC Hct (35-46.0) % MCV (80.0-100.0) fL MCH (27.0-34.0) pg MCHC (32.0-36.0) % RDW (11.6-17.2) % Plt Count (150-450) th/mm3 MPV (7.0-11.0) fL Prelim Diff (Auto) Neut % (Auto) (16.0-70.0) % Lymph % (Auto) (9.0-44.0) % Dickey % (Auto) (0.0-8.0) % Eos % (Auto) (0.0-4.0) % Baso % (Auto) (0.0-2.0) % Neut # (Auto) (1.8-7.7) th/mm3 Lymph # (Auto) (1.0-4.8) th/mm3 [place] # (Auto) (0.0-0.9) th/mm3 Eos # (Auto) (0.0-0.4) th/mm3 Baso # (Auto) (0.0-0.2) th/mm3 WBC Differential Diff Scan Differential Comment Platelet Estimate (Normal) Platelet Morphology (Normal) RBC Morphology (Normal) ESR 6 (0-30) mm/hr PT (9.8-11.6) sec INR Ratio APTT (23.4-31.7) sec Fibrinogen (227-377) mg/dL POC Sodium (137-144) mmol/L Sodium (136-145) meq/L POC Potassium (3.6-5.0) mmol/L Potassium (3.5-5.1) meq/L POC Chloride (102-111) mmol/L Chloride (98-107) meq/L Carbon Dioxide (21.0-32.0) meq/L Anion Gap (5-15) meq/L POC BUN (5-21) mg/dL BUN (7-18) mg/dL Creatinine (0.50-1.00) mg/dL POC Creatinine (0.6-1.3) mg/dL Estimated GFR (>89) mL/min POC Glucose (68-110) mg/dL Random Glucose (74-106) mg/dL Calcium (8.5-10.1) mg/dL Phosphorus (2.5-4.9) mg/dL Magnesium (1.5-2.5) mg/dL Total Bilirubin (0.2-1.0) mg/dL AST (15-37) U/L ALT (10-53) U/L Alkaline Phosphatase (45-117) U/L Total Creatine Kinase (26-192) U/L Troponin I (0.02-0.05) ng/mL Total Protein (6.4-8.2) g/dL Albumin (3.4-5.0) g/dL Triglycerides 632 H (42-150) mg/dL Cholesterol 246 H (120-200) mg/dL LDL Cholesterol, Calc (0-99) mg/dL HDL Cholesterol 30.5 L (40.0-60.0) mg/dL Cholesterol/HDL Ratio 8.06 Ratio Beta HCG, Quant (0-5) mIU/mL Urine Color (Yellw/Straw) Urine Clarity (Clear) Urine pH (5.0-8.5) Ur Specific [place] (1.002-1.035) Urine Protein (Neg-Trace) mg/dL Urine Glucose (UA) (Negative) mg/dL Urine Ketones (Negative) mg/dL Urine Occult Blood (Negative) Urine Nitrate (Negative) Urine Bilirubin (Negative) Urine Urobilinogen (Less than 2) mg/dL Ur Leukocyte Esterase (Negative) Urine RBC (0-3) /hpf Urine WBC (0-5) /hpf Ur Squamous Epith Cells (0-5) /hpf Urine Bacteria (None) /hpf Micro UA Comment Ur Microscopic Review Urine Culture Comments Nasal Screen MRSA (PCR) (Negative) Urine Opiates Screen (Neg) Ur Barbiturates Screen (Neg) Ur Amphetamines Screen (Neg) U Benzodiazepines Scrn (Neg) Urine Cocaine Screen (Neg) U Cannabinoids Screen (Neg) Blood Type O Positive Antibody Screen Negative 08/16/18 08/16/18 08/16/18 Range/Units 03:05 03:10 03:10 WBC (4.0-11.0) th/mm3 RBC (4.00-5.30) mil/mm3 Hgb (11.6-15.3) gm/dL POC Hgb (Calc) (11.6-15.3) g/dL Hct (35.0-46.0) % POC Hct (35-46.0) % MCV (80.0-100.0) fL MCH (27.0-34.0) pg MCHC (32.0-36.0) % RDW (11.6-17.2) % Plt Count (150-450) th/mm3 MPV (7.0-11.0) fL Prelim Diff (Auto) Neut % (Auto) (16.0-70.0) % Lymph % (Auto) (9.0-44.0) % Dickey % (Auto) (0.0-8.0) % Eos % (Auto) (0.0-4.0) % Baso % (Auto) (0.0-2.0) % Neut # (Auto) (1.8-7.7) th/mm3 Lymph # (Auto) (1.0-4.8) th/mm3 [place] # (Auto) (0.0-0.9) th/mm3 Eos # (Auto) (0.0-0.4) th/mm3 Baso # (Auto) (0.0-0.2) th/mm3 WBC Differential Diff Scan Differential Comment Platelet Estimate (Normal) Platelet Morphology (Normal) RBC Morphology (Normal) ESR (0-30) mm/hr PT (9.8-11.6) sec INR Ratio APTT (23.4-31.7) sec Fibrinogen (227-377) mg/dL POC Sodium (137-144) mmol/L Sodium (136-145) meq/L POC Potassium (3.6-5.0) mmol/L Potassium (3.5-5.1) meq/L POC Chloride (102-111) mmol/L Chloride (98-107) meq/L Carbon Dioxide (21.0-32.0) meq/L Anion Gap (5-15) meq/L POC BUN (5-21) mg/dL BUN (7-18) mg/dL Creatinine (0.50-1.00) mg/dL POC Creatinine (0.6-1.3) mg/dL Estimated GFR (>89) mL/min POC Glucose 277 H (68-110) mg/dL Random Glucose (74-106) mg/dL Calcium (8.5-10.1) mg/dL Phosphorus (2.5-4.9) mg/dL Magnesium (1.5-2.5) mg/dL Total Bilirubin (0.2-1.0) mg/dL AST (15-37) U/L ALT (10-53) U/L Alkaline Phosphatase (45-117) U/L Total Creatine Kinase (26-192) U/L Troponin I (0.02-0.05) ng/mL Total Protein (6.4-8.2) g/dL Albumin (3.4-5.0) g/dL Triglycerides (42-150) mg/dL Cholesterol (120-200) mg/dL LDL Cholesterol, Calc (0-99) mg/dL HDL Cholesterol (40.0-60.0) mg/dL Cholesterol/HDL Ratio Ratio Beta HCG, Quant (0-5) mIU/mL Urine Color Yellow (Yellw/Straw) Urine Clarity Clear (Clear) Urine pH 6.0 (5.0-8.5) Ur Specific [place] 1.043 H (1.002-1.035) Urine Protein Negative (Neg-Trace) mg/dL Urine Glucose (UA) 500 or greater (Negative) mg/dL Urine Ketones Negative (Negative) mg/dL Urine Occult Blood Negative (Negative) Urine Nitrate Negative (Negative) Urine Bilirubin Negative (Negative) Urine Urobilinogen Less than 2 (Less than 2) mg/dL Ur Leukocyte Esterase Trace H (Negative) Urine RBC 2 (0-3) /hpf Urine WBC 3 (0-5) /hpf Ur Squamous Epith Cells 4 (0-5) /hpf Urine Bacteria Occasional H (None) /hpf Micro UA Comment Culture not ind Ur Microscopic Review Not Reportable Urine Culture Comments Culture not ind Nasal Screen MRSA (PCR) (Negative) Urine Opiates Screen Neg (Neg) Ur Barbiturates Screen Neg (Neg) Ur Amphetamines Screen Neg (Neg) U Benzodiazepines Scrn Neg (Neg) Urine Cocaine Screen Neg (Neg) U Cannabinoids Screen Pos H (Neg) Blood Type Antibody Screen 08/16/18 08/16/18 08/16/18 Range/Units 05:00 10:13 12:27 WBC (4.0-11.0) th/mm3 RBC (4.00-5.30) mil/mm3 Hgb (11.6-15.3) gm/dL POC Hgb (Calc) (11.6-15.3) g/dL Hct (35.0-46.0) % POC Hct (35-46.0) % MCV (80.0-100.0) fL MCH (27.0-34.0) pg MCHC (32.0-36.0) % RDW (11.6-17.2) % Plt Count (150-450) th/mm3 MPV (7.0-11.0) fL Prelim Diff (Auto) Neut % (Auto) (16.0-70.0) % Lymph % (Auto) (9.0-44.0) % [place]key % (Auto) (0.0-8.0) % Eos % (Auto) (0.0-4.0) % Baso % (Auto) (0.0-2.0) % Neut # (Auto) (1.8-7.7) th/mm3 Lymph # (Auto) (1.0-4.8) th/mm3 [place] # (Auto) (0.0-0.9) th/mm3 Eos # (Auto) (0.0-0.4) th/mm3 Baso # (Auto) (0.0-0.2) th/mm3 WBC Differential Diff Scan Differential Comment Platelet Estimate (Normal) Platelet Morphology (Normal) RBC Morphology (Normal) ESR (0-30) mm/hr PT (9.8-11.6) sec INR Ratio APTT 40.5 H D (23.4-31.7) sec Fibrinogen (227-377) mg/dL POC Sodium (137-144) mmol/L Sodium (136-145) meq/L POC Potassium (3.6-5.0) mmol/L Potassium (3.5-5.1) meq/L POC Chloride (102-111) mmol/L Chloride (98-107) meq/L Carbon Dioxide (21.0-32.0) meq/L Anion Gap (5-15) meq/L POC BUN (5-21) mg/dL BUN (7-18) mg/dL Creatinine (0.50-1.00) mg/dL POC Creatinine (0.6-1.3) mg/dL Estimated GFR (>89) mL/min POC Glucose 186 H (68-110) mg/dL Random Glucose (74-106) mg/dL Calcium (8.5-10.1) mg/dL Phosphorus (2.5-4.9) mg/dL Magnesium (1.5-2.5) mg/dL Total Bilirubin (0.2-1.0) mg/dL AST (15-37) U/L ALT (10-53) U/L Alkaline Phosphatase (45-117) U/L Total Creatine Kinase (26-192) U/L Troponin I (0.02-0.05) ng/mL Total Protein (6.4-8.2) g/dL Albumin (3.4-5.0) g/dL Triglycerides (42-150) mg/dL Cholesterol (120-200) mg/dL LDL Cholesterol, Calc (0-99) mg/dL HDL Cholesterol (40.0-60.0) mg/dL Cholesterol/HDL Ratio Ratio Beta HCG, Quant (0-5) mIU/mL Urine Color (Yellw/Straw) Urine Clarity (Clear) Urine pH (5.0-8.5) Ur Specific [place] (1.002-1.035) Urine Protein (Neg-Trace) mg/dL Urine Glucose (UA) (Negative) mg/dL Urine Ketones (Negative) mg/dL Urine Occult Blood (Negative) Urine Nitrate (Negative) Urine Bilirubin (Negative) Urine Urobilinogen (Less than 2) mg/dL Ur Leukocyte Esterase (Negative) Urine RBC (0-3) /hpf Urine WBC (0-5) /hpf Ur Squamous Epith Cells (0-5) /hpf Urine Bacteria (None) /hpf Micro UA Comment Ur Microscopic Review Urine Culture Comments Nasal Screen MRSA (PCR) Not detected (Negative) Urine Opiates Screen (Neg) Ur Barbiturates Screen (Neg) Ur Amphetamines Screen (Neg) U Benzodiazepines Scrn (Neg) Urine Cocaine Screen (Neg) U Cannabinoids Screen (Neg) Blood Type Antibody Screen 08/16/18 08/16/18 08/17/18 Range/Units 16:50 18:10 01:12 WBC 11.4 H (4.0-11.0) th/mm3 RBC 4.71 (4.00-5.30) mil/mm3 Hgb 14.3 (11.6-15.3) gm/dL POC Hgb (Calc) (11.6-15.3) g/dL Hct 41.9 (35.0-46.0) % POC Hct (35-46.0) % MCV 88.9 (80.0-100.0) fL MCH 30.3 (27.0-34.0) pg MCHC 34.1 (32.0-36.0) % RDW 12.8 (11.6-17.2) % Plt Count 268 (150-450) th/mm3 MPV 7.8 (7.0-11.0) fL Prelim Diff (Auto) Slide review pending Neut % (Auto) 76.0 H (16.0-70.0) % Lymph % (Auto) 17.3 (9.0-44.0) % [place] % (Auto) 5.3 (0.0-8.0) % Eos % (Auto) 0.4 (0.0-4.0) % Baso % (Auto) 1.0 (0.0-2.0) % Neut # (Auto) 8.7 H (1.8-7.7) th/mm3 Lymph # (Auto) 2.0 (1.0-4.8) th/mm3 [place] # (Auto) 0.6 (0.0-0.9) th/mm3 Eos # (Auto) 0.0 (0.0-0.4) th/mm3 Baso # (Auto) 0.1 (0.0-0.2) th/mm3 WBC Differential . Diff Scan Auto diff confirmed Differential Comment . Platelet Estimate Normal (Normal) Platelet Morphology Normal (Normal) RBC Morphology Normal (Normal) ESR (0-30) mm/hr PT (9.8-11.6) sec INR Ratio APTT 36.5 H (23.4-31.7) sec Fibrinogen (227-377) mg/dL POC Sodium (137-144) mmol/L Sodium (136-145) meq/L POC Potassium (3.6-5.0) mmol/L Potassium (3.5-5.1) meq/L POC Chloride (102-111) mmol/L Chloride (98-107) meq/L Carbon Dioxide (21.0-32.0) meq/L Anion Gap (5-15) meq/L POC BUN (5-21) mg/dL BUN (7-18) mg/dL Creatinine (0.50-1.00) mg/dL POC Creatinine (0.6-1.3) mg/dL Estimated GFR (>89) mL/min POC Glucose 137 H (68-110) mg/dL Random Glucose (74-106) mg/dL Calcium (8.5-10.1) mg/dL Phosphorus (2.5-4.9) mg/dL Magnesium (1.5-2.5) mg/dL Total Bilirubin (0.2-1.0) mg/dL AST (15-37) U/L ALT (10-53) U/L Alkaline Phosphatase (45-117) U/L Total Creatine Kinase (26-192) U/L Troponin I (0.02-0.05) ng/mL Total Protein (6.4-8.2) g/dL Albumin (3.4-5.0) g/dL Triglycerides (42-150) mg/dL Cholesterol (120-200) mg/dL LDL Cholesterol, Calc (0-99) mg/dL HDL Cholesterol (40.0-60.0) mg/dL Cholesterol/HDL Ratio Ratio Beta HCG, Quant (0-5) mIU/mL Urine Color (Yellw/Straw) Urine Clarity (Clear) Urine pH (5.0-8.5) Ur Specific [place] (1.002-1.035) Urine Protein (Neg-Trace) mg/dL Urine Glucose (UA) (Negative) mg/dL Urine Ketones (Negative) mg/dL Urine Occult Blood (Negative) Urine Nitrate (Negative) Urine Bilirubin (Negative) Urine Urobilinogen (Less than 2) mg/dL Ur Leukocyte Esterase (Negative) Urine RBC (0-3) /hpf Urine WBC (0-5) /hpf Ur Squamous Epith Cells (0-5) /hpf Urine Bacteria (None) /hpf Micro UA Comment Ur Microscopic Review Urine Culture Comments Nasal Screen MRSA (PCR) (Negative) Urine Opiates Screen (Neg) Ur Barbiturates Screen (Neg) Ur Amphetamines Screen (Neg) U Benzodiazepines Scrn (Neg) Urine Cocaine Screen (Neg) U Cannabinoids Screen (Neg) Blood Type Antibody Screen 08/17/18 08/17/18 Range/Units 01:12 01:12 WBC (4.0-11.0) th/mm3 RBC (4.00-5.30) mil/mm3 Hgb (11.6-15.3) gm/dL POC Hgb (Calc) (11.6-15.3) g/dL Hct (35.0-46.0) % POC Hct (35-46.0) % MCV (80.0-100.0) fL MCH (27.0-34.0) pg MCHC (32.0-36.0) % RDW (11.6-17.2) % Plt Count (150-450) th/mm3 MPV (7.0-11.0) fL Prelim Diff (Auto) Neut % (Auto) (16.0-70.0) % Lymph % (Auto) (9.0-44.0) % [place] % (Auto) (0.0-8.0) % Eos % (Auto) (0.0-4.0) % Baso % (Auto) (0.0-2.0) % Neut # (Auto) (1.8-7.7) th/mm3 Lymph # (Auto) (1.0-4.8) th/mm3 [place] # (Auto) (0.0-0.9) th/mm3 Eos # (Auto) (0.0-0.4) th/mm3 Baso # (Auto) (0.0-0.2) th/mm3 WBC Differential Diff Scan Differential Comment Platelet Estimate (Normal) Platelet Morphology (Normal) RBC Morphology (Normal) ESR (0-30) mm/hr PT 11.1 (9.8-11.6) sec INR 1.1 Ratio APTT 44.8 H D (23.4-31.7) sec Fibrinogen (227-377) mg/dL POC Sodium (137-144) mmol/L Sodium 138 (136-145) meq/L POC Potassium (3.6-5.0) mmol/L Potassium 3.4 L (3.5-5.1) meq/L POC Chloride (102-111) mmol/L Chloride 106 (98-107) meq/L Carbon Dioxide 24.4 (21.0-32.0) meq/L Anion Gap 8 (5-15) meq/L POC BUN (5-21) mg/dL BUN 9 (7-18) mg/dL Creatinine 0.51 (0.50-1.00) mg/dL POC Creatinine (0.6-1.3) mg/dL Estimated GFR Greater than 89 (>89) mL/min POC Glucose (68-110) mg/dL Random Glucose 174 H (74-106) mg/dL Calcium 8.1 L (8.5-10.1) mg/dL Phosphorus 3.0 (2.5-4.9) mg/dL Magnesium 1.7 (1.5-2.5) mg/dL Total Bilirubin 0.7 (0.2-1.0) mg/dL AST 14 L (15-37) U/L ALT 22 (10-53) U/L Alkaline Phosphatase 78 (45-117) U/L Total Creatine Kinase (26-192) U/L Troponin I (0.02-0.05) ng/mL Total Protein 7.0 (6.4-8.2) g/dL Albumin 3.6 (3.4-5.0) g/dL Triglycerides (42-150) mg/dL Cholesterol (120-200) mg/dL LDL Cholesterol, Calc (0-99) mg/dL HDL Cholesterol (40.0-60.0) mg/dL Cholesterol/HDL Ratio Ratio Beta HCG, Quant (0-5) mIU/mL Urine Color (Yellw/Straw) Urine Clarity (Clear) Urine pH (5.0-8.5) Ur Specific [place] (1.002-1.035) Urine Protein (Neg-Trace) mg/dL Urine Glucose (UA) (Negative) mg/dL Urine Ketones (Negative) mg/dL Urine Occult Blood (Negative) Urine Nitrate (Negative) Urine Bilirubin (Negative) Urine Urobilinogen (Less than 2) mg/dL Ur Leukocyte Esterase (Negative) Urine RBC (0-3) /hpf Urine WBC (0-5) /hpf Ur Squamous Epith Cells (0-5) /hpf Urine Bacteria (None) /hpf Micro UA Comment Ur Microscopic Review Urine Culture Comments Nasal Screen MRSA (PCR) (Negative) Urine Opiates Screen (Neg) Ur Barbiturates Screen (Neg) Ur Amphetamines Screen (Neg) U Benzodiazepines Scrn (Neg) Urine Cocaine Screen (Neg) U Cannabinoids Screen (Neg) Blood Type Antibody Screen Imaging Data Radiologist's impression: Head MRI 08/16/18 00:00 CONCLUSION: 1. Large area of restricted diffusion right sylvian region including head of the caudate. Both internal carotid arteries are noted to be occluded. 2. Global perfusion could be evaluated by either MRI perfusion, CT perfusion or nuclear medicine [facility] whole brain perfusion Head MRA 08/16/18 00:00 CONCLUSION: 1. Severe intracranial inflow disease. 2. MR or CT perfusion could be used to further evaluate the global perfusion. Chest X-Ray 08/16/18 02:34 CONCLUSION: No acute cardiopulmonary process. Head CT 08/16/18 02:34 CONCLUSION: 1. No areas of hemorrhage or mass effect are seen. 2. Dense right MCA concerning for possible thrombus. The patient is to have a CTA to follow. Report was called by [Dr. Granger to Dr. Young at 2:51 AM. Head CTA 08/16/18 02:34 CONCLUSION: 1. Occlusion of the internal carotid arteries bilaterally. The left occlusion is chronic. The right internal carotid artery occlusion appears new when compared to the prior CTA. 2. Acute appearing thrombus in the proximal right middle cerebral and right anterior cerebral arteries. Report was called by [Dr. Granger to Dr. Ocasio. ] Neck CTA 08/16/18 02:34 CONCLUSION: 1. New occlusion of the right internal carotid artery. 2. Chronic occlusion of the left internal carotid artery. ECG Data EKG Prior to Arrival: No Attestation: I personally reviewed and interpreted this ECG as follows: (EKG: Normal sinus rhythm rate 80 right bundle branch block moderate T wave ischemic changes noted anterolaterally no acute ST elevation) Discharge Plan Discharge Disposition Patient Disposition: ED Admit(ED Internal Use Only) Discharge Condition Condition: Stable Discharge Order Discharge Orders: ED Use Only Admit Order (Routine); Ordered 08/16/18 Ordered By: Teodora Young Discharge Details Diagnosis: Acute CVA (cerebrovascular accident) Physicians Team ED Provider: Teodora Young Primary Care Provider: Michael Sierra V Attending Provider: Nehemias Albert Other Providers: Guero Maldonado ; [employer] Status ED Status: Left Department Discharge Information Discharge Date/Time: 08/16/18 04:30
[2018-08-16 02:54] LABS: Baso % (Auto) 0.4 % (0.0-2.0); Eos # (Auto) 0.1 th/mm3 (0.0-0.4); Hematocrit 42.9 % (35.0-46.0); Hemoglobin 14.9 gm/dL (11.6-15.3); Lymph # (Auto) 2.7 th/mm3 (1.0-4.8); Mean Corpuscular HGB Conc 34.7 % (32.0-36.0); Mean Corpuscular Hemoglobin 30.8 pg (27.0-34.0); Mean Corpuscular Volume 88.8 fL (80.0-100.0); Mean Platelet Volume 7.9 fL (7.0-11.0); Mono # (Auto) 0.7 th/mm3 (0.0-0.9); Mono % (Auto) 7.4 % (0.0-8.0); Neut # (Auto) 6.3 th/mm3 (1.8-7.7); Neut % (Auto) 64.2 % (16.0-70.0); Platelet Count 295 th/mm3 (150-450); Red Blood Count 4.83 mil/mm3 (4.00-5.30); White Blood Count 9.9 th/mm3 (4.0-11.0)
--- NOTE | 2018-08-16 02:55 | CT ---
EXAM DATE: 08/16/2018 2:48 AM EST AGE/SEX: 58 years / Female INDICATIONS: Left facial droop, left sided weakness. CLINICAL DATA: This is the patient's initial encounter. Patient reports that signs and symptoms have been present for 1 day and indicates a pain score of 0/10. MEDICAL/SURGICAL HISTORY: Hypertension. Diabetes. CABG. RADIATION DOSE: 56.35 CTDI (mGy) COMPARISON: No prior exams available for comparison. TECHNIQUE: CT of the head without contrast. Using automated exposure control and adjustment of the mA and/or kV according to patient size, radiation dose was kept as low as reasonably achievable to ob tain optimal diagnostic quality images. DICOM format image data is available electronically for revi ew and comparison. FINDINGS: Cerebrum: The ventricles are normal for age. The cortical sulci are widened. No evidence of midline shift, mass lesion, hemorrhage or acute infarction. No extraaxial fluid collections are seen. There does appear to be a potential dense right MCA. Posterior Fossa: The cerebellum and brainstem are intact. The 4th ventricle is midline. The cerebe llopontine angle is unremarkable. Extracranial: The visualized portion of the orbits is intact. Skull: The calvaria is intact. No evidence of skull fracture. CONCLUSION: 1. No areas of hemorrhage or mass effect are seen. 2. Dense right MCA concerning for possible thrombus. The patient is to have a CTA to follow. Report was called by [Dr. Granger to Dr. Young at 2:51 AM. Electronically signed by: Gurmeet Granger MD Board Certified Radiologist 08/16/2018 2:53 AM EST
[2018-08-16 03:06] LABS: Activated Partial Thrombo Time 27.1 sec (23.4-31.7); Prothrombin Time 10.2 sec (9.8-11.6)
--- NOTE | 2018-08-16 03:10 | CT ---
EXAM DATE: 08/16/2018 2:53 AM EST AGE/SEX: 58 years / Female INDICATIONS: Left facial droop, left sided weakness CLINICAL DATA: This is the patient's initial encounter. Patient reports that signs and symptoms have been present for 1 day and indicates a pain score of 0/10. MEDICAL/SURGICAL HISTORY: Hypertension. Diabetes. CABG. RADIATION DOSE: 10.20 CTDI (mGy) ; Combined studies COMPARISON: [facility], CTA BRAIN W 3D RECON, 12/11/2016. [facility], CTA CAROTID ARTERIES W 3D RECON, 12/12/19 17. . TECHNIQUE: Volumetric scanning was performed using a multi-row detector CT scanner during bolus infu analia of 100 ml Visipaque 320 (iodixanol) nonionic water-soluble contrast as a cumulative dose for mu ltiple exams. The data was post processed with a variety of visualization algorithms including full volume maximum intensity projection, multi-planar sliding thin slab reformation, curved planar refor mation, and surface rendering techniques. Using automated exposure control and adjustment of the mA and/or kV according to patient size, radiation dose was kept as low as reasonably achievable to obtai n optimal diagnostic quality images. DICOM format image data is available electronically for review and comparison. FINDINGS: There is occlusion of the internal carotid arteries bilaterally. The anterior circulation fills throu gh collaterals. The vertebral and basilar arteries are patent. There is thrombus in the right proxima l middle cerebral artery. There also appears to be some diminished flow and thrombus in the right ant erior cerebral artery CONCLUSION: 1. Occlusion of the internal carotid arteries bilaterally. The left occlusion is chronic. The right internal carotid artery occlusion appears new when compared to the prior CTA. 2. Acute appearing thrombus in the proximal right middle cerebral and right anterior cerebral arteri es. Report was called by [Dr. Granger to Dr. Ocasoi. ] Electronically signed by: Gurmeet Granger MD Board Certified Radiologist 08/16/2018 3:08 AM EST
[2018-08-16 03:13] LABS: Beta HCG,Quantitative 2 mIU/mL (0-5)
[2018-08-16] MEDS: Sod Chloride 0.9% Inj 1,000 ML IV.CONT SCH ×2 (03:13→18:06)
[2018-08-16 03:15] LABS: Creatine Kinase 69 U/L (26-192)
--- NOTE | 2018-08-16 03:19 | XR ---
EXAM DATE: 08/16/2018 3:15 AM EST AGE/SEX: 58 years / Female INDICATIONS: Stroke alert. CLINICAL DATA: This is the patient's initial encounter. Patient reports that signs and symptoms have been present for 1 day and indicates a pain score of Nonresponsive. MEDICAL/SURGICAL HISTORY: Diabetes mellitus type II. Hypertension. CABG. COMPARISON: No prior exams available for comparison. FINDINGS: The patient is status post sternotomy. The heart size is normal. The lungs are grossly clear. No effu analia is seen. CONCLUSION: No acute cardiopulmonary process. Electronically signed by: Gurmeet Granger MD Board Certified Radiologist 08/16/2018 3:18 AM EST
--- NOTE | 2018-08-16 03:19 | CT ---
EXAM DATE: 08/16/2018 3:11 AM EST AGE/SEX: 58 years / Female INDICATIONS: Left facial droop, left sided weakness CLINICAL DATA: This is the patient's initial encounter. Patient reports that signs and symptoms have been present for 1 day and indicates a pain score of 0/10. MEDICAL/SURGICAL HISTORY: Hypertension. Diabetes. CABG. RADIATION DOSE: 10.20 CTDI (mGy) ; Combined studies COMPARISON: [facility], CTA CAROTID ARTERIES W 3D RECON, 12/11/2016. . TECHNIQUE: Volumetric scanning was performed using a multirow detector CT scanner during bolus infus ion of 100 ml Visipaque 320 (iodixanol) nonionic water-soluble contrast as a cumulative dose for mul tiple exams. The data was postprocessed with a variety of visualization algorithms including full-v olume maximum intensity projection, multiplanar sliding thin-slab reformation, curved-planar reformat ion, and surface-rendering techniques. Using automated exposure control and adjustment of the mA and /or kV according to patient size, radiation dose was kept as low as reasonably achievable to obtain o ptimal diagnostic quality images. DICOM format image data is available electronically for review and comparison. FINDINGS: Aortic Arch: The left common carotid artery arises from the right base of the right brachiocephalic artery. There is minimal calcification at the origin of the left subclavian artery without significan t stenosis. The left vertebral artery arises directly from the aortic arch or at the origin of the le ft subclavian artery. Right Carotid: The right common carotid artery is patent. There is occlusion of the right internal c arotid artery at the carotid bulb region. The external carotid artery is patent. The right internal c arotid artery was patent on the prior CTA. Left Carotid: The left common carotid artery is patent. There is occlusion of the left internal melendez tid artery at the carotid bulb region. The external carotid artery is patent. This finding was presen t on the prior CTA. Vertebrals: The vertebral arteries have a symmetric diameter. No stenotic lesions are seen. Percent stenosis is calculated using the diameter of the stenotic region over the diameter of the nor mal distal internal carotid artery. CONCLUSION: 1. New occlusion of the right internal carotid artery. 2. Chronic occlusion of the left internal carotid artery. Electronically signed by: Gurmeet Granger MD Board Certified Radiologist 08/16/2018 3:17 AM EST
[2018-08-16 03:32] LABS: Bacteria,Urine Occasional /hpf; Bilirubin,Urine Negative (Negative); Clarity,Urine Clear (Clear); Color,Urine Yellow (Yellw/Straw); Glucose,Urine (UA) 500 or Greater mg/dL (Negative); Leukocyte Esterase,Urine Trace (Negative); Nitrite,Urine Negative (Negative); Specific Gravity,Urine 1.043 (1.002-1.035); Squamous Epithelial Cell,Urine 4 /hpf (0-5)
[2018-08-16] MEDS: Heparin Drip 25,000 UNIT/250 ML BAG IV.CONT PRN (03:37)
[2018-08-16] MEDS ORDERED: Bisacodyl 10 MG Supp RECTAL PRN (04:34)
[2018-08-16] MEDS ORDERED: Acetaminophen 325 MG Tablet PO PRN (04:34)
--- NOTE | 2018-08-16 04:40 | P.HPCC ---
History of Present Illness Primary Care Physician: Michael Sierra MD History of Present Illness: 58-year-old very pleasant female presents as a stroke alert. According to [employer] w[employer] and son report patient was in her usual state of health when she went to bed at 10 PM reportedly the patient was awakened by family approximately 2 AM in order to share with [place] festivities and eat some baked cookies when son noticed that she had left facial droop and slurring of her speech that was new. 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 Patient also has history of hypertension dyslipidemia and diabetes. The CT of the head and neck demonstrates occlusion of the internal carotid arteries bilaterally. The left occlusion is chronic. The right internal carotid artery occlusion appears new when compared to the prior CTA. Also acute appearing thrombus in the proximal right middle cerebral and right anterior cerebral arteries. Due to unknown time of onset of symptoms the patient is not a candidate for TPA administration , she was evaluated by neurologist semiconductor packages platemaker with recommendations of frequent neuro checks and heparin infusion. Inpatient Certification: I certify that the inpatient services were ordered in accordance with Medicare regulations governing the order. This includes certification that hospital inpatient services are reasonable and necessary and in the case of services not specified as inpatient-only under 42 CFR 419.22(n), that they are appropriately provided as inpatient services in accordance to with the 2-midnight benchmark under 43 CFR 412.3(e) Estimated Total Length of Stay (Days): 5 Plans for Post Hospital Care: Not yet determined Review of Systems All other systems reviewed negative except as stated in HPI [facility] - History History Provided By: Patient (2016 MRI showed acute nonhemorrhagic infarct frontoparietal and occipital) - Medical History Medical History: Medical History (Last Updated 08/16/18 @ 02:36 by Bruno Vogt) Diabetes HTN (hypertension) Hyperlipidemia Stroke - Surgical History Surgical History: Surgical History (Last Updated 08/16/18 @ 02:36 by Bruno Vogt) Hx of CABG - Tobacco History Second Hand Smoke Exposure: No Smoking Status: Never smoker - Alcohol History How Often Do You Have a Drink Containing Alcohol: Never - Substance Use History Substance History: No History of Abuse - Travel History Recent Travel in the [place] Within the Last 8 Weeks: No Recent Travel Out of the Country Within the Last 8 Weeks: No - Immunization History Tetanus Immunization: <5 Years Medications and Allergies Active Medications: Active Medications Aspirin (Aspirin Chew) 81 mg PO DAILY [facility] Clopidogrel Bisulfate (Plavix) 75 mg PO DAILY [facility] Fluoxetine HCl (Prozac) 20 mg PO DAILY [facility] Sodium Chloride (Ns Inj) 1,000 mls @ 100 mls/hr IV.CONT .Q10H [facility] Last Admin: 08/16/18 03:13 Dose: 70 mls/hr Heparin Sodium/Dextrose (Heparin/D5w 25,000 U/250 Ml) 25,000 unit in 250 mls @ 0 mls/hr IV.CONT TITRATE PRN; Protocol PRN Reason: Per Protocol Last Admin: 08/16/18 03:37 Dose: 1,100 units/hr, 11 mls/hr Allergies Allergy/AdvReac Type Severity Reaction Status Date / Time atorvastatin Allergy Mild Hives Unverified 04/17/17 16:16 Home Medications Medication Instructions Recorded Confirmed Type amlodipine 10 mg PO DAILY 08/16/18 08/16/18 History aspirin 81 mg PO DAILY 08/16/18 08/16/18 History clopidogrel [Plavix] 75 mg PO DAILY 08/16/18 08/16/18 History fluoxetine 20 mg PO DAILY 08/16/18 08/16/18 History insulin glargine [Lantus Solostar 55 unit SUBCUT HS 08/16/18 08/16/18 History U-100 Insulin] lisinopril 20 mg PO BID 08/16/18 08/16/18 History metoprolol tartrate 50 mg PO BID 08/16/18 08/16/18 History semaglutide [Ozempic] 0.25 mg SUBCUT QWEEK 08/16/18 08/16/18 History Results - Labs CBC & Chem 7: 08/16/18 02:35 Labs: Short CBC 08/16/18 Range/Units 02:35 WBC 9.9 (4.0-11.0) th/mm3 Hgb 14.9 (11.6-15.3) gm/dL Hct 42.9 (35.0-46.0) % Plt Count 295 (150-450) th/mm3 Cardiac Enzymes 08/16/18 Range/Units 02:35 Total Creatine Kinase 69 (26-192) U/L Troponin I Less than 0.02 L (0.02-0.05) ng/mL Urine 08/16/18 Range/Units 03:10 Urine Color Yellow (Yellw/Straw) Urine Clarity Clear (Clear) Urine pH 6.0 (5.0-8.5) Ur Specific [place] 1.043 H (1.002-1.035) Urine Protein Negative (Neg-Trace) mg/dL Urine Glucose (UA) 500 or greater (Negative) mg/dL - Imaging Impressions Chest X-Ray 08/16/18 02:34 CONCLUSION: No acute cardiopulmonary process. Head CT 08/16/18 02:34 CONCLUSION: 1. No areas of hemorrhage or mass effect are seen. 2. Dense right MCA concerning for possible thrombus. The patient is to have a CTA to follow. Report was called by [Dr. Granger to Dr. Young at 2:51 AM. Head CTA 08/16/18 02:34 CONCLUSION: 1. Occlusion of the internal carotid arteries bilaterally. The left occlusion is chronic. The right internal carotid artery occlusion appears new when compared to the prior CTA. 2. Acute appearing thrombus in the proximal right middle cerebral and right anterior cerebral arteries. Report was called by [Dr. Granger to Dr. Ocasio. ] Neck CTA 08/16/18 02:34 CONCLUSION: 1. New occlusion of the right internal carotid artery. 2. Chronic occlusion of the left internal carotid artery. Exam Vital signs: Vital Signs 08/16/18 02:29 08/16/18 02:33 08/16/18 02:44 Temperature 98.8 F Pulse Rate 81 87 Respiratory Rate 17 Blood Pressure 138/76 Pulse Oximetry 98 98 98 08/16/18 03:25 08/16/18 03:48 Temperature Pulse Rate 85 85 Respiratory Rate 18 17 Blood Pressure 141/86 H Pulse Oximetry 98 97 Intake & Output 08/15/18 08/15/18 08/16/18 06:59 18:59 06:59 Weight 91.9 kg - Constitutional no acute distress - Routine HEENT Exam Head: Present: normocephalic, atraumatic Eye: Present: EOMI, PERRL, normal accommodation ENT: Present: mucous membranes moist - Routine Neck Exam Present: supple, full ROM. Absent: JVD - Routine Respiratory Exam Absent: accessory muscle use, rales, rhonchi, wheezes, crackles - Routine Cardiovascular Exam Present: RRR, S1, S2 - Routine Abdominal Exam Present: soft, normoactive bowel sounds - Routine Extremities Exam Absent: cyanosis, clubbing, edema - Routine Skin Exam Present: intact. Absent: cyanosis, erythema - Routine Neurological Exam Present: alert, oriented X3 Left facial droop. 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 Slurred speech. Septic Shock Reassessment Septic shock perfusion: reassessment completed Caprini VTE Risk Assessment Caprini VTE Risk Assessment: Moderate/High Risk (score >= 2) Caprini Risk Assessment Model: Point Value = 1 Point Value = 2 Point Value = 3 Point Value = 5 Age 41-60 Minor surgery BMI > 25 kg/m2 Swollen legs Varicose veins or History of unexplained or recurrent spontaneous Oral contraceptives or hormone replacement Sepsis (< 1 month) Serious lung disease, including pneumonia (< 1 month) Abnormal pulmonary function Acute myocardial infarction Congestive heart failure (< 1 month) History of inflammatory bowel disease Medical patient at bed rest Age 61-74 Arthroscopic surgery Major open surgery (> 45 min) Laparoscopic surgery (> 45 min) Malignancy Confined to bed (> 72 hours) Immobilizing plaster cast Central venous access Age >= 75 History of VTE Family history of VTE Factor V Leiden Prothrombin [id number] Lupus anticoagulant Anticardiolipin antibodies Elevated serum homocysteine Heparin-induced thrombocytopenia Other congenital or acquired thrombophilia Stroke (< 1 month) Elective arthroplasty Hip, pelvis, or leg fracture Acute spinal cord injury (< 1 month) Prophylaxis Regimen: Total Risk Factor Score Risk Level Prophylaxis Regimen 0-1 Low Early ambulation 2 Moderate Order ONE of the following: *Sequential Compression Device (SCD) *Heparin 5000 units SQ BID 3-4 Higher Order ONE of the following medications: *Heparin 5000 units SQ TID *Enoxaparin/Lovenox 40 mg SQ daily (WT < 150 kg, CrCl > 30 mL/min) *Enoxaparin/Lovenox 30 mg SQ daily (WT < 150 kg, CrCl > 10-29 mL/min) *Enoxaparin/Lovenox 30 mg SQ BID (WT < 150 kg, CrCl > 30 mL/min) AND/OR *Sequential Compression Device (SCD) 5 or more Highest Order ONE of the following medications: *Heparin 5000 units SQ TID (Preferred with Epidurals) *Enoxaparin/Lovenox 40 mg SQ daily (WT < 150 kg, CrCl > 30 mL/min) *Enoxaparin/Lovenox 30 mg SQ daily (WT < 150 kg, CrCl > 10-29 mL/min) *Enoxaparin/Lovenox 30 mg SQ BID (WT < 150 kg, CrCl > 30 mL/min) AND *Sequential Compression Device (SCD) Assessment and Plan - Assessment and Plan Plan: Acute CVA -Bilateral carotid occlusion -Right MCA thrombus -Heparin drip -Frequent neuro checks -Possible IR intervention if any neuro changes worsening -PT and OT as tolerated -Aspirin, Plavix -Further per neurology Diabetes -Insulin sliding scale HTN -Hold home dose of lisinopril and metoprolol -Restart when indicated -Permissive hypertension -Telemetry Depression -Fluoxetine DVT GI prophylaxis -Teds SCDs -Heparin drip -Pepcid 35 minutes of critical care
[2018-08-16] MEDS ORDERED: Dextrose 50% in Water 50 ML Vial IV.PUSH PRN (04:41)
[2018-08-16 04:54] LABS: Chol/HDL Ratio 8.06 Ratio; HDL Cholesterol 30.5 mg/dL (40.0-60.0)
[2018-08-16] MEDS: Insulin NovoLOG Aspart Correctional Sugar Inj SQ SCH ×3 (05:31→18:12)
--- NOTE | 2018-08-16 06:45 | MB ---
cc: Colt Ocasio MD, PhD DATE: 08/16/2018 REASON FOR CONSULTATION: Stroke alert. HISTORY OF PRESENT ILLNESS: Karyn Doty is a 58-year-old female who has a history of 2 previous strokes, carotid disease, and coronary artery disease, who was last seen normal at 10 p.m. Around 2 a.m. woke up, was noted to have slurring of her speech, left-sided weakness, left facial droop. She came to the ER as a stroke alert and an initial NIH stroke scale was 5. In the interim, she has had marked improvement such that she no longer has any weakness of the left arm or left leg. Still has some mild dysarthria and left facial droop, markedly improved. PAST MEDICAL HISTORY: She has a history of right carotid endarterectomy last December. History of CABG last January. She had a history of stroke last December, as well as in 2007. She has a history of diabetes, hypercholesterolemia, and hypertension. MEDICATIONS: The patient takes Plavix as well as low-dose aspirin 81 mg daily, as well as insulin, antihypertensives, and other medications which she does not recall at this time. Her daughter relates that she ran out of Plavix several weeks ago. She has been off that medication. PHYSICAL EXAMINATION: VITAL SIGNS: Blood pressure 141/86, pulse 85 and regular, respirations 18. HIGHER CORTICAL FUNCTION: The patient is alert. Her speech is dysarthric, but not aphasic. She can answer questions. She follows commands. 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 Pupils are 2 mm, symmetric, and reactive to light. The extraocular movements are intact. Motor exam reveals 5/5 strength of all major muscle groups in both upper and lower extremities. She has no drift. Fine motor skills are within normal limits. Reflexes are symmetric. IMAGING DATA: CT of the brain reveals a hyperdense right MCA sign. No evidence of any hemorrhage or acute stroke is seen. CT angiogram of the brain reveals evidence of a thrombus in the right MCA in the proximal portion as well as the right YARELIS proximal portion. There does appear to be some flow through these areas, however, in that the more distal branches of the MCA on the right and the YARELIS do seem to have flow. The CT of the neck shows complete occlusion of bilateral carotid arteries. The one in the right appears to be new, the one on the left appears to be chronic. LABORATORY DATA: The white count is 9900, hemoglobin 14.9, hematocrit 42.9%, platelet count 295,000. PT 10.2, INR 1, aPTT 27. Sodium is 138, potassium 3.8, chloride 103, BUN is 14, creatinine 0.6, glucose 303, CPK 69. Beta hCG 2. Urinalysis: pH is 6, specific gravity 1.043, 3 WBC, 2 RBC, trace leukocyte esterase. IMPRESSION: Right middle cerebral artery distribution stroke with evidence of thrombus in the right middle cerebral artery proximally, in the right anterior cerebral artery, as well as bilateral carotid artery occlusions. PLAN: The patient is not a candidate for IV TPA since she presented out of the 4-1/2-hour window. I discussed the case with Dr. Guero Martínez, who was income tax consultant tonight for interventional radiology. The fact that the patient has shown marked improvement in her symptoms, initial NIH stroke scale was a 5, currently NIH stroke scale is around 2 with only dysarthria and mild left facial droop, we both feel it would be best to hold off at the present time on intervention. I did recommend starting IV heparin with no bolus to prevent the thrombus from propagating and becoming worse and more reclusive. I discussed this with the patient and the family. I did discuss that there was a risk of hemorrhage with IV heparin. Would recommend close neurological checks in the ICU with every 15-minute neuro checks for the next 4 hours, then q.30 minute neuro checks for the next 4 hours after that. I discussed the case again with Dr. Martínez. If she does show any worsening of her symptoms, we would consider intervention at that point in time. Thank you for asking me to see this nice patient in consultation. Colt Ocasio MD, PhD YAYA/stevo , 04:16 AM , 04:29 AM
[2018-08-16 08:08] LABS: Amphetamine Screen,Urine Neg (Neg); Barbiturate Screen,Urine Neg (Neg); Cannabinoid Screen,Urine Pos (Neg); Cocaine Screen,Urine Neg (Neg)
[2018-08-16 08:18] LABS: Opiate Screen,Urine Neg (Neg)
[2018-08-16] MEDS: Senna/Docusate Sodium 8.6/50 MG Tablet PO SCH ×2 (10:21→20:31)
[2018-08-16] MEDS: FLUoxetine 20 MG Capsule PO SCH (10:21)
[2018-08-16] MEDS: Famotidine PF Inj 20 MG/2 ML Vial IV.PUSH SCH ×2 (10:21→20:31)
--- NOTE | 2018-08-16 10:47 | ECG ---
Date Performed: 08/16/2018 Time Performed: 02:34:45 PTAGE: 58 years EKG: Sinus rhythm INCOMPLETE RIGHT BUNDLE BRANCH BLOCK ST/T-WAVE ABNORMALITY, CONSIDER ANTEROLATERAL ISCHEMIA ABNORMAL ECG NO PREVIOUS TRACING DOCTOR: Alan Cody Interpretating Date/Time 08/16/2018 10:46:27
--- NOTE | 2018-08-16 13:22 | ECHRPT ---
Indication: CVA/TIA CONCLUSIONS Normal left ventricular size. Mild concentric left ventricular hypertrophy. The left ventricular systolic function is normal with an estimated ejection fraction in the range of 55-60%. Trace mitral valve regurgitation. There is mild tricuspid valve regurgitation. The estimated pulmonary arterial pressure is 29 mmHg. BP: 141 / 64 HR: 86 Rhythm: MEASUREMENTS (Male / Female) Normal Values Technical Quality:Fair 2D ECHO LV Diastolic Diameter PLAX 4.5 cm 4.2 - 5.9 / 3.9 - 5.3 cm LV Systolic Diameter PLAX 2.9 cm IVS Diastolic Thickness 1.1 cm 0.6 - 1.0 / 0.6 - 0.9 cm LVPW Diastolic Thickness 1.1 cm 0.6 - 1.0 / 0.6 - 0.9 cm LV Relative Wall Thickness 0.5 RV Internal Dim ED PLAX 3.3 cm LVOT Diameter 2.1 cm Aortic Root Diameter 2.9 cm LA Systolic Diameter LX 3.5 cm 3.0 - 4.0 / 2.7 - 3.8 cm M-MODE AV Cusp Separation MM 2.0 cm DOPPLER AV Peak Velocity 119.0 cm/s AV Peak Gradient 5.7 mmHg LVOT Peak Velocity 108.0 cm/s LVOT Peak Gradient 4.7 mmHg AV Area Cont Eq pk 3.1 cm Mitral E Point Velocity 71.1 cm/s Mitral A Point Velocity 71.6 cm/s Mitral E to A Ratio 1.0 LV E' Lateral Velocity 9.6 cm/s Mitral E to LV E' Lateral Ratio 7.4 LV E' Septal Velocity 7.7 cm/s Mitral E to LV E' Septal Ratio 9.2 TR Peak Velocity 217.0 cm/s TR Peak Gradient 18.8 mmHg Right Atrial Pressure 10.0 mmHg Pulmonary Artery Systolic Pressu 28.8 mmHg Right Ventricular Systolic Press 28.8 mmHg PV Peak Velocity 86.9 cm/s PV Peak Gradient 3.0 mmHg FINDINGS LEFT VENTRICLE Normal left ventricular size. Mild concentric left ventricular hypertrophy. The left ventricular systolic function is normal with an estimated ejection fraction in the range of 55-60%. RIGHT VENTRICLE Normal right ventricular size and systolic function. LEFT ATRIUM The left atrial size is normal. RIGHT ATRIUM The right atrial size is normal. ATRIAL SEPTUM Normal atrial septal thickness without atrial level shunting by limited color doppler interrogation. AORTA The aortic root and proximal ascending aorta are normal in size on limited imaging. MITRAL VALVE Trace mitral valve regurgitation. AORTIC VALVE Trileaflet aortic valve. No aortic valve stenosis or regurgitation. TRICUSPID VALVE There is mild tricuspid valve regurgitation. The estimated pulmonary arterial pressure is 29 mmHg. PULMONARY VALVE No pulmonary valve regurgitation or stenosis. VESSELS The inferior vena cava is normal in size. PERICARDIUM No pericardial effusion. Arnaldo Cabrera MD, FACC (Electronically Signed) Final Date:16 August 2018 13:21
[2018-08-16] MEDS ORDERED: Gadobutrol PF 10 MMOL/10 ML Vial (for RAD) IV.SIG ONE (15:19)
--- NOTE | 2018-08-16 15:34 | MR ---
EXAM DATE: 08/16/2018 3:26 PM EST AGE/SEX: 58 years / Female INDICATIONS: CVA. CLINICAL DATA: This is the patient's initial encounter. Patient reports that signs and symptoms have been present for 1 day and indicates a pain score of 0/10. MEDICAL/SURGICAL HISTORY: Diabetes mellitus type II. Hypertension. Cardiovascular disease. CA BG. Coronary artery stent. COMPARISON: [facility], CTA HEAD W CONTRAST W 3D, 08/16/2018. . TECHNIQUE: 3D [id number] MRA was performed. Source images, multiplanar STS MIP, and 3D volum e MIP reconstructions were reviewed. FINDINGS: Intracranial vessels secondary to bilateral internal carotid occlusions. The right mid to distal MCA is occluded and partially recanalized. Both anterior cerebral arteries in the left middle cerebral ar jonh are patent. Majority of blood flow is from the basilar artery through the [place] and t ransdural collaterals from external carotid. CONCLUSION: 1. Severe intracranial inflow disease. 2. MR or CT perfusion could be used to further evaluate the global perfusion. Electronically signed by: Jass Valdvoinos MD Board Certified Radiologist 08/16/2018 3:33 PM EST
--- NOTE | 2018-08-16 15:38 | MR ---
EXAM DATE: 08/16/2018 3:26 PM EST AGE/SEX: 58 years / Female INDICATIONS: CVA. CLINICAL DATA: This is the patient's initial encounter. Patient reports that signs and symptoms have been present for 1 day and indicates a pain score of 0/10. MEDICAL/SURGICAL HISTORY: Diabetes mellitus type II. Hypertension. Cardiovascular disease. CA BG. Coronary artery stent. COMPARISON: No prior exams available for comparison. TECHNIQUE: Multiplanar, multisequence examination of the brain was performed without and with 8 ml Ga davist (gadobutrol) contrast as a single exam dose. FINDINGS: Cerebrum: There is a large area of restricted diffusion involving the proximal first second and thir d similar branches on the right including head of the caudate. This extends from internal capsule to the cortical surface. There is no restricted diffusion on the left.. Minimal hemosiderosis is present . No extra-axial fluid collections appreciated. Ventricular size is appropriate. Moderate periventricular white matter changes are evident. There is no abnormal contrast enhancement. Posterior Fossa: The cerebellum and brainstem are intact. The 4th ventricle is midline. The cerebel lopontine angle is unremarkable. The cerebellar tonsils are normal in position. The orbits and paranasal sinuses unremarkable. CONCLUSION: 1. Large area of restricted diffusion right sylvian region including head of the caudate. Both inter nal carotid arteries are noted to be occluded. 2. Global perfusion could be evaluated by either MRI perfusion, CT perfusion or nuclear medicine [facility] whole brain perfusion Electronically signed by: Jass Valdovinos MD Board Certified Radiologist 08/16/2018 3:37 PM EST
[2018-08-17 01:27] LABS: Baso # (Auto) 0.1 th/mm3 (0.0-0.2); Eos % (Auto) 0.4 % (0.0-4.0); Hematocrit 41.9 % (35.0-46.0); Hemoglobin 14.3 gm/dL (11.6-15.3); Lymph % (Auto) 17.3 % (9.0-44.0); Mean Corpuscular HGB Conc 34.1 % (32.0-36.0); Mean Corpuscular Hemoglobin 30.3 pg (27.0-34.0); Mean Corpuscular Volume 88.9 fL (80.0-100.0); Mean Platelet Volume 7.8 fL (7.0-11.0); Mono # (Auto) 0.6 th/mm3 (0.0-0.9); Mono % (Auto) 5.3 % (0.0-8.0); Neut # (Auto) 8.7 th/mm3 (1.8-7.7); Platelet Count 268 th/mm3 (150-450); Red Blood Count 4.71 mil/mm3 (4.00-5.30); Red Cell Distribution Width 12.8 % (11.6-17.2); White Blood Count 11.4 th/mm3 (4.0-11.0)
[2018-08-17 01:39] LABS: Activated Partial Thrombo Time 44.8 sec (23.4-31.7); INR 1.1 Ratio; Prothrombin Time 11.1 sec (9.8-11.6)
[2018-08-17 01:46] LABS: Albumin 3.6 g/dL (3.4-5.0); Anion Gap 8 meq/L (5-15); Aspartate Aminotransferase 14 U/L (15-37); Blood Urea Nitrogen 9 mg/dL (7-18); Calcium 8.1 mg/dL (8.5-10.1); Carbon Dioxide 24.4 meq/L (21.0-32.0); Chloride 106 meq/L (98-107); Glomerular Filtration Rate Greater Than 89 mL/min (>89); Glucose,Random 174 mg/dL (74-106); Magnesium 1.7 mg/dL (1.5-2.5); Potassium 3.4 meq/L (3.5-5.1); Sodium 138 meq/L (136-145)
[2018-08-17 01:50] LABS: Alanine Aminotransferase 22 U/L (10-53); Alkaline Phosphatase 78 U/L (45-117)
[2018-08-17 02:17] LABS: Platelet Estimate Normal (Normal); Platelet Morphology Normal (Normal); RBC Morphology Normal (Normal)
[2018-08-17] MEDS: Heparin Drip 25,000 UNIT/250 ML BAG IV.CONT PRN (02:24)
[2018-08-17] MEDS: Insulin NovoLOG Aspart Correctional Sugar Inj SQ SCH ×4 (02:27→17:15)
[2018-08-17] MEDS ORDERED: Chlorhexidine Gluconate 2% 1 Pack (2 Cloths) TOPICAL PRN (04:00)
[2018-08-17] MEDS: Sod Chloride 0.9% Inj 1,000 ML IV.CONT SCH ×2 (04:21→14:45)
[2018-08-17] MEDS: Chlorhexidine Gluconate 2% 1 Pack (2 Cloths) TOPICAL SCH (04:25)
[2018-08-17] MEDS: FLUoxetine 20 MG Capsule PO SCH (08:32)
[2018-08-17] MEDS: Senna/Docusate Sodium 8.6/50 MG Tablet PO SCH ×2 (08:32→20:38)
[2018-08-17] MEDS: Famotidine PF Inj 20 MG/2 ML Vial IV.PUSH SCH ×2 (08:32→20:39)
--- NOTE | 2018-08-17 11:07 | P.PNCC ---
Subjective Subjective Remarks/Hospital Course: 58-year-old very pleasant female presents as a stroke alert. According to data entry coordinator and son report patient was in her usual state of health when she went to bed at 10 PM reportedly the patient was awakened by family approximately 2 AM in order to share with Ran festivities and eat some baked cookies when son noticed that she had left facial droop and slurring of her speech that was new. 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 Patient also has history of hypertension dyslipidemia and diabetes. The CT of the head and neck demonstrates occlusion of the internal carotid arteries bilaterally. The left occlusion is chronic. The right internal carotid artery occlusion appears new when compared to the prior CTA. Also acute appearing thrombus in the proximal right middle cerebral and right anterior cerebral arteries. Due to unknown time of onset of symptoms the patient is not a candidate for TPA administration , she was evaluated by neurologist rental salesperson with recommendations of frequent neuro checks and heparin infusion. 08/17: Remains on continuous infusion heparin. Facial droop has improved and speech has improved considerably with increased articulation. Objective Vital Signs / I&O: Vital Signs 08/16/18 12:00 08/16/18 13:00 08/16/18 14:00 Temperature 99.3 F Pulse Rate 81 81 94 H Respiratory Rate 19 20 28 H Blood Pressure 134/61 134/62 144/72 H Pulse Oximetry 96 94 L 96 08/16/18 15:30 08/16/18 15:31 08/16/18 16:00 Temperature 99.8 F H Pulse Rate 82 Respiratory Rate 19 Blood Pressure 149/69 H 147/75 H Pulse Oximetry 97 96 94 L 08/16/18 17:00 08/16/18 18:00 08/16/18 19:00 Temperature Pulse Rate 84 84 87 Respiratory Rate 21 19 21 Blood Pressure 126/58 L 127/60 132/62 Pulse Oximetry 94 L 95 08/16/18 20:00 08/16/18 20:42 08/16/18 21:00 Temperature Pulse Rate 88 90 Respiratory Rate 7 L 26 H Blood Pressure 148/70 H 148/68 H Pulse Oximetry 96 96 93 L 08/16/18 22:00 08/16/18 23:00 08/17/18 00:00 Temperature 99.1 F Pulse Rate 90 90 98 H Respiratory Rate 22 24 23 Blood Pressure 140/63 158/71 H 152/66 H Pulse Oximetry 94 L 95 95 08/17/18 01:00 08/17/18 02:00 08/17/18 03:00 Temperature Pulse Rate 104 H 95 H 93 H Respiratory Rate 28 H 23 22 Blood Pressure 159/74 H 153/67 H 146/65 H Pulse Oximetry 95 92 L 92 L 08/17/18 04:00 08/17/18 05:00 08/17/18 06:00 Temperature 99.2 F Pulse Rate 92 H 93 H 98 H Respiratory Rate 18 23 22 Blood Pressure 161/75 H 159/73 H 158/74 H Pulse Oximetry 93 L 93 L 93 L 08/17/18 08:44 Temperature Pulse Rate Respiratory Rate Blood Pressure Pulse Oximetry 96 Intake & Output 08/16/18 08/17/18 08/17/18 18:59 06:59 18:59 Intake Total 1300 / 1300 1690 / 1690 Output Total 900 / 900 700 / 700 Balance 400 / 400 990 / 990 Intake: IV 1000 / 1000 1250 / 1250 Heparin/D5W 25,000 U/250 mL 25, 250 / 250 000 unit In 250 ml @ Per Protocol IV.CONT TITRATE PRN Rx #:[id number] NS Inj 1,000 ML @ 100 mls/hr IV 1000 / 1000 1000 / 1000 .CONT .Q10H [facility]A Rx#:[id number] Oral 300 / 300 440 / 440 Output: Urine 900 / 900 700 / 700 Other: # Voids 2 1 Date of Last Bowel Movement 08/15/18 08/15/18 # Bowel Movements 0 0 Result Diagrams: 08/17/18 01:12 08/17/18 01:12 Objective Remarks: - Constitutional no acute distress - Routine HEENT Exam Head: Present: normocephalic, atraumatic Eye: Present: EOMI, PERRL, normal accommodation ENT: Present: mucous membranes moist - Routine Neck Exam Present: supple, full ROM. Absent: JVD - Routine Respiratory Exam Lung silverio clear, comfortable respiratory pattern. Absent: accessory muscle use, rales, rhonchi, wheezes, crackles - Routine Cardiovascular Exam Present: RRR, S1, S2, no JVD. - Routine Abdominal Exam Present: soft, normoactive bowel sounds, nontender, no distention or guarding - Routine Extremities Exam Warm, well-perfused absent: cyanosis, clubbing, edema - Routine Skin Exam Present: intact. Absent: cyanosis, erythema - Routine Neurological Exam Present: alert, oriented X3 Left facial droop less pronounced. Mild weakness of senior care specialist left upper extremity is resolving. Slurred speech fully resolved. Assessment and Plan - Assessment and Plan Plan: Acute CVA -Bilateral carotid occlusion -Right MCA thrombus -Continue heparin drip -Frequent neuro checks -PT and OT as tolerated -Aspirin, Plavix -Further per neurology Diabetes -Insulin sliding scale -Speech evaluation, ADA dietconstant calorie HTN -Hold home dose of lisinopril and metoprolol -Restart when indicated -Permissive hypertension -Telemetry Depression -Fluoxetine DVT GI prophylaxis -Teds SCDs -Heparin drip -Pepcid Overall impression: Patient observed to have bilateral extracranial carotid complete occlusive disease. M2 branch thrombus also noted improvement in neurologic symptoms following permissive hypertension and institution of heparin drip.
--- NOTE | 2018-08-17 11:38 | P.PNNEU ---
Subjective Active Medications: Active Medications Acetaminophen (Tylenol) 650 mg PO Q6H PRN PRN Reason: PAIN 1-10 AND/OR FEVER >101F Last Admin: 08/16/18 06:50 Dose: 650 mg Al Hydroxide/Mg Hydroxide (Milk Of Faisal Lijenni) 30 ml PO Q12H PRN PRN Reason: Mild Constipation Albuterol (Duoneb Neb (Prn)) 1 ampul NEB Q2HR NEB PRN PRN Reason: WHEEZING Aspirin (Aspirin Chew) 81 mg PO DAILY [facility] Last Admin: 08/17/18 08:32 Dose: 81 mg Bisacodyl (Dulcolax Supp) 10 mg RECTAL DAILY PRN PRN Reason: SEVERE CONSITIPATION Chlorhexidine Gluconate (Chlorhexidine 2% Cloth) 3 pack TOPICAL DAILY@0400 [facility] Stop: 08/22/18 03:59 Last Admin: 08/17/18 04:25 Dose: 3 pack Chlorhexidine Gluconate (Chlorhexidine 2% Cloth) 3 pack TOPICAL DAILY@0400 PRN PRN Reason: Extra cloth needed Stop: 08/22/18 03:59 Clopidogrel Bisulfate (Plavix) 75 mg PO DAILY [facility] Last Admin: 08/17/18 08:32 Dose: 75 mg Dextrose (D50w Vial) 50 ml IV.PUSH UNSCH PRN PRN Reason: PER HYPOGLYCEMIA PROTOCOL Famotidine (Pepcid Pf Inj) 20 mg IV.PUSH Q12HR [facility] Last Admin: 08/17/18 08:32 Dose: 20 mg Fluoxetine HCl (Prozac) 20 mg PO DAILY [facility] Last Admin: 08/17/18 08:32 Dose: 20 mg Glucagon (Glucagon Inj) 1 mg OTHER PRN PRN PRN Reason: for Hypoglycemia Protocol Sodium Chloride (Ns Inj) 1,000 mls @ 100 mls/hr IV.CONT .Q10H [facility] Last Admin: 08/17/18 04:21 Dose: 70 mls/hr Heparin Sodium/Dextrose (Heparin/D5w 25,000 U/250 Ml) 25,000 unit in 250 mls @ 0 mls/hr IV.CONT TITRATE PRN; Protocol PRN Reason: Per Protocol Last Admin: 08/17/18 02:24 Dose: 1,200 units/hr, 12 mls/hr Insulin Aspart (Novolog Insulin Correctional Sugar Inj) 0 unit SQ Q6HR [facility]; Protocol Last Admin: 08/17/18 06:16 Dose: Not Given Lactulose (Lactulose Liq) 30 ml PO DAILY PRN PRN Reason: SEVERE CONSITIPATION Ondansetron HCl (Zofran Inj) 4 mg IV.PUSH Q6H PRN PRN Reason: NAUSEA OR VOMITING Senna/Docusate Sodium (Jaz-Colace) 1 tab PO BID [facility] Last Admin: 08/17/18 08:32 Dose: 1 tab Sennosides (Senokot) 17.2 mg PO Q12H PRN PRN Reason: Moderate Constipation Sodium Chloride (Ns Flush) 2 ml IV.FLUSH BID [facility] Last Admin: 08/17/18 08:33 Dose: 2 ml Sodium Chloride (Ns Flush) 2 ml IV.FLUSH PRN PRN PRN Reason: FLUSH AFTER USING IV ACCESS Allergies/Adverse Reactions: Allergies Allergy/AdvReac Type Severity Reaction Status Date / Time atorvastatin Allergy Mild Hives Unverified 04/17/17 16:16 Physical Exam Vital signs: Vital Signs 08/16/18 12:00 08/16/18 13:00 08/16/18 14:00 Temperature 99.3 F Pulse Rate 81 81 94 H Respiratory Rate 19 20 28 H Blood Pressure 134/61 134/62 144/72 H Pulse Oximetry 96 94 L 96 08/16/18 15:30 08/16/18 15:31 08/16/18 16:00 Temperature 99.8 F H Pulse Rate 82 Respiratory Rate 19 Blood Pressure 149/69 H 147/75 H Pulse Oximetry 97 96 94 L 08/16/18 17:00 08/16/18 18:00 08/16/18 19:00 Temperature Pulse Rate 84 84 87 Respiratory Rate 21 19 21 Blood Pressure 126/58 L 127/60 132/62 Pulse Oximetry 94 L 95 08/16/18 20:00 08/16/18 20:42 08/16/18 21:00 Temperature Pulse Rate 88 90 Respiratory Rate 7 L 26 H Blood Pressure 148/70 H 148/68 H Pulse Oximetry 96 96 93 L 08/16/18 22:00 08/16/18 23:00 08/17/18 00:00 Temperature 99.1 F Pulse Rate 90 90 98 H Respiratory Rate 22 24 23 Blood Pressure 140/63 158/71 H 152/66 H Pulse Oximetry 94 L 95 95 08/17/18 01:00 08/17/18 02:00 08/17/18 03:00 Temperature Pulse Rate 104 H 95 H 93 H Respiratory Rate 28 H 23 22 Blood Pressure 159/74 H 153/67 H 146/65 H Pulse Oximetry 95 92 L 92 L 08/17/18 04:00 08/17/18 05:00 08/17/18 06:00 Temperature 99.2 F Pulse Rate 92 H 93 H 98 H Respiratory Rate 18 23 22 Blood Pressure 161/75 H 159/73 H 158/74 H Pulse Oximetry 93 L 93 L 93 L 08/17/18 07:00 08/17/18 08:00 08/17/18 08:44 Temperature 98.6 F Pulse Rate 87 86 Respiratory Rate 22 22 Blood Pressure 139/65 144/67 H Pulse Oximetry 94 L 94 L 96 08/17/18 09:00 08/17/18 10:00 08/17/18 11:00 Temperature Pulse Rate 92 H 93 H 87 Respiratory Rate 23 24 23 Blood Pressure 146/63 H 144/67 H 147/67 H Pulse Oximetry 95 96 93 L Intake & Output 08/16/18 08/17/18 08/17/18 18:59 06:59 18:59 Intake Total 1300 / 1300 1690 / 1690 Output Total 900 / 900 700 / 700 Balance 400 / 400 990 / 990 Intake: IV 1000 / 1000 1250 / 1250 Heparin/D5W 25,000 U/250 mL 25, 250 / 250 000 unit In 250 ml @ Per Protocol IV.CONT TITRATE PRN Rx #:[id number] NS Inj 1,000 ML @ 100 mls/hr IV 1000 / 1000 1000 / 1000 .CONT .Q10H [facility] Rx#:[id number] Oral 300 / 300 440 / 440 Output: Urine 900 / 900 700 / 700 Other: # Voids 2 1 Date of Last Bowel Movement 08/15/18 08/15/18 # Bowel Movements 0 0 Narrative: awake alert vff face sym 5/5 t/o nl exam Objective Laboratory Results - last 24 hr 08/16/18 08/16/18 08/16/18 12:27 16:50 18:10 WBC RBC Hgb Hct MCV MCH MCHC RDW Plt Count MPV Prelim Diff (Auto) Neut % (Auto) Lymph % (Auto) [place] % (Auto) Eos % (Auto) Baso % (Auto) Neut # (Auto) Lymph # (Auto) [place] # (Auto) Eos # (Auto) Baso # (Auto) WBC Differential Diff Scan Differential Comment Platelet Estimate Platelet Morphology RBC Morphology PT INR APTT 36.5 H Sodium Potassium Chloride Carbon Dioxide Anion Gap BUN Creatinine Estimated GFR POC Glucose 186 H 137 H Random Glucose Calcium Phosphorus Magnesium Total Bilirubin AST ALT Alkaline Phosphatase Total Protein Albumin 08/17/18 08/17/18 08/17/18 01:12 01:12 01:12 WBC 11.4 H RBC 4.71 Hgb 14.3 Hct 41.9 MCV 88.9 MCH 30.3 MCHC 34.1 RDW 12.8 Plt Count 268 MPV 7.8 Prelim Diff (Auto) Slide review pending Neut % (Auto) 76.0 H Lymph % (Auto) 17.3 [place] % (Auto) 5.3 Eos % (Auto) 0.4 Baso % (Auto) 1.0 Neut # (Auto) 8.7 H Lymph # (Auto) 2.0 [place] # (Auto) 0.6 Eos # (Auto) 0.0 Baso # (Auto) 0.1 WBC Differential . Diff Scan Auto diff confirmed Differential Comment . Platelet Estimate Normal Platelet Morphology Normal RBC Morphology Normal PT 11.1 INR 1.1 APTT 44.8 H D Sodium 138 Potassium 3.4 L Chloride 106 Carbon Dioxide 24.4 Anion Gap 8 BUN 9 Creatinine 0.51 Estimated GFR Greater than 89 POC Glucose Random Glucose 174 H Calcium 8.1 L Phosphorus 3.0 Magnesium 1.7 Total Bilirubin 0.7 AST 14 L ALT 22 Alkaline Phosphatase 78 Total Protein 7.0 Albumin 3.6 08/17/18 09:36 WBC RBC Hgb Hct MCV MCH MCHC RDW Plt Count MPV Prelim Diff (Auto) Neut % (Auto) Lymph % (Auto) [place] % (Auto) Eos % (Auto) Baso % (Auto) Neut # (Auto) Lymph # (Auto) [place] # (Auto) Eos # (Auto) Baso # (Auto) WBC Differential Diff Scan Differential Comment Platelet Estimate Platelet Morphology RBC Morphology PT INR APTT 41.9 H Sodium Potassium Chloride Carbon Dioxide Anion Gap BUN Creatinine Estimated GFR POC Glucose Random Glucose Calcium Phosphorus Magnesium Total Bilirubin AST ALT Alkaline Phosphatase Total Protein Albumin Review/Management - Review/Management Plan: imp bilat carotid occlusion small cva plan keep bp up ivf on and dr zambrano wants coumadin started sr here needs loop recorder for manager intermediate guidance to rx cta reports nl vb system
--- NOTE | 2018-08-17 14:30 | MB ---
cc: Pierre Solis MD DATE: 08/17/2018 REASON FOR CONSULTATION: TIA/CVA. HISTORY OF PRESENT ILLNESS: The patient is a pleasant 58-year-old woman previously seen by Dr. Kwong, who has a history of coronary artery disease, status post CABG, as well as CVA x2 in the past. She went to bed and apparently was noted to have a left facial droop with slurred speech. These symptoms have essentially resolved and, given her history, I have been asked to perform a loop recording. The patient denies any current symptoms such as chest pain, shortness of breath, lightheadedness, dizziness. PAST MEDICAL HISTORY: 1. Coronary artery disease, status post coronary artery bypass grafting. 2. Hypertension. 3. Diabetes. CURRENT MEDICATIONS: 1. Aspirin 81 mg daily. 2. Plavix 75 mg daily. 3. Pepcid. 4. Heparin drip. ALLERGIES: ATORVASTATIN. PHYSICAL EXAMINATION: VITAL SIGNS: Afebrile, pulse 87, respiratory rate 23, BP 147/57, saturating 93% on room air. GENERAL: Pleasant, obese woman in no distress. NECK: No JVD. LUNGS: Clear to auscultation bilaterally. CARDIOVASCULAR: Regular rate and rhythm. No significant murmur appreciated. ABDOMEN: Benign. EXTREMITIES: No edema. LABORATORY DATA: Sodium 138, potassium 3.4, chloride 106, bicarbonate 24.4, BUN 9, creatinine 0.51, glucose 174. Echocardiogram shows normal ejection fraction. EKG showed sinus rhythm with incomplete right bundle branch block. IMPRESSION: Transient ischemic attack/cerebrovascular accident. The patient with prior cerebrovascular accident and a possible new TIA has been requested to have a loop recorder by neurology. This seems reasonable. She is currently on Plavix and heparin drip. I will ask her IV heparin to be stopped 2 hours prior to her procedure, but will allow her to be maintained on Plavix given her recent CVA. I explained that there will be a higher than typical bleeding risk due to her anticoagulation, but we will use every precaution possible, including Dermabond to reduce any procedural or post-procedural bleeding. We will stop in and see her tomorrow and plan for procedure Sunday. Thank you for the opportunity to participate in this patient's care. MD MELANIE Moura/roxane , 01:28 PM , 01:35 PM
[2018-08-18] MEDS: Insulin NovoLOG Aspart Correctional Sugar Inj SQ SCH ×4 (00:01→18:53)
[2018-08-18] MEDS: Sod Chloride 0.9% Inj 1,000 ML IV.CONT SCH ×4 (00:45→20:54)
[2018-08-18] MEDS: Heparin Drip 25,000 UNIT/250 ML BAG IV.CONT PRN ×2 (00:46→17:09)
[2018-08-18 05:21] LABS: Hematocrit 41.3 % (35.0-46.0); Mean Corpuscular HGB Conc 33.9 % (32.0-36.0); Mean Corpuscular Hemoglobin 30.7 pg (27.0-34.0); Mean Corpuscular Volume 90.5 fL (80.0-100.0); Mean Platelet Volume 7.8 fL (7.0-11.0); Platelet Count 246 th/mm3 (150-450); Red Blood Count 4.56 mil/mm3 (4.00-5.30); Red Cell Distribution Width 12.8 % (11.6-17.2); White Blood Count 8.5 th/mm3 (4.0-11.0)
[2018-08-18] MEDS: Chlorhexidine Gluconate 2% 1 Pack (2 Cloths) TOPICAL SCH (05:43)
[2018-08-18] MEDS: FLUoxetine 20 MG Capsule PO SCH (09:46)
[2018-08-18] MEDS: Senna/Docusate Sodium 8.6/50 MG Tablet PO SCH ×2 (09:46→20:55)
[2018-08-18] MEDS: Famotidine PF Inj 20 MG/2 ML Vial IV.PUSH SCH ×2 (09:47→20:55)
--- NOTE | 2018-08-18 10:09 | P.PNCA ---
Subjective Interval history: No complaints, no cardiac sx. Medications and Allergies Active Medications: Active Medications Acetaminophen (Tylenol) 650 mg PO Q6H PRN PRN Reason: PAIN 1-10 AND/OR FEVER >101F Last Admin: 08/16/18 06:50 Dose: 650 mg Al Hydroxide/Mg Hydroxide (Milk Of Magnluis enrique Liq) 30 ml PO Q12H PRN PRN Reason: Mild Constipation Albuterol (Duoneb Neb (Prn)) 1 ampul NEB Q2HR NEB PRN PRN Reason: WHEEZING Aspirin (Aspirin Chew) 81 mg PO DAILY [facility] Last Admin: 08/18/18 09:46 Dose: 81 mg Bisacodyl (Dulcolax Supp) 10 mg RECTAL DAILY PRN PRN Reason: SEVERE CONSITIPATION Chlorhexidine Gluconate (Chlorhexidine 2% Cloth) 3 pack TOPICAL DAILY@0400 [facility] Stop: 08/22/18 03:59 Last Admin: 08/18/18 05:43 Dose: Not Given Chlorhexidine Gluconate (Chlorhexidine 2% Cloth) 3 pack TOPICAL DAILY@0400 PRN PRN Reason: Extra cloth needed Stop: 08/22/18 03:59 Clopidogrel Bisulfate (Plavix) 75 mg PO DAILY [facility] Last Admin: 08/18/18 09:46 Dose: 75 mg Dextrose (D50w Vial) 50 ml IV.PUSH UNSCH PRN PRN Reason: PER HYPOGLYCEMIA PROTOCOL Famotidine (Pepcid Pf Inj) 20 mg IV.PUSH Q12HR [facility] Last Admin: 08/18/18 09:47 Dose: 20 mg Fluoxetine HCl (Prozac) 20 mg PO DAILY [facility] Last Admin: 08/18/18 09:46 Dose: 20 mg Glucagon (Glucagon Inj) 1 mg OTHER PRN PRN PRN Reason: for Hypoglycemia Protocol Sodium Chloride (Ns Inj) 1,000 mls @ 100 mls/hr IV.CONT .Q10H [facility] Last Admin: 08/18/18 09:41 Dose: Not Given Heparin Sodium/Dextrose (Heparin/D5w 25,000 U/250 Ml) 25,000 unit in 250 mls @ 0 mls/hr IV.CONT TITRATE PRN; Protocol PRN Reason: Per Protocol Last Admin: 08/18/18 00:46 Dose: 1,200 units/hr, 12 mls/hr Insulin Aspart (Novolog Insulin Correctional Sugar Inj) 0 unit SQ Q6HR [facility]; Protocol Last Admin: 08/18/18 05:44 Dose: 2 unit Lactulose (Lactulose Liq) 30 ml PO DAILY PRN PRN Reason: SEVERE CONSITIPATION Ondansetron HCl (Zofran Inj) 4 mg IV.PUSH Q6H PRN PRN Reason: NAUSEA OR VOMITING Senna/Docusate Sodium (Jaz-Colace) 1 tab PO BID [facility] Last Admin: 08/18/18 09:46 Dose: 1 tab Sennosides (Senokot) 17.2 mg PO Q12H PRN PRN Reason: Moderate Constipation Sodium Chloride (Ns Flush) 2 ml IV.FLUSH BID [facility] Last Admin: 08/18/18 09:47 Dose: 2 ml Sodium Chloride (Ns Flush) 2 ml IV.FLUSH PRN PRN PRN Reason: FLUSH AFTER USING IV ACCESS Allergies Allergy/AdvReac Type Severity Reaction Status Date / Time atorvastatin Allergy Mild Hives Verified 08/17/18 14:44 Home Medications Medication Instructions Recorded Confirmed Type amlodipine 10 mg PO DAILY 08/16/18 08/16/18 History aspirin 81 mg PO DAILY 08/16/18 08/16/18 History clopidogrel [Plavix] 75 mg PO DAILY 08/16/18 08/16/18 History fluoxetine 20 mg PO DAILY 08/16/18 08/16/18 History insulin glargine [Lantus Solostar 55 unit SUBCUT HS 08/16/18 08/16/18 History U-100 Insulin] lisinopril 20 mg PO BID 08/16/18 08/16/18 History metoprolol tartrate 50 mg PO BID 08/16/18 08/16/18 History semaglutide [Ozempic] 0.25 mg SUBCUT QWEEK 08/16/18 08/16/18 History Physical Exam Vital signs: Vital Signs 08/17/18 11:00 08/17/18 12:00 08/17/18 13:00 Temperature Pulse Rate 87 92 H Respiratory Rate 23 29 H Blood Pressure 147/67 H 137/68 185/79 H Pulse Oximetry 93 L 97 08/17/18 14:34 08/17/18 15:00 08/17/18 19:00 Temperature 100.6 F H Pulse Rate 91 H 92 H 97 H Respiratory Rate 20 23 20 Blood Pressure 137/63 175/75 H 163/72 H Pulse Oximetry 95 93 L 93 L 08/17/18 20:00 08/17/18 21:00 08/17/18 22:00 Temperature Pulse Rate 103 H 93 H 91 H Respiratory Rate 20 20 Blood Pressure 162/79 H 171/78 H 154/66 H Pulse Oximetry 94 L 93 L 94 L 08/17/18 23:00 08/18/18 00:00 08/18/18 01:00 Temperature 98.6 F Pulse Rate 95 H 97 H 88 Respiratory Rate 20 20 20 Blood Pressure 155/71 H 156/69 H 139/65 Pulse Oximetry 97 97 95 08/18/18 02:00 08/18/18 03:00 08/18/18 04:00 Temperature 100.2 F H Pulse Rate 91 H 94 H 88 Respiratory Rate 20 20 20 Blood Pressure 159/74 H 173/79 H 138/63 Pulse Oximetry 95 95 93 L 08/18/18 05:00 08/18/18 06:00 08/18/18 07:42 Temperature Pulse Rate 90 87 Respiratory Rate 20 20 Blood Pressure 143/68 H 147/70 H Pulse Oximetry 95 96 94 L Intake & Output 08/17/18 08/18/18 08/18/18 18:59 06:59 18:59 Intake Total 1720 / 1720 2154 / 2154 Output Total 1000 / 1000 Balance 1720 / 1720 1154 / 1154 Weight 90.7 kg Intake: IV 1000 / 1000 250 / 250 Heparin/D5W 25,000 U/250 mL 25, 250 / 250 000 unit In 250 ml @ Per Protocol IV.CONT TITRATE PRN Rx #:[id number] NS Inj 1,000 ML @ 100 mls/hr IV 1000 / 1000 .CONT .Q10H [facility] Rx#:[id number] Oral 720 / 720 360 / 360 Other 1544 / 1544 Output: Urine 1000 / 1000 Other: # Voids 7 Date of Last Bowel Movement 08/15/18 08/15/18 # Bowel Movements 0 - Constitutional no acute distress - Routine HEENT Exam Head: Present: normocephalic Eye: Present: EOMI ENT: Present: mucous membranes moist - Routine Neck Exam Absent: JVD - Routine Respiratory Exam Present: CTA bilaterally. Absent: accessory muscle use - Routine Cardiovascular Exam Present: RRR. Absent: murmur Results 08/18/18 04:18 08/17/18 01:12 Cardiac Enzymes 08/17/18 Range/Units 01:12 AST 14 L (15-37) U/L Coagulation 08/16/18 08/16/18 08/17/18 Range/Units 10:13 16:50 01:12 PT 11.1 (9.8-11.6) sec APTT 40.5 H D 36.5 H 44.8 H D (23.4-31.7) sec 08/17/18 08/18/18 Range/Units 09:36 04:18 PT (9.8-11.6) sec APTT 41.9 H 44.8 H (23.4-31.7) sec CBC 08/17/18 08/18/18 Range/Units 01:12 04:18 WBC 11.4 H 8.5 (4.0-11.0) th/mm3 RBC 4.71 4.56 (4.00-5.30) mil/mm3 Hgb 14.3 14.0 (11.6-15.3) gm/dL Hct 41.9 41.3 (35.0-46.0) % Plt Count 268 246 (150-450) th/mm3 Neut # (Auto) 8.7 H (1.8-7.7) th/mm3 Lymph # (Auto) 2.0 (1.0-4.8) th/mm3 [place] # (Auto) 0.6 (0.0-0.9) th/mm3 Eos # (Auto) 0.0 (0.0-0.4) th/mm3 Baso # (Auto) 0.1 (0.0-0.2) th/mm3 Comprehensive Metabolic Panel 08/17/18 Range/Units 01:12 Sodium 138 (136-145) meq/L Potassium 3.4 L (3.5-5.1) meq/L Chloride 106 (98-107) meq/L Carbon Dioxide 24.4 (21.0-32.0) meq/L BUN 9 (7-18) mg/dL Creatinine 0.51 (0.50-1.00) mg/dL Calcium 8.1 L (8.5-10.1) mg/dL AST 14 L (15-37) U/L ALT 22 (10-53) U/L Alkaline Phosphatase 78 (45-117) U/L Total Protein 7.0 (6.4-8.2) g/dL Albumin 3.6 (3.4-5.0) g/dL Intake and Output 08/17/18 08/18/18 08/18/18 22:59 06:59 14:59 Intake Total 1720 / 1720 2154 / 2154 Output Total 1000 / 1000 Balance 1720 / 1720 1154 / 1154 Intake: IV 1000 / 1000 250 / 250 Heparin/D5W 25,000 U/250 mL 25, 250 / 250 000 unit In 250 ml @ Per Protocol IV.CONT TITRATE PRN Rx #:[id number] NS Inj 1,000 ML @ 100 mls/hr IV 1000 / 1000 .CONT .Q10H [facility] Rx#:[id number] Oral 720 / 720 360 / 360 Other 1544 / 1544 Output: Urine 1000 / 1000 Other: # Voids 7 Date of Last Bowel Movement 08/15/18 08/15/18 # Bowel Movements 0 Weight 90.7 kg - Imaging and Cardiology Imaging: Impressions Head MRI 08/16/18 00:00 CONCLUSION: 1. Large area of restricted diffusion right sylvian region including head of the caudate. Both internal carotid arteries are noted to be occluded. 2. Global perfusion could be evaluated by either MRI perfusion, CT perfusion or nuclear medicine [facility] whole brain perfusion Head MRA 08/16/18 00:00 CONCLUSION: 1. Severe intracranial inflow disease. 2. MR or CT perfusion could be used to further evaluate the global perfusion. Assessment and Plan - Assessment (1) Acute CVA (cerebrovascular accident) Code(s): I63.9 - Cerebral infarction, unspecified Status: Acute - Plan doing well, continue medical therapy for now, will plan on loop recorder in the am, asked heparin be turned off two hours prior to the procedure.
--- NOTE | 2018-08-18 10:45 | P.PNNEU ---
Subjective Active Medications: Active Medications Acetaminophen (Tylenol) 650 mg PO Q6H PRN PRN Reason: PAIN 1-10 AND/OR FEVER >101F Last Admin: 08/16/18 06:50 Dose: 650 mg Al Hydroxide/Mg Hydroxide (Milk Of Faisal Lijenni) 30 ml PO Q12H PRN PRN Reason: Mild Constipation Albuterol (Duoneb Neb (Prn)) 1 ampul NEB Q2HR NEB PRN PRN Reason: WHEEZING Aspirin (Aspirin Chew) 81 mg PO DAILY [facility] Last Admin: 08/18/18 09:46 Dose: 81 mg Bisacodyl (Dulcolax Supp) 10 mg RECTAL DAILY PRN PRN Reason: SEVERE CONSITIPATION Chlorhexidine Gluconate (Chlorhexidine 2% Cloth) 3 pack TOPICAL DAILY@0400 [facility] Stop: 08/22/18 03:59 Last Admin: 08/18/18 05:43 Dose: Not Given Chlorhexidine Gluconate (Chlorhexidine 2% Cloth) 3 pack TOPICAL DAILY@0400 PRN PRN Reason: Extra cloth needed Stop: 08/22/18 03:59 Clopidogrel Bisulfate (Plavix) 75 mg PO DAILY [facility] Last Admin: 08/18/18 09:46 Dose: 75 mg Dextrose (D50w Vial) 50 ml IV.PUSH UNSCH PRN PRN Reason: PER HYPOGLYCEMIA PROTOCOL Famotidine (Pepcid Pf Inj) 20 mg IV.PUSH Q12HR [facility] Last Admin: 08/18/18 09:47 Dose: 20 mg Fluoxetine HCl (Prozac) 20 mg PO DAILY [facility] Last Admin: 08/18/18 09:46 Dose: 20 mg Glucagon (Glucagon Inj) 1 mg OTHER PRN PRN PRN Reason: for Hypoglycemia Protocol Sodium Chloride (Ns Inj) 1,000 mls @ 100 mls/hr IV.CONT .Q10H [facility] Last Admin: 08/18/18 09:41 Dose: Not Given Heparin Sodium/Dextrose (Heparin/D5w 25,000 U/250 Ml) 25,000 unit in 250 mls @ 0 mls/hr IV.CONT TITRATE PRN; Protocol PRN Reason: Per Protocol Last Admin: 08/18/18 00:46 Dose: 1,200 units/hr, 12 mls/hr Insulin Aspart (Novolog Insulin Correctional Sugar Inj) 0 unit SQ Q6HR [facility]; Protocol Last Admin: 08/18/18 05:44 Dose: 2 unit Lactulose (Lactulose Liq) 30 ml PO DAILY PRN PRN Reason: SEVERE CONSITIPATION Ondansetron HCl (Zofran Inj) 4 mg IV.PUSH Q6H PRN PRN Reason: NAUSEA OR VOMITING Senna/Docusate Sodium (Jaz-Colace) 1 tab PO BID [facility] Last Admin: 08/18/18 09:46 Dose: 1 tab Sennosides (Senokot) 17.2 mg PO Q12H PRN PRN Reason: Moderate Constipation Sodium Chloride (Ns Flush) 2 ml IV.FLUSH BID [facility] Last Admin: 08/18/18 09:47 Dose: 2 ml Sodium Chloride (Ns Flush) 2 ml IV.FLUSH PRN PRN PRN Reason: FLUSH AFTER USING IV ACCESS Allergies/Adverse Reactions: Allergies Allergy/AdvReac Type Severity Reaction Status Date / Time atorvastatin Allergy Mild Hives Verified 08/17/18 14:44 Physical Exam Vital signs: Vital Signs 08/17/18 11:00 08/17/18 12:00 08/17/18 13:00 Temperature Pulse Rate 87 92 H Respiratory Rate 23 29 H Blood Pressure 147/67 H 137/68 185/79 H Pulse Oximetry 93 L 97 08/17/18 14:34 08/17/18 15:00 08/17/18 19:00 Temperature 100.6 F H Pulse Rate 91 H 92 H 97 H Respiratory Rate 20 23 20 Blood Pressure 137/63 175/75 H 163/72 H Pulse Oximetry 95 93 L 93 L 08/17/18 20:00 08/17/18 21:00 08/17/18 22:00 Temperature Pulse Rate 103 H 93 H 91 H Respiratory Rate 20 20 Blood Pressure 162/79 H 171/78 H 154/66 H Pulse Oximetry 94 L 93 L 94 L 08/17/18 23:00 08/18/18 00:00 08/18/18 01:00 Temperature 98.6 F Pulse Rate 95 H 97 H 88 Respiratory Rate 20 20 20 Blood Pressure 155/71 H 156/69 H 139/65 Pulse Oximetry 97 97 95 08/18/18 02:00 08/18/18 03:00 08/18/18 04:00 Temperature 100.2 F H Pulse Rate 91 H 94 H 88 Respiratory Rate 20 20 20 Blood Pressure 159/74 H 173/79 H 138/63 Pulse Oximetry 95 95 93 L 08/18/18 05:00 08/18/18 06:00 08/18/18 07:42 Temperature Pulse Rate 90 87 Respiratory Rate 20 20 Blood Pressure 143/68 H 147/70 H Pulse Oximetry 95 96 94 L Intake & Output 08/17/18 08/18/18 08/18/18 18:59 06:59 18:59 Intake Total 1720 / 1720 2154 / 2154 Output Total 1000 / 1000 Balance 1720 / 1720 1154 / 1154 Weight 90.7 kg Intake: IV 1000 / 1000 250 / 250 Heparin/D5W 25,000 U/250 mL 25, 250 / 250 000 unit In 250 ml @ Per Protocol IV.CONT TITRATE PRN Rx #:[id number] NS Inj 1,000 ML @ 100 mls/hr IV 1000 / 1000 .CONT .Q10H [facility] Rx#:[id number] Oral 720 / 720 360 / 360 Other 1544 / 1544 Output: Urine 1000 / 1000 Other: # Voids 7 Date of Last Bowel Movement 08/15/18 08/15/18 # Bowel Movements 0 Narrative: awake alert vff face sym 5/5 has been oob walking Objective Laboratory Results - last 24 hr 08/17/18 08/17/18 08/17/18 13:28 16:41 23:12 WBC RBC Hgb Hct MCV MCH MCHC RDW Plt Count MPV APTT POC Glucose 159 H 163 H 168 H 08/18/18 08/18/18 08/18/18 04:18 04:18 05:43 WBC 8.5 RBC 4.56 Hgb 14.0 Hct 41.3 MCV 90.5 MCH 30.7 MCHC 33.9 RDW 12.8 Plt Count 246 MPV 7.8 APTT 44.8 H POC Glucose 185 H Review/Management - Review/Management Plan: imp bilat carotid occlusion small cva plan keep bp up ivf on and dr zambrano wants coumadin started sr here 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
[2018-08-18] MEDS ORDERED: MethylPREDNISolone Sod Succinate Inj 40 MG/ML Vial IV.PUSH ONE (12:30)
--- NOTE | 2018-08-18 13:52 | P.PNIM ---
Subjective Interval history: Patient reports she has been walking back and forth to the bathroom with no problems. No focalized weakness and numbness. Asked why she cannot be discharged home today and come back for the procedure. She has no headaches. No visual changes nor any difficulty swallowing. There is no complaints of chest pain or any palpitations. Physical Exam Vital signs: Last Vital Signs Temp 100.2 F H 08/18/18 04:00 Pulse 87 08/18/18 06:00 Resp 20 08/18/18 06:00 BP 147/70 H 08/18/18 06:00 Pulse Ox 94 L 08/18/18 07:42 Intake & Output 08/16/18 08/17/18 08/18/18 08/19/18 06:59 06:59 06:59 06:59 Intake Total 2990 / 2990 3874 / 3874 Output Total 1600 / 1600 1000 / 1000 Balance 1390 / 1390 2874 / 2874 Weight 90.8 kg 90.7 kg Narrative: GENERAL: This is a well-nourished, well-developed patient, in no apparent distress. CARDIOVASCULAR: Regular rate and rhythm RESPIRATORY: Clear to auscultation. Breath sounds equal bilaterally. No wheezes , rales, or rhonchi. GASTROINTESTINAL: Abdomen soft, non-tender, nondistended. Normal active bowel sounds MUSCULOSKELETAL: Extremities without clubbing, cyanosis, or edema. NEURO: Alert & Oriented x4 to person, place, time, situation. Left facial droop less pronounced. Motor strength 5 out of 5 bilateral upper and lower extremities. Normal speech. Results Labs CBC & Chem 7: 08/18/18 04:18 08/18/18 11:21 Assessment and Plan (1) Acute CVA (cerebrovascular accident): Code(s): I63.9 - Cerebral infarction, unspecified Status: Acute Plan 58-year-old white female with a previous history of stroke, hypertension was admitted for acute onset of slurred speech and left facial droop with Acute CVA Patient with bilateral carotid occlusion and right MCA thrombus. 2D echo with normal EF 55-60%, mild concentric left ventricular hypertrophy. Trace mitral valve regurgitation and tricuspid valve regurgitation Continue heparin drip per neurology and start Coumadin. Neurological checks has been stable and left facial droop is improved with improvement in speech. Appreciate neurology's recommendations. For loop recorder with cardiology Dr. Hong tomorrow. He requested heparin to be held 2 hours prior to procedure. Currently on aspirin and Plavix, defer to neurology for when this can be stopped while Coumadin is started. Check fasting profile Diabetes mellitus type 2, [id number], controlled, no acute complications. Continue glucose monitoring with sliding scale insulin. Check hemoglobin A1c Hypertension, chronic Home antihypertensives held initially for permissive blood pressure, at this time will restart metoprolol and lisinopril Depressionfluoxetine DVT prophylaxisSCDs and heparin Transfer out of the intensive care unit Progress Note: Quality VTE Deep Vein Thrombosis/Pulmonary Embolism Present on Admission: No
[2018-08-18] MEDS: Metoprolol Tartrate 25 MG Tablet PO SCH (20:54)
[2018-08-18] MEDS: Lisinopril 10 MG Tablet PO SCH (20:56)
[2018-08-19] MEDS: Insulin NovoLOG Aspart Correctional Sugar Inj SQ SCH ×4 (01:29→17:59)
[2018-08-19] MEDS: Chlorhexidine Gluconate 2% 1 Pack (2 Cloths) TOPICAL SCH (03:47)
[2018-08-19] MEDS: Sod Chloride 0.9% Inj 1,000 ML IV.CONT SCH ×3 (06:33→19:54)
[2018-08-19 07:19] LABS: Hematocrit 39.7 % (35.0-46.0); Hemoglobin 13.9 gm/dL (11.6-15.3); Mean Corpuscular HGB Conc 35.1 % (32.0-36.0); Mean Corpuscular Volume 88.2 fL (80.0-100.0); Mean Platelet Volume 7.7 fL (7.0-11.0); Platelet Count 268 th/mm3 (150-450); White Blood Count 9.8 th/mm3 (4.0-11.0)
[2018-08-19 07:26] LABS: INR 1.1 Ratio; Prothrombin Time 11.4 sec (9.8-11.6)
[2018-08-19 08:04] LABS: Chol/HDL Ratio 5.29 Ratio; HDL Cholesterol 42.3 mg/dL (40.0-60.0)
[2018-08-19] MEDS ORDERED: fentaNYL Citrate Inj 100 MCG/2 ML Ampul ONE (08:37)
[2018-08-19] MEDS ORDERED: Midazolam Inj 5 MG/ML 1 ML Vial ONE (08:37)
--- NOTE | 2018-08-19 08:50 | P.PNCA ---
Subjective Interval history: Pt w/o complaints, did well during loop Medications and Allergies Active Medications: Active Medications Acetaminophen (Tylenol) 650 mg PO Q6H PRN PRN Reason: PAIN 1-10 AND/OR FEVER >101F Last Admin: 08/16/18 06:50 Dose: 650 mg Al Hydroxide/Mg Hydroxide (Milk Of Magnluis enrique Liq) 30 ml PO Q12H PRN PRN Reason: Mild Constipation Albuterol (Duoneb Neb (Prn)) 1 ampul NEB Q2HR NEB PRN PRN Reason: WHEEZING Aspirin (Aspirin Chew) 81 mg PO DAILY [facility] Last Admin: 08/18/18 09:46 Dose: 81 mg Bisacodyl (Dulcolax Supp) 10 mg RECTAL DAILY PRN PRN Reason: SEVERE CONSITIPATION Chlorhexidine Gluconate (Chlorhexidine 2% Cloth) 3 pack TOPICAL DAILY@0400 [facility] Stop: 08/22/18 03:59 Last Admin: 08/19/18 03:47 Dose: Not Given Chlorhexidine Gluconate (Chlorhexidine 2% Cloth) 3 pack TOPICAL DAILY@0400 PRN PRN Reason: Extra cloth needed Stop: 08/22/18 03:59 Clopidogrel Bisulfate (Plavix) 75 mg PO DAILY [facility] Last Admin: 08/18/18 09:46 Dose: 75 mg Dextrose (D50w Vial) 50 ml IV.PUSH UNSCH PRN PRN Reason: PER HYPOGLYCEMIA PROTOCOL Famotidine (Pepcid Pf Inj) 20 mg IV.PUSH Q12HR [facility] Last Admin: 08/18/18 20:55 Dose: 20 mg Fluoxetine HCl (Prozac) 20 mg PO DAILY [facility] Last Admin: 08/18/18 09:46 Dose: 20 mg Glucagon (Glucagon Inj) 1 mg OTHER PRN PRN PRN Reason: for Hypoglycemia Protocol Sodium Chloride (Ns Inj) 1,000 mls @ 100 mls/hr IV.CONT .Q10H [facility] Last Admin: 08/19/18 06:33 Dose: 70 mls/hr Heparin Sodium/Dextrose (Heparin/D5w 25,000 U/250 Ml) 25,000 unit in 250 mls @ 12 mls/hr IV.CONT TITRATE PRN; Protocol PRN Reason: Per Protocol Last Titration: 08/19/18 06:00 Dose: 0 units/hr, 0 mls/hr Insulin Aspart (Novolog Insulin Correctional Sugar Inj) 0 unit SQ Q6HR [facility]; Protocol Last Admin: 08/19/18 06:40 Dose: Not Given Lactulose (Lactulose Liq) 30 ml PO DAILY PRN PRN Reason: SEVERE CONSITIPATION Lisinopril (Prinivil) 10 mg PO BID [facility] Last Admin: 08/18/18 20:56 Dose: 10 mg Metoprolol Tartrate (Lopressor) 25 mg PO BID [facility] Last Admin: 08/18/18 20:54 Dose: 25 mg Ondansetron HCl (Zofran Inj) 4 mg IV.PUSH Q6H PRN PRN Reason: NAUSEA OR VOMITING Senna/Docusate Sodium (Jaz-Colace) 1 tab PO BID [facility] Last Admin: 08/18/18 20:55 Dose: Not Given Sennosides (Senokot) 17.2 mg PO Q12H PRN PRN Reason: Moderate Constipation Sodium Chloride (Ns Flush) 2 ml IV.FLUSH BID [facility] Last Admin: 08/18/18 20:54 Dose: 2 ml Sodium Chloride (Ns Flush) 2 ml IV.FLUSH PRN PRN PRN Reason: FLUSH AFTER USING IV ACCESS Warfarin Sodium (Coumadin) 5 mg PO DAILY@1600 [facility] Last Admin: 08/18/18 16:27 Dose: 5 mg Allergies Allergy/AdvReac Type Severity Reaction Status Date / Time atorvastatin Allergy Mild Hives Verified 08/17/18 14:44 Home Medications Medication Instructions Recorded Confirmed Type amlodipine 10 mg PO DAILY 08/16/18 08/16/18 History aspirin 81 mg PO DAILY 08/16/18 08/16/18 History clopidogrel [Plavix] 75 mg PO DAILY 08/16/18 08/16/18 History fluoxetine 20 mg PO DAILY 08/16/18 08/16/18 History insulin glargine [Lantus Solostar 55 unit SUBCUT HS 08/16/18 08/16/18 History U-100 Insulin] lisinopril 20 mg PO BID 08/16/18 08/16/18 History metoprolol tartrate 50 mg PO BID 08/16/18 08/16/18 History semaglutide [Ozempic] 0.25 mg SUBCUT QWEEK 08/16/18 08/16/18 History Physical Exam Vital signs: Vital Signs 08/18/18 09:00 08/18/18 10:00 08/18/18 10:07 Temperature Pulse Rate 99 H 98 H 100 H Respiratory Rate 21 22 24 Blood Pressure 134/92 H 136/73 Pulse Oximetry 96 96 96 08/18/18 11:00 08/18/18 11:33 08/18/18 12:00 Temperature 98.8 F Pulse Rate 96 H 98 H 89 Respiratory Rate 24 26 H 27 H Blood Pressure 161/70 H Pulse Oximetry 96 97 96 08/18/18 12:16 08/18/18 12:31 08/18/18 12:46 Temperature Pulse Rate 92 H 92 H 87 Respiratory Rate 22 26 H 24 Blood Pressure 170/73 H 168/76 H 168/75 H Pulse Oximetry 96 96 96 08/18/18 13:00 08/18/18 13:01 08/18/18 13:16 Temperature Pulse Rate 83 84 93 H Respiratory Rate 22 16 26 H Blood Pressure 161/71 H 170/72 H Pulse Oximetry 96 96 96 08/18/18 13:46 08/18/18 13:56 08/18/18 14:00 Temperature Pulse Rate 96 H 87 94 H Respiratory Rate 27 H 22 Blood Pressure 148/67 H Pulse Oximetry 95 94 L 08/18/18 14:01 08/18/18 14:16 08/18/18 14:31 Temperature Pulse Rate 95 H 90 90 Respiratory Rate 26 H 25 H 23 Blood Pressure 158/71 H 141/59 H 137/62 Pulse Oximetry 95 96 96 08/18/18 14:46 08/18/18 15:00 08/18/18 15:01 Temperature Pulse Rate 88 93 H Respiratory Rate 22 21 Blood Pressure 141/64 H 151/68 H Pulse Oximetry 96 96 08/18/18 16:01 08/18/18 17:00 08/18/18 17:01 Temperature Pulse Rate 106 H 99 H Respiratory Rate 24 25 H Blood Pressure 158/110 H 168/74 H Pulse Oximetry 96 96 08/18/18 18:00 08/18/18 19:00 08/18/18 20:00 Temperature 97.6 F Pulse Rate 97 H 106 H 78 Respiratory Rate 20 19 21 Blood Pressure 144/96 H 152/78 H Pulse Oximetry 97 97 98 08/18/18 21:00 08/18/18 22:00 08/18/18 22:55 Temperature Pulse Rate 81 77 83 Respiratory Rate Blood Pressure Pulse Oximetry 08/19/18 02:55 08/19/18 06:00 Temperature Pulse Rate 68 82 Respiratory Rate Blood Pressure Pulse Oximetry Intake & Output 08/18/18 08/19/18 08/19/18 18:59 06:59 18:59 Intake Total 0 / 1920 1480 / 1480 Balance 1920 / 1920 1480 / 1480 Weight 90.8 kg Intake: IV 1200 / 1200 1000 / 1000 Heparin/D5W 25,000 U/250 mL 25, 200 / 200 000 unit In 250 ml @ Per Protocol IV.CONT TITRATE PRN Rx #:[id number] NS Inj 1,000 ML @ 100 mls/hr IV 1000 / 1000 1000 / 1000 .CONT .Q10H [facility] Rx#:[id number] Oral 720 / 720 480 / 480 Other: # Voids 6 5 Date of Last Bowel Movement 08/18/18 # Bowel Movements 1 0 - Constitutional no acute distress - Routine HEENT Exam Head: Present: normocephalic Eye: Present: EOMI ENT: Present: mucous membranes moist - Routine Neck Exam Present: supple. Absent: JVD - Routine Respiratory Exam Present: CTA bilaterally - Routine Cardiovascular Exam Present: RRR. Absent: murmur - Routine Abdominal Exam Present: soft - Routine Extremities Exam Absent: edema Results 08/19/18 06:48 08/18/18 11:21 Coagulation 08/17/18 08/18/18 08/19/18 Range/Units 09:36 04:18 06:48 PT 11.4 (9.8-11.6) sec APTT 41.9 H 44.8 H (23.4-31.7) sec Lipids 08/19/18 Range/Units 06:48 Triglycerides 267 H (42-150) mg/dL Cholesterol 224 H (120-200) mg/dL HDL Cholesterol 42.3 (40.0-60.0) mg/dL Cholesterol/HDL Ratio 5.29 Ratio CBC 08/18/18 08/19/18 Range/Units 04:18 06:48 WBC 8.5 9.8 (4.0-11.0) th/mm3 RBC 4.56 4.50 (4.00-5.30) mil/mm3 Hgb 14.0 13.9 (11.6-15.3) gm/dL Hct 41.3 39.7 (35.0-46.0) % Plt Count 246 268 (150-450) th/mm3 Comprehensive Metabolic Panel 08/18/18 Range/Units 11:21 Potassium 3.5 (3.5-5.1) meq/L Intake and Output 08/18/18 08/19/18 08/19/18 22:59 06:59 14:59 Intake Total 1920 / 1920 1480 / 1480 Balance 1920 / 1920 1480 / 1480 Intake: IV 1200 / 1200 1000 / 1000 Heparin/D5W 25,000 U/250 mL 25, 200 / 200 000 unit In 250 ml @ Per Protocol IV.CONT TITRATE PRN Rx #:[id number] NS Inj 1,000 ML @ 100 mls/hr IV 1000 / 1000 1000 / 1000 .CONT .Q10H [facility] Rx#:[id number] Oral 720 / 720 480 / 480 Other: # Voids 6 5 Date of Last Bowel Movement 08/18/18 # Bowel Movements 1 0 Weight 90.8 kg Assessment and Plan - Assessment (1) Acute CVA (cerebrovascular accident) Code(s): I63.9 - Cerebral infarction, unspecified Status: Acute - Plan doing well, continue medical therapy for now, now s/p loop Ok to d/c home from cardiac standpoint, she should f/u with me in 1-2 weeks.
[2018-08-19] MEDS ORDERED: fentaNYL Citrate Inj 100 MCG/2 ML Ampul IV.PUSH ONE (09:15)
[2018-08-19] MEDS ORDERED: Midazolam Inj 5 MG/ML 1 ML Vial IV.PUSH ONE (09:15)
--- NOTE | 2018-08-19 09:20 | MA ---
cc: Pierre Solis MD DATE: 08/19/2018 INDICATIONS: CVA. PROCEDURES PERFORMED: 1. Fifteen minutes of moderate IV sedation. 2. Loop recorder insertion. DESCRIPTION OF PROCEDURE: After informed consent was obtained, the patient received 2 mg of Versed and 25 mcg of fentanyl for moderate IV sedation. Next, the [employer] LINQ loop recorder was inserted subcutaneously to the left chest. The patient tolerated the procedure well without any apparent complication. Tachybrady pause and atrial fibrillation detection was enabled. The initial R-wave was 0.41 millivolt. The serial number was [id number]. MD MELANIE Moura/stevo , 08:52 AM , 08:56 AM
[2018-08-19] MEDS: Lisinopril 10 MG Tablet PO SCH ×2 (10:13→20:51)
[2018-08-19] MEDS: Famotidine PF Inj 20 MG/2 ML Vial IV.PUSH SCH ×2 (10:13→20:51)
[2018-08-19] MEDS: Metoprolol Tartrate 25 MG Tablet PO SCH ×2 (10:14→20:51)
[2018-08-19] MEDS: FLUoxetine 20 MG Capsule PO SCH (10:14)
[2018-08-19] MEDS: Senna/Docusate Sodium 8.6/50 MG Tablet PO SCH ×3 (10:14→20:51)
[2018-08-19] MEDS: Ezetimibe 10 MG Tablet PO SCH (10:38)
--- NOTE | 2018-08-19 14:06 | P.PNIM ---
Subjective Interval history: Feels okay. No headaches or visual changes nor any weakness of numbness. Wants to go home soon. Had a loop recorder today. Physical Exam Vital signs: Last Vital Signs Temp 97.6 F 08/18/18 20:00 Pulse 82 08/19/18 06:00 Resp 21 08/18/18 20:00 BP 152/78 H 08/18/18 20:00 Pulse Ox 98 08/19/18 09:41 Intake & Output 08/17/18 08/18/18 08/19/18 08/20/18 06:59 06:59 06:59 06:59 Intake Total 2990 / 2990 3874 / 3874 3400 / 3400 Output Total 1600 / 1600 1000 / 1000 Balance 1390 / 1390 2874 / 2874 3400 / 3400 Weight 90.7 kg 90.8 kg Narrative: GENERAL: This is a well-nourished, well-developed patient, in no apparent distress. CHEST WALL: CARDIOVASCULAR: Regular rate and rhythm RESPIRATORY: Clear to auscultation. Breath sounds equal bilaterally. No wheezes , rales, or rhonchi. GASTROINTESTINAL: Abdomen soft, non-tender, nondistended. Normal active bowel sounds MUSCULOSKELETAL: Extremities without clubbing, cyanosis, or edema. NEURO: Alert & Oriented x4 to person, place, time, situation. Left facial droop less pronounced. Motor strength 5 out of 5 bilateral upper and lower extremities. Normal speech. Results Labs CBC & Chem 7: 08/19/18 06:48 08/18/18 11:21 Labs: Microbiology 08/18/18 08:32 Stool Stool Occult Blood ([facility]) - Final Hemoccult negative Assessment and Plan (1) Acute CVA (cerebrovascular accident): Code(s): I63.9 - Cerebral infarction, unspecified Status: Acute Plan 58-year-old white female with a previous history of stroke, hypertension was admitted for acute onset of slurred speech and left facial droop with Acute CVA Patient with bilateral carotid occlusion and right MCA thrombus. 2D echo with normal EF 55-60%, mild concentric left ventricular hypertrophy. Trace mitral valve regurgitation and tricuspid valve regurgitation Continue heparin drip per neurology and start Coumadin. INR today 1.1 we will give 10 mg dose today. Neurological checks has been stable and left facial droop is improved with improvement in speech. Appreciate neurology's recommendations. Status post loop recorder with cardiology Dr. Hong today. . Currently on aspirin and Plavix, defer to neurology for when this can be stopped while Coumadin is started. I have held Plavix today until neurology evaluation. Lipid profile showed triglyceride 267 with cholesterol 224 LDL 128, patient allergic to statins, will start Zetia. Diabetes mellitus type 2, [id number], controlled, no acute complications. Continue glucose monitoring with sliding scale insulin. hemoglobin A1c pending Hypertension, chronic Home antihypertensives held initially for permissive blood pressure, restart metoprolol and lisinopril yesterday, will restart amlodipine today Depressionfluoxetine DVT prophylaxisSCDs and heparin Transfer out of the intensive care unit Home when cleared by neurology Progress Note: Quality VTE Deep Vein Thrombosis/Pulmonary Embolism Present on Admission: No
[2018-08-19 15:13] LABS: Protein C Antigen 95 % (70-150); Protein S Antigen Free 145 % (65 - 160)
[2018-08-19] MEDS: amLODIPine 10 MG Tablet PO SCH (16:27)
[2018-08-19] MEDS: Heparin Drip 25,000 UNIT/250 ML BAG IV.CONT PRN (19:35)
[2018-08-19] MEDS ORDERED: Insulin Detemir Inj 1,000 UNIT/10 ML Vial SQ SCH (21:00)
[2018-08-19 23:53] LABS: Dil Russell Viper Venom Conf ( ND (NEGATIVE); Dil Russell Viper Venom Time M ND (CORRECTED); Lupus Anticoagulant PTT Screen 40 seconds (< OR = 40)
[2018-08-20] MEDS: Insulin NovoLOG Aspart Correctional Sugar Inj SQ SCH ×4 (00:20→13:14)
[2018-08-20] MEDS: Sod Chloride 0.9% Inj 1,000 ML IV.CONT SCH (01:05)
[2018-08-20] MEDS: Chlorhexidine Gluconate 2% 1 Pack (2 Cloths) TOPICAL SCH (04:00)
[2018-08-20 06:53] VITALS: RESP 20
[2018-08-20 07:50] LABS: Activated Partial Thrombo Time 38.4 sec (23.4-31.7); INR 1.3 Ratio; Prothrombin Time 13.4 sec (9.8-11.6)
[2018-08-20] MEDS: Senna/Docusate Sodium 8.6/50 MG Tablet PO SCH (08:52)
[2018-08-20] MEDS: amLODIPine 10 MG Tablet PO SCH (08:52)
[2018-08-20] MEDS: Lisinopril 10 MG Tablet PO SCH (08:52)
[2018-08-20] MEDS: Metoprolol Tartrate 25 MG Tablet PO SCH (08:52)
[2018-08-20] MEDS: Ezetimibe 10 MG Tablet PO SCH (08:52)
[2018-08-20] MEDS: FLUoxetine 20 MG Capsule PO SCH (08:53)
[2018-08-20] MEDS: Famotidine PF Inj 20 MG/2 ML Vial IV.PUSH SCH (08:53)
[2018-08-20 11:27] LABS: Factor V Leiden Mutation Negative (Negative)
[2018-08-20 12:51] VITALS: BP 178/95; PULSE 88; TEMP 99.4; O2SAT 99
--- NOTE | 2018-08-20 13:58 | P.DCO ---
Diagnosis (1) Acute CVA (cerebrovascular accident): Status: Acute Home Health Nursing Order: Medical education, Signs/symptoms of disease process, Diabetic education , Medication education-adverse effect and Nursing assessment with vital signs Instructions: Needs daily PT/INR check. Patient to continue Lovenox 90mg Q12hrs until INR is equal or greater than 2.0 on two consecutive days. Case Management Consult Case Management Consult-Home Health: Yes I have seen patient Karyn Doty on 08/20/18. My clinical findings support the need for the requested home health care services because: Limited mobility due to disease progression, Medication compliance is questionable, Limited ability to care for self, Need for psychosocial assistance , Impaired cognition/judgement, High risk of falls, Infection with risk of complications and Injectable medication education/administration I certify that my clinical findings support that this patient is homebound because: Unsteady gait/balance, Unsafe to leave home unassisted, Need for psychosocial assistance and Unable to use public transportation
--- NOTE | 2018-08-20 16:29 | P.DIET ---
Nutritional Evaluation Type of nutrition evaluation: initial Subjective Subjective Comments: Pt is a referral from Nursing for inability to tolerate her diet. Pt has no complaints now regarding her diet. Pt is requesting diet education for her diabetes and her A1C of 10%. Pt's daughter at bedside during this visit. Objective - Diagnosis Acute CVA - Objective Dietitian Reviewed in Medical Record: Current diet, Curent medications, Labs, Medical history Diet Order: [id number] [facility] Soft Speech Therapy Recommendations: Yes ([facility] soft) Objective Comments: PMH includes: DM, HTN, HLD Assessment Assessment: Pt tolerating current diet per ST. Pt provided w/diet education, per her request , for Consistent CHO diet. Pt's daughter present during the diet education. Pt Receptive to all diet education provided. Pt's questions answered to her satisfaction. Encouraged pt to follow-up w/Diabetes Education Classes w/contact info provided. Recommendations: 1. Diet Modification per ST Recs 2. Pt provided w/diet education, per her request, for Consistent CHO diet 3. Pt Receptive to all diet education provided 4. Pt's questions answered to her satisfaction 5. Encouraged pt to follow-up w/Diabetes Education Classes w/contact info provided
--- NOTE | 2018-08-20 17:55 | P.DS ---
DS: Providers Date of admission: 08/16/18 03:48 Primary care physician: Michael Sierra MD Consults: 08/16/18 02:34 Consult to Neurology Stat Consulting Provider: Guero Maldonado For STAT consult, spoke directly to:: JAVIER Reason for Consultation: Brain Attack Notified:: Service Spoke with:: Zachariah Date Notified:: 08/16/18 Time Notified:: 02:53 Ordering Provider: KERRI 08/16/18 04:30 HUB Only Consult Order Routine Consulting Provider: Carlos Gonzalez 08/17/18 10:59 Consult to Hospitalist Routine Consulting Provider: Alma Delia Hedrick Reason for Consultation: Medical management s/p CVA Notified:: Service Spoke with:: sergey Date Notified:: 08/17/18 Time Notified:: 11:14 Ordering Provider: CARMEN 08/17/18 11:33 Consult to Cardiology Routine Consulting Provider: Pierre Solis Does the patient have a Pipe Cleaner who follows them?: No Preferred Warehousing Technician:: Behavioral Health Therapist Physician Reason for Consultation: loop needed cva Notified:: Service Spoke with:: nicole Date Notified:: 08/17/18 Time Notified:: 11:48 Ordering Provider: BRIDGET Brief History from admission: 58-year-old very pleasant female presents as a stroke alert. According to director emergency services and son report patient was in her usual state of health when she went to bed at 10 PM reportedly the patient was awakened by family approximately 2 AM in order to share with Ran festivities and eat some baked cookies when son noticed that she had left facial droop and slurring of her speech that was new. 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 Patient also has history of hypertension dyslipidemia and diabetes. The CT of the head and neck demonstrates occlusion of the internal carotid arteries bilaterally. The left occlusion is chronic. The right internal carotid artery occlusion appears new when compared to the prior CTA. Also acute appearing thrombus in the proximal right middle cerebral and right anterior cerebral arteries. Due to unknown time of onset of symptoms the patient is not a candidate for TPA administration , she was evaluated by neurologist traditional maori health practitioner with recommendations of frequent neuro checks and heparin infusion. DS: Diagnosis Discharge Diagnosis (1) Acute CVA (cerebrovascular accident): Status: Acute DS: Summary Patient's care wasMs. Canup is a pleasant 58-year-old female who was admitted to the hospital on 2017 under stroke alert. Patient went to bed around 10 PM and family members woke up around 2 AM to share Ran activities when they noticed a facial droop and slurred speech. Patient has a history of CVA x2. She has history of hypertension, hyperlipidemia and diabetes mellitus. CT of the head and neck shows occlusion of the internal carotid arteries bilaterally. Neurology was consulted and TPA was not administered due to unknown time of onset of her symptoms. Patient was started on heparin infusion with goal to switch to frame. During this hospitalization, patient's symptoms resolved and she is back to her baseline. Patient's care was transferred to hospitalist service on 08/18/2018. Patient expressed desire to go home. I discussed with neurologist Dr. Ocasio regarding anticoagulation. We agreed that a reasonable approach would be to start patient on Lovenox 90 mg subcu every 12 hours and continue warfarin. We will arrange home health where INR will be monitored daily until therapeutic for 2 days in a row. Patient verbalized understanding. I discussed with case management who will arrange home health. Patient was ambulating well with physical therapy. Prior to discharge, we also discussed about diabetes mellitus. We encouraged patient to get an evaluation by an case aide in the outpatient setting. Time Spent with Patient Total time spent providing and/or coordinating discharge services: Less than 30 minutes Quality: Stroke Last date observed well: 08/15/18 Last time observed well: 22:00 Quality: VTE Deep Vein Thrombosis/Pulmonary Embolism Present on Admission: No Exam Narrative Exam Narrative: GENERAL: Alert, oriented x3, NAD. SKIN: Warm and dry. HEAD: Normocephalic. EYES: No scleral icterus. No injection or drainage. NECK: Supple, trachea midline. No JVD or lymphadenopathy. CARDIOVASCULAR: Regular rate and rhythm without murmurs, gallops, or rubs. RESPIRATORY: Breath sounds equal bilaterally. No accessory muscle use. GASTROINTESTINAL: Abdomen soft, non-tender, nondistended. MUSCULOSKELETAL: No cyanosis, or edema. BACK: Nontender without obvious deformity. No CVA tenderness. Results Labs on day of discharge: Labs from last 24 hours 08/20/18 08/20/18 08/20/18 12:27 06:41 05:25 PT 13.4 H INR 1.3 APTT 38.4 H Thrombin Time Lupus Anticoagulant LA PTT Screen dRVVT Screen LA dRVVT Confirm dRVVT Mix Hexagonal Phase Confirm Factor V Leiden Mutat Factor V Leiden Interp Fact V Leiden Review By POC Glucose 180 H 169 H Hemoglobin A1c 08/20/18 08/20/18 08/19/18 01:51 01:16 19:10 PT INR APTT 41.5 H 39.9 H D Thrombin Time Lupus Anticoagulant LA PTT Screen dRVVT Screen LA dRVVT Confirm dRVVT Mix Hexagonal Phase Confirm Factor V Leiden Mutat Factor V Leiden Interp Fact V Leiden Review By POC Glucose 189 H Hemoglobin A1c 08/18/18 08/16/18 08/16/18 04:18 10:13 10:13 PT INR APTT Thrombin Time ND Lupus Anticoagulant LA PTT Screen 40 dRVVT Screen 34 LA dRVVT Confirm ND dRVVT Mix ND Hexagonal Phase Confirm ND Factor V Leiden Mutat Negative Factor V Leiden Interp . Fact V Leiden Review By Lynne pablo m.d. POC Glucose Hemoglobin A1c 10.0 H Impressions ITS Impressions Head MRI 08/16/18 00:00 CONCLUSION: 1. Large area of restricted diffusion right sylvian region including head of the caudate. Both internal carotid arteries are noted to be occluded. 2. Global perfusion could be evaluated by either MRI perfusion, CT perfusion or nuclear medicine [facility] whole brain perfusion Head MRA 08/16/18 00:00 CONCLUSION: 1. Severe intracranial inflow disease. 2. MR or CT perfusion could be used to further evaluate the global perfusion. Chest X-Ray 08/16/18 02:34 CONCLUSION: No acute cardiopulmonary process. Head CT 08/16/18 02:34 CONCLUSION: 1. No areas of hemorrhage or mass effect are seen. 2. Dense right MCA concerning for possible thrombus. The patient is to have a CTA to follow. Report was called by [Dr. Granger to Dr. Young at 2:51 AM. Head CTA 08/16/18 02:34 CONCLUSION: 1. Occlusion of the internal carotid arteries bilaterally. The left occlusion is chronic. The right internal carotid artery occlusion appears new when compared to the prior CTA. 2. Acute appearing thrombus in the proximal right middle cerebral and right anterior cerebral arteries. Report was called by [Dr. Granger to Dr. Ocasio. ] Neck CTA 08/16/18 02:34 CONCLUSION: 1. New occlusion of the right internal carotid artery. 2. Chronic occlusion of the left internal carotid artery. Discharge Plan Discharge Disposition Patient Disposition: W/Home Health Service Discharge Condition Condition: Stable Discharge Order Discharge Orders: Discharge Order (Routine); Ordered 08/20/18 Ordered By: Alma Delia Hedrick Discharge Details Anticipated Discharge Date: 08/20/18 Physicians Team ED Provider: Teodora Young Primary Care Provider: Michael Sierra V Attending Provider: Alma Delia Hedrick Other Providers: Guero Maldonado ; Carlos Gonzalez ; Pierre Solis Rxs /Orders / Referrals /Forms Prescriptions: New warfarin [Coumadin] 5 mg Tablet 5 mg PO DAILY@1600 Qty: 30 RF: 0 enoxaparin [Lovenox] 100 mg/mL syringe 90 mg SQ Q12H 15 Days Qty: 27 RF: 0 Continue lisinopril 20 mg Tablet 20 mg PO BID RF: 0 amlodipine 10 mg Tablet 10 mg PO DAILY RF: 0 metoprolol tartrate 50 mg Tablet 50 mg PO BID RF: 0 aspirin 81 mg Tablet,Chewable 81 mg PO DAILY RF: 0 fluoxetine 20 mg Capsule 20 mg PO DAILY RF: 0 semaglutide [Ozempic] 0.25 mg or 0.5 mg(2 mg/1.5 mL) Pen Injector 0.25 mg SUBCUT QWEEK RF: 0 Discontinued clopidogrel [Plavix] 75 mg Tablet 75 mg PO DAILY RF: 0 Referrals: [facility], [Agency] - See Instructions Michael Sierra MD [Primary Care Provider] - See Instructions Discharge Instructions Patient Printed Instructions: Warfarin (By mouth), Enoxaparin (By injection) Status ED Status: Left Department Discharge Information Discharge Date/Time: 08/20/18 16:28
== END 2018-08-20 16:28 | disposition home health service (06) ==
LOC: NEPC 02:29 → NEDA 03:48 → N03 04:30 → N05 08-19 22:41
PROVIDERS: ADMIT Hospitalist; ATTEND Hospitalist